=== PATIENT | female | born 1980 | race Two or more races ===

== ENCOUNTER 2020-05-22 15:27 | Outpatient (REF) | payer OTHER, SELFPAY ==
[2020-05-22 16:10] LABS: Hematocrit 35.3 % (37-47); Hemoglobin 12.5 g/dl (12.0-16.0); Imm Gran Abs Auto 0.02 X10*3/uL (0.00-0.03); Imm Gran Pct Auto 0.4 % (0.0-0.4); Lymphocytes Absolute Auto 0.2 X10*3/uL (1.2-4.9); Lymphocytes Percent Auto 5.3 % (20-40); MANUAL DIFF FLAG SCAN; Mean Corpuscular HGB Conc 35.4 g/dl (31.0-35.0); Mean Corpuscular Hemoglobin 32.2 pg (27.0-33.0); Mean Platelet Volume 10.5 fL (9.4-12.3); Monocytes Absolute Auto 0.2 X10*3/uL (0.1-1.2); Monocytes Percent Auto 3.3 % (2-11); Neutrophils Absolute Auto 4.1 X10*3/uL (2.0-8.3); Platelet Count 182 X10*3/uL (160-400); Red Blood Count 3.88 X10*6/uL (4.20-5.50); Red Cell Distribution Width 12.6 % (11.0-16.0); SCAN SMEAR FLAG 1; White Blood Count 4.5 X10*3/uL (4.8-10.8)
[2020-05-22 16:15] LABS: Glucose Urine UA NEG (NEG); Leukocyte Esterase Urine NEG (NEG); Nitrite Urine NEG (NEG); Specific Gravity - Urine >= 1.030 (1.005-1.025); Urine Blood 1+ (NEG); Urine Ketones 5 MG/DL (NEG); Urine Protein 3+ MG/DL (NEG-TRACE)
[2020-05-22 16:17] LABS: Appearance Urine CLEAR; Color Urine YELLOW
[2020-05-22 16:32] LABS: Alanine Aminotransferase 28 U/L (0-31); Albumin Level 3.9 g/dL (3.5-5.0); Anion Gap 12 (12-20); Aspartate Amino Transferase 29 U/L (5-31); Blood Urea Nitrogen 15 mg/dL (9-16); Calcium 8.7 mg/dL (8.4-10.2); Carbon Dioxide 25 mmol/L (22-29); Chloride 107 mmol/L (96-108); Estimated Glomerular Filt Rate 54; Potassium 3.5 mmol/l (3.3-5.1); Sodium 140 mmol/L (135-145)
[2020-05-22 16:43] LABS: SLIDE REVIEW VERIFIED
[2020-05-22 16:51] LABS: Squamous Epithelial Cell Urine TRACE /LPF
[2020-05-22 17:18] LABS: Protein/Creatinine Ratio, Ur 1.15 (<0.2); Total Protein Urine Random 338 mg/dL (<12)
[2020-05-23 11:11] LABS: Complement C3 74 mg/dL (83-193)
== END 2020-05-22 15:28 | disposition home or self-care (01) ==
LOC: HO.LAB 15:27
PROVIDERS: PCP Internal Medicine; Visit Provider Internal Medicine Hypertension Specialist
DX: M32.10 Systemic lupus erythematosus, organ or system involvement unspecified (principal); N03.2 Chronic nephritic syndrome with diffuse membranous glomerulonephritis
CPT/HCPCS: 36415; 80051; 81001; 82040; 82310; 82565; 84156; 84450; 84460; 84520; 85025; 86160

== ENCOUNTER 2020-11-21 14:28 | Emergency (ER) | payer OTHER, SELFPAY ==
--- NOTE | ~2020-11-21 | XR_ITS ---
EXAMINATION: XR CHEST CLINICAL INFORMATION: Chest pain COMPARISON: Previous chest x-ray most recent July 2019 TECHNIQUE: Frontal view of the chest was obtained. FINDINGS: No significant abnormality is noted involving the heart, lungs, mediastinum, bony thorax or soft tissues. XR/XR chest 1V IMPRESSION: Unremarkable examination.
--- NOTE | ~2020-11-21 | CT_ITS ---
EXAMINATION: CT ANGIOGRAM OF THE CHEST WITH AND WITHOUT CONTRAST (CT PULMONARY ANGIOGRAM FOR PE) CLINICAL INFORMATION: Reason for Exam Chest pain/elevated D-dimer COMPARISON: Chest radiograph from earlier in the same day TECHNIQUE: Prior to contrast administration, noncontrast localization images were obtained. Subsequently, multidetector volumetric imaging was performed from the thoracic inlet to below the diaphragms following the administration of 69 mL Omnipaque 350 intravenous contrast. No contrast reaction reported Sagittal, coronal, and MIP oblique sagittal reformatted images were obtained on the CT workstation, uploaded to PACS, and reviewed. This CT examination was performed using dose optimization techniques as appropriate, variously including the following: *Automated exposure control *Adjustment of mA and/or kV according to patient size (this includes techniques or standardized protocols for targeted exams where dose is matched to indication/reason for exam; i.e. extremities or head) *Use of iterative reconstruction technique Total exam dose-length product 334 mGy-cm FINDINGS: QUALITY OF STUDY/CONTRAST BOLUS: Satisfactory. PULMONARY ARTERIES: No central or segmental pulmonary emboli. THORACIC AORTA: No aneurysm or dissection. LUNG: Motion artifact degrades image quality. No consolidation or suspicious pulmonary nodules visualized within the limitations of the exam. PLEURA: No pleural effusion or pneumothorax. MEDIASTINUM: Heart size is upper limits of normal. No pericardial effusion. No hilar or mediastinal lymphadenopathy. No evidence of septal bowing or right heart strain. CHEST WALL/AXILLA: No axillary or internal mammary lymphadenopathy. OSSEOUS STRUCTURES: No acute or suspicious osseous abnormality. UPPER ABDOMEN: Unremarkable. No reflux of contrast into the hepatic veins to suggest elevated right heart pressures. CT/CT angio chest PE protocol IMPRESSION: No central or segmental pulmonary emboli. No acute abnormality in the chest. VTE: negative
[2020-11-21 14:48] VITALS: BP 154/116; PULSE 112; RESP 22; TEMP 37.6; O2SAT 100; BMI 27.8
--- NOTE | 2020-11-21 15:43 | ECG_ITS ---
Test Reason : CHEST PAIN Blood Pressure : / mmHG Vent. Rate : 101 BPM Atrial Rate : 101 BPM P-R Int : 142 ms QRS Dur : 070 ms QT Int : 346 ms P-R-T Axes : 028 -17 019 degrees QTc Int : 448 ms Sinus tachycardia Septal infarct , age undetermined Abnormal ECG When compared with ECG of 05-NOV-2006 15:00, Vent. rate has increased BY 43 BPM Septal infarct is now Present T wave amplitude has decreased in Lateral leads Referred By: Rodrigue Rodríguez Electronically Signed By:Paulo Howell
[2020-11-21] MEDS: 0.9 % Sodium Chloride 500 ML IV (16:21)
[2020-11-21 16:31] LABS: Basophils Percent Auto 0.3 % (0-2); Eosinophils Percent Auto 0.3 % (0-4); Hematocrit 31.7 % (37-47); Imm Gran Abs Auto 0.02 X10*3/uL (0.00-0.03); Imm Gran Pct Auto 0.5 % (0.0-0.4); Lymphocytes Absolute Auto 0.6 X10*3/uL (1.2-4.9); Lymphocytes Percent Auto 15.2 % (20-40); MANUAL DIFF FLAG SCAN; Mean Corpuscular HGB Conc 34.7 g/dl (31.0-35.0); Mean Corpuscular Volume 89.3 fL (80-98); Mean Platelet Volume 9.6 fL (9.4-12.3); Monocytes Absolute Auto 0.2 X10*3/uL (0.1-1.2); Monocytes Percent Auto 5.9 % (2-11); Neutrophils Percent Auto 77.8 % (45-73); Platelet Count 186 X10*3/uL (160-400); Red Blood Count 3.55 X10*6/uL (4.20-5.50); Red Cell Distribution Width 12.4 % (11.0-16.0); SCAN SMEAR FLAG 1; White Blood Count 3.9 X10*3/uL (4.8-10.8)
[2020-11-21 16:42] LABS: Prothrombin Time 11.6 SEC (10.8-13.0)
[2020-11-21 16:44] LABS: Glucose Urine UA NEG (NEG); Leukocyte Esterase Urine NEG (NEG); Nitrite Urine NEG (NEG); PH 7.5 (5.0-8.0); Partial Thromboplastin Time 29.2 SEC (24.1-38.0); Urine Blood 3+ (NEG); Urine Ketones NEG (NEG); Urine Protein 2+ MG/DL (NEG-TRACE)
[2020-11-21 16:45] LABS: D Dimer 420 NG/ML
[2020-11-21 16:46] VITALS: BP 135/87; PULSE 99; RESP 17; TEMP 37.7; O2SAT 100
[2020-11-21 16:46] LABS: UPreg QC Valid YES; Urine Pregnancy NEGATIVE (NEGATIVE)
[2020-11-21 16:47] LABS: Appearance Urine HAZY; Color Urine YELLOW
[2020-11-21 16:50] LABS: SLIDE REVIEW VERIFIED
[2020-11-21 17:02] LABS: Alanine Aminotransferase 17 U/L (0-31); Albumin Level 3.5 g/dL (3.5-5.0); Alkaline Phosphatase 79 U/L (39-117); Anion Gap 9 (12-20); Aspartate Amino Transferase 24 U/L (5-31); Bilirubin Total 0.7 mg/dL (0.0-1.0); Blood Urea Nitrogen 10 mg/dL (9-16); C Reactive Protein 0.79 mg/dL (< or = 0.50); Calcium 8.1 mg/dL (8.4-10.2); Carbon Dioxide 28 mmol/L (22-29); Chloride 96 mmol/L (96-108); Creatinine Clr Calc Pharmacy 71.5; Estimated Glomerular Filt Rate > 60; Glucose Random 86 mg/dL (60-115); Lactate Dehydrogenase 267 U/L (122-220); Potassium 3.2 mmol/L (3.3-5.1); Sodium 130 mmol/L (135-145); Total Protein 6.7 g/dL (6.5-8.0)
[2020-11-21 17:05] LABS: Troponin-I High Sensitivity 9.4 ng/L (<3.5-17.0)
[2020-11-21 17:20] LABS: Ferritin 319 ng/mL (10-122)
[2020-11-21 17:24] LABS: Renal Epithelial Cells Urine 1+ /LPF; Squamous Epithelial Cell Urine 2+ /LPF
[2020-11-21 17:58] VITALS: BP 145/98; PULSE 100; RESP 11; TEMP 37.4; O2SAT 99
[2020-11-21 19:14] LABS: Influenza A PCR NEGATIVE (Negative); Influenza B PCR NEGATIVE (Negative); Resp Syncy Virus RNA Qual PCR NEGATIVE (Negative); SARS COV2 PCR INHOUSE NEGATIVE (Negative)
[2020-11-21] MEDS: Potassium Chloride ER 20 MEQ TAB.ER.PRT 40 MEQ PO (19:26)
[2020-11-21] MEDS: Acetaminophen 325 MG TABLET 650 MG PO (19:26)
--- NOTE | 2020-11-21 20:35 | ED_ITS ---
HPI - General Adult General Chief complaint: Nausea/Vomiting/Diarrhea Stated complaint: fever Time Seen by Provider: 11/21/20 15:43 Source: patient Mode of arrival: ambulatory Limitations: no limitations History of Present Illness HPI narrative: * 32-year-old female who reports history of hypertension, lupus, carpal tunnel who presents with constellation of symptoms couple days he has had body aches, chills, myalgia, congestion, right ear pain as well as headache and feeling like she is not drinking enough and also her blood pressure has been running high. Positive recent travel she did come back from [place] 2 weeks ago after spending a week there. Onset (ago): day(s) Location: head, face and chest Severity: moderate Quality: aching Pain Consistency: constant Associated symptoms: chest pain (Intermittent ache like), fever/chills (Subjective) and headaches (Gradual over the last couple days) Treatments prior to arrival: none Related Data Allergies Allergy/AdvReac Type Severity Reaction Status Date / Time hydrocodone Allergy Unknown UNKNOWN Unverified 05/08/20 15:33 oxycodone [OXYCODONE] Allergy Unknown TONGUE Unverified 05/08/20 15:33 SWELLING Review of Systems Review of Systems: Constitutional: No Weight loss, No Night Sweats, No Fatigue, No Malaise ENT/Mouth: No Hearing loss, No Ear Pain, + Nasal Congestion, No Sinus Pain, No Hoarseness, No sore throat, No Rhinorrhea, No Swallowing Difficulty Eyes: No Eye Pain, No Swelling, No Redness, No Foreign Body, No Discharge, No Vision Changes Cardiovascular: No SOB, No Dyspnea on Exertion, No Orthopnea, No Edema, No Pa lpitations Respiratory: + Cough, No Sputum, No Wheezing, No Smoke Exposure, No Dyspnea Gastrointestinal: No Nausea, No Vomiting, No Diarrhea, No Constipation, No abdominal Pain, No Hematochezia, No Melena Genitourinary: no irregular bleeding, No Dysuria, No Urinary Frequency, No Hematuria, No Urinary Incontinence, No Urgency, No Flank Pain, No Urinary Flow Changes, No Hesitancy Musculoskeletal: No joint pain, + Myalgias, No Joint Swelling Skin: No Skin Lesions, No rash Neuro: No Weakness, No Numbness, No Paresthesias, No Loss of Consciousness, No Dizziness, No Headache Psych: Positive anxiety ?I feel anxious and some of this can be me working myself up? No Social Issues Heme/Lymph: No Bruising, No Bleeding,No Lymphadenopathy Endocrine: No Polyuria, No Polydipsia, No Temperature Intolerance Yes all other systems are reviewed and are negative [facility] Past Medical History Medical History HTN (hypertension) Lupus Social History Social History Advance Directives: No Advance Directives Information Provided: Yes Physical Exam Vital Signs: Vital Signs: Last Vital Signs Temp 98.4 F 11/21/20 21:03 Pulse 94 11/21/20 21:03 Resp 12 11/21/20 21:03 BP 143/100 H 11/21/20 21:03 Pulse Ox 100 11/21/20 21:03 Body Mass Index 27.8 reviewed Const: General: cooperative; No acute distress or intoxicated appearing Nutritional Appearance: average body habitus Orientation/consciousness: patient oriented x3 HENMT: Head: Yes normal to inspection Ears: hearing grossly normal bilaterally Face and sinus: Yes sinuses nontender (Frontal) Eyes: General: appearance normal, both eyes and all related structures Visual [place]: normal visual [place] by confrontation Neck: Neck: Yes normal visual inspection, No positive Brudzinski's sign, No positive Kernig's sign and No tender Thyroid: Thyroid normal Chest: Chest palpation & inspection: normal inspection of the chest Resp: Effort & Inspection: normal respiratory effort Auscultation: clear to auscultation bilaterally Cardio: Jugular venous distension: no JVD Rhythm: regular rhythm Heart sounds: S1 normal heart sound present and S2 normal heart sound present GI: Inspection: Yes normal to inspection Palpation (GI): Soft to palpation Percussion: Yes normal to percussion Auscultation: normal bowel sounds : General: Yes no CVA tenderness Back/Spine/Pelvis: Back: no CVA tenderness Skin: General skin exam: no rashes or lesions noted Neuro: General: patient oriented x3 Extrem: General: Yes normal to inspection Course Reevaluation(s) Reevaluation #1: Labs with slight hypokalemia repleted, given IV fluids otherwise labs at baseline, COVID negative. Chest x-ray unremarkable. D-dimer marginal at 420 the CTA chest PE rule out done and this was negative. Symptoms more consistent with viral syndrome. Medical Decision Making Lab Data Result diagrams: 11/21/20 16:18 04/02/21 16:18 Labs: Lab Results 11/21/20 11/21/20 11/21/20 Range/Units 16:18 16:18 16:18 WBC 3.9 L (4.8-10.8) X10*3/uL RBC 3.55 L (4.20-5.50) X10*6/uL Hgb 11.0 L (12.0-16.0) g/dl Hct 31.7 L (37-47) % MCV 89.3 (80-98) fL MCH 31.0 (27.0-33.0) pg MCHC 34.7 (31.0-35.0) g/dl RDW 12.4 (11.0-16.0) % Plt Count 186 (160-400) X10*3/uL MPV 9.6 (9.4-12.3) fL Immature Gran % (Auto) 0.5 H (0.0-0.4) % Neut % (Auto) 77.8 H (45-73) % Lymph % (Auto) 15.2 L (20-40) % [place] % (Auto) 5.9 (2-11) % Eos % (Auto) 0.3 (0-4) % Baso % (Auto) 0.3 (0-2) % Lymph # (Auto) 0.6 L (1.2-4.9) X10*3/uL [place] # (Auto) 0.2 (0.1-1.2) X10*3/uL Eos # (Auto) 0.0 (0.0-0.4) X10*3/uL Baso # (Auto) 0.0 (0.0-0.2) X10*3/uL Abs Immat Gran (auto) 0.02 (0.00-0.03) X10*3/uL Absolute Neuts (auto) 3.0 (2.0-8.3) X10*3/uL Absolute Nucleated RBC 0.000 (0.0-0.012) X10*3/uL Nucleated RBC % (auto) 0.0 (0.0-0.2) /100WBC Smear Tech's Comments VERIFIED PT 11.6 (10.8-13.0) SEC INR 1.0 (0.9-1.1) APTT 29.2 (24.1-38.0) SEC D-Dimer 420 NG/ML Sodium 130 L (135-145) mmol/L Potassium 3.2 L (3.3-5.1) mmol/L Chloride 96 (96-108) mmol/L Carbon Dioxide 28 (22-29) mmol/L Anion Gap 9 L (12-20) BUN 10 (9-16) mg/dL Creatinine 0.97 (0.5-1.4) mg/dL Estim Creat Clear Calc 71.5 Estimated GFR > 60 Random Glucose 86 (60-115) mg/dL Lactic Acid (0.5-2.0) mmol/L Calcium 8.1 L D (8.4-10.2) mg/dL Ferritin (10-122) ng/mL Total Bilirubin 0.7 (0.0-1.0) mg/dL AST 24 (5-31) U/L ALT 17 (0-31) U/L Alkaline Phosphatase 79 (39-117) U/L Lactate Dehydrogenase 267 H (122-220) U/L Troponin I High Sens (<3.5-17.0) ng/L C-Reactive Protein 0.79 H (< or = 0.50) mg/dL Total Protein 6.7 (6.5-8.0) g/dL Albumin 3.5 (3.5-5.0) g/dL Procalcitonin ng/mL Urine Color Urine Appearance Urine pH (5.0-8.0) Ur Specific [place] (1.005-1.025) Urine Protein (NEG-TRACE) MG/DL Urine Glucose (UA) (NEG) MG/DL Urine Ketones (NEG) MG/DL Urine Blood (NEG) Urine Nitrite (NEG) Ur Leukocyte Esterase (NEG) Urine RBC (0) /HPF Urine WBC (0-4) /HPF Ur Squamous Epith Cells /LPF Ur Renal Epithelial Cell /LPF Urine Bacteria /LPF Urine Test (NEGATIVE) Coronavirus (PCR) (Negative) Influenza Type A (PCR) (Negative) Influenza Type B (PCR) (Negative) RSV RNA Qual (PCR) (Negative) 11/21/20 11/21/20 11/21/20 Range/Units 16:18 16:18 16:18 WBC (4.8-10.8) X10*3/uL RBC (4.20-5.50) X10*6/uL Hgb (12.0-16.0) g/dl Hct (37-47) % MCV (80-98) fL MCH (27.0-33.0) pg MCHC (31.0-35.0) g/dl RDW (11.0-16.0) % Plt Count (160-400) X10*3/uL MPV (9.4-12.3) fL Immature Gran % (Auto) (0.0-0.4) % Neut % (Auto) (45-73) % Lymph % (Auto) (20-40) % [place] % (Auto) (2-11) % Eos % (Auto) (0-4) % Baso % (Auto) (0-2) % Lymph # (Auto) (1.2-4.9) X10*3/uL [place] # (Auto) (0.1-1.2) X10*3/uL Eos # (Auto) (0.0-0.4) X10*3/uL Baso # (Auto) (0.0-0.2) X10*3/uL Abs Immat Gran (auto) (0.00-0.03) X10*3/uL Absolute Neuts (auto) (2.0-8.3) X10*3/uL Absolute Nucleated RBC (0.0-0.012) X10*3/uL Nucleated RBC % (auto) (0.0-0.2) /100WBC Smear Tech's Comments PT (10.8-13.0) SEC INR (0.9-1.1) APTT (24.1-38.0) SEC D-Dimer NG/ML Sodium (135-145) mmol/L Potassium (3.3-5.1) mmol/L Chloride (96-108) mmol/L Carbon Dioxide (22-29) mmol/L Anion Gap (12-20) BUN (9-16) mg/dL Creatinine (0.5-1.4) mg/dL Estim Creat Clear Calc Estimated GFR Random Glucose (60-115) mg/dL Lactic Acid 1.0 (0.5-2.0) mmol/L Calcium (8.4-10.2) mg/dL Ferritin (10-122) ng/mL Total Bilirubin (0.0-1.0) mg/dL AST (5-31) U/L ALT (0-31) U/L Alkaline Phosphatase (39-117) U/L Lactate Dehydrogenase (122-220) U/L Troponin I High Sens 9.4 (<3.5-17.0) ng/L C-Reactive Protein (< or = 0.50) mg/dL Total Protein (6.5-8.0) g/dL Albumin (3.5-5.0) g/dL Procalcitonin ng/mL Urine Color Urine Appearance Urine pH (5.0-8.0) Ur Specific [place] (1.005-1.025) Urine Protein (NEG-TRACE) MG/DL Urine Glucose (UA) (NEG) MG/DL Urine Ketones (NEG) MG/DL Urine Blood (NEG) Urine Nitrite (NEG) Ur Leukocyte Esterase (NEG) Urine RBC (0) /HPF Urine WBC (0-4) /HPF Ur Squamous Epith Cells /LPF Ur Renal Epithelial Cell /LPF Urine Bacteria /LPF Urine Test (NEGATIVE) Coronavirus (PCR) NEGATIVE (Negative) Influenza Type A (PCR) NEGATIVE (Negative) Influenza Type B (PCR) NEGATIVE (Negative) RSV RNA Qual (PCR) NEGATIVE (Negative) 11/21/20 11/21/20 11/21/20 Range/Units 16:18 16:18 16:18 WBC (4.8-10.8) X10*3/uL RBC (4.20-5.50) X10*6/uL Hgb (12.0-16.0) g/dl Hct (37-47) % MCV (80-98) fL MCH (27.0-33.0) pg MCHC (31.0-35.0) g/dl RDW (11.0-16.0) % Plt Count (160-400) X10*3/uL MPV (9.4-12.3) fL Immature Gran % (Auto) (0.0-0.4) % Neut % (Auto) (45-73) % Lymph % (Auto) (20-40) % [place] % (Auto) (2-11) % Eos % (Auto) (0-4) % Baso % (Auto) (0-2) % Lymph # (Auto) (1.2-4.9) X10*3/uL [place] # (Auto) (0.1-1.2) X10*3/uL Eos # (Auto) (0.0-0.4) X10*3/uL Baso # (Auto) (0.0-0.2) X10*3/uL Abs Immat Gran (auto) (0.00-0.03) X10*3/uL Absolute Neuts (auto) (2.0-8.3) X10*3/uL Absolute Nucleated RBC (0.0-0.012) X10*3/uL Nucleated RBC % (auto) (0.0-0.2) /100WBC Smear Tech's Comments PT (10.8-13.0) SEC INR (0.9-1.1) APTT (24.1-38.0) SEC D-Dimer NG/ML Sodium (135-145) mmol/L Potassium (3.3-5.1) mmol/L Chloride (96-108) mmol/L Carbon Dioxide (22-29) mmol/L Anion Gap (12-20) BUN (9-16) mg/dL Creatinine (0.5-1.4) mg/dL Estim Creat Clear Calc Estimated GFR Random Glucose (60-115) mg/dL Lactic Acid (0.5-2.0) mmol/L Calcium (8.4-10.2) mg/dL Ferritin 319 H (10-122) ng/mL Total Bilirubin (0.0-1.0) mg/dL AST (5-31) U/L ALT (0-31) U/L Alkaline Phosphatase (39-117) U/L Lactate Dehydrogenase (122-220) U/L Troponin I High Sens (<3.5-17.0) ng/L C-Reactive Protein (< or = 0.50) mg/dL Total Protein (6.5-8.0) g/dL Albumin (3.5-5.0) g/dL Procalcitonin 0.10 ng/mL Urine Color YELLOW Urine Appearance HAZY Urine pH 7.5 (5.0-8.0) Ur Specific [place] 1.020 (1.005-1.025) Urine Protein 2+ H (NEG-TRACE) MG/DL Urine Glucose (UA) NEG (NEG) MG/DL Urine Ketones NEG (NEG) MG/DL Urine Blood 3+ H (NEG) Urine Nitrite NEG (NEG) Ur Leukocyte Esterase NEG (NEG) Urine RBC 10-14 H (0) /HPF Urine WBC 1-4 (0-4) /HPF Ur Squamous Epith Cells 2+ /LPF Ur Renal Epithelial Cell 1+ /LPF Urine Bacteria NONE /LPF Urine Test (NEGATIVE) Coronavirus (PCR) (Negative) Influenza Type A (PCR) (Negative) Influenza Type B (PCR) (Negative) RSV RNA Qual (PCR) (Negative) 11/21/20 Range/Units 16:18 WBC (4.8-10.8) X10*3/uL RBC (4.20-5.50) X10*6/uL Hgb (12.0-16.0) g/dl Hct (37-47) % MCV (80-98) fL MCH (27.0-33.0) pg MCHC (31.0-35.0) g/dl RDW (11.0-16.0) % Plt Count (160-400) X10*3/uL MPV (9.4-12.3) fL Immature Gran % (Auto) (0.0-0.4) % Neut % (Auto) (45-73) % Lymph % (Auto) (20-40) % [place] % (Auto) (2-11) % Eos % (Auto) (0-4) % Baso % (Auto) (0-2) % Lymph # (Auto) (1.2-4.9) X10*3/uL [place] # (Auto) (0.1-1.2) X10*3/uL Eos # (Auto) (0.0-0.4) X10*3/uL Baso # (Auto) (0.0-0.2) X10*3/uL Abs Immat Gran (auto) (0.00-0.03) X10*3/uL Absolute Neuts (auto) (2.0-8.3) X10*3/uL Absolute Nucleated RBC (0.0-0.012) X10*3/uL Nucleated RBC % (auto) (0.0-0.2) /100WBC Smear Tech's Comments PT (10.8-13.0) SEC INR (0.9-1.1) APTT (24.1-38.0) SEC D-Dimer NG/ML Sodium (135-145) mmol/L Potassium (3.3-5.1) mmol/L Chloride (96-108) mmol/L Carbon Dioxide (22-29) mmol/L Anion Gap (12-20) BUN (9-16) mg/dL Creatinine (0.5-1.4) mg/dL Estim Creat Clear Calc Estimated GFR Random Glucose (60-115) mg/dL Lactic Acid (0.5-2.0) mmol/L Calcium (8.4-10.2) mg/dL Ferritin (10-122) ng/mL Total Bilirubin (0.0-1.0) mg/dL AST (5-31) U/L ALT (0-31) U/L Alkaline Phosphatase (39-117) U/L Lactate Dehydrogenase (122-220) U/L Troponin I High Sens (<3.5-17.0) ng/L C-Reactive Protein (< or = 0.50) mg/dL Total Protein (6.5-8.0) g/dL Albumin (3.5-5.0) g/dL Procalcitonin ng/mL Urine Color Urine Appearance Urine pH (5.0-8.0) Ur Specific [place] (1.005-1.025) Urine Protein (NEG-TRACE) MG/DL Urine Glucose (UA) (NEG) MG/DL Urine Ketones (NEG) MG/DL Urine Blood (NEG) Urine Nitrite (NEG) Ur Leukocyte Esterase (NEG) Urine RBC (0) /HPF Urine WBC (0-4) /HPF Ur Squamous Epith Cells /LPF Ur Renal Epithelial Cell /LPF Urine Bacteria /LPF Urine Test NEGATIVE (NEGATIVE) Coronavirus (PCR) (Negative) Influenza Type A (PCR) (Negative) Influenza Type B (PCR) (Negative) RSV RNA Qual (PCR) (Negative) Imaging Data chest CTA: Radiologist's impression: [address] [id number] Scan ReportSigned Patient: Felipa NicholsonMR#: [id number]: 1980Acct:[id number]/Sex: 40 / FADM Date: 11/21/20Loc: HO.EDAttending Dr: Ordering Physician: Rodrigue Rodríguez NP Date of Service: 11/21/20 Procedure(s): CT angio chest PE protocol Accession Number(s): [id number] cc: Rodrigue Rodríguez SENIOR ASIC ENGINEER~ EXAMINATION: CT ANGIOGRAM OF THE CHEST WITH AND WITHOUT CONTRAST (CT PULMONARY ANGIOGRAM FOR PE) CLINICAL INFORMATION: Reason for Exam Chest pain/elevated D-dimer COMPARISON: Chest radiograph from earlier in the same day TECHNIQUE: Prior to contrast administration, noncontrast localization images were obtained. Subsequently, multidetector volumetric imaging was performed from the thoracic inlet to below the diaphragms following the administration of 69 mL Omnipaque 350 intravenous contrast. No contrast reaction reported Sagittal, coronal, and MIP oblique sagittal reformatted images were obtained on the CT workstation, uploaded to PACS, and reviewed. This CT examination was performed using dose optimization techniques as appropriate, variously including the following: *Automated exposure control *Adjustment of mA and/or kV according to patient size (this includes techniques or standardized protocols for targeted exams where dose is matched to indication/reason for exam; i.e. extremities or head) *Use of iterative reconstruction technique Total exam dose-length product 334 mGy-cm FINDINGS: QUALITY OF STUDY/CONTRAST BOLUS: Satisfactory. PULMONARY ARTERIES: No central or segmental pulmonary emboli. THORACIC AORTA: No aneurysm or dissection. LUNG: Motion artifact degrades image quality. No consolidation or suspicious pulmonary nodules visualized within the limitations of the exam. PLEURA: No pleural effusion or pneumothorax. MEDIASTINUM: Heart size is upper limits of normal. No pericardial effusion. No hilar or mediastinal lymphadenopathy. No evidence of septal bowing or right heart strain. CHEST WALL/AXILLA: No axillary or internal mammary lymphadenopathy. OSSEOUS STRUCTURES: No acute or suspicious osseous abnormality. UPPER ABDOMEN: Unremarkable. No reflux of contrast into the hepatic veins to suggest elevated right heart pressures. CT/CT angio chest PE protocol IMPRESSION: No central or segmental pulmonary emboli. No acute abnormality in the chest. VTE: negative Dictated By:MOIZ LOYD MDSigned By:<Electronically signed by MOIZ LOYD MD in OV>11/21/202012 DD/ 1909TD/TT: Bid Manager: KIMMY Chest x-ray: Radiologist's impression: [place] [address] [facility], [place] [address]JCag ReportSigned Patient: Felipa NicholsonMR#: [id number]: 1980Acct:[id number]/Sex: 40 / FADM Date: 11/21/20Loc: PAYAL.EDAttending Dr: Ordering Physician: Rodrigue Rodríguez NP Date of Service: 11/21/20 Procedure(s): XR chest 1V Accession Number(s): [id number] cc: Rodrigue Rodríguez SENIOR ASIC ENGINEER~ EXAMINATION: XR CHEST CLINICAL INFORMATION: Chest pain COMPARISON: Previous chest x-ray most recent July 2019 TECHNIQUE: Frontal view of the chest was obtained. FINDINGS: No significant abnormality is noted involving the heart, lungs, mediastinum, bony thorax or soft tissues. XR/XR chest 1V IMPRESSION: Unremarkable examination. Dictated By:JACQUE DISLA MDSigned By:<Electronically signed by JACQUE DISLA MD in OV>11/21/20 1650 DD/ 1543TD/TT: Bid Manager: MARISEL ECG Data Interpretation: Sinus tachycardia Rate 101 Septal infarct , age undetermined When compared with ECG of 05-NOV-2006 15:00, Vent. rate has increased BY 43 BPM Septal infarct is now Present T wave amplitude has decreased in Lateral leads Discharge Plan Discharge Clinical Impression: Acute viral syndrome Patient Disposition: Home, Self-Care Instructions: Earache (ED), Viral Syndrome (ED) Additional Instructions: Your COVID test negative CT scan of the chest did not show any evidence of blood clot Your symptoms are more consistent with viral type infection though your COVID test was negative I would recommend you quarantine yourself and supportive care as discussed Return if any concerns or worsening symptoms otherwise follow-up with her primary care doctor via phone visit in the next 5-7 days Thank you Referrals: Maria T Ac MD [Primary Care Provider] - 1 week (Phone visit)
[2020-11-21 21:03] VITALS: BP 143/100; PULSE 94; RESP 12; TEMP 36.9; O2SAT 100
[2020-11-21 21:21] LABS: Troponin-I High Sensitivity 10.5 ng/L (<3.5-17.0)
== END 2020-11-21 21:45 | disposition home or self-care (01) ==
PROVIDERS: Nurse Practitioner Primary Care; Emergency Provider Emergency Medicine; PCP Internal Medicine
DX: B34.9 Viral infection, unspecified (principal); Z20.822 Contact with and (suspected) exposure to COVID-19; R07.9 Chest pain, unspecified; H92.01 Otalgia, right ear; R51.9 Headache, unspecified; R50.9 Fever, unspecified; I10 Essential (primary) hypertension; M32.9 Systemic lupus erythematosus, unspecified
CPT/HCPCS: 0241U; 36415; 71045; 71275; 80053; 81001; 81025; 82728; 83605; 83615; 84145; 84484; 85025; 85379; 85610; 85730; 86140; 87040; 93005; 96360; 99284; Q9967

== ENCOUNTER 2020-11-26 08:18 | Outpatient (REF) | payer OTHER, SELFPAY ==
[2020-11-26 10:03] LABS: Alanine Aminotransferase 45 U/L (0-31); Albumin Level 3.4 g/dL (3.5-5.0); Alkaline Phosphatase 80 U/L (39-117); Anion Gap 10 (12-20); Aspartate Amino Transferase 38 U/L (5-31); Bilirubin Total 0.3 mg/dL (0.0-1.0); Blood Urea Nitrogen 19 mg/dL (9-16); Calcium 8.7 mg/dL (8.4-10.2); Carbon Dioxide 27 mmol/L (22-29); Chloride 106 mmol/L (96-108); Estimated Glomerular Filt Rate 50; Glucose Random 76 mg/dL (60-115); Potassium 4.3 mmol/L (3.3-5.1); Sodium 139 mmol/L (135-145); Total Protein 6.5 g/dL (6.5-8.0)
== END 2020-11-26 08:19 | disposition home or self-care (01) ==
LOC: HO.LAB 08:18
PROVIDERS: PCP Internal Medicine; Visit Provider Internal Medicine
DX: E87.6 Hypokalemia (principal); H81.12 Benign paroxysmal vertigo, left ear; I10 Essential (primary) hypertension; R00.0 Tachycardia, unspecified; R11.10 Vomiting, unspecified
CPT/HCPCS: 36415; 80053

== ENCOUNTER 2021-01-30 15:34 | Outpatient (REF) | payer OTHER, SELFPAY ==
[2021-01-30 17:09] LABS: Anion Gap 11 (12-20); Blood Urea Nitrogen 23 mg/dL (9-16); Calcium 8.4 mg/dL (8.4-10.2); Carbon Dioxide 26 mmol/L (22-29); Chloride 106 mmol/L (96-108); Estimated Glomerular Filt Rate 60; Potassium 4.1 mmol/L (3.3-5.1); Sodium 139 mmol/L (135-145)
[2021-01-30 17:11] LABS: Creatinine Urine 127.35 mg/dL; Protein/Creatinine Ratio, Ur 0.43 (<0.2); Total Protein Urine Random 55 mg/dL (<12)
== END 2021-01-30 15:35 | disposition home or self-care (01) ==
LOC: HO.LAB 15:34
PROVIDERS: PCP Internal Medicine; Visit Provider Internal Medicine Hypertension Specialist
DX: N03.9 Chronic nephritic syndrome with unspecified morphologic changes (principal)
CPT/HCPCS: 36415; 80051; 82310; 82565; 84156; 84520

== ENCOUNTER 2021-05-14 07:42 | Outpatient (REF) | payer OTHER, SELFPAY ==
[2021-05-14 08:40] LABS: Anion Gap 11 (12-20); Blood Urea Nitrogen 19 mg/dL (9-16); Calcium 8.6 mg/dL (8.4-10.2); Carbon Dioxide 24 mmol/L (22-29); Chloride 110 mmol/L (96-108); Estimated Glomerular Filt Rate 51; Potassium 4.1 mmol/L (3.3-5.1); Sodium 141 mmol/L (135-145)
[2021-05-14 10:51] LABS: Creatinine Urine 144.08 mg/dL; Protein/Creatinine Ratio, Ur 0.57 (<0.2); Total Protein Urine Random 82 mg/dL (<12)
== END 2021-05-14 07:43 | disposition home or self-care (01) ==
LOC: HO.LAB 07:42
PROVIDERS: PCP Internal Medicine; Visit Provider Internal Medicine Hypertension Specialist
DX: N03.9 Chronic nephritic syndrome with unspecified morphologic changes (principal)
CPT/HCPCS: 36415; 80051; 82310; 82565; 84156; 84520

== ENCOUNTER 2021-06-24 10:11 | Outpatient (REF) | payer OTHER, SELFPAY ==
[2021-06-24 10:29] LABS: MANUAL DIFF FLAG NO
[2021-06-24 10:49] LABS: Eosinophils Percent Auto 0.2 % (0-4); Hematocrit 31.6 % (37.0-47.0); Hemoglobin 10.7 g/dl (12.0-16.0); Imm Gran Abs Auto 0.04 X10*3/uL (0.00-0.03); Imm Gran Pct Auto 0.7 % (0.0-0.4); Lymphocytes Absolute Auto 0.9 X10*3/uL (1.2-4.9); Lymphocytes Percent Auto 16.6 % (20-40); Mean Corpuscular HGB Conc 33.9 g/dl (31.0-35.0); Mean Corpuscular Hemoglobin 30.7 pg (27.0-33.0); Mean Corpuscular Volume 90.5 fL (80.0-98.0); Mean Platelet Volume 9.5 fL (9.4-12.3); Monocytes Absolute Auto 0.4 X10*3/uL (0.1-1.2); Neutrophils Absolute Auto 3.99 x10*3/uL (2.0-8.3); Neutrophils Percent Auto 74.5 % (45-73); Platelet Count 244 X10*3/uL (160-400); Red Blood Count 3.49 X10*6/uL (4.20-5.50); White Blood Count 5.4 X10*3/uL (4.8-10.8)
[2021-06-24 11:18] LABS: Alanine Aminotransferase 23 U/L (0-31); Albumin Level 3.4 g/dL (3.5-5.0); Alkaline Phosphatase 66 U/L (39-117); Anion Gap 11 (12-20); Aspartate Amino Transferase 22 U/L (5-31); Bilirubin Total 0.2 mg/dL (0.0-1.0); Blood Urea Nitrogen 18 mg/dL (9-16); Calcium 8.6 mg/dL (8.4-10.2); Carbon Dioxide 24 mmol/L (22-29); Chloride 110 mmol/L (96-108); Cholesterol 164 mg/dL; Estimated Glomerular Filt Rate 57; Glucose Random 85 mg/dL (60-115); HDL Cholesterol 44 mg/dL; LDL Cholesterol Calculated 93 mg/dl; Potassium 3.6 mmol/L (3.3-5.1); Sodium 141 mmol/L (135-145); Total Protein 6.3 g/dL (6.5-8.0); Triglycerides 139 mg/dL
[2021-06-24 12:27] LABS: Creatinine Urine 104.02 mg/dL; Protein/Creatinine Ratio, Ur 1.01 (<0.2); Total Protein Urine Random 105 mg/dL (<12)
== END 2021-06-24 10:12 | disposition home or self-care (01) ==
LOC: HO.LAB 10:11
PROVIDERS: PCP Internal Medicine; Visit Provider Internal Medicine
DX: Z00.00 Encounter for general adult medical examination without abnormal findings (principal); F90.9 Attention-deficit hyperactivity disorder, unspecified type; I12.0 Hypertensive chronic kidney disease with stage 5 chronic kidney disease or end stage renal disease; M32.9 Systemic lupus erythematosus, unspecified
CPT/HCPCS: 36415; 80053; 80061; 84156; 85025

== ENCOUNTER 2021-08-24 14:17 | Outpatient (REF) | payer OTHER, SELFPAY ==
[2021-08-24 14:45] LABS: Hematocrit 36.1 % (37.0-47.0); Mean Corpuscular HGB Conc 33.2 g/dl (31.0-35.0); Mean Corpuscular Hemoglobin 30.4 pg (27.0-33.0); Mean Corpuscular Volume 91.4 fL (80.0-98.0); Platelet Count 279 X10*3/uL (160-400); Red Blood Count 3.95 X10*6/uL (4.20-5.50); Red Cell Distribution Width 12.1 % (11.0-16.0); White Blood Count 7.7 X10*3/uL (4.8-10.8)
[2021-08-24 15:09] LABS: Alanine Aminotransferase 22 U/L (0-31); Albumin Level 3.5 g/dL (3.5-5.0); Alkaline Phosphatase 67 U/L (39-117); Anion Gap 10 (12-20); Aspartate Amino Transferase 20 U/L (5-31); Bilirubin Total < 0.2 mg/dL (0.0-1.0); Blood Urea Nitrogen 17 mg/dL (9-16); Calcium 8.7 mg/dL (8.4-10.2); Carbon Dioxide 27 mmol/L (22-29); Chloride 110 mmol/L (96-108); Estimated Glomerular Filt Rate 47; Glucose Random 97 mg/dL (60-115); Potassium 3.9 mmol/L (3.3-5.1); Sodium 143 mmol/L (135-145); Total Protein 6.7 g/dL (6.5-8.0)
== END 2021-08-24 14:18 | disposition home or self-care (01) ==
LOC: HO.LAB 14:17
PROVIDERS: PCP Internal Medicine; Visit Provider Internal Medicine Hypertension Specialist
DX: M32.14 Glomerular disease in systemic lupus erythematosus (principal)
CPT/HCPCS: 36415; 80053; 85027

== ENCOUNTER 2021-11-26 11:10 | Outpatient (REF) | payer OTHER, SELFPAY ==
[2021-11-26 11:50] LABS: MANUAL DIFF FLAG NO
[2021-11-26 12:05] LABS: Basophils Percent Auto 0.2 % (0-2); Eosinophils Percent Auto 0.2 % (0-4); Hematocrit 31.1 % (37.0-47.0); Hemoglobin 10.4 g/dl (12.0-16.0); Imm Gran Abs Auto 0.03 X10*3/uL (0.00-0.03); Imm Gran Pct Auto 0.5 % (0.0-0.4); Lymphocytes Absolute Auto 1.1 X10*3/uL (1.2-4.9); Lymphocytes Percent Auto 16.5 % (20-40); Mean Corpuscular HGB Conc 33.4 g/dl (31.0-35.0); Mean Corpuscular Hemoglobin 30.4 pg (27.0-33.0); Mean Corpuscular Volume 90.9 fL (80.0-98.0); Mean Platelet Volume 9.4 fL (9.4-12.3); Monocytes Absolute Auto 0.4 X10*3/uL (0.1-1.2); Monocytes Percent Auto 6.6 % (2-11); Platelet Count 253 X10*3/uL (160-400); Red Blood Count 3.42 X10*6/uL (4.20-5.50); Red Cell Distribution Width 13.4 % (11.0-16.0); White Blood Count 6.6 X10*3/uL (4.8-10.8)
[2021-11-26 12:33] LABS: Alanine Aminotransferase 14 U/L (0-31); Albumin Level 3.3 g/dL (3.5-5.0); Alkaline Phosphatase 51 U/L (39-117); Anion Gap 12 (12-20); Aspartate Amino Transferase 21 U/L (5-31); Bilirubin Total 0.5 mg/dL (0.0-1.0); Blood Urea Nitrogen 14 mg/dL (9-16); Calcium 8.7 mg/dL (8.4-10.2); Carbon Dioxide 24 mmol/L (22-29); Chloride 107 mmol/L (96-108); Estimated Glomerular Filt Rate 41; Glucose Random 107 mg/dL (60-115); Potassium 3.7 mmol/L (3.3-5.1); Sodium 139 mmol/L (135-145); Total Protein 6.3 g/dL (6.5-8.0)
[2021-11-26 12:53] LABS: Ferritin 102 ng/mL (10-122)
[2021-11-26 13:03] LABS: Vitamin B12 187 pg/mL (200-900)
== END 2021-11-26 11:11 | disposition home or self-care (01) ==
LOC: HO.LAB 11:10
PROVIDERS: Absent Provider Internal Medicine; PCP Internal Medicine; Visit Provider Internal Medicine Hypertension Specialist
DX: N39.0 Urinary tract infection, site not specified (principal); D63.8 Anemia in other chronic diseases classified elsewhere; F90.9 Attention-deficit hyperactivity disorder, unspecified type; I10 Essential (primary) hypertension; R05.3 Chronic cough; M32.14 Glomerular disease in systemic lupus erythematosus
CPT/HCPCS: 36415; 80053; 82607; 82728; 85025; 87086

== ENCOUNTER 2021-11-27 06:50 | Emergency (ER) | payer OTHER, SELFPAY ==
--- NOTE | ~2021-11-27 | XR_ITS ---
EXAMINATION: XR CHEST CLINICAL INFORMATION: Cough, URI. COMPARISON: 11/21/2020 chest radiograph. TECHNIQUE: Frontal view of the chest was obtained. FINDINGS: No significant abnormality is noted involving the heart, lungs, mediastinum, bony thorax or soft tissues. XR/XR chest 1V IMPRESSION: No acute cardiopulmonary process.
[2021-11-27 07:30] VITALS: BP 172/98; PULSE 120; RESP 16; TEMP 36.7; O2SAT 100; BMI 31.1
[2021-11-27 08:00] VITALS: PULSE 120
--- NOTE | 2021-11-27 08:35 | ECG_ITS ---
Test Reason : tachyacrdia Blood Pressure : / mmHG Vent. Rate : 106 BPM Atrial Rate : 106 BPM P-R Int : 134 ms QRS Dur : 074 ms QT Int : 340 ms P-R-T Axes : 012 -09 005 degrees QTc Int : 451 ms Sinus tachycardia Otherwise normal ECG When compared with ECG of 21-NOV-2020 16:01, No significant change was found Referred By: Myrna Thibodeaux Electronically Signed By:ESPERANZA DIAL MD
[2021-11-27] MEDS: Metoclopramide HCl 10 MG/2 ML VIAL IVPUSH (08:54)
[2021-11-27] MEDS: diphenhydrAMINE HCL 50 MG/ML VIAL 12.5 MG IVPUSH (08:54)
[2021-11-27] MEDS: Ketorolac Tromethamine 15 MG/ML VIAL IVPUSH (08:54)
[2021-11-27] MEDS: 0.9 % Sodium Chloride 1,000 ML 999 ML IV ×2 (08:55→09:39)
[2021-11-27 09:33] LABS: COVID-19 Test Negative (Negative); IDNOW Serial# 55D5AD1C
[2021-11-27 09:34] LABS: Influenza A Negative (Negative); Influenza B2 Negative (Negative)
[2021-11-27] MEDS: Cyclobenzaprine HCl 10 MG TABLET PO (09:38)
[2021-11-27 09:47] VITALS: BP 146/93; PULSE 103; TEMP 36.8; O2SAT 97
--- NOTE | 2021-11-27 10:14 | PC.NURSE ---
PT AMBULATED TO BATHROOM 30 FT AND BACK TO ROOM WITHOUT ANY DIFFICULTY.
--- NOTE | 2021-11-27 10:38 | ED_ITS ---
HPI - General Adult General Chief complaint: General Medical Stated complaint: back pain Time Seen by Provider: 11/27/21 08:04 Source: patient Mode of arrival: ambulatory History of Present Illness HPI narrative: 41-year-old female with a past medical history of hypertension, lupus presenting to the ED complaining of bilateral low back pain radiating down bilateral LE x3 days. Denies known injury/trauma or fall. Reports saw PCP yesterday had outpatient labs due to URI symptoms and dysuria, currently on Azithromycin. Reports nonproductive cough and headache Denies CP, SOB, fever, chills, urinary incontinence/retention, numbness, tingling, weakness, vision change/loss Onset (ago): day(s) Related Data Previous Rx's Medication Instructions Recorded acetaminophen 500 mg tablet 500 mg PO Q6H PRN #20 tab 11/27/21 (Tylenol Extra Strength) cyclobenzaprine 5 mg tablet 5 mg PO Q8H PRN 5 Days #14 tab 11/27/21 lidocaine 5 % topical patch 1 patch TOPICAL DAILY PRN #30 ea 11/27/21 (Lidoderm) MDD remove after 12 hours naproxen 500 mg tablet 500 mg PO BID PRN 10 Days #20 tab 11/27/21 Allergies Allergy/AdvReac Type Severity Reaction Status Date / Time hydrocodone Allergy Unknown UNKNOWN Unverified 05/08/20 15:33 oxycodone [OXYCODONE] Allergy Unknown TONGUE Unverified 05/08/20 15:33 SWELLING Review of Systems Review of Systems: Constitutional: No Fever, No Chills ENT/Mouth: No Ear Pain, No Nasal Congestion, No Sinus Pain, No Hoarseness, No sore throat, + Rhinorrhea, No Swallowing Difficulty Cardiovascular: No Chest Pain, No SOB Respiratory: + Cough, No Sputum, No Wheezing Gastrointestinal: No Nausea, No Vomiting, No Diarrhea, No Constipation, No Abdominal pain Genitourinary: + Dysuria, No Urinary Frequency, No Hematuria, No Urinary Incontinence/retention, No Urgency, No Flank Pain Musculoskeletal: + joint pain, No Myalgias, No Joint Swelling Skin: No Skin Lesions, No rash Neuro: No Weakness, No Numbness, No Paresthesias, +headache Yes all other systems are reviewed and are negative Neurologic: Denies Sensory deficit (Neuro) [facility] Past Medical History Attestation statement: The following information was validated with the patient. Medical History HTN (hypertension) Lupus Social History Social History Advance Directives: No Advance Directives Information Provided: Yes Physical Exam ED Vital Signs: Vital Signs - 24 hr 11/27/21 07:30 11/27/21 08:00 11/27/21 09:47 Temperature 98.0 F 98.3 F Pulse Rate 120 H 120 H 103 H Respiratory Rate 16 Blood Pressure 172/98 H 146/93 H Pulse Oximetry 100 97 BMI result Body Mass Index 31.1 Const Other: Anxious, appears in pain General: cooperative, healthy appearing and no acute distress Orientation/consciousness: patient oriented x3 Limitations: no limitations HENMT Head: Yes normal to inspection and Yes atraumatic Ears: hearing grossly normal bilaterally General nose exam: Normal external nose present Face and sinus: Yes normal facial exam Eyes General: appearance normal, both eyes and all related structures Pupils: Equal, round and reactive pupils present EOM: EOMs intact bilaterally Neck Neck: Yes normal visual inspection, Yes no meningeal signs and Yes supple Resp Effort & Inspection: normal respiratory effort and no respiratory distress Auscultation: clear to auscultation bilaterally, no rales, no rhonchi and no wheezes Cardio Rate: regular rate Heart sounds: S1 normal heart sound present and S2 normal heart sound present GI Inspection: Yes normal to inspection Palpation (GI): Soft to palpation, nontender, no guarding and not rigid General: Yes no CVA tenderness Back/Spine/Pelvis Other: No midline thoracic/lumbar spinous tenderness/step-off or deformity. Bilateral lumbar paraspinal/MSK tenderness to palpation reproducing subjective complaints Back: no CVA tenderness Skin Rashes: no rashes Wounds: no wounds Neuro Other: Ambulating with steady gait. No saddle anesthesia. No focal neuro deficits. General: patient oriented x3, gait normal, tone normal, moves all extremities, no meningeal signs, no focal motor deficits and CN's II-XI intact bilaterally Cranial nerves: Yes Equal, round and reactive pupils present Gait exam (Neuro): Normal gait present Motor exam (neuro): 5/5 motor strength present throughout and Normal motor muscle tone present throughout Sensory Exam: No Sensory deficit (Neuro) Extrem General: Yes normal to inspection Course Course Course Narrative: -labs reviewed from yesterday and only notable for creatinine 1.42, otherwise unremarkable -patient negative for COVID-19 and influenza. CXR unremarkable >1040--on re-evaluation patient reports symptomatic improvement, discussed worrisome signs and symptoms and strict return precautions and needed close follow-up with PCP Medical Decision Making MDM Narrative Medical decision making narrative: 41-year-old female with a past medical history of hypertension, lupus presenting to the ED complaining of bilateral low back pain radiating down bilateral LE x3 days. On exam tachycardic, anxious, tearful, appears in pain, no midline spinous tenderness throughout, no red flag symptoms, no focal neuro deficits, no saddle anesthesia. Concern for viral syndrome/COVID-19/influenza. Rule out pneumonia. Concern for MSK back pain/strain for sciatica. Unlikely cauda equina/cord compression or fracture. Low concern for epidural abscess, no CVA tenderness, low concern for pyelo Plan: EKG, review labs from yesterday, CXR, COVID-19/influenza testing, IVF, symptomatic treatment, re-evaluate Medical Records Medical records reviewed: Yes I reviewed the patient's medical records. Lab Data Lab results reviewed: Yes I reviewed the patient's lab results. Labs: Lab Results 11/27/21 11/27/21 Range/Units 09:14 09:14 COVID-19 (KAVYA) Negative (Negative) COVID-19 Clin Com See Note Influenza Type A (JESSICA) Negative (Negative) Influenza Type B (JESSICA) Negative (Negative) Influenza A & B Note See Note ECG Data Attestation: I personally reviewed and interpreted this ECG as follows: Interpretation: EKG sinus tachycardia rate of 106, NM interval 134, QRS 74. No STEMI/nonischemic Discharge Plan Discharge Clinical Impression: Low back pain, Headache Patient Disposition: Home, Self-Care Instructions: Acute Headache (DC), Acute Low Back Pain (ED) Additional Instructions: Chest x-ray was unremarkable. you tested negative for COVID-19 and the flu Your pain is likely musculoskeletal Flexeril is a muscle relaxer, take at night as it makes you drowsy, do not drive, drink alcohol, or operate machinery while taking it Naproxen as an anti-inflammatory / pain medication, take with food Lidoderm patches are numbing patches, apply to painful area In addition take Tylenol at home If symptoms persist or worsen, pain becomes unbearable, you developed urinary retention or incontinence, or weakness return to the ED Prescriptions: New acetaminophen [Tylenol Extra Strength] 500 mg tablet 500 mg PO Q6H PRN (Reason: pain or fever) Qty: 20 0RF lidocaine [Lidoderm] 5 % adhesive patch,medicated 1 patch topical DAILY MDD remove after 12 hours PRN (Reason: pain) Qty: 30 0RF Rx Instructions: leave on most painful area for up to 12 hrs naproxen 500 mg tablet 500 mg PO BID PRN (Reason: pain) 10 Days Qty: 20 0RF cyclobenzaprine 5 mg tablet 5 mg PO Q8H PRN (Reason: pain (scale score 7-10)) 5 Days Qty: 14 0RF Referrals: Physician,Unknown J [Primary Care Provider] -
[2021-11-27 10:55] VITALS: RESP 18
== END 2021-11-27 10:56 | disposition home or self-care (01) ==
PROVIDERS: Physician Assistant; Emergency Provider Emergency Medicine
DX: M54.50 Low back pain, unspecified (principal); I10 Essential (primary) hypertension; M32.9 Systemic lupus erythematosus, unspecified; R51.9 Headache, unspecified; Z20.822 Contact with and (suspected) exposure to COVID-19; Z79.899 Other long term (current) drug therapy
CPT/HCPCS: 71045; 87502; 87635; 93005; 96361; 96374; 96375; 99284; J1200; J1885; J2765

== ENCOUNTER 2022-01-29 17:06 | Outpatient (REF) | payer OTHER, SELFPAY ==
[2022-02-03 06:02] LABS: Complement C3 36 mg/dL (83-193)
[2022-02-03 14:22] LABS: Anti Nuclear Antibody Screen NEGATIVE (NEGATIVE)
[2022-02-05 06:52] LABS: Anti Glomerular Basement Memb <1.0 AI
[2022-02-09 12:01] LABS: Neutrophil Cyto Ab Screen C-ANCA POS (NEGATIVE)
== END 2022-01-29 17:07 | disposition home or self-care (01) ==
LOC: HO.LAB 17:06
PROVIDERS: PCP Internal Medicine; Visit Provider Internal Medicine Hypertension Specialist
DX: M32.14 Glomerular disease in systemic lupus erythematosus (principal)
CPT/HCPCS: 36415; 83520; 86036; 86037; 86038; 86039; 86160

== ENCOUNTER 2022-03-11 07:50 | Outpatient (REF) | payer OTHER, SELFPAY ==
[2022-03-11 08:08] LABS: MANUAL DIFF FLAG NO
[2022-03-11 08:52] LABS: Basophils Percent Auto 0.2 % (0-2); Eosinophils Percent Auto 0.5 % (0-4); Hematocrit 32.2 % (37.0-47.0); Hemoglobin 10.8 g/dl (12.0-16.0); Imm Gran Abs Auto 0.01 X10*3/uL (0.00-0.03); Imm Gran Pct Auto 0.2 % (0.0-0.4); Lymphocytes Absolute Auto 1.3 X10*3/uL (1.2-4.9); Mean Corpuscular HGB Conc 33.5 g/dl (31.0-35.0); Mean Corpuscular Hemoglobin 30.3 pg (27.0-33.0); Mean Corpuscular Volume 90.2 fL (80.0-98.0); Mean Platelet Volume 9.9 fL (9.4-12.3); Monocytes Absolute Auto 0.3 X10*3/uL (0.1-1.2); Neutrophils Absolute Auto 2.6 x10*3/uL (2.0-8.3); Neutrophils Percent Auto 61.1 % (45-73); Platelet Count 258 X10*3/uL (160-400); Red Blood Count 3.57 X10*6/uL (4.20-5.50); Red Cell Distribution Width 12.9 % (11.0-16.0); White Blood Count 4.2 X10*3/uL (4.8-10.8)
[2022-03-11 09:27] LABS: Anion Gap 10 (12-20); Blood Urea Nitrogen 15 mg/dL (9-16); Carbon Dioxide 26 mmol/L (22-29); Chloride 109 mmol/L (96-108); Estimated Glomerular Filt Rate 39; Glucose Random 76 mg/dL (60-115); Potassium 3.6 mmol/L (3.3-5.1); Sodium 141 mmol/L (135-145)
[2022-03-11 10:54] LABS: Appearance Urine HAZY; Color Urine YELLOW; Glucose Urine UA NEG (NEG); Leukocyte Esterase Urine NEG (NEG); Nitrite Urine NEG (NEG); Urine Blood 3+ (NEG); Urine Ketones NEG (NEG); Urine Protein 2+ MG/DL (NEG-TRACE)
[2022-03-11 11:27] LABS: Bacteria Urine TRACE /LPF; Squamous Epithelial Cell Urine 4+ /LPF
[2022-03-11 11:58] LABS: Creatinine Urine 126.39 mg/dL; Protein/Creatinine Ratio, Ur 1.22 (<0.2); Total Protein Urine Random 154 mg/dL (<12)
== END 2022-03-11 07:51 | disposition home or self-care (01) ==
LOC: HO.LAB 07:50
PROVIDERS: PCP Internal Medicine; Visit Provider Internal Medicine Hypertension Specialist
DX: M32.14 Glomerular disease in systemic lupus erythematosus (principal)
CPT/HCPCS: 36415; 80048; 81001; 84156; 85025

== ENCOUNTER 2022-03-19 08:49 | Emergency (ER) | payer OTHER, SELFPAY ==
[2022-03-19 08:58] VITALS: BP 143/90; PULSE 111; RESP 20; TEMP 36.8; O2SAT 98; BMI 29.2
[2022-03-19] MEDS: Famotidine/PF 20 MG/2 ML VIAL IVPUSH (09:50)
[2022-03-19] MEDS: diphenhydrAMINE HCL 50 MG/ML VIAL IVPUSH (09:50)
[2022-03-19] MEDS: 0.9 % Sodium Chloride 1,000 ML 999 ML IV (09:51)
[2022-03-19] MEDS: methylPREDNISolone Sod Succ 125 MG/2 ML VIAL IVPUSH (09:51)
--- NOTE | 2022-03-19 09:53 | ED_ITS ---
HPI - General Adult General Chief complaint: Allergic Reaction Stated complaint: allergic reactoion Time Seen by Provider: 03/19/22 09:38 Source: patient Mode of arrival: ambulatory Limitations: no limitations History of Present Illness HPI narrative: 41-year-old female presents to the ED for allergic reaction. Patient states she took an old amoxicillin last night and woke up this morning with hives all over her body and felt like her face was swollen. Patient denies any lip swelling, shortness of breath, or sensation of throat closing. Patient states only known allergy is Vicodin and she did not take Vicodin. Patient denies any new food, soap, detergent, or cosmetics. Related Data Previous Rx's Medication Instructions Recorded acetaminophen 500 mg tablet 500 mg PO Q6H PRN pain or fever 11/27/21 (Tylenol Extra Strength) #20 tabs cyclobenzaprine 5 mg tablet 5 mg PO Q8H PRN pain (scale score 11/27/21 7-10) 5 days #14 tabs lidocaine 5 % topical patch 1 patch topical DAILY PRN pain #30 11/27/21 (Lidoderm) ea naproxen 500 mg tablet 500 mg PO BID PRN pain 10 days #20 11/27/21 tabs diphenhydramine HCl 25 mg capsule 25 mg PO TID PRN allergic reaction 03/19/22 (Benadryl) 10 days #30 caps famotidine 20 mg tablet (Pepcid) 20 mg PO BID 10 days #20 tabs 03/19/22 prednisone 20 mg tablet 60 mg PO DAILY 5 days #15 tabs 03/19/22 Allergies Allergy/AdvReac Type Severity Reaction Status Date / Time hydrocodone Allergy Unknown UNKNOWN Unverified 05/08/20 15:33 oxycodone [OXYCODONE] Allergy Unknown TONGUE Unverified 05/08/20 15:33 SWELLING Review of Systems Review of Systems: Generalized hives. Sensation of facial swelling Yes all other systems are reviewed and are negative PMFSH Past Medical History Medical History HTN (hypertension) Lupus Social History Social History Advance Directives: No Advance Directives Information Provided: Yes Physical Exam ED Vital Signs: Vital Signs - 24 hr 03/19/22 08:58 Temperature 98.3 F Pulse Rate 111 H Respiratory Rate 20 Blood Pressure 143/90 H Pulse Oximetry 98 Oxygen Delivery Method Room Air BMI result Body Mass Index 29.2 Const General: cooperative, healthy appearing, comfortable, no acute distress, well developed, alert and awake Orientation/consciousness: patient oriented x3 HENMT Other: hives on face. negative for lip swelling, tongue swelling, uvula swelling. Head: Yes normal to inspection, Yes No palpable skull fracture present, Yes normocephalic, Yes atraumatic and No abrasion Eyes General: appearance normal, both eyes and all related structures Neck Neck: Yes normal visual inspection, Yes full ROM, Yes no lymphadenopathy, Yes no meningeal signs, Yes trachea midline, Yes supple, No anterior neck swelling and No tender Chest Chest palpation & inspection: normal inspection of the chest and normal palpation of entire chest wall Resp Effort & Inspection: normal respiratory effort and able to speak in complete sentences Auscultation: clear to auscultation bilaterally Cardio Jugular venous distension: no JVD Heart sounds: S1 normal heart sound present and S2 normal heart sound present GI Inspection: Yes normal to inspection and No abdominal wall ecchymosis Palpation (GI): Soft to palpation, not firm, nontender and not rigid General: No CVA tenderness and Yes no CVA tenderness Back/Spine/Pelvis Back: no CVA tenderness, No CVA tenderness and No back tenderness Skin Other: Positive for generalized hives. General skin exam: no rashes or lesions noted and elasticity normal Neuro General: patient oriented x3, gait normal, no meningeal signs and CN's II-XI intact bilaterally Cranial nerves: Yes CN's II-XII intact bilaterally Extrem General: Yes normal to inspection and Yes full ROM Psych Appearance: grossly normal, well kempt and not disheveled Course Course Course Narrative: Allergic reaction. Benadryl, Pepcid, and Solu-Medrol ordered. No signs of respiratory distress Reevaluation(s) Reevaluation #1: Patient feels better. Patient observed in the ED for 4 hours. Patient will be sent with prescriptions allergic reaction. Patient informed no longer take penicillins. Patient improved. Patient 02 saturation on room air 98% on discharge. Time: 12:26 Medical Decision Making MDM Narrative Medical decision making narrative: allergic reactions Discharge Plan Discharge Clinical Impression: Allergic reaction Patient Disposition: Home, Self-Care Instructions: General Allergic Reaction (ED) Additional Instructions: return to the ED immediately for sensation of throat closing, swelling of lips, swelling of tongue, shortness of breath, worsening rash, fever, chills, or any other concerning symptoms. Prescriptions: New famotidine [Pepcid] 20 mg tablet 20 mg PO BID 10 Days Qty: 20 0RF prednisone 20 mg tablet 60 mg PO DAILY 5 Days Qty: 15 0RF diphenhydramine HCl [Benadryl] 25 mg capsule 25 mg PO TID PRN (Reason: allergic reaction) 10 Days Qty: 30 0RF No Action acetaminophen [Tylenol Extra Strength] 500 mg tablet 500 mg PO Q6H PRN (Reason: pain or fever) Qty: 20 0RF lidocaine [Lidoderm] 5 % adhesive patch,medicated 1 patch topical DAILY MDD remove after 12 hours PRN (Reason: pain) Qty: 30 0RF Rx Instructions: leave on most painful area for up to 12 hrs naproxen 500 mg tablet 500 mg PO BID PRN (Reason: pain) 10 Days Qty: 20 0RF cyclobenzaprine 5 mg tablet 5 mg PO Q8H PRN (Reason: pain (scale score 7-10)) 5 Days Qty: 14 0RF Stand Alone Forms: Work/School Release Interventions: ED Discharge Assessment Last Done: 03/19/22 12:49 Discharge Date/Time: 03/19/22 12:50 Print Language: Kinyarwanda
--- NOTE | 2022-03-19 11:29 | PC.NURSE ---
feels much better, still has some hives/pink skin but less intense,no sob, airway unaffectedd
== END 2022-03-19 12:50 | disposition home or self-care (01) ==
PROVIDERS: Emergency Provider Student in an Organized Health Care Education/Training Program; PCP Internal Medicine
DX: L50.9 Urticaria, unspecified (principal); T36.0X5A Adverse effect of penicillins, initial encounter; Y92.013 Bedroom of single-family (private) house as the place of occurrence of the external cause
CPT/HCPCS: 96361; 96374; 96375; 99283; 99284; J1200; J2930

== ENCOUNTER 2022-08-05 08:45 | Outpatient (REF) | payer OTHER, SELFPAY ==
[2022-08-05 09:01] LABS: MANUAL DIFF FLAG NO
[2022-08-05 09:15] LABS: Basophils Percent Auto 0.2 % (0-2); Eosinophils Absolute Auto 0.1 X10*3/uL (0.0-0.4); Eosinophils Percent Auto 0.8 % (0-4); Hematocrit 35.7 % (37.0-47.0); Hemoglobin 11.8 g/dl (12.0-16.0); Imm Gran Abs Auto 0.11 X10*3/uL (0.00-0.03); Imm Gran Pct Auto 0.6 % (0.0-0.4); Lymphocytes Percent Auto 5.7 % (20-40); Mean Corpuscular HGB Conc 33.1 g/dl (31.0-35.0); Mean Corpuscular Hemoglobin 29.6 pg (27.0-33.0); Mean Corpuscular Volume 89.5 fL (80.0-98.0); Mean Platelet Volume 9.2 fL (9.4-12.3); Monocytes Absolute Auto 0.7 X10*3/uL (0.1-1.2); Monocytes Percent Auto 4.1 % (2-11); Neutrophils Absolute Auto 15.8 x10*3/uL (2.0-8.3); Neutrophils Percent Auto 88.6 % (45-73); Platelet Count 265 X10*3/uL (160-400); Red Blood Count 3.99 X10*6/uL (4.20-5.50); Red Cell Distribution Width 12.6 % (11.0-16.0); White Blood Count 17.9 X10*3/uL (4.8-10.8)
[2022-08-05 10:11] LABS: Alanine Aminotransferase 19 U/L (0-31); Alkaline Phosphatase 69 U/L (39-117); Anion Gap 12 (12-20); Aspartate Amino Transferase 23 U/L (5-31); Bilirubin Total 0.5 mg/dL (0.0-1.0); Blood Urea Nitrogen 13 mg/dL (9-16); Calcium 8.3 mg/dL (8.4-10.2); Carbon Dioxide 24 mmol/L (22-29); Chloride 105 mmol/L (96-108); Cholesterol 163 mg/dL; Estimated Glomerular Filt Rate 48; Glucose Random 121 mg/dL (60-115); HDL Cholesterol 67 mg/dL; LDL Cholesterol Calculated 79 mg/dl; Potassium 3.2 mmol/L (3.3-5.1); Sodium 138 mmol/L (135-145); Thyroid Stimulating Hormone 1.02 uIU/mL (0.32-4.0); Total Protein 5.6 g/dL (6.5-8.0); Triglycerides 87 mg/dL
[2022-08-05 11:07] LABS: Creatinine Urine 192.91 mg/dL
[2022-08-05 11:34] LABS: Microalbum/Creatinine Ratio Ur 1036.7 ug/mg cr; Microalbumin Urine > 2000.0 mg/L
== END 2022-08-05 08:46 | disposition home or self-care (01) ==
LOC: HO.LAB 08:45
PROVIDERS: PCP Internal Medicine; Visit Provider Internal Medicine
DX: Z00.01 Encounter for general adult medical examination with abnormal findings (principal); F90.9 Attention-deficit hyperactivity disorder, unspecified type; I10 Essential (primary) hypertension; N03.2 Chronic nephritic syndrome with diffuse membranous glomerulonephritis
CPT/HCPCS: 36415; 80053; 80061; 82043; 84443; 85025

== ENCOUNTER 2022-12-06 08:35 | Outpatient (REF) | payer OTHER, SELFPAY ==
[2022-12-06 09:24] LABS: Hematocrit 35.6 % (37.0-47.0); Hemoglobin 11.8 g/dl (12.0-16.0); Mean Corpuscular HGB Conc 33.1 g/dl (31.0-35.0); Mean Corpuscular Volume 87.5 fL (80.0-98.0); Mean Platelet Volume 9.3 fL (9.4-12.3); Platelet Count 343 X10*3/uL (160-400); Red Blood Count 4.07 X10*6/uL (4.20-5.50); Red Cell Distribution Width 12.3 % (11.0-16.0)
[2022-12-06 09:44] LABS: Anion Gap 12 (12-20); Blood Urea Nitrogen 17 mg/dL (9-16); Carbon Dioxide 25 mmol/L (22-29); Chloride 108 mmol/L (96-108); Estimated Glomerular Filt Rate 48; Glucose Random 86 mg/dL (60-115); Potassium 4.1 mmol/L (3.3-5.1); Sodium 141 mmol/L (135-145)
== END 2022-12-06 08:36 | disposition home or self-care (01) ==
LOC: HO.LAB 08:35
PROVIDERS: PCP Internal Medicine; Visit Provider Internal Medicine Hypertension Specialist
DX: N18.31 Chronic kidney disease, stage 3a (principal)
CPT/HCPCS: 36415; 80048; 85027

== ENCOUNTER 2023-06-19 09:48 | Emergency (ER) | payer OTHER, MEDICAID, SELFPAY ==
[2023-06-19 09:53] VITALS: BP 165/105; PULSE 92; RESP 15; TEMP 36.6; O2SAT 98; BMI 30.5
[2023-06-19] MEDS: Fluorescein Sodium STRIP 1 STRIP EYE-RIGHT (10:25)
[2023-06-19] MEDS: Fluorescein Sodium STRIP 1 STRIP EYE-LEFT (10:25)
[2023-06-19] MEDS: Tetracaine HCl/PF 0.5% Oph Sol 4 ML DROPS 3 DROP EYE-BOTH (10:25)
--- NOTE | 2023-06-19 10:53 | ED_ITS ---
HPI - General Adult General Chief complaint: Eye Problems Stated complaint: both eye issues had contacts in yesterday Time Seen by Provider: 06/19/23 10:05 Source: patient Mode of arrival: ambulatory Limitations: no limitations History of Present Illness HPI narrative: 43-year-ol female with pmh of lupus presents to the ED for bilateral eye redness, burning, photophobia since wearing eye contacts for costumes republican yesterday. patient states since she removed eye republican contacts she felt eye irritation, scratchiness of the eyes, irratation, and sensation of sand in both eyes. patient states she woke up with light sensitivity this morning. patient denies any headache, neck stiffness, fever, or chills. Patient denies any trauma. Patient states having symptoms since wearing republican eye contacts for Halloween costumes. Patient usually does not wear eye contacts. Related Data Previous Rx's Medication Instructions Recorded acetaminophen 500 mg tablet 500 mg PO Q6H PRN pain or fever 11/27/21 (Tylenol Extra Strength) #20 tabs cyclobenzaprine 5 mg tablet 5 mg PO Q8H PRN pain (scale score 11/27/21 7-10) 5 days #14 tabs lidocaine 5 % topical patch 1 patch topical DAILY PRN pain #30 11/27/21 (Lidoderm) ea naproxen 500 mg tablet 500 mg PO BID PRN pain 10 days #20 11/27/21 tabs diphenhydramine HCl 25 mg capsule 25 mg PO TID PRN allergic reaction 03/19/22 (Benadryl) 10 days #30 caps famotidine 20 mg tablet (Pepcid) 20 mg PO BID 10 days #20 tabs 03/19/22 prednisone 20 mg tablet 60 mg (3 x 20 mg) PO DAILY 5 days 03/19/22 #15 tabs naproxen 500 mg tablet 500 mg PO BID PRN pain 7 days #14 06/19/23 tabs ofloxacin 0.3 % eye drops (Ocuflox) 2 drp ophthalmic (eye) QID 5 days 06/19/23 #10 mL Allergies Allergy/AdvReac Type Severity Reaction Status Date / Time hydrocodone Allergy Unknown UNKNOWN Verified 06/19/23 09:51 oxycodone [OXYCODONE] Allergy Unknown TONGUE Verified 06/19/23 09:51 SWELLING Review of Systems Review of Systems: Bilateral eye irritation, redness, photosensitivity, after wearing contacts Yes all other systems are reviewed and are negative [facility] Past Medical History Medical History HTN (hypertension) Lupus Social History Social History Smoked in Last 30 Days: No Use of substances other than those prescribed or required for medical reasons: No Advance Directives: No Advance Directives Information Provided: Yes Patient : No Physical Exam ED Vital Signs: Vital Signs - 24 hr 06/19/23 09:53 06/19/23 11:39 Temperature 98 F 98.7 F Pulse Rate 92 91 Respiratory Rate 15 16 Blood Pressure 165/105 H 157/93 H Pulse Oximetry 98 100 Oxygen Delivery Method Room Air Room Air BMI result Body Mass Index 30.5 Const General: cooperative, healthy appearing, comfortable, no acute distress, well developed, alert, awake and Physically active Orientation/consciousness: oriented to person, oriented to place, oriented to time and patient oriented x3 HENMT Head: Yes normal to inspection, Yes No palpable skull fracture present, Yes normocephalic, Yes atraumatic and No abrasion Ears: hearing grossly normal bilaterally, external ears normal, TM's normal bilaterally, TM normal on the right, TM normal on the left, EAC's normal, mastoids normal and no periauricular adenopathy Face and sinus: Yes normal facial exam, Yes sinuses nontender and Yes face symmetric Mouth: Normal oral and palatal mucosa present, lip normal and tongue normal Throat: Yes posterior oropharynx normal, Yes tonsils normal and Yes uvula mi dline Eyes Other: Bilateral eye redness. negative for obvious foriegn body in cornea or eyelis. negative for hyphema. BIlateral both eyes negative for corneal abrasions, or ulcers under flourscein dye under gutierrez lamps. tecraine was used. Negative for foreign body in eyeids. eye muscles intact. negative for signs of eye muscle entrapment. Neck Neck: Yes normal visual inspection, Yes full ROM, Yes no lymphadenopathy, Yes no meningeal signs, Yes trachea midline, Yes supple, No anterior neck swelling and No tender Chest Chest palpation & inspection: normal inspection of the chest and normal palpation of entire chest wall Resp Effort & Inspection: normal respiratory effort and able to speak in complete sentences Auscultation: clear to auscultation bilaterally Cardio Jugular venous distension: no JVD Heart sounds: S1 normal heart sound present and S2 normal heart sound present GI Inspection: Yes normal to inspection and No abdominal wall ecchymosis Palpation (GI): Soft to palpation, not firm, nontender, no guarding and not rigid General: No CVA tenderness and Yes no CVA tenderness Back/Spine/Pelvis Back: no CVA tenderness, No CVA tenderness and No back tenderness Skin General skin exam: no rashes or lesions noted, elasticity normal and turgor normal Neuro General: oriented to person, oriented to place, oriented to time, patient oriented x3, gait normal, tone normal, moves all extremities, Normal light touch and pain sensation, no meningeal signs, no focal motor deficits, CN's II-XI intact bilaterally and normal sensation to monofilament Extrem General: Yes normal to inspection, Yes full ROM and Yes capillary refill normal Psych Appearance: grossly normal, well kempt and not disheveled Medications Administered Discontinued Medications Generic Name Dose Route Start Last Admin Trade Name Noemi PRN Reason Stop Dose Admin Fluorescein Sodium 1 strip 06/19/23 10:14 06/19/23 10:25 Fluorescein Sodium Strip EYE-LEFT 06/19/23 10:15 1 strip ONCE ONE Administration Fluorescein Sodium 1 strip 06/19/23 10:14 06/19/23 10:25 Fluorescein Sodium Strip EYE-RIGHT 06/19/23 10:15 1 strip ONCE ONE Administration Ketorolac Tromethamine 30 mg 06/19/23 11:07 06/19/23 11:27 Ketorolac Tromethamine 30 Mg/Ml Vial IM 06/19/23 11:08 Not Given ONCE ONE Tetracaine HCl 3 drop 06/19/23 10:14 06/19/23 10:25 Tetracaine Hcl/Pf 0.5% Oph Sarina 4 Ml Drops EYE-BOTH 06/19/23 10:15 3 drop ONCE ONE Administration Medical Decision Making Medical Decision Making MDM Narrative: 43 year old female presents to ED for bilateral eye redness, irritation, and photophobia since wearing fake republican eye contacts for [employer] costume. Patient denies any loss of vision or any recent trauma to the eyes. Patient states no headache or neck stiffness. Used tetracaine and fluorescein dye negative for signs of corneal abrasion, corneal ulcer, globe rupture, or herpes in the eye. Negative for signs of foreign body. There is no tonemeter in the ED to check for glaucoma. very unlikely patient has glaucoma. Patient feels better after tetracaine no longer has photophobia. Patient has no longer has pain. Both eyes visual acuity test 20/20. Patient will be discharged with antibiotics for bacterial conjunctivitis caused by contact. Unlikely patient having uveitis due to history but patient was informed due to his past medical history of lupus she should follow up with our eye doctor tomorrow for further evaluation to make sure there is no lupus uveitis. Differential Diagnosis Differential Diagnoses: The differential diagnosis associated with the presentation includes ( Corneal abrasion, corneal ulcer, bacterial conjunctivitis caused by contacts, globe rupture,) Admission/Observation Consideration of admission/observation: Escalation of care including admission/observation considered Independent Historian Clinical information obtained from an independent historian. History obtained from or confirmed by: Other ( Daughter) External Record Review External record reviewed: Other ( prior ED visit) Prescription Management I considered prescription management with: Antibiotic Discharge Plan Discharge Clinical Impression: Bacterial conjunctivitis Patient Disposition: Home, Self-Care Instructions: Conjunctivitis (ED) Additional Instructions: you will be discharged with antibiotic eyedrops for conjunctivitis caused by contacts. Please our eye physician tomorrow for follow-up. Return to the ED immediately for worsening eye redness, eye pain, headache, neck stiffness, worsening photophobia, loss of vision, fever, chills, change in vision, or any other concerning symptoms. Prescriptions: New ofloxacin [Ocuflox] 0.3 % drops 2 drp ophthalmic (eye) QID 5 Days Qty: 10 0RF naproxen 500 mg tablet 500 mg PO BID PRN (Reason: pain) 7 Days Qty: 14 0RF No Action acetaminophen [Tylenol Extra Strength] 500 mg tablet 500 mg PO Q6H PRN (Reason: pain or fever) Qty: 20 0RF lidocaine [Lidoderm] 5 % adhesive patch,medicated 1 patch topical DAILY MDD remove after 12 hours PRN (Reason: pain) Qty: 30 0RF Rx Instructions: leave on most painful area for up to 12 hrs naproxen 500 mg tablet 500 mg PO BID PRN (Reason: pain) 10 Days Qty: 20 0RF cyclobenzaprine 5 mg tablet 5 mg PO Q8H PRN (Reason: pain (scale score 7-10)) 5 Days Qty: 14 0RF famotidine [Pepcid] 20 mg tablet 20 mg PO BID 10 Days Qty: 20 0RF prednisone 20 mg tablet 60 mg PO DAILY 5 Days Qty: 15 0RF diphenhydramine HCl [Benadryl] 25 mg capsule 25 mg PO TID PRN (Reason: allergic reaction) 10 Days Qty: 30 0RF Referrals: Wiley Camara [Physician] - ( Bilateral eye pain redness photophobia after contact use. History of lupus. will need follow-up and re-evaluation) Stand Alone Forms: Work/School Release Interventions: ED Discharge Assessment Last Done: 06/19/23 12:19 Discharge Date/Time: 06/19/23 12:19 Print Language: Mongolian
[2023-06-19 11:39] VITALS: BP 157/93; PULSE 91; RESP 16; TEMP 37.1; O2SAT 100
== END 2023-06-19 12:19 | disposition home or self-care (01) ==
PROVIDERS: Emergency Provider Student in an Organized Health Care Education/Training Program; PCP Internal Medicine
DX: H10.33 Unspecified acute conjunctivitis, bilateral (principal); Z79.899 Other long term (current) drug therapy
CPT/HCPCS: 96372; 99284

== ENCOUNTER 2023-07-08 17:04 | Outpatient (REF) | payer OTHER, SELFPAY ==
[2023-07-08 20:33] LABS: Anion Gap 12 (12-20); Blood Urea Nitrogen 15 mg/dL (9-16); Calcium 8.5 mg/dL (8.4-10.2); Carbon Dioxide 24 mmol/L (22-29); Chloride 109 mmol/L (96-108); Estimated Glomerular Filt Rate 39; Glucose Random 102 mg/dL (60-115); Potassium 3.5 mmol/L (3.3-5.1); Sodium 141 mmol/L (135-145)
== END 2023-07-08 17:05 | disposition home or self-care (01) ==
LOC: HO.LAB 17:04
PROVIDERS: PCP Internal Medicine; Visit Provider Internal Medicine Hypertension Specialist
DX: M32.9 Systemic lupus erythematosus, unspecified (principal)
CPT/HCPCS: 36415; 80048

== ENCOUNTER 2023-07-12 08:09 | Outpatient (REF) | payer OTHER, MEDICAID, SELFPAY ==
[2023-07-12 09:12] LABS: Alanine Aminotransferase 42 U/L (0-31); Albumin Level 3.3 g/dL (3.5-5.0); Alkaline Phosphatase 61 U/L (39-117); Anion Gap 9 (12-20); Aspartate Amino Transferase 38 U/L (5-31); Bilirubin Total 0.3 mg/dL (0.0-1.0); Blood Urea Nitrogen 10 mg/dL (9-16); Calcium 8.7 mg/dL (8.4-10.2); Carbon Dioxide 26 mmol/L (22-29); Chloride 111 mmol/L (96-108); Cholesterol 165 mg/dL (<200); Estimated Glomerular Filt Rate 46; Glucose Random 82 mg/dL (60-115); HDL Cholesterol 40 mg/dL (>40); LDL Cholesterol Calculated 99 mg/dL (<100); Potassium 3.5 mmol/L (3.3-5.1); Sodium 142 mmol/L (135-145); Total Protein 6.5 g/dL (6.5-8.0); Triglycerides 130 mg/dL (<150)
[2023-07-12 10:26] LABS: Creatinine Urine 285.57 mg/dL
[2023-07-12 10:40] LABS: Protein/Creatinine Ratio, Ur 0.72 (<0.2); Total Protein Urine Random 207 mg/dL (<12)
== END 2023-07-12 08:10 | disposition home or self-care (01) ==
LOC: HO.LAB 08:09
PROVIDERS: PCP Internal Medicine; Visit Provider Internal Medicine
DX: F90.9 Attention-deficit hyperactivity disorder, unspecified type (principal); N03.2 Chronic nephritic syndrome with diffuse membranous glomerulonephritis; I10 Essential (primary) hypertension
CPT/HCPCS: 36415; 80053; 80061; 82570; 84156

== ENCOUNTER 2023-08-10 07:35 | Outpatient (REF) | payer OTHER, SELFPAY ==
--- NOTE | ~2023-08-10 | MM_ITS ---
EXAMINATION: MM SCREENING DIGITAL BREAST TOMOSYNTHESIS, BILATERAL CLINICAL INFORMATION: Screening. Asymptomatic. COMPARISON: Mammography: There are no prior mammograms for comparison. This baseline study. TECHNIQUE: Digital breast tomosynthesis is performed in both the craniocaudal and mediolateral oblique views along with computer-aided detection (CAD). Synthesized 2D images are generated from the tomosynthesis. FINDINGS: There are scattered areas of fibroglandular density (ACR BI-RADS breast composition Category b). There are no significant masses, abnormal calcifications, or other abnormalities. The patient has bilateral nipple rings. MM/MM tomosynthesis screening BI IMPRESSION: No mammographic evidence of malignancy. ASSESSMENT: BI-RADS BI-RADS 1 - Negative RECOMMENDATION: Routine annual mammography screening. 1 year F/U This examination should not preclude the clinical evaluation of a suspicious palpable abnormality. This patient's information was entered into a reminder system with a target due date for their next mammogram.
== END 2023-08-10 07:36 | disposition home or self-care (01) ==
LOC: HO.MAMMO 07:35
PROVIDERS: PCP Internal Medicine; Visit Provider Internal Medicine
DX: Z12.31 Encounter for screening mammogram for malignant neoplasm of breast (principal)
CPT/HCPCS: 77063; 77067

== ENCOUNTER → 2023-08-10 07:45 | Outpatient (BNV) | payer OTHER, SELFPAY | PROVIDERS: PCP Internal Medicine; Visit Provider Radiology Diagnostic Radiology | DX: Z12.31 Encounter for screening mammogram for malignant neoplasm of breast (principal) | CPT/HCPCS: 77063; 77067 ==

== ENCOUNTER 2023-08-12 11:28 | Outpatient (REF) | payer OTHER, SELFPAY ==
[2023-08-12 12:35] LABS: Alanine Aminotransferase 22 U/L (0-31); Albumin Level 3.4 g/dL (3.5-5.0); Alkaline Phosphatase 69 U/L (39-117); Aspartate Amino Transferase 33 U/L (5-31); Bilirubin Direct 0.1 mg/dL (0.0-0.5); Bilirubin Total 0.3 mg/dL (0.0-1.0); Total Protein 6.7 g/dL (6.5-8.0)
== END 2023-08-12 11:29 | disposition home or self-care (01) ==
LOC: HO.LAB 11:28
PROVIDERS: PCP Internal Medicine; Visit Provider Podiatrist Foot Surgery
DX: B35.1 Tinea unguium (principal)
CPT/HCPCS: 36415; 80076

== ENCOUNTER 2023-10-25 16:38 | Outpatient (AMB) | payer OTHER, SELFPAY ==
--- NOTE | 2023-10-25 16:39 | HO.NEPHOV ---
HPI HPI Comments History of Present Illness Details Young woman with a history of SLE and hypertension. Currently she is being managed by commercial maintenance technician. She is on Saphleno Currently blood pressure is well controlled after addition of amlodipine Renal function has been stable. She has no new complaints. [facility] Medical History HTN (hypertension) Lupus Family History (Updated 10/25/23 @ 16:43 by Catina Celis) Mother Hypertension Social History (Updated 10/25/23 @ 16:42 by Catina Celis) Patient Tobacco Use Status: Never used Tobacco Vital Signs 10/25/23 16:40 Height 5 ft 2 in Weight 164 lb BMI 30.0 BP 120/72 Blood Pressure Location Lt brachial Position Sitting Pulse 82 Pulse Source Pulse Oximeter Pulse Oximetry (%) 97 Oxygen Delivery Method Room Air Physical Exam Vital Signs: Last Vital Signs Pulse 82 10/25/23 16:40 BP 120/72 10/25/23 16:40 Pulse Ox 97 10/25/23 16:40 Oxygen Delivery Method Room Air 10/25/23 16:40 BMI result Body Mass Index 30.0 Const General: comfortable Nutritional Appearance: well nourished Orientation/consciousness: patient oriented x3 HEENT Head: No normal to inspection Mouth: moist mucous membranes Neck Neck: Yes supple and Yes no JVD Resp Auscultation: clear to auscultation bilaterally, no rales and rub present Cardio Jugular venous distension: no JVD Palpation: no palpable S3 and no palpable S4 Heart sounds: no rubs GI Palpation (GI): Soft to palpation and nontender Percussion: No Fluid wave present General: Yes no CVA tenderness Back/Spine/Pelvis Back: no CVA tenderness Skin General skin exam: no rashes or lesions noted Neuro General: patient oriented x3 Extrem General: Yes no pedal edema and No clubbing Assessment & Plan Assessment & Plan (1) CKD (chronic kidney disease) stage 3, GFR 30-59 ml/min: Code(s): N18.30 - Chronic kidney disease, stage 3 unspecified Plan 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 She has about 700 mg of proteinuria. At present blood pressure well controlled. Continue HUGO inhibition for renal protection. We will defer management of lupus to her commercial maintenance technician. Encouraged her to stay on low-sodium diet Continue overt nephrotoxic agents Continue to monitor renal function closely. No changes were made today. Medications: New amlodipine 10 mg PO DAILY 90 tabs 3RF Coding Level of Care Code Est Pt Level 4 (06050) Diagnoses CKD (chronic kidney disease) stage 3, GFR 30-59 ml/min N18.30 Results Reviewed Nephrology Results: Hgb 11.8 g/dl (12.0-16.0) L 12/06/22 WBC 5.0 X10*3/uL (4.8-10.8) 12/06/22 Plt Count 343 X10*3/uL (160-400) 12/06/22 Sodium 142 mmol/L (135-145) 07/12/23 Potassium 3.5 mmol/L (3.3-5.1) 07/12/23 Chloride 111 mmol/L (96-108) H 07/12/23 Carbon Dioxide 26 mmol/L (22-29) 07/12/23 BUN 10 mg/dL (9-16) 07/12/23 Creatinine 1.29 mg/dL (0.5-1.4) 07/12/23 Calcium 8.7 mg/dL (8.4-10.2) 07/12/23 Urine Protein 2+ MG/DL (NEG-TRACE) H 03/11/22 Urine Creatinine 285.57 mg/dL 07/12/23 Protein/Creatinin Ratio 0.72 (<0.2) H 07/12/23
[2023-10-25 16:40] VITALS: BP 120/72; PULSE 82; O2SAT 97
== END 2023-10-25 16:58 | disposition home or self-care (01) ==
PROVIDERS: PCP Internal Medicine; Visit Provider Internal Medicine Hypertension Specialist
DX: N18.30 Chronic kidney disease, stage 3 unspecified (principal)
CPT/HCPCS: 99214

== ENCOUNTER → 2023-10-25 16:38 | Outpatient (BNVA) | payer OTHER, SELFPAY | PROVIDERS: PCP Internal Medicine; Visit Provider Internal Medicine Hypertension Specialist ==

== ENCOUNTER 2023-12-30 14:37 | Emergency (ER) | payer OTHER, SELFPAY ==
--- NOTE | ~2023-12-30 | CT_ITS ---
EXAMINATION: CT HEAD WITHOUT CONTRAST CT CERVICAL SPINE WITHOUT CONTRAST CLINICAL INFORMATION: Head injury, vomiting, pain, vision change and ataxia. COMPARISON: MR cervical spine 06/14/2006. TECHNIQUE: Contiguous axial imaging was performed from the skull base to vertex without intravenous administration of contrast. Contiguous axial imaging was performed from the upper chest through the skull base without intravenous administration of contrast. Coronal and sagittal reformats were obtained at the acquisition workstation. This CT examination was performed using dose optimization techniques as appropriate, variously including the following: *Automated exposure control *Adjustment of mA and/or kV according to patient size (this includes techniques or standardized protocols for targeted exams where dose is matched to indication/reason for exam; i.e. extremities or head) *Use of iterative reconstruction technique DLP: 550 and 367 mGy-cm FINDINGS: Head: There is no evidence of acute intracranial hemorrhage or edematous territorial infarction. There is no abnormal attenuation within the brain parenchyma. Menjivar-white matter differentiation is preserved. The ventricles are normal in size and configuration. No evidence for obstructive hydrocephalus. No abnormal mass effect or midline shift. No extra-axial fluid collections. No acute soft tissue or osseous abnormalities. The mastoid air cells and paranasal sinuses are clear. Cervical Spine: The atlantooccipital and atlantoaxial articulations remain well aligned. Mild reversal of the cervical lordosis with apex at C5-C6. Otherwise, there is anatomic alignment of the vertebral bodies and posterior elements. No evidence of acute fracture or subluxation. Mild to moderate intervertebral disc height loss at C6-C7 and C7-T1. Small anterior marginal osteophytes. Mild multilevel facet and/or uncovertebral hypertrophy. There is no prevertebral soft tissue swelling. Subcentimeter thyroid nodules, for which no imaging follow-up is recommended. The remaining cervical soft tissues are normal in appearance. The lung apices demonstrate no abnormalities. CT/CT cervical spine wo IV con IMPRESSION: 1. No acute intracranial pathology. 2. Mild reversal of the cervical lordosis which is nonspecific and could be related with patient's positioning or muscular spasm. 3. No evidence of acute compression deformity or traumatic subluxation in the cervical spine.
[2023-12-30 14:44] VITALS: BP 147/99; PULSE 87; RESP 18; TEMP 36.2; O2SAT 100; BMI 29.3
--- NOTE | 2023-12-30 14:44 | ED.GENADULT ---
HPI - General Adult General Chief complaint: Head Injury Stated complaint: concussion, vomiting, pcp sent her Time Seen by Provider: 12/30/23 16:22 Source: patient, RN notes reviewed and old records reviewed Mode of arrival: ambulatory Limitations: no limitations History of Present Illness HPI narrative: 43-year-old female with past medical history significant for lupus presents for evaluation of ?dizziness and nausea. ? Patient reports that she accidentally hit her head 1 week ago today This was late at night when she was trying to go to the bathroom, she hit her head on the door frame She reports having a laceration above her right eye which she treated herself at home She reports other than minor pain in the area of the exact injury she had no headaches, dizziness nausea vomiting until 3 days after the injury Since then she has had intermittent dizziness, nausea with vomiting She reports some difficulty focusing on her computer at work There has been no further trauma She is not anticoagulated Related Data Home Medications ?Medication ?Instructions ?Recorded ?Confirmed hydroxychloroquine 200 mg tablet 200 mg PO BID 10/25/23 metoprolol succinate 50 mg 50 mg PO DAILY 10/25/23 tablet,extended release 24 hr mycophenolate mofetil 500 mg 1,000 mg PO BID 10/25/23 tablet (CellCept) prednisone 5 mg tablet 10 mg PO DAILY PRN 10/25/23 telmisartan 80 1 tab PO DAILY 10/25/23 mg-hydrochlorothiazide 25 mg tablet terbinafine HCl 250 mg tablet 250 mg PO DAILY 10/25/23 Previous Rx's ?Medication ?Instructions ?Recorded amlodipine 10 mg tablet 10 mg PO DAILY #90 tabs 10/25/23 meclizine 25 mg tablet 25 mg PO TID PRN dizziness #20 tabs 12/30/23 Allergies Allergy/AdvReac Type Severity Reaction Status Date / Time hydrocodone Allergy Unknown UNKNOWN Verified 12/30/23 14:48 oxycodone [OXYCODONE] Allergy Unknown TONGUE Verified 12/30/23 14:48 SWELLING Review of Systems Constitutional: Constitutional: Denies body ache(s), Denies chills, Denies fever(s) and Reports headache(s) Eyes: Eyes: Reports blurry vision ENT: Reports vertigo, Reports dizziness and Reports headache(s) Cardiovascular: Cardiovascular: Denies chest pain and Denies dyspnea Respiratory: Respiratory: Denies cough and Denies dyspnea Gastrointestinal: Gastrointestinal: Denies abdominal pain, Denies nausea and Denies vomiting Musculoskeletal: Musculoskeletal: Denies back pain Integumentary/Breasts: Skin/Breast: Denies rash Neurologic: Reports vertigo, Reports dizziness and Reports headache(s) [facility] Past Medical History Medical History HTN (hypertension) Lupus Family History Family History (Updated 10/25/23 @ 16:43 by Catina Celis) Mother Hypertension Social History Social History (Updated 10/25/23 @ 16:42 by Catina Celis) Alcohol intake: current Alcohol intake frequency: a few times a month Patient Tobacco Use Status: Never used Tobacco Smoked in Last 30 Days: No Use of substances other than those prescribed or required for medical reasons: No Advance Directives: No Advance Directives Information Provided: No Physical Exam ED Vital Signs: Vital Signs - 24 hr 12/30/23 14:44 12/30/23 16:26 12/30/23 16:49 Temperature 97.1 F 98.1 F Pulse Rate 87 82 88 Respiratory Rate 18 16 16 Blood Pressure 147/99 H 172/114 H 154/112 H Pulse Oximetry 100 100 100 Oxygen Delivery Method Room Air Room Air Room Air BMI result Body Mass Index 29.3 Const General: healthy appearing, comfortable, no acute distress, alert and awake Nutritional Appearance: well nourished Orientation/consciousness: patient oriented x3 HENMT Head: Yes normocephalic and Yes atraumatic Eyes Periorbital: periorbital findings normal Eyelids: Yes eyelids normal Conjunctivae: conjunctivae normal Sclerae: sclerae normal Corneas: corneas normal Pupils: Equal, round and reactive pupils present EOM: EOMs intact bilaterally (With mild nystagmus) Direct Ophthalmoscopy: no papilledema Neck Neck: Yes full ROM Resp Effort & Inspection: normal respiratory effort, able to speak in complete sentences and not labored Skin General skin exam: elasticity normal Neuro Other: [place]-Hallpike maneuver positive for rotational nystagmus General: patient oriented x3 Cranial nerves: Yes CN's II-XII intact bilaterally, Yes Equal, round and reactive pupils present and Yes Bilaterally intact EOM present Cognition (Neuro): normal cognition Extrem Other: Moving all extremities well without any obvious deformities Course Course Course Narrative: This is a rapid medical exam performed by Vanessa Jean NP: Additional HPI, ROS, PE not included below will be deferred to primary provider. Patient is a 43-year-old female with history of CKD stage 3 presenting to the emergency department with complaint of worsening nausea, vomiting, blurred vision, ataxia since accidentally running into the bathroom door last week. Saw PCP yesterday who ordered an outpatient CT scan but appt is several days away. Reports difficulty reading at work yesterday. Today vomited x 8, PCP referred here. Plan: CT head and neck, labs Medical Decision Making Medical Decision Making [facility] Narrative: 43-year-old female presents for evaluation of intermittent dizziness, nausea vomiting and headaches. She had a minor head trauma 1 week ago after walking into a door. Her CT scan does not show any evidence of traumatic injury. The patient's physical exam is positive for [place]-Hallpike maneuver. The patient does report a remote history of vertigo and I feel like this is most likely diagnosis. She is currently asymptomatic, I offered to attempt to give her meclizine in the ER but she declined and would rather take prescription home. Her labs without significant abnormality. She has no abdominal pain or tenderness to suggest GI cause of her vomiting dizziness. No chest pain shortness of breath or palpitations to suggest cardiogenic cause. Differential Diagnosis Differential Diagnoses: The differential diagnosis associated with the presentation includes Vertigo Postconcussive syndrome Concussion syndrome Intracranial hemorrhage Lab Data [facility] Lab Attestation statement: I reviewed the patient's lab results. No leukocytosis the patient does have a mild normocytic anemia. This is consistent or slightly improved compared to her baseline. Normal platelet count. Patient's electrolytes are reassuring. Her chloride is just above normal at 109. The patient does have chronic kidney disease and her BUN and creatinine are slightly elevated to her baseline. Random glucose is 120 but no evidence of DKA the patient is not diabetic. This is likely reflected to recent food consumption 12/30/23 14:53 12/30/23 14:53 Labs: Lab Results 12/30/23 Range/Units 14:53 WBC 6.1 (4.8-10.8) X10*3/uL RBC 4.11 L (4.20-5.50) X10*6/uL Hgb 12.8 (12.0-16.0) g/dl Hct 36.4 L (37.0-47.0) % MCV 88.6 (80.0-98.0) fL MCH 31.1 (27.0-33.0) pg MCHC 35.2 H (31.0-35.0) g/dl RDW 12.3 (11.0-16.0) % Plt Count 248 D (160-400) X10*3/uL MPV 9.5 (9.4-12.3) fL Immature Gran % (Auto) 0.5 H (0.0-0.4) % Neut % (Auto) 83.3 H (45-73) % Lymph % (Auto) 10.9 L (20-40) % [place] % (Auto) 5.1 (2-11) % Eos % (Auto) 0.0 (0-4) % Baso % (Auto) 0.2 (0-2) % Lymph # (Auto) 0.7 L (1.2-4.9) X10*3/uL [place] # (Auto) 0.3 (0.1-1.2) X10*3/uL Eos # (Auto) 0.0 (0.0-0.4) X10*3/uL Baso # (Auto) 0.0 (0.0-0.2) X10*3/uL Abs Immat Gran (auto) 0.03 (0.00-0.03) X10*3/uL Absolute Neuts (auto) 5.1 (2.0-8.3) x10*3/uL Absolute Nucleated RBC 0.000 (0.0-0.012) X10*3/uL Nucleated RBC % (auto) 0.0 (0.0-0.2) /100WBC PT 10.7 L (11.1-13.3) SEC INR 0.9 (0.9-1.1) Sodium 143 (135-145) mmol/L Potassium 3.9 (3.3-5.1) mmol/L Chloride 109 H (96-108) mmol/L Carbon Dioxide 22 (22-29) mmol/L Anion Gap 16 (12-20) BUN 17 H (9-16) mg/dL Creatinine 1.47 H (0.5-1.4) mg/dL Estim Creat Clear Calc 47.0 Estimated GFR 39 Random Glucose 120 H (60-115) mg/dL Calcium 9.0 (8.4-10.2) mg/dL Magnesium 1.8 (1.6-2.6) mg/dL Total Bilirubin 0.5 (0.0-1.0) mg/dL AST 23 (5-31) U/L ALT 16 (0-31) U/L Alkaline Phosphatase 77 (39-117) U/L Total Protein 7.3 (6.5-8.0) g/dL Albumin 3.6 (3.5-5.0) g/dL Independent Interpretation I performed an independent interpretation of an: CT Scan (No acute intracranial hemorrhage) Radiology Impression Discussion of test interpretation with radiology: I have reviewed the radiologist's reading. Radiologist Impression: IMPRESSION: 1. No acute intracranial pathology. 2. Mild reversal of the cervical lordosis which is nonspecific and could be related with patient's positioning or muscular spasm. 3. No evidence of acute compression deformity or traumatic subluxation in the cervical spine. Discharge Plan Discharge Clinical Impression: Vertigo Patient Disposition: Home, Self-Care Instructions: Vertigo (ED) Additional Instructions: Your workup in the ER today was reassuring. Your physical exam showed signs consistent with peripheral vertigo Take meclizine up to 3 times daily as needed for dizziness This medication may also be used to help with nausea You may use ibuprofen/Tylenol for pain/headaches Follow-up your primary doctor Stay well hydrated Return for new or worsening symptoms Prescriptions: New meclizine 25 mg tablet 25 mg PO TID PRN (Reason: dizziness) Qty: 20 0RF No Action prednisone 5 mg tablet 10 mg PO DAILY PRN Rx Instructions: Every other day terbinafine HCl 250 mg tablet 250 mg PO DAILY metoprolol succinate 50 mg tablet extended release 24 hr 50 mg PO DAILY mycophenolate mofetil [CellCept] 500 mg tablet 1,000 mg PO BID hydroxychloroquine 200 mg tablet 200 mg PO BID telmisartan-hydrochlorothiazid 80-25 mg tablet 1 tab PO DAILY amlodipine 10 mg tablet 10 mg PO DAILY Qty: 90 3RF Interventions: ED Discharge Assessment Last Done: 12/30/23 16:49 Discharge Date/Time: 12/30/23 17:00 Print Language: Wolof
[2023-12-30 14:57] LABS: MANUAL DIFF FLAG NO
[2023-12-30 14:59] LABS: Basophils Percent Auto 0.2 % (0-2); Hematocrit 36.4 % (37.0-47.0); Hemoglobin 12.8 g/dl (12.0-16.0); Imm Gran Abs Auto 0.03 X10*3/uL (0.00-0.03); Imm Gran Pct Auto 0.5 % (0.0-0.4); Lymphocytes Absolute Auto 0.7 X10*3/uL (1.2-4.9); Lymphocytes Percent Auto 10.9 % (20-40); Mean Corpuscular HGB Conc 35.2 g/dl (31.0-35.0); Mean Corpuscular Hemoglobin 31.1 pg (27.0-33.0); Mean Corpuscular Volume 88.6 fL (80.0-98.0); Mean Platelet Volume 9.5 fL (9.4-12.3); Monocytes Absolute Auto 0.3 X10*3/uL (0.1-1.2); Monocytes Percent Auto 5.1 % (2-11); Neutrophils Absolute Auto 5.1 x10*3/uL (2.0-8.3); Neutrophils Percent Auto 83.3 % (45-73); Platelet Count 248 X10*3/uL (160-400); Red Blood Count 4.11 X10*6/uL (4.20-5.50); Red Cell Distribution Width 12.3 % (11.0-16.0); White Blood Count 6.1 X10*3/uL (4.8-10.8)
[2023-12-30 15:05] LABS: INTERNATIONAL NORM RATIO 0.9 (0.9-1.1); Prothrombin Time 10.7 SEC (11.1-13.3)
[2023-12-30 15:17] LABS: Alanine Aminotransferase 16 U/L (0-31); Albumin Level 3.6 g/dL (3.5-5.0); Alkaline Phosphatase 77 U/L (39-117); Anion Gap 16 (12-20); Aspartate Amino Transferase 23 U/L (5-31); Bilirubin Total 0.5 mg/dL (0.0-1.0); Blood Urea Nitrogen 17 mg/dL (9-16); Carbon Dioxide 22 mmol/L (22-29); Chloride 109 mmol/L (96-108); Estimated Glomerular Filt Rate 39; Glucose Random 120 mg/dL (60-115); Magnesium 1.8 mg/dL (1.6-2.6); Potassium 3.9 mmol/L (3.3-5.1); Sodium 143 mmol/L (135-145); Total Protein 7.3 g/dL (6.5-8.0)
[2023-12-30 16:26] VITALS: BP 172/114; PULSE 82; RESP 16; O2SAT 100
[2023-12-30 16:49] VITALS: BP 154/112; PULSE 88; RESP 16; TEMP 36.7; O2SAT 100
== END 2023-12-30 17:00 | disposition home or self-care (01) ==
PROVIDERS: Registered Nurse Emergency; Emergency Provider Emergency Medicine; PCP Internal Medicine
DX: S06.0X0A Concussion without loss of consciousness, initial encounter (principal); R11.2 Nausea with vomiting, unspecified; R42 Dizziness and giddiness; R51.9 Headache, unspecified; M54.2 Cervicalgia; R06.02 Shortness of breath; W01.10XA Fall on same level from slipping, tripping and stumbling with subsequent striking against unspecified object, initial encounter; Y93.9 Activity, unspecified; Y92.002 Bathroom of unspecified non-institutional (private) residence as the place of occurrence of the external cause; Y99.8 Other external cause status
CPT/HCPCS: 36415; 70450; 72125; 80053; 83735; 85025; 85610; 99284

== ENCOUNTER 2024-02-27 08:09 | Outpatient (REF) | payer OTHER, SELFPAY ==
[2024-02-27 08:18] LABS: MANUAL DIFF FLAG NO
[2024-02-27 08:32] LABS: Basophils Percent Auto 0.5 % (0-2); Eosinophils Percent Auto 0.7 % (0-4); Hematocrit 32.8 % (37.0-47.0); Hemoglobin 11.2 g/dl (12.0-16.0); Imm Gran Abs Auto 0.02 X10*3/uL (0.00-0.03); Imm Gran Pct Auto 0.5 % (0.0-0.4); Lymphocytes Absolute Auto 1.2 X10*3/uL (1.2-4.9); Lymphocytes Percent Auto 28.6 % (20-40); Mean Corpuscular HGB Conc 34.1 g/dl (31.0-35.0); Mean Corpuscular Hemoglobin 30.2 pg (27.0-33.0); Mean Corpuscular Volume 88.4 fL (80.0-98.0); Mean Platelet Volume 9.1 fL (9.4-12.3); Monocytes Absolute Auto 0.2 X10*3/uL (0.1-1.2); Monocytes Percent Auto 4.8 % (2-11); Neutrophils Absolute Auto 2.7 x10*3/uL (2.0-8.3); Neutrophils Percent Auto 64.9 % (45-73); Platelet Count 247 X10*3/uL (160-400); Red Blood Count 3.71 X10*6/uL (4.20-5.50); Red Cell Distribution Width 12.4 % (11.0-16.0); White Blood Count 4.1 X10*3/uL (4.8-10.8)
[2024-02-27 09:15] LABS: Anion Gap 13 (12-20); Blood Urea Nitrogen 24 mg/dL (9-16); Calcium 8.6 mg/dL (8.4-10.2); Carbon Dioxide 23 mmol/L (22-29); Chloride 109 mmol/L (96-108); Estimated Glomerular Filt Rate 35; Glucose Random 99 mg/dL (60-115); Potassium 3.9 mmol/L (3.3-5.1); Sodium 141 mmol/L (135-145)
[2024-02-27 09:16] LABS: Appearance Urine Cloudy; Color Urine Yellow; Glucose Urine UA Negative (Negative); Leukocyte Esterase Urine Negative (Negative); Nitrite Urine Negative (Negative); PH 5.5 (5.0-9.0); UMIC TRIGGER UA YES; Urine Blood Moderate (2+) (Negative); Urine Ketones Negative (Negative); Urine Protein 30 (1+) mg/dL (Neg-Trace)
[2024-02-27 09:32] LABS: Bacteria Urine 1+ (None Seen); RBC Urine 0-2 /HPF (0-2); WBC Urine 0-5 /HPF (0-5)
[2024-02-27 09:36] LABS: Creatinine Urine 102.01 mg/dL; Total Protein Urine Random 41 mg/dL (<12)
[2024-03-02 16:53] LABS: Vitamin D 25-OH, D2 <4 ng/mL; Vitamin D 25-OH, D3 31 ng/mL; Vitamin D 25-OH, Total 31 ng/mL (30-100)
== END 2024-02-27 08:10 | disposition home or self-care (01) ==
LOC: HO.LAB 08:09
PROVIDERS: PCP Internal Medicine; Visit Provider Internal Medicine Hypertension Specialist
DX: N18.30 Chronic kidney disease, stage 3 unspecified (principal)
CPT/HCPCS: 36415; 80048; 81001; 81003; 82306; 82570; 83970; 84156; 85025

== ENCOUNTER 2024-02-27 15:07 | Outpatient (AMB) | payer OTHER, SELFPAY ==
[2024-02-27 15:11] VITALS: BP 102/70; PULSE 91; O2SAT 99; BMI 31.3
--- NOTE | 2024-02-27 15:11 | HO.NEPHOV_ITS ---
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 Required: No Accompanied by: Self / Same As Patient Allergies hydrocodone Allergy (Unknown, Verified 02/27/24 15:12) UNKNOWN oxycodone [OXYCODONE] Allergy (Unknown, Verified 02/27/24 15:12) TONGUE SWELLING Medication List - Last Reconciled 02/27/24 by Trevon Caal MD amlodipine 10 mg PO DAILY azathioprine 50 mg PO DAILY hydroxychloroquine 200 mg PO BID meclizine 25 mg PO TID PRN metoprolol succinate ER 50 mg PO DAILY mycophenolate mofetil (CellCept) 1,000 mg PO BID prednisone 5 mg PO DAILY prednisone 5 mg PO Q OTHER DAY telmisartan-hydrochlorothiazid 80-25 mg 1 tab PO DAILY terbinafine HCl 250 mg PO DAILY HPI Comments Details: Young woman with a history of SLE and hypertension. 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 She is on Saphleno Currently blood pressure is well controlled after addition of amlodipine Renal function has been stable. She has no new complaints. 02/29/24 She stopped taking Telmisartan HCT 2 months ago- ? why Home BP has been well controlled She is back on Azathioprine [facility] Medical History HTN (hypertension) Lupus Family History Mother Hypertension Social History Alcohol intake: current Alcohol intake frequency: a few times a month Patient Tobacco Use Status: Never used Tobacco Physical Exam Vital Signs: Last Vital Signs Pulse 91 02/27/24 15:11 BP 102/70 02/27/24 15:11 Pulse Ox 99 02/27/24 15:11 Oxygen Delivery Method Room Air 02/27/24 15:11 BMI result Body Mass Index 31.3 Const General: comfortable; No acute distress Orientation/consciousness: patient oriented x3 Eyes General: appearance normal, both eyes and all related structures Visual [place]: normal visual [place] by confrontation Neck Neck: Yes supple and Yes no JVD Resp Effort & Inspection: normal respiratory effort and respiratory effort not decreased Auscultation: rhonchi Cardio Palpation: no palpable S3 and no palpable S4 Heart sounds: no rubs GI Inspection: Yes normal to inspection Palpation (GI): Soft to palpation Percussion: Yes normal to percussion Auscultation: normal bowel sounds General: Yes no CVA tenderness Back/Spine/Pelvis Back: no CVA tenderness Skin General skin exam: no petechiae and no purpura Neuro General: patient oriented x3 and no focal motor deficits Extrem General: No clubbing and No edema Results Reviewed Nephrology Results: Hgb 11.2 g/dl (12.0-16.0) L 02/27/24 WBC 4.1 X10*3/uL (4.8-10.8) L 02/27/24 Plt Count 247 X10*3/uL (160-400) 02/27/24 Sodium 141 mmol/L (135-145) 02/27/24 Potassium 3.9 mmol/L (3.3-5.1) 02/27/24 Chloride 109 mmol/L (96-108) H 02/27/24 Carbon Dioxide 23 mmol/L (22-29) 02/27/24 BUN 24 mg/dL (9-16) H 02/27/24 Creatinine 1.62 mg/dL (0.5-1.4) H 02/27/24 Calcium 8.6 mg/dL (8.4-10.2) 02/27/24 PTH Intact 163.0 pg/mL (8.7-77.1) H 02/27/24 Urine Protein 30 (1+) mg/dL (Neg-Trace) H 02/27/24 Urine Creatinine 102.01 mg/dL 02/27/24 Protein/Creatinin Ratio 0.72 (<0.2) H 07/12/23 Assessment & Plan Assessment & Plan (1) CKD (chronic kidney disease) stage 3, GFR 30-59 ml/min: Code(s): N18.30 - Chronic kidney disease, stage 3 unspecified Category: Medical Plan 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 She has about 700 mg of proteinuria. Would benefit from HUGO inhibition for renal protection. Watch BP for now and add need to add Telmisartan based on BP and taper Amlodipine based on BP Since BP is low, I will decrease AMLODIPINE to 5 mg QD Encouraged her to stay on low-sodium diet Continue overt nephrotoxic agents Continue to monitor renal function closely. SLE: will defer management of lupus to her insulation sprayer. Orders: Orders Basic Metabolic Panel 4 Weeks N18.30 - Chronic kidney disease, stage 3 unspecified Medications: Changed From amlodipine 10 mg PO DAILY 90 tabs 3RF To amlodipine 5 mg PO DAILY 30 tabs 3RF Coding Level of Care Code Est Pt Level 4 (04520) Diagnoses CKD (chronic kidney disease) stage 3, GFR 30-59 ml/min N18.30
== END 2024-02-27 15:27 | disposition home or self-care (01) ==
PROVIDERS: PCP Internal Medicine; Visit Provider Internal Medicine Hypertension Specialist
DX: N18.30 Chronic kidney disease, stage 3 unspecified (principal)
CPT/HCPCS: 99214

== ENCOUNTER 2024-04-10 13:19 | Outpatient (AMB) | payer OTHER, SELFPAY ==
--- NOTE | 2024-04-10 13:28 | MHC.OFFWIV ---
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 Patient Tobacco Use Status: Never used Tobacco Allergies hydrocodone Allergy (Unknown, Verified 04/10/24 13:38) UNKNOWN oxycodone [OXYCODONE] Allergy (Unknown, Verified 04/10/24 13:38) TONGUE SWELLING Do you need a note to return to daycare/school/sports/work: Yes HPI HPI Comments History of Present Illness Details 43 y/o female patient who presents to the walk in clinic with c/o Severe headaches associated with light and sound sensitivity since Tuesday. Reports neck stiffness. Her BP today is elevated during the visit. [facility] Medical History HTN (hypertension) Lupus Family History Mother Hypertension Social History Alcohol intake: current Alcohol intake frequency: a few times a month Patient Tobacco Use Status: Never used Tobacco Review of Systems Const All systems reviewed & are unremarkable except as noted in HPI and below Physical Exam Vital Signs: Last Vital Signs Pulse 117 H 04/10/24 13:37 BP 180/100 H 04/10/24 13:37 Pulse Ox 96 04/10/24 13:37 Oxygen Delivery Method Room Air 04/10/24 13:37 Const Other: Pt very uncomfortable, lying on exam table in the Dark room. Pt morning in pain head covered with blanket. General: cooperative and acute distress moderate; No comfortable Orientation/consciousness: patient oriented x3 Resp Effort & Inspection: normal respiratory effort Cardio Heart sounds: S1 normal heart sound present and S2 normal heart sound present Neuro General: patient oriented x3 and moves all extremities Psych Speech and movement: Normal speech and movement present Assessment & Plan Assessment & Plan (1) Elevated blood pressure reading in office with diagnosis of hypertension: Code(s): I10 - Essential (primary) hypertension Plan: Pt has severe pain and BP extremely elevated today. Advised Pt to go to ED for further evaluation and treatment. DDx's: ?Stroke due to High BP levels. Coding Level of Care Code Est Pt Level 3 (41870) Diagnoses Elevated blood pressure reading in office with diagnosis of hypertension I10 Time Spent (min) 15
[2024-04-10 13:37] VITALS: BP 180/100; PULSE 117; O2SAT 96
== END 2024-04-10 14:15 | disposition home or self-care (01) ==
PROVIDERS: PCP Internal Medicine; Visit Provider Nurse Practitioner Family
DX: I10 Essential (primary) hypertension (principal)
CPT/HCPCS: 99213

== ENCOUNTER 2024-04-16 13:10 | Outpatient (AMB) | payer OTHER, SELFPAY ==
[2024-04-16 13:12] VITALS: BP 128/92; PULSE 88; O2SAT 99; BMI 32.0
--- NOTE | 2024-04-16 13:12 | HO.NEPHOV ---
Vital Signs 04/16/24 13:12 Height 5 ft 2 in Weight 175 lb BMI 32.0 BP 128/92 H Blood Pressure Location Lt brachial Position Sitting Pulse 88 Pulse Source Pulse Oximeter Pulse Oximetry (%) 99 Oxygen Delivery Method Room Air Intake Visit Reasons: 6 wks follow up/ Not feeling well Human Resources Executive Assistant Required: No Accompanied by: Self / Same As Patient Allergies hydrocodone Allergy (Unknown, Verified 04/16/24 13:14) UNKNOWN oxycodone [OXYCODONE] Allergy (Unknown, Verified 04/16/24 13:14) TONGUE SWELLING Medication List - Last Reconciled 04/16/24 by Trevon Caal MD amlodipine 5 mg PO DAILY azathioprine 50 mg PO DAILY dextroamphetamine-amphetamine 15 mg ER 30 mg PO QAM hydroxychloroquine 200 mg PO BID meclizine 25 mg PO TID PRN metoprolol succinate ER 50 mg PO DAILY mycophenolate mofetil (CellCept) 1,000 mg PO BID prednisone 5 mg PO Q OTHER DAY terbinafine HCl 250 mg PO DAILY HPI Comments Details: Young woman with a history of SLE and hypertension. 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 She is on Saphleno Currently blood pressure is well controlled after addition of amlodipine Renal function has been stable. She has no new complaints. 02/29/24 She stopped taking Telmisartan HCT 2 months ago- ? why Home BP has been well controlled She is back on Azathioprine 04/16/2024 She was recently hospitalized at [facility]. She had severe headache and underwent a spinal tap. Findings were suggestive of aseptic meningitis. Currently she is on doxycycline. She feels better but still has some tiredness. No headache. No nausea vomiting. No visual symptoms. [facility] Medical History HTN (hypertension) Lupus Family History Mother Hypertension Social History Alcohol intake: current Alcohol intake frequency: a few times a month Patient Tobacco Use Status: Never used Tobacco Physical Exam Vital Signs: Last Vital Signs Pulse 88 04/16/24 13:12 BP 128/92 H 04/16/24 13:12 Pulse Ox 99 04/16/24 13:12 Oxygen Delivery Method Room Air 04/16/24 13:12 BMI result Body Mass Index 32.0 Const General: comfortable; No acute distress Orientation/consciousness: patient oriented x3 Eyes General: appearance normal, both eyes and all related structures Visual [place]: normal visual [place] by confrontation Neck Neck: Yes supple and Yes no JVD Resp Effort & Inspection: normal respiratory effort and respiratory effort not decreased Auscultation: rhonchi Cardio Palpation: no palpable S3 and no palpable S4 Heart sounds: no rubs GI Inspection: Yes normal to inspection Palpation (GI): Soft to palpation Percussion: Yes normal to percussion Auscultation: normal bowel sounds General: Yes no CVA tenderness Back/Spine/Pelvis Back: no CVA tenderness Skin General skin exam: no petechiae and no purpura Neuro General: patient oriented x3 and no focal motor deficits Extrem General: No clubbing and No edema Results Reviewed Nephrology Results: Hgb 11.2 g/dl (12.0-16.0) L 02/27/24 WBC 4.1 X10*3/uL (4.8-10.8) L 02/27/24 Plt Count 247 X10*3/uL (160-400) 02/27/24 Sodium 141 mmol/L (135-145) 02/27/24 Potassium 3.9 mmol/L (3.3-5.1) 02/27/24 Chloride 109 mmol/L (96-108) H 02/27/24 Carbon Dioxide 23 mmol/L (22-29) 02/27/24 BUN 24 mg/dL (9-16) H 02/27/24 Creatinine 1.62 mg/dL (0.5-1.4) H 02/27/24 Calcium 8.6 mg/dL (8.4-10.2) 02/27/24 PTH Intact 163.0 pg/mL (8.7-77.1) H 02/27/24 Urine Protein 30 (1+) mg/dL (Neg-Trace) H 02/27/24 Urine Creatinine 102.01 mg/dL 02/27/24 Protein/Creatinin Ratio 0.72 (<0.2) H 07/12/23 Assessment & Plan Assessment & Plan (1) CKD (chronic kidney disease) stage 3, GFR 30-59 ml/min: Code(s): N18.30 - Chronic kidney disease, stage 3 unspecified Category: Medical Plan 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 She has about 700 mg of proteinuria. Would benefit from HUGO inhibition for renal protection. Keep AMLODIPINE 5 mg QD Encouraged her to stay on low-sodium diet Continue overt nephrotoxic agents Continue to monitor renal function closely. SLE: will defer management of lupus to her whipped topping supervisor. Aseptic meningitis On Doxy Keep prednisone Needs rest x 1 week Orders: Orders Basic Metabolic Panel 6 Weeks N18.30 - Chronic kidney disease, stage 3 unspecified Medications: New prednisone 2 tabs a day for a week and then 1 a day 10 mg (2 x 5 mg) PO DAILY 30 tabs 0RF nystatin 5 ml swish and swallow , 5 times a day 100,000 units PO DAILY 60 mL 0RF Coding Level of Care Code Est Pt Level 4 (24712) Diagnoses CKD (chronic kidney disease) stage 3, GFR 30-59 ml/min N18.30
== END 2024-04-16 13:44 | disposition home or self-care (01) ==
LOC: HO.HKA 13:10
PROVIDERS: PCP Internal Medicine; Visit Provider Internal Medicine Hypertension Specialist
DX: N18.30 Chronic kidney disease, stage 3 unspecified (principal)
CPT/HCPCS: 99214

== ENCOUNTER → 2024-04-16 13:10 | Outpatient (BNVA) | payer OTHER, SELFPAY | PROVIDERS: PCP Internal Medicine; Visit Provider Internal Medicine Hypertension Specialist ==

== ENCOUNTER 2024-05-30 08:43 | Outpatient (REF) | payer OTHER, SELFPAY ==
[2024-05-30 09:17] LABS: Appearance Urine Cloudy; Color Urine Yellow; Glucose Urine UA Negative (Negative); Leukocyte Esterase Urine Small (1+) (Negative); Nitrite Urine Negative (Negative); PH 5.5 (5.0-9.0); Specific Gravity - Urine 1.015 (1.005-1.025); UMIC TRIGGER UA YES; Urine Blood Moderate (2+) (Negative); Urine Ketones Negative (Negative); Urine Protein 100 (2+) mg/dL (Neg-Trace)
[2024-05-30 09:30] LABS: Bacteria Urine 1+ (None Seen)
[2024-05-30 09:37] LABS: Anion Gap 9 (12-20); Blood Urea Nitrogen 18 mg/dL (9-16); Calcium 8.3 mg/dL (8.4-10.2); Carbon Dioxide 22 mmol/L (22-29); Chloride 113 mmol/L (96-108); Estimated Glomerular Filt Rate 37; Glucose Random 84 mg/dL (60-115); Potassium 4.2 mmol/L (3.3-5.1); Sodium 140 mmol/L (135-145)
== END 2024-05-30 08:44 | disposition home or self-care (01) ==
LOC: HO.LAB 08:43
PROVIDERS: PCP Internal Medicine; Visit Provider Internal Medicine Hypertension Specialist
DX: N18.30 Chronic kidney disease, stage 3 unspecified (principal)
CPT/HCPCS: 36415; 80048; 81001

== ENCOUNTER 2024-06-12 16:07 | Outpatient (AMB) | payer OTHER, SELFPAY ==
[2024-06-12 16:08] VITALS: BP 142/90; PULSE 96; O2SAT 98; BMI 31.1
--- NOTE | 2024-06-12 16:08 | HO.NEPHOV ---
Vital Signs 06/12/24 16:08 Height 5 ft 2 in Weight 170 lb BMI 31.1 BP 142/90 H Blood Pressure Location Lt brachial Position Sitting Pulse 96 Pulse Source Pulse Oximeter Pulse Oximetry (%) 98 Oxygen Delivery Method Room Air Intake Visit Reasons: CKD/ Pt missed 05/31/24 appointment Senior Test Analyst Required: No Accompanied by: Self / Same As Patient Allergies hydrocodone Allergy (Unknown, Verified 06/12/24 16:09) UNKNOWN oxycodone [OXYCODONE] Allergy (Unknown, Verified 06/12/24 16:09) TONGUE SWELLING Medication List - Last Reconciled 06/12/24 by Trevon Caal MD amlodipine 5 mg PO DAILY azathioprine 50 mg PO DAILY dextroamphetamine-amphetamine 15 mg ER 30 mg PO QAM hydroxychloroquine 200 mg PO BID meclizine 25 mg PO TID PRN metoprolol succinate ER 50 mg PO DAILY mycophenolate mofetil (CellCept) 1,000 mg PO BID nystatin 100,000 units PO DAILY prednisone 10 mg (2 x 5 mg) PO DAILY prednisone 5 mg PO Q OTHER DAY terbinafine HCl 250 mg PO DAILY HPI Comments Details: Young woman with a history of SLE and hypertension. 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 She is on Saphleno Currently blood pressure is well controlled after addition of amlodipine Renal function has been stable. She has no new complaints. 02/29/24 She stopped taking Telmisartan HCT 2 months ago- ? why Home BP has been well controlled She is back on Azathioprine 04/16/2024 She was recently hospitalized at [facility]. She had severe headache and underwent a spinal tap. Findings were suggestive of aseptic meningitis. Currently she is on doxycycline. She feels better but still has some tiredness. No headache. No nausea vomiting. No visual symptoms. 06/12/24 Forgot to take meds this morning [facility] Medical History (Updated 06/12/24 @ 16:16 by Trevon Caal MD) HTN (hypertension) Lupus Family History Mother Hypertension Social History Alcohol intake: current Alcohol intake frequency: a few times a month Patient Tobacco Use Status: Never used Tobacco Physical Exam Vital Signs: Last Vital Signs Pulse 96 06/12/24 16:08 BP 142/90 H 06/12/24 16:08 Pulse Ox 98 06/12/24 16:08 Oxygen Delivery Method Room Air 06/12/24 16:08 BMI result Body Mass Index 31.1 Results Reviewed Nephrology Results: Hgb 11.2 g/dl (12.0-16.0) L 02/27/24 WBC 4.1 X10*3/uL (4.8-10.8) L 02/27/24 Plt Count 247 X10*3/uL (160-400) 02/27/24 Sodium 140 mmol/L (135-145) 05/30/24 Potassium 4.2 mmol/L (3.3-5.1) 05/30/24 Chloride 113 mmol/L (96-108) H 05/30/24 Carbon Dioxide 22 mmol/L (22-29) 05/30/24 BUN 18 mg/dL (9-16) H 05/30/24 Creatinine 1.54 mg/dL (0.5-1.4) H 05/30/24 Calcium 8.3 mg/dL (8.4-10.2) L 05/30/24 PTH Intact 163.0 pg/mL (8.7-77.1) H 02/27/24 Urine Protein 100 (2+) mg/dL (Neg-Trace) H 05/30/24 Urine Creatinine 102.01 mg/dL 02/27/24 Assessment & Plan Assessment & Plan (1) CKD (chronic kidney disease) stage 3, GFR 30-59 ml/min: Code(s): N18.30 - Chronic kidney disease, stage 3 unspecified Category: Medical Plan 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 She has about 700 mg of proteinuria. Would benefit from HUGO inhibition for renal protection. Keep AMLODIPINE 5 mg QD Encouraged her to stay on low-sodium diet Continue overt nephrotoxic agents Continue to monitor renal function closely. SLE: will defer management of lupus to her x ray developing machine operator. Aseptic meningitis - Resolved. Orders: Orders Basic Metabolic Panel 3 Months N18.30 - Chronic kidney disease, stage 3 unspecified Medications: Discontinued prednisone 2 tabs a day for a week and then 1 a day Discontinued Reason: Duplicate 10 mg (2 x 5 mg) PO DAILY 30 tabs 0RF nystatin 5 ml swish and swallow , 5 times a day Discontinued Reason: Patient no longer taking 100,000 units PO DAILY 60 mL 0RF Coding Level of Care Code Est Pt Level 4 (99972) Diagnoses CKD (chronic kidney disease) stage 3, GFR 30-59 ml/min N18.30
== END 2024-06-12 16:20 | disposition home or self-care (01) ==
PROVIDERS: PCP Internal Medicine; Visit Provider Internal Medicine Hypertension Specialist
DX: I12.9 Hypertensive chronic kidney disease with stage 1 through stage 4 chronic kidney disease, or unspecified chronic kidney disease (principal); N18.30 Chronic kidney disease, stage 3 unspecified
CPT/HCPCS: 99214

== ENCOUNTER → 2024-06-12 16:07 | Outpatient (BNVA) | payer OTHER, SELFPAY | PROVIDERS: PCP Internal Medicine; Visit Provider Internal Medicine Hypertension Specialist ==

== ENCOUNTER 2024-07-10 16:55 | Outpatient (REF) | payer OTHER, SELFPAY ==
[2024-07-10 17:05] LABS: MANUAL DIFF FLAG NO
[2024-07-10 17:16] LABS: Basophils Percent Auto 0.2 % (0-2); Eosinophils Percent Auto 0.2 % (0-4); Hematocrit 32.6 % (37.0-47.0); Hemoglobin 11.2 g/dl (12.0-16.0); Imm Gran Abs Auto 0.02 X10*3/uL (0.00-0.03); Imm Gran Pct Auto 0.4 % (0.0-0.4); Lymphocytes Absolute Auto 0.5 X10*3/uL (1.2-4.9); Lymphocytes Percent Auto 10.1 % (20-40); Mean Corpuscular HGB Conc 34.4 g/dl (31.0-35.0); Mean Corpuscular Volume 87.4 fL (80.0-98.0); Mean Platelet Volume 9.3 fL (9.4-12.3); Monocytes Absolute Auto 0.2 X10*3/uL (0.1-1.2); Monocytes Percent Auto 4.9 % (2-11); Neutrophils Absolute Auto 4.1 x10*3/uL (2.0-8.3); Neutrophils Percent Auto 84.2 % (45-73); Platelet Count 217 X10*3/uL (160-400); Red Blood Count 3.73 X10*6/uL (4.20-5.50); Red Cell Distribution Width 12.8 % (11.0-16.0); White Blood Count 4.9 X10*3/uL (4.8-10.8)
[2024-07-10 17:52] LABS: Creatinine Urine 101.96 mg/dL; Protein/Creatinine Ratio, Ur 1.73 (<0.2); Total Protein Urine Random 176 mg/dL (<12)
[2024-07-10 18:03] LABS: Alanine Aminotransferase 55 U/L (0-31); Albumin Level 3.3 g/dL (3.5-5.0); Alkaline Phosphatase 94 U/L (39-117); Anion Gap 9 (12-20); Aspartate Amino Transferase 99 U/L (5-31); Bilirubin Total 0.3 mg/dL (0.0-1.0); Blood Urea Nitrogen 18 mg/dL (9-16); Calcium 8.7 mg/dL (8.4-10.2); Carbon Dioxide 26 mmol/L (22-29); Chloride 109 mmol/L (96-108); Cholesterol 149 mg/dL (<200); Estimated Glomerular Filt Rate 49; Glucose Random 108 mg/dL (60-115); HDL Cholesterol 51 mg/dL (>40); LDL Cholesterol Calculated 61 mg/dL (<100); Potassium 3.5 mmol/L (3.3-5.1); Sodium 140 mmol/L (135-145); Total Protein 6.6 g/dL (6.5-8.0); Triglycerides 186 mg/dL (<150)
== END 2024-07-10 16:56 | disposition home or self-care (01) ==
LOC: HO.LAB 16:55
PROVIDERS: PCP Internal Medicine; Visit Provider Internal Medicine
DX: F90.0 Attention-deficit hyperactivity disorder, predominantly inattentive type (principal); G03.0 Nonpyogenic meningitis; I10 Essential (primary) hypertension; N03.2 Chronic nephritic syndrome with diffuse membranous glomerulonephritis
CPT/HCPCS: 36415; 80053; 80061; 82570; 84156; 85025

== ENCOUNTER 2024-10-15 08:02 | Outpatient (REF) | payer OTHER, SELFPAY ==
--- OUTSIDE RECORDS SUMMARY | 2024-10-15 08:08 | XMS_ITS | Data Portability ---
Author Organization [place] - [facility] , [facility] Address [address] [place] [address] Assessment Encounter Date Assessment Date Assessment LastModified by Organization Details LastModified Time 10/09/2024 10/09/2024 A: paronychia P: start epsom salt soaks three times daily followed by application of mupirocin ointment if no improvement in 2-3 days start oral antibiotics antibiotic prescribed: Bactrim, mupirocin Counseled on the importance of follow up if symptoms not improving with recommended treatment plan. Patient to be seen for repeat evaluation if symptoms worsen, counseled on red flag symptoms to indicate need for emergent follow up. Patient expressed understanding and agreement with treatment plan as outlined. [email or web address] Not available 10/09/2024 16:05:03 Plan of Treatment Reminders Order Date Submit Date Provider Last Modified By Organization Details Last Modified Time Details Appointments None recorded. Lab None recorded. Referral None recorded. Procedures None recorded. Surgeries None recorded. Imaging None recorded. Medication Orders mupirocin 2 % topical ointment 2024 025 [facility]/Pharmacy #[id number], [address] [place], [address], 5 15:34:43 sulfamethox azole 800 mg-trimetho prim 160 mg tablet 2024 025 [facility]/Pharmacy #[id number], [address] [place], [address], 5 15:34:43 Patient TargetsNo targets recorded. Patient Instructions Encounter Date Encounter Id Patient Instructions Last Modified By Organization Details Last Modified Time 09/14/2024 [id number] dizziness: care instructions [email or web address] Not available 09/14/2024 23:52:21 Reason for Referral None Reported. 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 Medical Equipment None Reported. Allergies Allergen ID Allergen Name Allergen Category Reaction Reaction Severity Criticality Documentation Date Start Date Code Code System Note Provider Name and Address Organization Details Recorded Time 781098 acetamino phen / hydrocodo ne medicatio n Not available Not available Not available 10/09/2024 81484 2 RxNorm Not Available Included [facility] 15:26:11 Medications Name Sig Start Date Stop Date Status Note LastModified by Organization Details LastModified Time amlodipine 5 mg tablet Take 1 tablet every day by oral route. active Not Available Not Available No t Available sulfamethox azole 800 mg-trimetho prim 160 mg tablet Take 1 tablet every 12 hours by oral route for 7 days. 2024 active Not Available Not Available Not Avai lable Keflex 500 mg tablet Take 1 capsule twice a day by oral route. active Not Available Not Available No t Available CellCept 500 mg tablet Take 2 tablets twice a day by oral route. active never takes evening dose Not Available Not Available Not Available mupirocin 2 % topical ointment APPLY A SMALL AMOUNT TO THE AFFECTED AREA BY TOPICAL ROUTE 3 TIMES PER DAY 2024 active Not Available Not Available Not Avai lable hydroxychlo roquine 200 mg tablet Take 1 tablet twice a day by oral route. active Not Available Not Available No t Available metoprolol succinate ER 50 mg capsule sprinkle, ext. release 24 hr Take 1 capsule every day by oral route. active Not Available Not Available No t Available amphetamine ER 15 mg tablet, immediate and extended release 24 hour Take 1 tablet every day by oral route. active Not Available Not Available No t Available Vitals None Recorded Social History None recorded. Functional Status None recorded. Mental Status None recorded. Family History Nothing Reported. Medical History No medical history recorded. Gynecological HistoryNo gynecological history recorded. Obstetrics History GPAL:G 0 P 0 0 0 0 Past Encounters Encounter ID Performer Location Encounter Start Date Encounter Closed Date Diagnosis/Indication Diagnosis SNOMED-CT Code Diagnosis ICD10 Code Diagnosis Note [id number] Aimee Dennis [address] [address] 09/14/2024 23:17:32 09/15/2024 05:49:24 Skin sensation disturbance 79639875 R20.9 Discussed I cannot rule out more serious things like TIA, stroke etc without imaging and vital signs. Encouraged to be seen in person, ED, for further evaluation . Discussed I cannot tell her it is safe to wait until morning due to not knowing what is going on, verbalized understand ing Dizziness 343307103 R42 Recommende d to go to the ED for further evaluation , like CT scan of head, verbalized understand ing [id number] Dutch Deras [address] [address] 10/09/2024 15:28:21 10/09/2024 21:34:55 Cellulitis of finger of left hand [id number] 7332169 L03.012 Health Concerns Section Related Observation LastModified by Organization Detai ls LastModified Time None Recorded Concern Status LastModified by Organization Details LastModified Time None Recorded Advance Directives Directive None Recorded Payers Encounter Date Sequence Insurance Name Policy Number Policy Dimas Covered Member ID Dimas Member ID Guarantor Name 09/14/2024 1 [facility] [id number] Solemar Lyn [id number] Solemar Lyn 09/14/2024 3 *SELF PAY* Solemar Lyn [id number] Solemar Lyn 10/09/2024 1 [facility] [id number] Solemar Lyn [id number] Solemar Lyn 10/09/2024 3 *SELF PAY* Solemar Lyn [id number] Solemar Lyn Notes Date Note Type Note Provider Name and Address Organization Details Recorded Time 09/14/2024 text/html Call connected, patient greeted. Patient name , location, and phone number confirmed. Verbal consent obtained to treat this patient via the telemedicine/video platform. Patient understands that there are limitations to my evaluation. Clinician attests they are physically located in [place] at the time of visit. Patient during today's visit is physically located in [place] CC:? ? ?other injuryAge: 44? ? ?Gender: female HPI: Right now it has gone away but I have been getting it. I have gotten it two times already. I feel this intense burning, on my left eye and only the left side of my lip. It is less intense on the rest of the left face. Both times it happened I had been laying down. Today I had it happen when I was downstairs. I tried to go up the stairs, I tripped on two of them. When I got to the top of the stairs I was going sideways and felt dizzy. For the minute before it passed I was holding on to the table. I called my mom and told her to stay. on the phone with me. I did not go to the hospital because I did not want to be put in the corner and not taken seriously.Onset and duration of symptoms: started 3 weeks ago, happening intermittently, lasts 1-2 minutesSymptoms:BP: I do not check at home, last time I was at the doctors it was highVertigo: yes, during most recent episode (had two previous to today)Lightheadedness : yes, during all three episodesNausea: deniesVomiting: deniesHearing Loss: deniesEar pain: deniesURI symptoms: deniesTinnitus: yes, only on the right side during the episodes or immediately afterVisual disturbances: not that I have noticed, maybe a little bitSpeech disturbances: deniesFalls: deniesFainting: deniesNearly fainting: deniesChest discomfort: deniesPalpitations: I kind of felt like my heart was beating fast but never checkedSweating: deniesWeakness: deniesNumbness: yes, left side of faceDifficulty walking: yes, walking sideways todayHeadache: maybe a little pressure or somethingFever (Tmax): deniesHydration: I have not been drinking muchRecent migraine: deniesRecent head trauma: deniesAdditional symptoms: I am on the Keflex due to infection on the bottom of my foot. I was told it looked like cellulitis. I started on the antibiotic on . I had the cut about 5 days prior to seeing my pcp. Had blood work done one month ago, I was doing well so I was taken off prednisone after 14 years. Jul 27 was my last appointment with rheumatology. Twice it was at night and once was during the day when laying down watching TV. OTC medications recently started: taking collagen from [employer] like 2.5 weeks agoRecent ear infection: deniesRecent antibiotic use: yes, currently on KeflexRecent new prescription medications: KeflexPast history of anxiety / depression: deniesRecreational drug use: deniesPast head trauma: deniesPast history of defibrillation / implanted defibrillator / pacemaker: denies : deniesBreastfeeding: IRINEO Mckeon 1 [facility] [address], [address], [place] [facility] 09/14/2024 23:52:46 10/09/2024 text/html Call connected, patient greeted with my name and title as Nurse Practitioner. I attest I am currently physically located in the [facility]. Patient name, , telephone number and location verified verbally with the patient. Telemedicine limitations reviewed, answered all questions the patient had about the telehealth interaction, and verbal consent obtained to treat. The patient consents to the use of [employer] scribe technology. Pt had a piece of skin next to fingernail that she pulled on the left middle fingerIs red, swollen, painful, draining pus that is yellow; fist sign of infection was 09/27/24Den feverCurren treatments: self-draining, warm soaks with apple cider vinegar IRINEO Mackey [address] [facility] [address], [place], [address], [place] [facility] 10/09/2024 16:05:07 OBGyn Episode No OBEpisode recorded.
--- OUTSIDE RECORDS SUMMARY | 2024-10-15 08:08 | XMS_ITS | Encounter Summary ---
Author Organization [facility] Address [address] [place] [address] Phone Care Team Providers Care Screen Operator Name Role Phone Maria T Ac MD Primary Care Provider [phone] Encounter Details Date Type Department Care Team (Late st Contact Info) Description 07/29/2022 Telephone [facility] [address] [place] [address] Trevon Caal MD Social History Tobacco Use Types Packs/Day Years Used Date Smoking Tobacco: Never Smokeless Tobacco: Never Alcohol Use Standard Drinks/Week Comments Yes 0 (1 standard drink = 0.6 oz pure alcohol) Alcoholic Drinks/day: Occasional social drink Comments Unknown Sex and Gender Information Value Date Recorded Sex Assigned at Not on file Legal Sex Female 4:48 PM EST Gender Identity Not on file Sexual Orientation Not on file documented as of this encounter Miscellaneous Notes * Telephone Encounter - [place] - 07/29/2022 10:53 AM EST Pt called her bp today is running high at 153/109 and 153/111. She would like to speak with you about adjusting her meds again. Please call her back at [phone] Thank you documented in this encounter Plan of Treatment Not on file documented as of this encounter Visit Diagnoses Not on filedocumented in this encounter Care Teams Screen Operator Relationship Specialty Start Date End Date Maria T Ac MD [address] [place] [address] PCP - General 09/01/20 documented as of this encounter
--- OUTSIDE RECORDS SUMMARY | 2024-10-15 08:08 | XMS_ITS | Continuity of Care Document ---
Author Organization [place] - [facility] , [facility] Address [address] [place] [address] Assessment Encounter Date Assessment Date Assessment LastModified [...] and agreement with treatment plan as outlined. [email or web address] Not available 10/09/2024 16:05:03 Plan of Treatment Reminders Order Date Submit Date Provider Last Modified By Organization Details Last Modified Time Details Appointments None recorded. Lab None recorded. Referral None recorded. Procedures None recorded. Surgeries None recorded. Imaging None recorded. Medication Orders mupirocin 2 % topical ointment 2024 025 [facility]/Pharmacy #[id number], [address] [place], [address], 5 15:34:43 sulfamethox azole 800 mg-trimetho prim 160 mg tablet 2024 025 [facility]/Pharmacy #[id number], [address] [place], [address], 5 15:34:43 Patient TargetsNo targets recorded. Patient InstructionsNo instructions recorded. Reason for Referral None Reported. Problems Name Problem SNOMED Code Status Onset Date Resolution Date Notes Provider Name and Address Organization Details Recorded Time Lupus erythematosu s 349236693 Active 2024 IRINEO Tucker 1 [facility] [address], [place], [address], [place] [facility] 5 23:24:49 Essential hypertension 81187186 Active 2024 IRINEO Tucker 1 [facility] [address], [place], [address], [place] [facility] 5 23:24:56 Problem Notes None recorded. Medical Equipment None Reported. Allergies Allergen ID Allergen Name Allergen Category Reaction Reaction Severity Criticality Documentation Date Start Date Code Code System Note Provider Name and Address Organization Details Recorded Time 458685 acetamino phen / hydrocodo ne medicatio n Not available Not available Not available 10/09/2024 32217 2 RxNorm Not Available Included [facility] 15:26:11 Medications Name Sig Start Date Stop [...] SNOMED-CT Code Diagnosis ICD10 Code Diagnosis Note [id number] IRINEO Tucker [address] [address] 09/14/2024 23:17:32 09/15/2024 05:49:24 Skin sensation disturbance 55347500 R20.9 Discussed I cannot rule out more serious things like TIA, stroke etc without imaging and vital signs. Encouraged to be seen in person, ED, for further evaluation . Discussed I cannot tell her it is safe to wait until morning due to not knowing what is going on, verbalized understand ing Dizziness [id number] R42 Recommende d to go to the ED for further evaluation , like CT scan of head, verbalized understand ing [id number] IRINEO Mackey [address] [address] 10/09/2024 15:28:21 10/09/2024 21:34:55 Cellulitis of finger of left hand [id number] 0424827 L03.012 Health Concerns Section Related Observation LastModified by Organization Detai ls LastModified Time None Recorded Concern Status LastModified by Organization Details LastModified Time None Recorded Payers Encounter Date Sequence Insurance Name Policy Number Policy Dimas Covered Member ID Dimas Member ID Guarantor Name 10/09/2024 1 [facility] [id number] Solemar Lyn [id number] Solemar Lyn 10/09/2024 3 *SELF PAY* Solemar Lyn [id number] Solemar Lyn Notes Date Note Type Note Provider Name and Address Organization Details Recorded Time 10/09/2024 text/html Call connected, patient greeted with my name and title as Nurse Practitioner. I attest I am currently physically located in the [facility]. Patient name, , telephone number and location verified verbally with the patient. Telemedicine limitations reviewed, answered all questions the patient had about the telehealth interaction, and verbal consent obtained to treat. The patient consents to the use of AI scribe technology. Pt had a piece of skin next to fingernail that she pulled on the left middle fingerIs red, swollen, painful, draining pus that is yellow; fist sign of infection was 09/27/24Denies feverCurren treatments: self-draining, warm soaks with apple cider vinegar Dutch Deras, [employer] 1 [facility] [address], [place], [address], [facility] 10/09/2024 16:05:07 OBGyn Episode No OBEpisode recorded.
--- OUTSIDE RECORDS SUMMARY | 2024-10-15 08:08 | XMS_ITS | Clinical Summary ---
Author Organization [facility] Address [address] [place] [address] Phone Care Team Providers Care Steel Fabricator Name Role Phone Maria T Ac MD Primary Care Provider Allergies Active Allergy Reactions Criticality Noted Date Comments Oxycodone 12/06/2022 Oxycodone-Acetaminophen Other (see comments) Sulfa Antibiotics Other (see comments) 11/22/19 Hydrocodone-Acetaminophen Other (see comments) 11/21/2020 Medications Clobetasol Propionate 0.05 % shampoo USE DIRECTED 11/27/2020 Active Adderall XR 15 MG 24 hr capsule 07/29/2021 Active ketoconazole (NIZORAL) 2 % shampoo 08/02/2021 Active telmisartan (MICARDIS) 80 MG tablet Take 80 mg by mouth 1 (one) time each day 10/16/2021 Active hydroxychloroqu ine (PLAQUENIL) 200 MG tablet Take 200 mg by mouth in the morning and 200 mg in the evening. Active Cyanocobalamin (B-12) 1000 MCG tablet controlled-rele ase Take 1 tablet by mouth 1 (one) time each day 01/14/2022 Active levonorgestrel- ethinyl estradiol (SEASONALE) 0.15-0.03 MG per tablet Take 1 tablet by mouth 1 (one) time each day 02/21/2022 Active Anifrolumab-fni a (SAPHNELO IV) Infuse into a venous catheter Active metoprolol succinate XL (Toprol XL) 50 MG 24 hr tablet Take 1 tablet (50 mg total) by mouth 1 (one) time each day Do not crush or chew. 30 tablet 11 07/29/2022 Active predniSONE 5 MG tablet Take 1 tablet (5 mg total) by mouth every other day 12/06/2022 Active amLODIPine (NORVASC) 5 MG tablet TAKE 1 TABLET BY MOUTH EVERY DAY AT NIGHT 90 tablet 1 02/07/2023 Active amLODIPine (NORVASC) 10 MG tablet TAKE 1 TABLET BY MOUTH 1 TIME EACH DAY. 90 tablet 1 02/07/2023 Active Active Problems Problem Noted Date Diagnosed Date Stage 3 chronic kidney disease 07/12/2023 Chronic glomerulonephritis 11/21/2020 Chronic kidney disease stage 1 11/21/2020 Systemic lupus erythematosus 11/21/2020 Family History Medical History Relation Comments Dementia Mother grandmother Diabetes Mother grandmother Hypertension Mother Kidney disease Mother grandmother Stroke Mother granmother Diabetes Sibling sister Relation Status Comments Father Alive Mother Alive Sibling Social History Tobacco Use Types Packs/Day Years Used Date Smoking Tobacco: Never Smokeless Tobacco: Never Tobacco Cessation:Counseling Given: Not Answered Alcohol Use Standard Drinks/Week Comments Yes 0 (1 standard drink = 0.6 oz pure alcohol) Alcoholic Drinks/day: Occasional social drink Comments Unknown Sex and Gender Information Value Date Recorded Sex Assigned at Not on file Legal Sex Female 4:48 PM EST Gender Identity Not on file Sexual Orientation Not on file Last Filed Vital Signs Vital Sign Reading Time Taken Comments Blood Pressure 140/90 07/12/2023 4:00 PM EST Pulse 67 07/12/2023 4:00 PM EST Temperature - - Respiratory Rate - - Oxygen Saturation 98% 07/12/2023 4:00 PM EST Inhaled Oxygen Concentration - - Weight 77.6 kg (171 lb) 07/12/2023 4:00 PM EST Height 157.5 cm (5' 2 ) 12/06/2022 3:37 PM EDT Body Mass Index 31.28 12/06/2022 3:37 PM EDT Plan of Treatment Health Maintenance Due Date Last Done Comments Pneumococcal Vaccine: Pediat rics (0 to 5 Years) and At-Risk Patients (6 to 64 Years) (1 of 2 - PCV) 1988 Hepatitis B Vaccine (1 of 3 - 19+ 3-dose series) 04/13 Influenza Vaccine (#1) 2024 Insurance [facility] [place]ICAID [place] [facility] [place] Care Teams Steel Fabricator Relationship Specialty Start Date End Date Maria T Ac MD [address] [place] [address] PCP - General 09/01/20
--- OUTSIDE RECORDS SUMMARY | 2024-10-15 08:08 | XMS_ITS | Encounter Summary ---
Author Organization [facility] Address [address] [place] [address] Phone Care Team Providers Care Time Study Technician Name Role Phone Maria T Ac MD Primary Care Provider Reason for Visit * Reason Comments Med Refill Encounter Details Date Type Department Care Team (Late st Contact Info) Description 11/15/2021 Refill [facility] [address] [place] [address] Trevon Caal MD Social History [...] on file documented as of this encounter Plan of Treatment Not on file documented as of this encounter Visit Diagnoses Not on filedocumented in this encounter Care Teams Time Study Technician Relationship Specialty Start Date End Date Maria T Ac MD [address] [place] [address] PCP - General 09/01/20 documented as of this encounter
--- OUTSIDE RECORDS SUMMARY | 2024-10-15 08:08 | XMS_ITS | Encounter Summary ---
Author Organization [facility] Address [address] [facility] [address] [place] [address] Phone Care Team Providers Care Supervisor Mold Yard Name Role Phone Maria T Ac MD Primary Care Provider Reason for Visit * Reason Comments Med Refill Encounter Details Date Type Department Care Team (Late st Contact Info) Description 12/18/2022 Refill [facility] [address] [facility] [address] [place] [address] Prem Reyes MD [address] [facility] [address] [place] [address] Social History Tobacco Use Types Packs/Day Years [...] on filedocumented in this encounter Care Teams Supervisor Mold Yard Relationship Specialty Start Date End Date Maria T Ac MD [address] PCP - General 09/01/20 documented as of this encounter
--- OUTSIDE RECORDS SUMMARY | 2024-10-15 08:08 | XMS_ITS | Clinical Summary ---
Author Organization [employer] Address [address] [place] [address] 7[address] [place] [address] Care Team Providers Care Disability Aide Name Role Phone Unavailable Primary Care Provider Unavailabl e Social History Tobacco Use Types Packs/Day Years Used Date Smoking Tobacco: Never Assessed Comments Unknown Sex and Gender Information Value Date Recorded Sex Assigned at Female 06/21/2022 10:34 AM EDT Legal Sex Female 10:34 AM EDT Gender Identity Female 06/21/2022 10:34 AM EDT Sexual Orientation Choose not to disclose 2021 10:34 AM EDT Plan of Treatment Health Maintenance Due Date Last Done Comments Depression Screening 1982 Alcohol/Substance Use Screening 1994 Tobacco Screening 1994 Family Planning (PISQ) 1997 DTaP/Tdap/Td Vaccines (1 - Tdap) 2001 Hepatitis B Vaccines (1 of 3 - 19+ 3-dose series) 2001 Pap Smear 2003 Cervical Cancer Screening 2012 HPV/Cotest 2012 Mammogram 2022 COVID-19 Vaccine ( - 2023-2 5 season) 2024 Influenza Vaccine (#1) 2024 Zoster Vaccines (1 of 2) 2032 RSV Patients and Pa tients Aged 60 years or older (1 - 1-dose 75+ series) 2057 HIB Vaccines Aged Out No longer eligi ble based on patient's age to complete this topic HPV Vaccines Aged Out No longer eligi ble based on patient's age to complete this topic Hepatitis A Vaccines Aged Out No long er eligible based on patient's age to complete this topic IPV Vaccines Aged Out No longer eligi ble based on patient's age to complete this topic Meningococcal Vaccine Aged Out No karri pradip eligible based on patient's age to complete this topic Pneumococcal Vaccine: Pediat rics (0 to 5 Years) and At-Risk Patients (6 to 49) Years) Aged Out No longer eligible b ased on patient's age to complete this topic RSV under 20 months Aged Out No longe r eligible based on patient's age to complete this topic Rotavirus Vaccines Aged Out No longer eligible based on patient's age to complete this topic
--- OUTSIDE RECORDS SUMMARY | 2024-10-15 08:08 | XMS_ITS | Encounter Summary ---
Author Organization [facility] [employer] Address [address] [place] [address] 7 [place] [address] Care Team Providers Care Senior Commissions Analyst Name Role Phone Unavailable Primary Care Provider Unavailabl e Encounter Details Date Type Department Care Team (Latest Contact Info) Description 05/18/2019 Abstract C CONVERSIONS Dental, Provider, DDS Social History Tobacco Use Types Packs/Day Years Used Date Smoking Tobacco: Never Assessed Comments Unknown Sex and Gender Information Value Date Recorded Sex Assigned at Female 06/21/2022 10:34 AM EDT Legal Sex Female 10:34 AM EDT Gender Identity Female 06/21/2022 10:34 AM EDT Sexual Orientation Choose not to disclose 2021 10:34 AM EDT documented as of this encounter Plan of Treatment Not on file documented as of this encounter Visit Diagnoses Not on filedocumented in this encounter
[2024-10-15 09:05] LABS: Color Urine Yellow; Glucose Urine UA Negative (Negative); Leukocyte Esterase Urine Trace (Negative); Nitrite Urine Negative (Negative); PH 5.5 (5.0-9.0); Specific Gravity - Urine 1.015 (1.005-1.025); UMIC TRIGGER UA YES; Urine Blood Large (3+) (Negative); Urine Ketones Negative (Negative); Urine Protein 100 (2+) mg/dL (Neg-Trace)
[2024-10-15 09:06] LABS: Appearance Urine Hazy
[2024-10-15 09:17] LABS: Bacteria Urine Trace (None Seen); Hyaline Casts Urine 0-2 /LPF (0-2)
[2024-10-15 09:42] LABS: Anion Gap 10 (12-20); Blood Urea Nitrogen 21 mg/dL (9-16); Calcium 8.3 mg/dL (8.4-10.2); Carbon Dioxide 22 mmol/L (22-29); Chloride 116 mmol/L (96-108); Estimated Glomerular Filt Rate 42; Glucose Random 90 mg/dL (60-115); Potassium 4.2 mmol/L (3.3-5.1); Sodium 144 mmol/L (135-145)
== END 2024-10-15 08:03 | disposition home or self-care (01) ==
LOC: HO.LAB 08:02
PROVIDERS: PCP Internal Medicine; Visit Provider Internal Medicine Hypertension Specialist
DX: N18.30 Chronic kidney disease, stage 3 unspecified (principal); M32.9 Systemic lupus erythematosus, unspecified; I10 Essential (primary) hypertension
CPT/HCPCS: 36415; 80048; 81001; 81003

== ENCOUNTER 2024-10-15 15:42 | Outpatient (AMB) | payer OTHER, SELFPAY ==
--- NOTE | 2024-10-15 15:43 | HO.NEPHOV ---
Vital Signs 10/15/24 15:44 Height 5 ft 2 in Weight 160 lb BMI 29.3 BP 138/92 H Blood Pressure Location Rt brachial Position Sitting Intake Visit Reasons: CKD Beta Tester Required: No Accompanied by: Self / Same As Patient Allergies hydrocodone Allergy (Unknown, Verified 10/15/24 15:46) UNKNOWN oxycodone [OXYCODONE] Allergy (Unknown, Verified 10/15/24 15:46) TONGUE SWELLING Medication List - Last Reconciled 10/15/24 by Trevon Caal MD amlodipine 5 mg PO DAILY azathioprine 50 mg PO DAILY dextroamphetamine-amphetamine 15 mg ER 30 mg PO QAM hydroxychloroquine 200 mg PO BID meclizine 25 mg PO TID PRN metoprolol succinate ER 50 mg PO DAILY mupirocin 2% 1 appl topical DAILY PRN mycophenolate mofetil (CellCept) 1,000 mg PO BID prednisone 5 mg PO Q OTHER DAY terbinafine HCl 250 mg PO DAILY HPI Comments Details: Young woman with a history of SLE and hypertension. Currently she is being managed by database admin. She is on Saphleno Currently blood pressure is well controlled after addition of amlodipine Renal function has been stable. She has no new complaints. 02/29/24 She stopped taking Telmisartan HCT 2 months ago- ? why Home BP has been well controlled ;She is back on Azathioprine 04/16/2024 She was recently hospitalized at [facility]. She had severe headache and underwent a spinal tap. Findings were suggestive of aseptic meningitis. Currently she is on doxycycline. She feels better but still has some tiredness. No headache. No nausea vomiting. No visual symptoms. 06/12/24 ;Forgot to take meds this morning 10/15/24 Again she did not take med hers today Just took it now ( 3:30PM) c/o Numbness of left side of face/lips x 4-5 weeks No weakness or numbnes sin extremities [facility] Medical History (Updated 06/12/24 @ 16:16 by Trevon Caal MD) HTN (hypertension) Lupus Family History Mother Hypertension Social History Alcohol intake: current Alcohol intake frequency: a few times a month Patient Tobacco Use Status: Never used Tobacco Physical Exam Vital Signs: Last Vital Signs BP 138/92 H 10/15/24 15:44 BMI result Body Mass Index 29.3 Const General: comfortable; No acute distress Orientation/consciousness: patient oriented x3 Eyes General: appearance normal, both eyes and all related structures Visual [place]: normal visual [place] ri[place] by confrontation Neck Neck: Yes supple and Yes no JVD Resp Effort & Inspection: normal respiratory effort and respiratory effort not decreased Auscultation: rhonchi Cardio Palpation: no palpable S3 and no palpable S4 Heart sounds: no rubs GI Inspection: Yes normal to inspection Palpation (GI): Soft to palpation Percussion: Yes normal to percussion Auscultation: normal bowel sounds General: Yes no CVA tenderness Back/Spine/Pelvis Back: no CVA tenderness Skin General skin exam: no petechiae and no purpura Neuro General: patient oriented x3 and no focal motor deficits Extrem General: No clubbing and No edema Results Reviewed Nephrology Results: Hgb 11.2 g/dl (12.0-16.0) L 07/10/24 WBC 4.9 X10*3/uL (4.8-10.8) 07/10/24 Plt Count 217 X10*3/uL (160-400) 07/10/24 Sodium 144 mmol/L (135-145) 10/15/24 Potassium 4.2 mmol/L (3.3-5.1) 10/15/24 Chloride 116 mmol/L (96-108) H 10/15/24 Carbon Dioxide 22 mmol/L (22-29) 10/15/24 BUN 21 mg/dL (9-16) H 10/15/24 Creatinine 1.39 mg/dL (0.5-1.4) 10/15/24 Calcium 8.3 mg/dL (8.4-10.2) L 10/15/24 PTH Intact 163.0 pg/mL (8.7-77.1) H 02/27/24 Urine Protein 100 (2+) mg/dL (Neg-Trace) H 10/15/24 Urine Creatinine 101.96 mg/dL 07/10/24 Protein/Creatinin Ratio 1.73 (<0.2) H 07/10/24 Assessment & Plan Assessment & Plan (1) CKD (chronic kidney disease) stage 3, GFR 30-59 ml/min: Code(s): N18.30 - Chronic kidney disease, stage 3 unspecified Category: Medical (2) Lupus: Code(s): M32.9 - Systemic lupus erythematosus, unspecified Category: Medical Plan 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 She has about 700 mg of proteinuria. Would benefit from HUGO inhibition for renal protection. Keep AMLODIPINE 5 mg QD Encouraged her to stay on low-sodium diet Continue to avoid nephrotoxic agents Continue to monitor renal function closely. SLE: will defer management of lupus to her database admin. Aseptic meningitis - Resolved. Refer to Neurology for facial numbness Orders: Orders Basic Metabolic Panel 4 Months M32.9 - Systemic lupus erythematosus, unspecified, N18.30 - Chronic kidney disease, stage 3 unspecified Referrals Neurology Referral M32.9 - Systemic lupus erythematosus, unspecified, N18.30 - Chronic kidney disease, stage 3 unspecified Coding Level of Care Code Est Pt Level 4 (52962) Diagnoses CKD (chronic kidney disease) stage 3, GFR 30-59 ml/min N18.30 Lupus M32.9
[2024-10-15 15:44] VITALS: BP 138/92; BMI 29.3
--- OUTSIDE RECORDS SUMMARY | 2024-10-15 17:58 | XMS_ITS | Encounter Summary ---
Author Organization [facility] [employer] Address [address] [place] [address] 7 [place] [address] Care Team Providers Care Roll Grinder Name Role Phone Unavailable Primary Care Provider [...]
--- OUTSIDE RECORDS SUMMARY | 2024-10-15 17:58 | XMS_ITS | Encounter Summary ---
Author Organization [facility] Address [address] [facility] [address] [place] [address] Phone Care Team Providers Care Supervisor Firearms Name Role Phone Maria T Ac MD Primary Care Provider [phone] Reason for Visit * Reason Comments Med Refill Encounter Details Date Type Department Care Team (Late st Contact Info) Description 12/18/2022 Refill [facility] [address] [facility] [address] [place] [address] Prem Reyes MD [address] [facility] [address] [place] [address] Social History Tobacco Use Types [...] filedocumented in this encounter Care Teams Supervisor Firearms Relationship Specialty Start Date End Date Maria T Ac MD [address] PCP - General 09/01/20 documented as of this encounter
--- OUTSIDE RECORDS SUMMARY | 2024-10-15 17:58 | XMS_ITS | Encounter Summary ---
Author Organization [facility] Address [address] [place] [address] Phone Care Team Providers Care Warehouse Freight Handler Name Role Phone Maria T Ac MD Primary Care Provider Reason for Visit * Reason Comments Med Refill Encounter Details Date Type Department Care Team (Late st Contact Info) Description 11/15/2021 Refill [facility] [address] [place] [address] Trevon Caal MD Social History [...] on filedocumented in this encounter Care Teams Warehouse Freight Handler Relationship Specialty Start Date End Date Maria T Ac MD [address] [place] [address] PCP - General 09/01/20 documented as of this encounter
--- OUTSIDE RECORDS SUMMARY | 2024-10-15 17:58 | XMS_ITS | Clinical Summary ---
Author Organization [facility] Address [address] [place] [address] Phone Care Team Providers Care Sheet Metal Welder Name Role Phone Maria T Ac MD [...] series) 04/13 Influenza Vaccine (#1) 2024 Insurance [facility] [place] [facility] [place] Care Teams Sheet Metal Welder Relationship Specialty Start Date End Date Maria T Ac MD [address] [place] [address] PCP - General 09/01/20
--- OUTSIDE RECORDS SUMMARY | 2024-10-15 17:58 | XMS_ITS | Encounter Summary ---
Author Organization [facility] Address [address] [place] [address] Phone Care Team Providers Care Data Transcriber Name Role Phone Maria T Ac MD Primary Care Provider Encounter Details Date Type Department Care Team (Late st Contact Info) Description 07/29/2022 Telephone [facility] [address] [place] [address] Trevon Caal MD Social History [...] meds again. Please call her back at [phone] Thank you documented in this encounter Plan of Treatment Not on file documented as of this encounter Visit Diagnoses Not on filedocumented in this encounter Care Teams Data Transcriber Relationship Specialty Start Date End Date Maria T Ac MD [address] [place] [address] PCP - General 09/01/20 documented as of this encounter
--- OUTSIDE RECORDS SUMMARY | 2024-10-15 17:58 | XMS_ITS | Clinical Summary ---
Author Organization [employer] Address [address] [place] [address] 7t [place] [address] Care Team Providers Care Crew Scheduler Name Role Phone Unavailable Primary Care Provider [...]
== END 2024-10-15 16:05 | disposition home or self-care (01) ==
PROVIDERS: PCP Internal Medicine; Visit Provider Internal Medicine Hypertension Specialist
DX: N18.30 Chronic kidney disease, stage 3 unspecified (principal); M32.9 Systemic lupus erythematosus, unspecified
CPT/HCPCS: 99214

== ENCOUNTER 2024-11-05 15:29 | Outpatient (AMB) | payer OTHER, SELFPAY ==
--- NOTE | 2024-11-05 15:30 | HO.NEPHOV ---
Vital Signs 11/05/24 15:31 Height 5 ft 2 in Weight 156 lb BMI 28.5 BP 122/70 Blood Pressure Location Lt brachial Position Sitting Pulse 89 Pulse Source Pulse Oximeter Pulse Oximetry (%) 99 Oxygen Delivery Method Room Air Intake Visit Reasons: Sooner appt rise in creat Wood Carving Lathe Operator Required: No Accompanied by: Self / Same As Patient Allergies hydrocodone Allergy (Unknown, Verified 11/05/24 15:32) UNKNOWN oxycodone [OXYCODONE] Allergy (Unknown, Verified 11/05/24 15:32) TONGUE SWELLING Medication List - Last Reconciled 11/05/24 by Trevon Caal MD amlodipine 5 mg PO DAILY azathioprine 50 mg PO DAILY dextroamphetamine-amphetamine 15 mg ER 30 mg PO QAM hydroxychloroquine 200 mg PO BID meclizine 25 mg PO TID PRN metoprolol succinate ER 50 mg PO DAILY mupirocin 2% 1 appl topical DAILY PRN mycophenolate mofetil (CellCept) 1,000 mg PO BID prednisone 5 mg PO Q OTHER DAY terbinafine HCl 250 mg PO DAILY HPI Comments Details: Young woman with a history of SLE and hypertension. Currently she is being managed by seamless hosiery knitter. She is on Saphleno Currently blood pressure is well controlled after addition of amlodipine Renal function has been stable. She has no new complaints. 02/29/24 She stopped taking Telmisartan HCT 2 months ago- ? why Home BP has been well controlled ;She is back on Azathioprine 04/16/2024 She was recently hospitalized at [facility]. She had severe headache and underwent a spinal tap. Findings were suggestive of aseptic meningitis. Currently she is on doxycycline. She feels better but still has some tiredness. No headache. No nausea vomiting. No visual symptoms. 06/12/24 ;Forgot to take meds this morning 10/15/24 Again she did not take med hers today Just took it now ( 3:30PM) c/o Numbness of left side of face/lips x 4-5 weeks No weakness or numbnes sin extremities 11/05/24 Asked to see because of bump in Cr to 3.0 from 1.5 ; She took Bactrim for 5 days. Prescribed by some telemedicine doctor. [facility] Medical History (Updated 06/12/24 @ 16:16 by Trevon Caal MD) HTN (hypertension) Lupus Family History Mother Hypertension Social History Alcohol intake: current Alcohol intake frequency: a few times a month Patient Tobacco Use Status: Never used Tobacco Physical Exam Const General: comfortable; No acute distress Orientation/consciousness: patient oriented x3 Eyes General: appearance normal, both eyes and all related structures Visual [place]: normal visual del rio by confrontation Neck Neck: Yes supple and Yes no JVD Resp Effort & Inspection: normal respiratory effort and respiratory effort not decreased Cardio Palpation: no palpable S3 and no palpable S4 Heart sounds: no rubs GI Inspection: Yes normal to inspection Palpation (GI): Soft to palpation Percussion: Yes normal to percussion Auscultation: normal bowel sounds General: Yes no CVA tenderness Back/Spine/Pelvis Back: no CVA tenderness Skin General skin exam: no petechiae and no purpura Neuro General: patient oriented x3 and no focal motor deficits Extrem General: No clubbing and No edema Results Reviewed Nephrology Results: Hgb 11.2 g/dl (12.0-16.0) L 07/10/24 WBC 4.9 X10*3/uL (4.8-10.8) 07/10/24 Plt Count 217 X10*3/uL (160-400) 07/10/24 Sodium 144 mmol/L (135-145) 10/15/24 Potassium 4.2 mmol/L (3.3-5.1) 10/15/24 Chloride 116 mmol/L (96-108) H 10/15/24 Carbon Dioxide 22 mmol/L (22-29) 10/15/24 BUN 21 mg/dL (9-16) H 10/15/24 Creatinine 1.39 mg/dL (0.5-1.4) 10/15/24 Calcium 8.3 mg/dL (8.4-10.2) L 10/15/24 PTH Intact 163.0 pg/mL (8.7-77.1) H 02/27/24 Urine Protein 100 (2+) mg/dL (Neg-Trace) H 10/15/24 Urine Creatinine 101.96 mg/dL 07/10/24 Protein/Creatinin Ratio 1.73 (<0.2) H 07/10/24 Assessment & Plan Assessment & Plan (1) CKD (chronic kidney disease) stage 3, GFR 30-59 ml/min: Code(s): N18.30 - Chronic kidney disease, stage 3 unspecified Category: Medical (2) Lupus: Code(s): M32.9 - Systemic lupus erythematosus, unspecified Category: Medical Plan 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 She has about 700 mg of proteinuria. Superimposed MARQUES creatinine up from 1.5 to 3.0 mg Most likely - bactrim induced. Off Bactrim since 11/03/24 REcehck labs 11/06/24 - expect recovery; IF not, would need further work up Keep AMLODIPINE 5 mg QD Encouraged her to stay on low-sodium diet Continue to avoid nephrotoxic agents Continue to monitor renal function closely. SLE: will defer management of lupus to her seamless hosiery knitter. Aseptic meningitis - Resolved. Await Neurology evaluation for facial numbness Orders: Orders Basic Metabolic Panel 1 Day N18.30 - Chronic kidney disease, stage 3 unspecified Coding Level of Care Code Est Pt Level 4 (13244) Diagnoses CKD (chronic kidney disease) stage 3, GFR 30-59 ml/min N18.30 Lupus M32.9
[2024-11-05 15:31] VITALS: BP 122/70; PULSE 89; O2SAT 99; BMI 28.5
--- OUTSIDE RECORDS SUMMARY | 2024-11-05 18:00 | XMS_ITS | Encounter Summary ---
Author Organization [facility] [employer] Address [address] [place] [address] 7[address] [place] [address] Care Team Providers Care Wrist Closer Name Role Phone Unavailable Primary Care Provider [...]
--- OUTSIDE RECORDS SUMMARY | 2024-11-05 18:00 | XMS_ITS | Clinical Summary ---
Author Organization [employer] Address [address] [place] [address] 7[address] [place] [address] Care Team Providers Care Chief Order Dispatcher Name Role Phone Unavailable Primary Care Provider [...]
--- OUTSIDE RECORDS SUMMARY | 2024-11-05 18:00 | XMS_ITS | Encounter Summary ---
Author Organization [facility] Address [address] [place] [address] Phone Care Team Providers Care Casework Manager Name Role Phone Maria T Ac MD Primary Care Provider Reason for Visit * Reason Comments Med Refill Encounter Details Date Type Department Care Team (Late st Contact Info) Description 11/15/2021 Refill [facility] [address] [place] [address] Trevon Caal MD Social History [...] on filedocumented in this encounter Care Teams Casework Manager Relationship Specialty Start Date End Date Maria T Ac MD [address] [place] [address] PCP - General 09/01/20 documented as of this encounter
--- OUTSIDE RECORDS SUMMARY | 2024-11-05 18:00 | XMS_ITS | Encounter Summary ---
Author Organization [facility] Address [address] [facility] [address] [place] [address] Phone Care Team Providers Care Instrument Technician Helper Name Role Phone Maria T Ac MD Primary Care Provider Reason for Visit * Reason Comments Med Refill Encounter Details Date Type Department Care Team (Late st Contact Info) Description 12/18/2022 Refill [facility] [address] [facility] [address] [place] [address] Prem Reyes MD [address] [facility] [address] [place] [address] Social History Tobacco Use Types [...] on filedocumented in this encounter Care Teams Instrument Technician Helper Relationship Specialty Start Date End Date Maria T Ac MD [address] PCP - General 09/01/20 documented as of this encounter
--- OUTSIDE RECORDS SUMMARY | 2024-11-05 18:00 | XMS_ITS | Data Portability ---
Author Organization [place] - [facility] Address [address] [place] [address] Assessment Encounter Date Assessment Date Assessment LastModified [...] and agreement with treatment plan as outlined. 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 - Prescribed prednisone for inflammation control - Prescribed triamcinolone cream for itching relief - Suggested taking Benadryl to ease symptoms if it doesn? t cause excessive drowsiness - Advised returning or seeking further help if symptoms worsen [email or web address] Not available 10/18/2024 14:59:10 Plan of Treatment Reminders Order Date Submit Date Provider Last Modified By Organization Details Last Modified Time Details Appointments None recorded. Lab None recorded. Referral None recorded. Procedures None recorded. Surgeries None recorded. Imaging None recorded. Medication Orders prednisone 20 mg tablet 2024 025 [facility]armacy #[id number], [address] [facility], [place], [address], 14:58:19 triamcinolo ne acetonide 0.1 % topical cream 2024 025 [facility]/Pharmacy #[id number], [address] [place], [address], 14:58:19 mupirocin 2 % topical ointment 2024 025 [facility]/Pharmacy #[id number], [address] [place], [address], 14:52:07 sulfamethox azole 800 mg-trimetho prim 160 mg tablet 2024 025 [facility]/Pharmacy #[id number], [address] [place], [address], 14:52:08 Patient TargetsNo targets recorded. Patient Instructions Encounter Date Encounter Id Patient Instructions Last Modified By Organization Details Last Modified Time 09/14/2024 [id number] dizziness: care instructions [email or web address] Not available 09/14/2024 23:52:21 10/18/2024 [id number] Summary of Today 's Visit: During today's consultation, you brought up concerns about a rash, possibly related to lupus, that you have experienced before. The rash is mostly located on your right side and back, and while it feels smooth, it appears splotchy and is itchy. You also mentioned a sensation of your skin hurting as if you had worked out, but you assured no fever or flu-like symptoms were present. Treatment Plan: To help manage the rash and associated symptoms, a prescription for prednisone, a type of steroid, has been sent to your [facility] on [facility]. This medication should help address any inflammatory issues potentially linked to lupus. In addition, triamcinolone cream will be provided to alleviate itching while the oral medication takes effect. Additional Recommendations: You may take Benadryl to help with itching if it doesn't make you too sleepy. Ensure consistency with your current soaps, lotions, and detergents, as any changes could contribute to skin irritation. Follow-Up Actions: - Begin taking prednisone as prescribed to manage the rash's inflammation. - Apply triamcinolone cream to affected areas to reduce itching. - Use Benadryl for additional itch relief if needed and tolerated. - Monitor your symptoms, and if the rash or any other symptoms worsen, seek medical assistance accordingly. - Please reach out if the situation does not improve or if you have any further questions or concerns. [email or web address] Not available 10/18/2024 14:59:12 Reason for Referral None Reported. Problems Name Problem SNOMED Code Status Onset Date Resolution Date Notes Provider Name and Address Organization Details Recorded Time Lupus erythematosu s 478163510 Active 2024 Aimee Dennis [facility] 1 [facility] [address] [place] [address], [address] [place] [address], [place] [facility] 5 23:24:49 Essential hypertension 41306429 Active 2024 Aimee Dennis [facility] 1 [facility] [address], [place], [place], [address] [place] [address], [place] [facility] 23:24:56 Attention deficit hyperactivit y disorder 708989996 Active 2024 Nano Muñoz [address], [place], [address] [place] [address], [place] [facility] 14:53:01 Pruritic rash 16077495 Active 2024 Nano Muñoz [address], [place], [address] [place] [address], [place] [facility] 14:55:31 Problem Notes None recorded. Medical Equipment None Reported. Allergies Allergen ID Allergen Name Allergen Category Reaction Reaction Severity Criticality Documentation Date Start Date Code Code System Note Provider Name and Address Organization Details Recorded Time 786134 acetamino phen / hydrocodo ne medicatio n Not available Not available Not available 10/09/2024 64388 2 RxNorm Not Available [facility] [place] 15:26:11 Medications Name Sig Start Date Stop Date Status Note LastModified by Organization Details LastModified Time prednison e 20 mg tablet Take 2 tablets every day by oral route in the morning for 3 days, for rash. 2024 active Not Available Not Available Not Avai lable amlodipin e 5 mg tablet Take 1 tablet every day by oral route. active Not Available Not Available No t Available sulfameth oxazole 800 mg-trimet hoprim 160 mg tablet Take 1 tablet every 12 hours by oral route for 7 days. 10/18 completed Not Available Not Available Not Available triamcino lone acetonide 0.1 % topical cream APPLY A THIN LAYER TO THE AFFECTED AREA(S) BY TOPICAL ROUTE 2 TIMES PER DAY x 2 weeks 2024 active Not Available Not Available Not Avai lable Keflex 500 mg tablet Take 1 capsule twice a day by oral route. 10/18 completed Not Available Not Available Not Available CellCept 500 mg tablet Take 2 tablets twice a day by oral route. active never takes evening dose Not Available Not Available Not Available mupirocin 2 % topical ointment APPLY A SMALL AMOUNT TO THE AFFECTED AREA BY TOPICAL ROUTE 3 TIMES PER DAY 10/18 completed Not Available Not Available Not Available hydroxych loroquine 200 mg tablet Take 1 tablet twice a day by oral route. active Not Available Not Available No t Available metoprolo l succinate ER 50 mg capsule sprinkle, ext. release 24 hr Take 1 capsule every day by oral route. active Not Available Not Available No t Available amphetami ne ER 15 mg tablet, immediate and extended [...] SNOMED-CT Code Diagnosis ICD10 Code Diagnosis Note [id number] IRINEO Tucker [address] [address] 09/14/2024 23:17:32 09/15/2024 05:49:24 Skin sensation disturbance 94409369 R20.9 Discussed I cannot rule out more serious things like TIA, stroke etc without imaging and vital signs. Encouraged to be seen in person, ED, for further evaluation . Discussed I cannot tell her it is safe to wait until morning due to not knowing what is going on, verbalized understand ing Dizziness 754300743 R42 Recommende d to go to the ED for further evaluation , like CT scan of head, verbalized understand ing [id number] Dutch Braeden, [facility] [address] [address] 10/09/2024 15:28:21 10/09/2024 21:34:55 Cellulitis of finger of left hand 9381643901 9228830 L03.012 [id number] Nano Hinds romeo, [employer] [facility] [address] [address] 10/18/2024 14:51:28 10/18/2024 15:03:51 Pruritic rash 80391964 L28.2 Health Concerns Section Related Observation LastModified by Organization Detai ls LastModified Time None Recorded Concern Status LastModified by Organization Details LastModified Time None Recorded Advance Directives Directive None Recorded Payers Encounter Date Sequence Insurance Name Policy Number Policy Dimas Covered Member ID Dimas Member ID Guarantor Name 09/14/[address] [facility] [id number] Solemar Lyn [id number] Solemar Lyn 09/14/2024 3 *SELF PAY* Solemar Lyn [id number] Solemar Lyn 10/09/[address] [facility] [id number] Solemar Lyn [id number] Solemar Lyn 10/09/2024 3 *SELF PAY* Solemar Lyn [id number] Solemar Lyn 10/18/[address] [facility] [id number] Solemar Lyn [id number] Solemar Lyn 10/18/2024 3 *SELF PAY* Solemar Lyn [id number] Solemar Lyn Notes Date Note Type Note Provider Name and Address Organization Details Recorded Time 09/14/2024 text/html Call connected, patient greeted. Patient name , location, and phone number confirmed. Verbal consent obtained to treat this patient via the telemedicine/video platform. Patient understands that there are limitations to my evaluation. Clinician attests they are physically located in [place] at the time of visit. Patient during today's visit is physically located in [place] CC:? ? ?other injuryAge: 44? ? ?Gender: [...] implanted defibrillator / pacemaker: denies : deniesBreastfeeding: denies Aimee Dennis, [facility] [address], [address], [facility] Included [facility] 09/14/2024 23:52:46 10/09/2024 text/html Call connected, patient greeted with my name and title as Nurse Practitioner. I attest I am currently physically located in the state of [place]. Patient name, , telephone number and location [...] warm soaks with apple cider vinegar Dutch Deras [employer] 1 [facility] [address], [place], [address], [facility] - Included [facility] 10/09/2024 16:05:07 10/18/2024 text/html Call connected, patient greeted. Patient name, , telephone number, and location verified verbally with the patient. Telemedicine limitations reviewed, answered all questions the patient had about the telehealth interaction, and verbal consent obtained to treat. Clinician attests they are physically located in the following state at the time of visit: [place]. Pt verbally agrees to clinician using AI scribe during visit. CC: Itchy rash HPI: The patient presents with an itchy rash primarily located on the right side of the central back. The rash initially feels itchy, but scratching exacerbates the condition, causing a dreadful burning sensation that is almost painful. The rash appears smooth to the touch and does not have a raised texture. It is splotchy in appearance, and upon pressing, the color returns quickly. The patient denies recent exposure to new soaps, lotions, or detergents and confirms no changes in diet or environment that might have triggered the symptoms. 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 The patient denies fever or flu-like symptoms but reports a sensation of overall skin discomfort similar to post-exercise soreness despite not having been physically active. The patient uses familiar skincare products such as CeraVe and recalls using a product prescribed before that contained mixed compounds to alleviate itchiness. There is no history of diabetes, nor has the patient consumed anything that could be linked to the rash. They express concern about the rash due to curiosity from coworkers at their workplace. The patient denies the use of Benadryl, with a note that it might help if it does not induce sleepiness. Nano Muñoz, [employer] 1 [facility] [address], [place], [address], [facility] 10/18/2024 14:59:14 OBGyn Episode No OBEpisode recorded.
--- OUTSIDE RECORDS SUMMARY | 2024-11-05 18:00 | XMS_ITS | Continuity of Care Document ---
Author Organization [place] - [facility] [employer] [facility] Address [address] [place] [phone] Assessment Encounter Date Assessment Date Assessment LastModified by Organization Details LastModified Time 10/18/2024 10/18/2024 Lupus rash - Patient experiences [...] Orders prednisone 20 mg tablet 2024 025 [employer] [facility]/Pharmacy #[id number], [address] [place], [address], 14:58:19 triamcinolo ne acetonide 0.1 % topical cream 2024 025 [employer] [facility]/Pharmacy #[id number], [address] [place], [address], 14:58:19 Patient TargetsNo targets recorded. Patient Instructions Encounter Date Encounter Id Patient Instructions Last Modified By Organization Details Last Modified Time 10/18/2024 [id number] Summary of Today 's Visit: During today's [...] of steroid, has been sent to your [facility] on [facility]. This medication should help address any inflammatory [...] you have any further questions or concerns. [email or web address] Not available 10/18/2024 14:59:12 Reason for Referral None Reported. Problems Name Problem SNOMED Code Status Onset Date Resolution Date Notes Provider Name and Address Organization Details Recorded Time Lupus erythematosu s 613890897 Active 2024 IRINEO Tucker [address], [address], [place] [facility] 5 23:24:49 Essential hypertension 91285033 Active 2024 IRINEO Tucker 1 [facility] [address] [place] [address], [address], [place] [facility] 5 23:24:56 Attention deficit hyperactivit y disorder 479613616 Active 2024 IRINEO Matos [address], [address], [place] [facility] 14:53:01 Pruritic rash 17340289 Active 2024 IRINEO Matos 1 [facility] [address], [place], [address], [place] [facility] 5 14:55:31 Problem Notes None recorded. Medical Equipment None Reported. Allergies Allergen ID Allergen Name Allergen Category Reaction Reaction Severity Criticality Documentation Date Start Date Code Code System Note Provider Name and Address Organization Details Recorded Time 21610923 acetamino phen / hydrocodo ne medicatio n Not available Not available Not available 10/09/202440690 2 RxNorm Not Available [facility] 15:26:11 Medications Name Sig Start Date Stop [...] SNOMED-CT Code Diagnosis ICD10 Code Diagnosis Note [id number] Dutch Deras, [address] [address] 10/09/2024 15:28:21 10/09/2024 21:34:55 Cellulitis of finger of left hand 6400709726 6034966 L03.012 [id number] Nano walters, [address] [address] 10/18/2024 14:51:28 10/18/2024 15:03:51 Pruritic rash 32124213 L28.2 Health Concerns Section Related Observation LastModified by Organization Detai ls LastModified Time None Recorded Concern Status LastModified by Organization Details LastModified Time None Recorded Payers Encounter Date Sequence Insurance Name Policy Number Policy Dimas Covered Member ID Dimas Member ID Guarantor Name 10/18/2024 1 [facility] [id number] Solemar Lyn [id number] Solemar Lyn 10/18/2024 3 *SELF PAY* Solemar Lyn [id number] Solemar Lyn Notes Date Note Type Note Provider Name and Address Organization Details Recorded Time 10/18/2024 text/html Call connected, patient greeted. Patient [...] it does not induce sleepiness. Nano Muñoz, [facility] 1 [facility] [address], [place], [address], [facility] 10/18/2024 14:59:14 OBGyn Episode No OBEpisode recorded.
--- OUTSIDE RECORDS SUMMARY | 2024-11-05 18:00 | XMS_ITS | Encounter Summary ---
Author Organization [facility] Address [address] [place] [address] Phone Care Team Providers Care Professional Application Designer Name Role Phone Maria T Ac MD Primary Care Provider Encounter Details Date Type Department Care Team (Late st Contact Info) Description 07/29/2022 Telephone [facility] [address] [place] [address] Trevon Caal MD Social History [...] meds again. Please call her back at [phone] Thank you documented in this encounter Plan of Treatment Not on file documented as of this encounter Visit Diagnoses Not on filedocumented in this encounter Care Teams Professional Application Designer Relationship Specialty Start Date End Date Maria T Ac MD [address] [place] [address] PCP - General 09/01/20 documented as of this encounter
--- OUTSIDE RECORDS SUMMARY | 2024-11-05 18:00 | XMS_ITS | Clinical Summary ---
Author Organization [facility] Address [address] [place] [address] Phone Care Team Providers Care Research Interviewer Name Role Phone Maria T Ac MD [...] series) 04/13 Influenza Vaccine (#1) 2024 Insurance [facility] [place] [facility] [place] Care Teams Research Interviewer Relationship Specialty Start Date End Date Maria T Ac MD [address] [place] [address] PCP - General 09/01/20
--- OUTSIDE RECORDS SUMMARY | 2024-11-05 18:01 | XMS_ITS | Continuity of Care Document ---
Author Organization [place] - [facility] , [facility] Address [address] [place] [phone] Assessment Encounter Date Assessment Date Assessment LastModified [...] and agreement with treatment plan as outlined. [email or web address] Not available 10/09/2024 16:05:03 Plan of Treatment Reminders Order Date Submit Date Provider Last Modified By Organization Details Last Modified Time Details Appointments None recorded. Lab None recorded. Referral None recorded. Procedures None recorded. Surgeries None recorded. Imaging None recorded. Medication Orders mupirocin 2 % topical ointment 2024 025 [facility]/Pharmacy #[id number], [address] [place], [address], 5 14:52:07 sulfamethox azole 800 mg-trimetho prim 160 mg tablet 2024 025 [facility]/Pharmacy #[id number], [address] [place], [address], 5 14:52:08 Patient TargetsNo targets recorded. Patient InstructionsNo instructions recorded. Reason for Referral None Reported. Problems Name Problem SNOMED Code Status Onset Date Resolution Date Notes Provider Name and Address Organization Details Recorded Time Lupus erythematosu s 252474179 Active 2024 IRINEO Tucker 1 [facility] [address], [place], [address], [place] [facility] 5 23:24:49 Essential hypertension 12319863 Active 2024 IRINEO Tucker 1 [facility] [address], [place], [address], [place] [facility] 5 23:24:56 Attention deficit hyperactivit y disorder 037029134 Active 2024 JEAN-PAUL MatosP 1 [facility] [address], [place], [address], [place] [facility] 5 14:53:01 Pruritic rash 56394220 Active 2024 JEAN-PAUL MatosP 1 [facility] [address], [place], [address], [place] [facility] 14:55:31 Problem Notes None recorded. Medical Equipment None Reported. Allergies Allergen ID Allergen Name Allergen Category Reaction Reaction Severity Criticality Documentation Date Start Date Code Code System Note Provider Name and Address Organization Details Recorded Time 567891 acetamino phen / hydrocodo ne medicatio n Not available Not available Not available 10/09/2024 64433 2 RxNorm Not Available [facility] 15:26:11 Medications Name Sig Start Date Stop [...] SNOMED-CT Code Diagnosis ICD10 Code Diagnosis Note [id number] IRINEO Tucker [address] [address] 09/14/2024 23:17:32 09/15/2024 05:49:24 Skin sensation disturbance 24343987 R20.9 Discussed I cannot rule out more serious things like TIA, stroke etc without imaging and vital signs. Encouraged to be seen in person, ED, for further evaluation . Discussed I cannot tell her it is safe to wait until morning due to not knowing what is going on, verbalized understand ing Dizziness 336744053 R42 Recommende d to go to the ED for further evaluation , like CT scan of head, verbalized understand ing [id number] IRINEO Mackey [address] [address] 10/09/2024 15:28:21 10/09/2024 21:34:55 Cellulitis of finger of left hand [id number] 0432829 L03.012 Health Concerns Section Related Observation LastModified by Organization Detai ls LastModified Time None Recorded Concern Status LastModified by Organization Details LastModified Time None Recorded Payers Encounter Date Sequence Insurance Name Policy Number Policy Dimas Covered Member ID Dimas Member ID Guarantor Name 10/09/2024 1 [facility] [id number] Felipa Nicholson [id number] Felipa Nicholson 10/09/2024 3 *SELF PAY* Felipa Nicholson [id number] Felipa Nicholson Notes Date Note Type Note Provider Name and Address Organization Details Recorded Time 10/09/2024 text/html Call connected, patient greeted with my name and title as Nurse Practitioner. I attest I am currently physically located in the [facility]. Patient name, , telephone number and [...] with apple cider vinegar IRINEO Mackey 1 [facility] [address], [place], [address], [place] [facility] 10/09/2024 16:05:07 OBGyn Episode No OBEpisode recorded.
== END 2024-11-05 15:40 | disposition home or self-care (01) ==
LOC: HO.HKA 15:30
PROVIDERS: PCP Internal Medicine; Visit Provider Internal Medicine Hypertension Specialist
DX: N18.30 Chronic kidney disease, stage 3 unspecified (principal); M32.9 Systemic lupus erythematosus, unspecified
CPT/HCPCS: 99214

== ENCOUNTER 2024-11-06 08:09 | Outpatient (REF) | payer OTHER, SELFPAY ==
[2024-11-06 09:43] LABS: Appearance Urine Clear; Color Urine Yellow; Glucose Urine UA Negative (Negative); Leukocyte Esterase Urine Small (1+) (Negative); Nitrite Urine Negative (Negative); PH 5.5 (5.0-9.0); Specific Gravity - Urine 1.015 (1.005-1.025); UMIC TRIGGER UA YES; Urine Blood Small (1+) (Negative); Urine Ketones Negative (Negative); Urine Protein 30 (1+) mg/dL (Neg-Trace)
[2024-11-06 09:51] LABS: Bacteria Urine Trace (None Seen); RBC Urine 0-2 /HPF (0-2)
[2024-11-06 10:00] LABS: Anion Gap 10 (12-20); Blood Urea Nitrogen 28 mg/dL (9-16); Calcium 8.1 mg/dL (8.4-10.2); Carbon Dioxide 18 mmol/L (22-29); Chloride 117 mmol/L (96-108); Estimated Glomerular Filt Rate 33; Glucose Random 80 mg/dL (60-115); Potassium 5.2 mmol/L (3.3-5.1); Sodium 140 mmol/L (135-145)
== END 2024-11-06 08:10 | disposition home or self-care (01) ==
LOC: HO.LAB 08:09
PROVIDERS: Internal Medicine Hypertension Specialist; PCP Internal Medicine; Visit Provider Surgery
DX: N18.30 Chronic kidney disease, stage 3 unspecified (principal)
CPT/HCPCS: 36415; 80048; 81001

== ENCOUNTER 2024-12-25 21:54 | Inpatient (IN) | payer OTHER, SELFPAY ==
--- NOTE | 2024-12-25 | ECG_ITS ---
Test Reason : DIZZINESS Blood Pressure : */* mmHG Vent. Rate : 96 BPM Atrial Rate : 96 BPM P-R Int : 138 ms QRS Dur : 70 ms QT Int : 352 ms P-R-T Axes : 38 -15 16 degrees QTcB Int : 444 ms Normal sinus rhythm Normal ECG When compared with ECG of 27-Nov-2021 09:02, No significant change was found Referred By: Generic ED Physician Electronically Signed By: JAIDEN GAITAN
--- NOTE | ~2024-12-25 | MR_ITS ---
EXAMINATION: MR BRAIN WITHOUT CONTRAST CLINICAL INFORMATION: Ataxia. COMPARISON: No prior MRI. CT head dated earlier same day. TECHNIQUE: MRI of the brain was obtained using routine sequences without contrast. Examination performed on a 1.5 Isela Siemens high-field unit. FINDINGS: There is no diffusion restriction. There is no intracranial hemorrhage, acute infarction, mass effect, or edema. Ventricles, sulci, and cisterns are normal in size and configuration for patient age. No shift of midline. No abnormal hemosiderin deposition is identified. There are scattered punctate and minimally confluent foci of white matter T2 hyperintensity in the periventricular, subcortical, and hemispheric deep white matter. These foci are nonspecific but statistically most likely relate to small vessel ischemic changes. Morphology is not typical for demyelination. Midline structures appear normally formed. The pituitary gland appears normal. Mild ossification of the anterior falx. Posterior fossa structures appear normal. Cerebellar tonsils are appropriately located. Major flow voids are preserved within the skull base. The globes and orbital contents demonstrate no abnormalities. Paranasal sinuses are clear bilaterally. Nasal septum is midline without spur. The mastoids and tympanic cavities are normally aerated. Extracranial soft tissues demonstrate no abnormalities. No suspicious bone marrow changes are evident. Degenerative changes in the right TM joint. Atlantoaxial joint is normal. MR/MR head/brain wo con IMPRESSION: 1. No evidence of intracranial hemorrhage, acute infarction, mass effect, or edema. 2. Mild changes of small vessel ischemia. Electronically signed by: Tushar Pichardo MD 12/26/2024 12:28 PM EDT
--- NOTE | ~2024-12-25 | CT_ITS ---
CLINICAL HISTORY: ataxia CT head without contrast Comparison: CT/[place] - CT HEAD/BRAIN WO IV CON - 12/30/23 14:53 EDT Findings: No intra-axial mass, midline shift, hydrocephalus, or acute hemorrhage. No significant atrophy-like change or white matter disease. The visualized paranasal sinuses and mastoid air cells are normal. The orbits are within normal limits. There is no acute fracture. IMPRESSION: 1. No acute intracranial findings. This document has been electronically signed by: Reji Kong MD on 12/26/2024 00:55:08
[2024-12-25 22:04] VITALS: BP 98/68; PULSE 96; RESP 16; TEMP 36.6; O2SAT 100; BMI 28.3
--- OUTSIDE RECORDS SUMMARY | 2024-12-25 22:16 | XMS_ITS | Encounter Summary ---
Author Organization [facility] Address [address] [place] [address] Phone Care Team Providers Care Research And Evaluation Analyst Name Role Phone Maria T Ac MD Primary Care Provider Encounter Details Date Type Department Care Team (Late st Contact Info) Description 07/29/2022 Telephone [facility] [address] [place] [address] Trevon Caal MD Social History [...] encounter Miscellaneous Notes * Telephone Encounter - Endi Montana - 07/29/2022 10:53 AM EST Pt called her bp today is running high at 153/109 and 153/111. She would like to speak with you about adjusting her meds again. Please call her back at [phone] Thank you documented in this encounter Plan of Treatment Not on file documented as of this encounter Visit Diagnoses Not on filedocumented in this encounter Care Teams Research And Evaluation Analyst Relationship Specialty Start Date End Date Maria T Ac MD [address] [place] [address] PCP - General 09/01/20 documented as of this encounter
--- OUTSIDE RECORDS SUMMARY | 2024-12-25 22:16 | XMS_ITS | Encounter Summary ---
Author Organization [facility] Address [address] [facility] [address] [place] [address] Phone Care Team Providers Care Desk Pens Assembler Name Role Phone Maria T Ac MD Primary Care Provider Reason for Visit * Reason Comments Med Refill Encounter Details Date Type Department Care Team (Late st Contact Info) Description 12/18/2022 Refill [facility] [address] [facility] [address] [place] [phone] Prem Reyes MD [address] [facility] [address] [place] [address] Social History Tobacco Use Types [...] on filedocumented in this encounter Care Teams Desk Pens Assembler Relationship Specialty Start Date End Date Maria T Ac MD [address] PCP - General 09/01/20 documented as of this encounter
--- OUTSIDE RECORDS SUMMARY | 2024-12-25 22:16 | XMS_ITS | Data Portability ---
Author Organization [place] - [facility] , [facility] Address [address] [place] [address] Assessment Encounter Date Assessment Date Assessment LastModified [...] and agreement with treatment plan as outlined. Not available 10/09/2024 16:05:03 10/18/2024 10/18/2024 Lupus [...] Orders prednisone 20 mg tablet 2024 025 [facility]/Pharmacy #[id number], [address] [facility], [place], [address], 14:58:19 triamcinolo ne acetonide 0.1 % topical cream 2024 025 [facility]/Pharmacy #[id number], [address] [place], [address], 14:58:19 mupirocin 2 % topical ointment 2024 025 [facility]/Pharmacy #[id number], [address] [place], [address], 14:52:07 sulfamethox azole 800 mg-trimetho prim 160 mg tablet 2024 025 [facility]/Pharmacy #[id number], [address] [place], [address], 14:52:08 Patient TargetsNo targets recorded. Patient Instructions Encounter Date Encounter Id Patient Instructions Last Modified By Organization Details Last Modified Time 09/14/2024 [id number] dizziness: care instructions [email or web address] Not available 09/14/2024 23:52:21 10/18/2024 [id number] Summary of Today 's Visit: During today's [...] of steroid, has been sent to your [facility] on [facility]. This medication should help address any [...] Organization Details Recorded Time Lupus erythematosu s 991753973 Active 2024 Aimee Dennis [facility] 1 [facility] [address] [place] [address], [address] [place] [address], [place] [facility] 5 23:24:49 Essential hypertension 24339077 Active 2024 Aimee Dennis [facility] 1 [facility] [address], [place], [place], [address] [place] [address], [place] [facility] 23:24:56 Attention deficit hyperactivit y disorder 600447261 Active 2024 Nano Muñoz [address], [place], [place], [address] [place] [address], [place] [facility] 14:53:01 Pruritic rash 01573466 Active 2024 Nano Muñoz [address], [place], [place], [address] [place] [address], [place] [facility] 14:55:31 Problem Notes None recorded. Medical Equipment None Reported. Allergies Allergen ID Allergen Name Allergen Category Reaction Reaction Severity Criticality Documentation Date Start Date Code Code System Note Provider Name and Address Organization Details Recorded Time 779627 acetamino phen / hydrocodo ne medicatio n Not available Not available Not available 10/09/2024 14980 2 RxNorm Not Available [facility] - [...] SNOMED-CT Code Diagnosis ICD10 Code Diagnosis Note [id number] IRINEO Tucker [address] [address] 09/14/2024 23:17:32 09/15/2024 05:49:24 Skin sensation disturbance 97713087 R20.9 Discussed I cannot rule out more serious things like TIA, stroke etc without imaging and vital signs. Encouraged to be seen in person, ED, for further evaluation . Discussed I cannot tell her it is safe to wait until morning due to not knowing what is going on, verbalized understand ing Dizziness 179332895 R42 Recommende d to go to the ED for further evaluation , like CT scan of head, verbalized understand ing [id number] Dutch Braeden, [facility] Virtual Care [address] [address] 10/09/2024 15:28:21 10/09/2024 21:34:55 Cellulitis of finger of left hand 7117258111 6369110 L03.012 [id number] Nano Hinds romeo, [employer] ENGINE[employer] [facility] [address] [address] 10/18/2024 14:51:28 10/18/2024 15:03:51 Pruritic rash 33969437 L28.2 Health Concerns Section Related Observation LastModified by Organization Detai ls LastModified Time None Recorded Concern Status LastModified by Organization Details LastModified Time None Recorded Advance Directives Directive None Recorded Payers Encounter Date Sequence Insurance Name Policy Number Policy Dimas Covered Member ID Dimas Member ID Guarantor Name 09/14/2024 1 [facility] [id number] Solemar Lyn [id number] Solemar Lyn 09/14/2024 3 *SELF PAY* Solemar Lyn [id number] Solemar Lyn 10/09/2024 1 [facility] [id number] Solemar Lyn [id number] Solemar Lyn 10/09/2024 3 *SELF PAY* Solemar Lyn [id number] Solemar Lyn 10/18/2024 1 [facility] [id number] Solemar Lyn [id number] Solemar Lyn 10/18/2024 3 *SELF PAY* Solemar Lyn [id number] Solemar Lyn Notes Date Note Type Note Provider Name and Address Organization Details Recorded Time 09/14/2024 text/html Call connected, patient greeted. Patient name , location, and phone number confirmed. Verbal consent obtained to treat this patient via the telemedicine/video platform. Patient understands that there are limitations to my evaluation. Clinician attests they are physically located in [place] at the time of visit. Patient during today's visit is physically located in [place] CC:? ? ?other injuryAge: 44? ? ?Gender: [...] pacemaker: denies : deniesBreastfeeding: denies Aimee Dennis, [facility] [address], [address], [facility] Included [facility] 09/14/2024 23:52:46 10/09/2024 text/html Call connected, patient greeted with my name and title as Nurse Practitioner. I attest I am currently physically located in the state of [place]. Patient name, , telephone number and location [...] soaks with apple cider vinegar Dutch Deras PROJ ENGINEER 1 [facility] [address], [place], [address], [facility] - Included [facility] 10/09/2024 16:05:07 10/18/2024 text/html Call connected, patient [...] it does not induce sleepiness. Nano Muñoz, PROJ ENGINEER 1 [facility] [address], [place], [address], [facility] 10/18/2024 14:59:14 OBGyn Episode No OBEpisode recorded.
--- OUTSIDE RECORDS SUMMARY | 2024-12-25 22:16 | XMS_ITS | Encounter Summary ---
Author Organization [facility] Address [address] [place] [address] Phone Care Team Providers Care Contracts Law Professor Name Role Phone Maria T Ac MD Primary Care Provider Reason for Visit * Reason Comments Med Refill Encounter Details Date Type Department Care Team (Late st Contact Info) Description 11/15/2021 Refill [facility] [address] [place] [address] Trevon Caal MD Social History [...] on filedocumented in this encounter Care Teams Contracts Law Professor Relationship Specialty Start Date End Date Maria T Ac MD [address] [place] [address] PCP - General 09/01/20 documented as of this encounter
[2024-12-25 22:17] LABS: MANUAL DIFF FLAG NO
[2024-12-25 22:18] LABS: Basophils Percent Auto 0.2 % (0-2); Eosinophils Percent Auto 0.5 % (0-4); Hematocrit 27.6 % (37.0-47.0); Hemoglobin 9.7 g/dl (12.0-16.0); Imm Gran Abs Auto 0.02 X10*3/uL (0.00-0.03); Imm Gran Pct Auto 0.4 % (0.0-0.4); Lymphocytes Absolute Auto 0.8 X10*3/uL (1.2-4.9); Lymphocytes Percent Auto 14.9 % (20-40); Mean Corpuscular HGB Conc 35.1 g/dl (31.0-35.0); Mean Corpuscular Hemoglobin 30.1 pg (27.0-33.0); Mean Corpuscular Volume 85.7 fL (80.0-98.0); Mean Platelet Volume 9.6 fL (9.4-12.3); Monocytes Absolute Auto 0.2 X10*3/uL (0.1-1.2); Monocytes Percent Auto 3.7 % (2-11); Neutrophils Absolute Auto 4.5 x10*3/uL (2.0-8.3); Neutrophils Percent Auto 80.3 % (45-73); Platelet Count 212 X10*3/uL (160-400); Red Blood Count 3.22 X10*6/uL (4.20-5.50); Red Cell Distribution Width 13.1 % (11.0-16.0); White Blood Count 5.6 X10*3/uL (4.8-10.8)
[2024-12-25 22:36] LABS: Alanine Aminotransferase 26 U/L (0-31); Albumin Level 3.2 g/dL (3.5-5.0); Alkaline Phosphatase 78 U/L (39-117); Anion Gap 14 (12-20); Aspartate Amino Transferase 42 U/L (5-31); Bilirubin Total 0.2 mg/dL (0.0-1.0); Blood Urea Nitrogen 28 mg/dL (9-16); Calcium 7.9 mg/dL (8.4-10.2); Carbon Dioxide 18 mmol/L (22-29); Chloride 111 mmol/L (96-108); Creatinine Clr Calc Pharmacy 30.9; Estimated Glomerular Filt Rate 25; Glucose Random 111 mg/dL (60-115); Lipase 47 U/L (8-78); Potassium 4.6 mmol/L (3.3-5.1); Sodium 138 mmol/L (135-145); Total Protein 6.5 g/dL (6.5-8.0)
[2024-12-25 22:40] VITALS: BP 113/72; PULSE 92
[2024-12-25 22:42] VITALS: BP 105/65; PULSE 95
[2024-12-25 22:43] VITALS: BP 116/86; PULSE 104
[2024-12-25 22:54] LABS: Influenza A PCR NEGATIVE (Negative); Influenza B PCR NEGATIVE (Negative); Resp Syncy Virus RNA Qual PCR NEGATIVE (Negative); SARS COV2 PCR INHOUSE NEGATIVE (Negative)
--- NOTE | 2024-12-25 22:59 | PC.NURSE ---
PT comes from triage with reports of n/v/d since tuesday. PT also reports that she has been dealing with near syncopal episodes, earring ringing/whooshing, unilateral facial dropping/numbness and extremities tingling for several of weeks. PT discussed complaints with her neurologists and they made a referral for neurology however the appointment isn't until several of months from now. PT has a history of lupus and HTN Neuros intact, vss, 20g IV placed in RAC. Brother and sister in law at bedside, safety precautions in place, call rosa within reach. Plan of care ongoing
--- NOTE | 2024-12-25 23:10 | PC.NURSE ---
PT comes from triage with reports of n/v/d since tuesday. PT also reports that she has been dealing with dizziness and near syncopal episodes, earring ringing/whooshing, unilateral facial dropping/numbness and extremities tingling for several of weeks. PT discussed complaints with her mammal control agent and they made a referral for neurology however the appointment isn't until several of months from now. PT has a history of lupus and HTN Neuros intact, vss, 20g IV placed in RAC. Brother and sister in law at bedside, safety precautions in place, call rosa within reach. Plan of care ongoing
[2024-12-25] MEDS: ondansetron HCL 4 MG/2 ML VIAL IVPUSH (23:25)
[2024-12-25] MEDS: 0.9 % Sodium Chloride 1,000 ML 999 ML IV (23:25)
[2024-12-26] VITALS (7 sets, daily range): BP systolic 102–135; BP diastolic 64–85; PULSE 83–98; RESP 16–18; TEMP 36.5–37.2; O2SAT 94–100
--- NOTE | 2024-12-26 00:02 | ED_ITS ---
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 and hypertension comes here for not feeling good for last 4 days with nausea vomiting had diarrhea 2 days ago which has a improved feel off balance since afternoon today especially when she ambulate falls on the left side does have tinnitus in the left ear for last few days no other weakness noticed no abdominal pain Related Data Home Medications ?Medication ?Instructions ?Recorded ?Confirmed hydroxychloroquine 200 mg tablet 200 mg PO BID 10/25/23 11/05/24 metoprolol succinate 50 mg 50 mg PO DAILY 10/25/23 11/05/24 tablet,extended release 24 hr mycophenolate mofetil 500 mg 1,000 mg PO BID 10/25/23 11/05/24 tablet (CellCept) terbinafine HCl 250 mg tablet 250 mg PO DAILY 10/25/23 11/05/24 azathioprine 50 mg tablet 50 mg PO DAILY 02/27/24 11/05/24 prednisone 10 mg tablet 5 mg PO Q OTHER DAY 02/27/24 11/05/24 dextroamphetamine-amphetamine ER 30 mg PO QAM 04/16/24 11/05/24 15 mg 24hr capsule,extend release mupirocin 2 % topical ointment 1 appl topical DAILY PRN 10/15/24 11/05/24 Previous Rx's ?Medication ?Instructions ?Recorded meclizine 25 mg tablet 25 mg PO TID PRN dizziness #20 tabs 12/30/23 amlodipine 5 mg tablet 5 mg PO DAILY #90 tabs 11/19/24 Allergies Allergy/AdvReac Type Severity Reaction Status Date / Time hydrocodone Allergy Unknown UNKNOWN Verified 12/25/24 22:07 oxycodone [OXYCODONE] Allergy Unknown TONGUE Verified 12/25/24 22:07 SWELLING Review of Systems 2 Review of Systems: Yes all other systems are reviewed and are negative [facility]LY [facility], [facility] Past Medical History Medical History HTN (hypertension) Lupus Family History Family History Mother Hypertension Social History Social History Alcohol intake: current Alcohol intake frequency: a few times a month Patient Tobacco Use Status: Never used Tobacco Advance Directives: No Advance Directives Information Provided: No Do you have a plan to hurt others: No Plan Physical Exam ED Vital Signs: Vital Signs - 24 hr 12/25/24 22:04 12/25/24 22:40 12/25/24 22:42 Temperature 97.8 F Pulse Rate 96 92 95 Respiratory Rate 16 Blood Pressure 98/68 113/72 105/65 Pulse Oximetry 100 Oxygen Delivery Method Room Air 12/25/24 22:43 Temperature Pulse Rate 104 H Respiratory Rate Blood Pressure 116/86 Pulse Oximetry Oxygen Delivery Method BMI result Body Mass Index 28.3 Appearance: Alert. Oriented X3. No acute distress. Eyes: PERRLA, + Nystagmus to the left ENT: Pharynx normal. Oral Mucosa moist Neck: Normal inspection. Neck supple. No bruit CVS: Normal heart rate and rhythm. Pulses normal. Respiratory: No respiratory distress. Equal air entry bilateral, no wheezing/rales/rhonchi Abdomen: Soft and nontender. Bowel sounds are present, no mass palpable, no CVA tenderness Skin: Skin warm and dry. Normal skin color. Normal skin turgor. Extremities: No lower extremity edema. No calf tenderness Neuro: Oriented X 3. No motor deficit. No sensory deficit.No tremors, cranial nerves II-XII intact significant truncal ataxia with falling to the left specially Medications Administered Discontinued Medications Generic Name Dose Route Start Last Admin Trade Name Freq PRN Reason Stop Dose Admin Sodium Chloride 1,000 mls @ 999 mls/hr 12/25/24 23:07 12/25/24 23:25 Ns IV 12/26/24 00:07 999 mls/hr .Q1H1M ONE Administration Ondansetron HCl 4 mg 12/25/24 23:07 12/25/24 23:25 Ondansetron Hcl 4 Mg/2 Ml Vial IVPUSH 12/25/24 23:08 4 mg ONCE ONE Administration Medical Decision Making Medical Decision Making MDM Narrative: Patient with lupus and hypertension with CKD comes here with ataxia and vertiginous feeling falling to the left side unable to ambulate this head is negative no tremor noticed no other signs of central nervous system involvement noticed patient unable to ambulate at this time will give meclizine and lorazepam patient does have MARQUES case discussed with hospitalist will admit the patient for further evaluation including possible MRI of brain to rule out posterior circulation CVA Differential Diagnosis Differential Diagnoses: The differential diagnosis associated with the presentation includes Admission/Observation Consideration of admission/observation: Escalation of care including admission/observation considered Consult Healthcare Provider Management of the patient was discussed with: Hospitalist Lab Data MDM Lab Attestation statement: I reviewed the patient's lab results. 12/25/24 22:13 12/25/24 22:13 Labs: Lab Results 12/25/24 Range/Units 22:13 WBC 5.6 (4.8-10.8) X10*3/uL RBC 3.22 L (4.20-5.50) X10*6/uL Hgb 9.7 L (12.0-16.0) g/dl Hct 27.6 L (37.0-47.0) % MCV 85.7 (80.0-98.0) fL MCH 30.1 (27.0-33.0) pg MCHC 35.1 H (31.0-35.0) g/dl RDW 13.1 (11.0-16.0) % Plt Count 212 (160-400) X10*3/uL MPV 9.6 (9.4-12.3) fL Immature Gran % (Auto) 0.4 (0.0-0.4) % Neut % (Auto) 80.3 H (45-73) % Lymph % (Auto) 14.9 L (20-40) % [place] % (Auto) 3.7 (2-11) % Eos % (Auto) 0.5 (0-4) % Baso % (Auto) 0.2 (0-2) % Lymph # (Auto) 0.8 L (1.2-4.9) X10*3/uL [place] # (Auto) 0.2 (0.1-1.2) X10*3/uL Eos # (Auto) 0.0 (0.0-0.4) X10*3/uL Baso # (Auto) 0.0 (0.0-0.2) X10*3/uL Abs Immat Gran (auto) 0.02 (0.00-0.03) X10*3/uL Absolute Neuts (auto) 4.5 (2.0-8.3) x10*3/uL Absolute Nucleated RBC 0.000 (0.0-0.012) X10*3/uL Nucleated RBC % (auto) 0.0 (0.0-0.2) /100WBC Sodium 138 (135-145) mmol/L Potassium 4.6 (3.3-5.1) mmol/L Chloride 111 H (96-108) mmol/L Carbon Dioxide 18 L (22-29) mmol/L Anion Gap 14 (12-20) BUN 28 H (9-16) mg/dL Creatinine 2.17 H (0.5-1.4) mg/dL Estim Creat Clear Calc 30.9 Estimated GFR 25 Random Glucose 111 (60-115) mg/dL Calcium 7.9 L (8.4-10.2) mg/dL Total Bilirubin 0.2 (0.0-1.0) mg/dL AST 42 H (5-31) U/L ALT 26 (0-31) U/L Alkaline Phosphatase 78 (39-117) U/L Total Protein 6.5 (6.5-8.0) g/dL Albumin 3.2 L (3.5-5.0) g/dL Lipase 47 (8-78) U/L Influenza Type A (PCR) NEGATIVE (Negative) Influenza Type B (PCR) NEGATIVE (Negative) RSV RNA Qual (PCR) NEGATIVE (Negative) SARS-CoV-2 RNA (RT-PCR) NEGATIVE (Negative) Independent Interpretation I performed an independent interpretation of an: EKG and CT Scan Interpretation: Normal sinus rhythm heart rate 96 beats per minute normal interval normal axis no acute STT wave changes no acute ischemia Radiology Impression Discussion of test interpretation with radiology: I have reviewed the radiologist's reading. Critical Care Time Critical Care Time Critical Care Time: Yes Total Critical Care Time: 55 Attestation: The patient was critically ill with a high probability of imminent or life threatening deterioration. I spent greater than 60???minutes of discontinuous time evaluating the patient,delivering critical care at the bedside, discussing and evaluating pertinent data with consultants. Critical care time does not include time spent performing separately billable procedures or teaching. Total time spent performing critical care was 55???minutes. Discharge Plan Discharge Clinical Impression: Acute renal failure superimposed on chronic kidney disease, Acute onset of severe vertigo Patient Disposition: Admitted As Inpatient Print Language: [place]
[2024-12-26] MEDS: Meclizine HCl 25 MG TABLET PO (02:25)
--- NOTE | 2024-12-26 02:25 | PC.NURSE ---
pt assisted to bathroom, gait unsteady requiring 1 person assist.
--- NOTE | 2024-12-26 03:40 | PM.IMHP ---
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 Patient states she has been feeling unwell for the last 3-4 days. Patient has been having nausea, vomiting and diarrhea. Patient states her symptoms have resolved but on the day of presentation she was feeling unsteady on her feet. Patient thinks she leans towards the left side while walking. This has never happened before. No speech changes, vision changes. No sensation of room spinning. Did not pass out. Denies fever, chills, chest pain, palpitations, shortness of breath, abdominal pain, changes in urinary or bowel habits. In the emergency department, creatinine found to be 2.17. Review of Systems Constitutional: Constitutional: Reports fatigue, Reports malaise and Reports weakness ENT: Reports disequilibrium Cardiovascular: Cardiovascular: Reports no additional cardiovascular complaints Respiratory: Respiratory: Reports no additional respiratory complaints Gastrointestinal: Gastrointestinal: Reports no additional gastrointestinal complaints Genitourinary: Genitourinary: Reports no additional female genitourinary complaints Musculoskeletal: Musculoskeletal: Reports abnormal gait Neurologic: Reports abnormal gait, Reports disequilibrium and Reports weakness Endocrine: Endocrine: Reports fatigue [facility] Medical History HTN (hypertension) Lupus Family History Mother Hypertension Social History Alcohol intake: current Alcohol intake frequency: a few times a month Patient Tobacco Use Status: Never used Tobacco Advance Directives: No Advance Directives Information Provided: No Do you have a plan to hurt others: No Plan Meds Allergies Allergy/AdvReac Type Severity Reaction Status Date / Time hydrocodone Allergy Unknown UNKNOWN Verified 12/25/24 22:07 oxycodone [OXYCODONE] Allergy Unknown TONGUE Verified 12/25/24 22:07 SWELLING Home Medications ?Medication ?Instructions ?Recorded ?Confirmed ?Last Taken ?Type hydroxychloroquine 200 mg tablet 200 mg PO BID 10/25/23 11/05/24 Unknown History metoprolol succinate 50 mg 50 mg PO DAILY 10/25/23 11/05/24 Unknown History tablet,extended release 24 hr mycophenolate mofetil 500 mg 1,000 mg PO BID 10/25/23 11/05/24 Unknown History tablet (CellCept) terbinafine HCl 250 mg tablet 250 mg PO DAILY 10/25/23 11/05/24 Unknown History azathioprine 50 mg tablet 50 mg PO DAILY 02/27/24 11/05/24 Unknown History prednisone 10 mg tablet 5 mg PO Q OTHER DAY 02/27/24 11/05/24 Unknown History dextroamphetamine-amphetamine ER 30 mg PO QAM 04/16/24 11/05/24 Unknown History 15 mg 24hr capsule,extend release mupirocin 2 % topical ointment 1 appl topical DAILY PRN 10/15/24 11/05/24 Unknown History Physical Exam Vital Signs and Narrative: Vital Signs: Last Vital Signs Temp 98.9 F 12/26/24 01:25 Pulse 95 12/26/24 01:25 Resp 17 12/26/24 01:25 BP 111/70 12/26/24 01:25 Pulse Ox 98 12/26/24 01:25 O2 Del Method Room Air 12/26/24 01:25 BMI result Body Mass Index 28.3 Middle-aged female lying in bed in no distress Neck supple, no JVD Regular rate and rhythm, S1-S2 heard Regular breath sounds bilaterally, no wheezing or crackles appreciated Abdomen soft nontender, no guarding, no rigidity Patient is awake, alert and oriented to self, place, time and person ; unsteady gait and leaning towards the left, no pronator drift, no facial droop Psych: Normal mood No pedal edema Results Labs 12/25/24 22:13 12/25/24 22:13 Labs: Laboratory Results - last 24 hr 12/25/24 22:13 MCV 85.7 MCH 30.1 MCHC 35.1 H RDW 13.1 Plt Count 212 MPV 9.6 Immature Gran % (Auto) 0.4 Neut % (Auto) 80.3 H Lymph % (Auto) 14.9 L [place] % (Auto) 3.7 Eos % (Auto) 0.5 Baso % (Auto) 0.2 Lymph # (Auto) 0.8 L [place] # (Auto) 0.2 Eos # (Auto) 0.0 Baso # (Auto) 0.0 Abs Immat Gran (auto) 0.02 Absolute Neuts (auto) 4.5 Absolute Nucleated RBC 0.000 Nucleated RBC % (auto) 0.0 Anion Gap 14 Estim Creat Clear Calc 30.9 Estimated GFR 25 Random Glucose 111 Calcium 7.9 L Total Bilirubin 0.2 AST 42 H ALT 26 Alkaline Phosphatase 78 Total Protein 6.5 Albumin 3.2 L Lipase 47 Influenza Type A (PCR) NEGATIVE Influenza Type B (PCR) NEGATIVE RSV RNA Qual (PCR) NEGATIVE SARS-CoV-2 RNA (RT-PCR) NEGATIVE Assessment and Plan (1) Acute renal failure superimposed on chronic kidney disease: Status: Acute (2) Ataxia: Status: Acute Plan This is a 44-year-old female with pertinent history of SLE, hypertension, 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 #. MARQUES on CKD: Likely prerenal in the setting of recent nausea/vomiting/diarrhea. Resuscitated with IV crystalloids. Monitor creatinine urine output. Avoid nephrotoxins #. Ataxia: Obtaining MRI to rule out acute CVA. Also obtaining B12 and folate #. Hypertension: Blood pressure soft on admission. Hold and resume as appropriate #. Anemia of chronic kidney disease: Hemoglobin above transfusion threshold Med rec pending DVT prophylaxis: Lovenox Full code Admit as inpatient and will require two night minimum hospital stay for monitoring of kidney function, evaluation of ataxia (as above), which is not possible in a lesser acute setting. Quality Stroke Does the patient have a stroke diagnosis?: No VTE Prior VTE?: No VTE Risk Level:: Medical - moderate - high VTE Device Contraindication: Treatment Not Indicated VTE Drug Contraindication: N/A - Med Ordered
[2024-12-26] MEDS: Lactated Ringers 1,000 ML 100 ML IVCONT (04:27)
[2024-12-26] MEDS: Aspirin 325 MG TABLET PO (04:27)
[2024-12-26 06:10] LABS: MANUAL DIFF FLAG NO
[2024-12-26 06:15] LABS: Basophils Percent Auto 0.2 % (0-2); Eosinophils Percent Auto 0.2 % (0-4); Hematocrit 28.5 % (37.0-47.0); Hemoglobin 9.7 g/dl (12.0-16.0); Imm Gran Abs Auto 0.01 X10*3/uL (0.00-0.03); Imm Gran Pct Auto 0.2 % (0.0-0.4); Lymphocytes Absolute Auto 0.9 X10*3/uL (1.2-4.9); Lymphocytes Percent Auto 20.8 % (20-40); Mean Corpuscular Hemoglobin 29.8 pg (27.0-33.0); Mean Corpuscular Volume 87.7 fL (80.0-98.0); Monocytes Absolute Auto 0.2 X10*3/uL (0.1-1.2); Monocytes Percent Auto 4.2 % (2-11); Neutrophils Absolute Auto 3.3 x10*3/uL (2.0-8.3); Neutrophils Percent Auto 74.4 % (45-73); Platelet Count 207 X10*3/uL (160-400); Red Blood Count 3.25 X10*6/uL (4.20-5.50); White Blood Count 4.5 X10*3/uL (4.8-10.8)
[2024-12-26 06:40] LABS: Alanine Aminotransferase 23 U/L (0-31); Alkaline Phosphatase 77 U/L (39-117); Anion Gap 10 (12-20); Aspartate Amino Transferase 42 U/L (5-31); Bilirubin Total 0.2 mg/dL (0.0-1.0); Blood Urea Nitrogen 23 mg/dL (9-16); Calcium 7.9 mg/dL (8.4-10.2); Carbon Dioxide 18 mmol/L (22-29); Chloride 111 mmol/L (96-108); Creatinine Clr Calc Pharmacy 38.2; Estimated Glomerular Filt Rate 32; Glucose Random 87 mg/dL (60-115); Potassium 4.4 mmol/L (3.3-5.1); Sodium 135 mmol/L (135-145); Total Protein 6.2 g/dL (6.5-8.0)
--- NOTE | 2024-12-26 06:46 | PC.NURSE ---
Admission report to copy and paste: 44F a/ox4, Full code, presented to ED n/v/d since tuesday. PT also reports that she has been dealing with dizziness and near syncopal episodes, earring ringing/whooshing, unilateral facial dropping/numbness and extremities tingling for several of weeks. PT has a history of lupus,?chronic kidney disease due to lupus, and HTN. Neuros intact, vss, 20g IV placed in RAC. LR running at 100ml/hr, PT unsteady on her feet- experiencing?ataxia- plan for MRI to rule out CVA. Cardiac diet? Being admitted for MARQUES (creatinine?2.17, repeat 1.76)
[2024-12-26 07:02] LABS: Folate 10.5 ng/mL (> or = 4.0); Vitamin B12 259 pg/mL (200-900)
--- NOTE | 2024-12-26 07:57 | PC.NURSE ---
MRI screening form completed/faxed
[2024-12-26] MEDS: Enoxaparin Sodium 40 MG/0.4 ML SYRINGE SUBCUT (08:13)
--- NOTE | 2024-12-26 09:25 | MHC.CM.PN ---
CM met with Patient at bedside, in the ED. Patient lives alone in a house and reports being functionally independent. Home/self care is Patient's goal and CM has initiated and will follow for dc planning. PCP is Dr. Maria T Ac and Daughter will transport to home at time of dc.
--- NOTE | 2024-12-26 11:52 | PHA.MEDREC ---
Pharmacy Consult ? Medication Reconciliation Pharmacy has completed the medication reconciliation. Spoke with patient and bedside to confirm medications, pt kne most name of the medications but was a poor historian regarding doses and frequency. Daughter sent a list of medications from a [facility] admission from March 2024. Utilized this list, and claims to confirm medication doses and frequencies.
[2024-12-26] MEDS: Calcium Carbonate 750 MG TAB.CHEW PO (12:50)
--- NOTE | 2024-12-26 14:52 | PM.EVENT ---
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 MARQUES on CKD. Creatinine trending down Likely prerenal in the setting of recent nausea/vomiting/diarrhea. Resuscitated with IV crystalloids. Monitor creatinine urine output. Avoid nephrotoxins Ataxia MRI negative for acute infarction, mass effect or edema AlsoB12 and folate normal PT consult Hypertension Continue amlodipine, metoprolol Normocytic Anemia of chronic kidney disease Hemoglobin above transfusion threshold History of lupus nephritis Continue Plaquenil DVT prophylaxis: Lovenox Full code Time Spent With Patient Time: Total time managing care of this patient today ____ minutes.
[2024-12-26] MEDS: Acetaminophen 325 MG TABLET 650 MG PO (16:43)
[2024-12-26] MEDS: 0.9 % Sodium Chloride Flush 3 ML SYRINGE IVFLUSH (20:20)
[2024-12-27] MEDS: ondansetron HCL 4 MG/2 ML VIAL IVPUSH (01:40)
[2024-12-27 03:06] VITALS: BP 116/61; PULSE 87; RESP 16; TEMP 37.3; O2SAT 100
[2024-12-27 07:20] VITALS: BP 116/61; PULSE 87; O2SAT 100
[2024-12-27 07:41] VITALS: BP 133/97; PULSE 92; RESP 16; TEMP 36.8; O2SAT 98
[2024-12-27] MEDS: Acetaminophen 325 MG TABLET 650 MG PO (08:22)
[2024-12-27 08:52] LABS: Anion Gap 11 (12-20); Blood Urea Nitrogen 16 mg/dL (9-16); Calcium 7.8 mg/dL (8.4-10.2); Carbon Dioxide 21 mmol/L (22-29); Chloride 108 mmol/L (96-108); Creatinine Clr Calc Pharmacy 42.3; Estimated Glomerular Filt Rate 36; Glucose Random 85 mg/dL (60-115); Potassium 4.7 mmol/L (3.3-5.1); Sodium 135 mmol/L (135-145)
--- NOTE | 2024-12-27 09:15 | P.CNNE_ITS ---
History of Present Illness Data of Consult Service Date: 12/27/24 Primary Care Provider: Maria T Ac MD [facility] Reason for consult: Unsteadiness 44 years old woman with underlying diagnosis of lupus and chronic renal disease treated with hydroxychloroquine and mycophenolate, according to her stable, started having nausea and vomiting few days ago. At 1 point she developed head pressure ringing in her ears unsteadiness and weakness and came to hospital. Because of unsteadiness, an MRI of brain was done and this consultation was requested. She said that she did not have headaches and this head pressure was new. This morning she was feeling better. Review of Systems 2 Review of Systems: Recent nausea vomiting and head pressure PMFSH Past Medical History Medical History HTN (hypertension) Lupus Family History Family History Mother Hypertension Social History Social History Household Members: None Housing: House Do you presently have visiting nurse or other home services: No Alcohol intake: current Alcohol intake frequency: does not drink Patient Tobacco Use Status: Never used Tobacco service: No Meds Allergies Allergy/AdvReac Type Severity Reaction Status Date / Time hydrocodone Allergy Unknown UNKNOWN Verified 12/25/24 22:07 oxycodone [OXYCODONE] Allergy Unknown TONGUE Verified 12/25/24 22:07 SWELLING Active Medications: Current Medications Acetaminophen (Acetaminophen 325 Mg Tablet) 650 mg PO Q6H PRN PRN Reason: Pain, Mild 1-3,fever,headache Last Admin: 12/27/24 08:22 Dose: 650 mg Amlodipine Besylate (Amlodipine Besylate 5 Mg Tablet) 5 mg PO DAILY RONNA; Protocol Amphetamine/Dextroamphetamine (Dextroamphetamine/Amphetamine Xr 5 Mg Cap.Er.24h) 15 mg PO DAILY RONNA Calcium Carbonate (Calcium Carbonate 750 Mg Tab.Chew) 750 mg PO Q4H PRN PRN Reason: Heartburn Last Admin: 12/26/24 12:50 Dose: 750 mg Enoxaparin Sodium (Enoxaparin Sodium 40 Mg/0.4 Ml Syringe) 40 mg SUBCUT Q24H RONNA Last Admin: 12/26/24 08:13 Dose: 40 mg Hydroxychloroquine Sulfate (Hydroxychloroquine Sulfate 200 Mg Tablet) 200 mg PO DAILY [facility] Magnesium Hydroxide (Milk Of Magnesia 30 Ml Oral.Susp) 30 ml PO DAILY PRN PRN Reason: Constipation Melatonin (Melatonin 3 Mg Tablet) 6 mg PO BEDTIME PRN PRN Reason: Insomnia Metoprolol Succinate (Metoprolol Succinate Er 50 Mg Tab.Er.24h) 50 mg PO DAILY [facility]; Protocol Mycophenolate Mofetil (Mycophenolate Mofetil 250 Mg Capsule) 1,000 mg PO BID [facility] Last Admin: 12/26/24 20:22 Dose: Not Given Ondansetron HCl (Ondansetron Hcl 4 Mg/2 Ml Vial) 4 mg IVPUSH Q8H PRN PRN Reason: Nausea and Vomiting Last Admin: 12/27/24 01:40 Dose: 4 mg Sodium Chloride (0.9 % Sodium Chloride Flush 3 Ml Syringe) 3 ml IVFLUSH QSHIFT [facility] Last Admin: 12/26/24 20:20 Dose: 3 ml Home Medications ?Medication ?Instructions ?Recorded ?Confirmed ?Last Taken ?Type hydroxychloroquine 200 mg tablet 200 mg PO DAILY 10/25/23 12/26/24 12/25/24 History metoprolol succinate 50 mg 50 mg PO DAILY 10/25/23 12/26/24 12/25/24 History tablet,extended release 24 hr mycophenolate mofetil 500 mg 1,000 mg PO BID 10/25/23 12/26/24 12/25/24 History tablet (CellCept) dextroamphetamine-amphetamine ER 15 mg PO DAILY 04/16/24 12/26/24 12/25/24 History 15 mg 24hr capsule,extend release L norgest/E estradiol-E estrad 1 tab PO DAILY 12/26/24 12/26/24 12/25/24 History 0.15 mg-30 mcg (84)/10 mcg(7) tabs,3mos (Simpes[place]) acetaminophen 325 mg tablet 650 mg PO Q4H PRN Pain 12/26/24 12/26/24 Unknown History (Tylenol) ascorbic acid 30 mg-collagen, 1 tab PO DAILY 12/26/24 12/26/24 Unknown History hydrolyzed 833.3 mg tablet (Collagen Skin Renewal) magnesium 200 mg tablet 200 mg PO DAILY restless leg 12/26/24 12/26/24 Unknown History Physical Exam 2 Vital Signs: Vital Signs: Last Vital Signs Temp 98.3 F 12/27/24 07:41 Pulse 92 12/27/24 07:41 Resp 16 12/27/24 07:41 BP 133/97 H 12/27/24 07:41 Pulse Ox 98 12/27/24 07:41 O2 Del Method Room Air 12/27/24 07:41 BMI result Body Mass Index 28.3 Neuro: Other: She is alert and awake with normal spontaneity of speech fluency comprehension and affect. Face is symmetrical. Visual french are full. [id number] testing is normal. [id number] testing is normal. Deep tendon reflexes are 1+ with flexor plantars. She is able to get up and walk on her own but was somewhat unsteady. Speech was normal. There was no nystagmus. Results Labs 12/26/24 05:35 12/27/24 07:56 Labs: BMP 12/27/24 07:56 Sodium 135 Potassium 4.7 Chloride 108 Carbon Dioxide 21 L BUN 16 Creatinine 1.59 H Calcium 7.8 L MRI of brain revealed mild chronic microvascular ischemic changes but no acute lesion. Assessment and Plan (1) Ataxia: Status: Acute 44 years old woman with multifactorial unsteadiness of gait and weakness. To start with, she is taking multiple medications. She probably had a viral or bacterial infection recently resulting in multitude of symptoms including head pressure and ringing in ears suggestive of vestibular neuritis. In addition, she was dehydrated when she came, anemic, with low blood pressure. There was no indication of any acute neurological syndrome though her MRI of brain revealed mild chronic microvascular ischemic changes not atypical for a patient with lupus. Mainstay of management is hydration, treatment of infection, treatment of anemia, and reassurance and education. I would also add B complex vitamin especially thiamine folate because of her high metabolic needs especially due to the medicines she was taking. Procedures Date of Service Date of Service: 12/27/24
[2024-12-27] MEDS: 0.9 % Sodium Chloride Flush 3 ML SYRINGE IVFLUSH (11:47)
--- NOTE | 2024-12-27 11:59 | PC.NURSE ---
Pt didn't want to take her AM meds until after breakfast. Told this RN she takes them at home at around 11. Went back around that time to give her meds and she said she already took her own. Her daughter is at bedside and brought them from home for her. Educated pt on why we can't allow this. Provider Caroline notified. Instructed pt to have daughter take any remaining medications home.
--- NOTE | 2024-12-27 14:57 | PM.DS ---
DS: Providers Provider Date of Service: 12/27/24 Date of admission: 12/26/24 01:45 Date of discharge: 12/27/24 Primary care physician: Maria T Ac MD Consults: 12/26/24 16:48 Consult to Neurology Routine Consulting Provider: [facility] Reason for consultation: ataxia, normal MRI Attending physician on discharge: Wang Layton Discharging clinician: Caroline Mena DS: Diagnosis Discharge Diagnosis (1) Ataxia: Status: Acute DS: Summary Hospital Course Hospital Course: From H&P on the day of admission This is a 44-year-old female with pertinent history of SLE, hypertension, 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 Patient states she has been feeling unwell for the last 3-4 days. Patient has been having nausea, vomiting and diarrhea. Patient states her symptoms have resolved but on the day of presentation she was feeling unsteady on her feet. Patient thinks she leans towards the left side while walking. This has never happened before. No speech changes, vision changes. No sensation of room spinning. Did not pass out. Denies fever, chills, chest pain, palpitations, shortness of breath, abdominal pain, changes in urinary or bowel habits. In the emergency department, creatinine found to be 2.17. MARQUES on CKD3 Creatinine trending down Likely prerenal in the setting of recent nausea/vomiting/diarrhea. Improved with IVF. Ataxia MRI negative for acute infarction, mass effect or edema. B12 and folate normal. seen by neurology who thought symptoms may be related to vestibular neuritis. Also recommended B complex vitamins including thiamine and folic acid. She was seen by Physical therapy and Occupational therapy who recommended acute rehab. However this afternoon patient reports she is feeling much better is requesting to be discharged home. She demonstrated ability to ambulate without assistance and be discharged home, can pursue outpatient physical therapy for vestibular therapy if symptoms persist. Recommend outpatient follow-up with PCP. No changes made to baseline medications Normocytic Anemia of chronic kidney disease Hemoglobin above transfusion threshold Time Attestation Discharge Coordination Time (in mins): 35 Quality: Safe Use of Opioids Does Pt have an Active Cancer Diagnosis on the Problem List?: No Quality: Stroke Does the patient have a stroke diagnosis?: No Physical Exam Vital Signs: Vital Signs: Last Vital Signs Temp 98.3 F 12/27/24 07:41 Pulse 92 12/27/24 07:41 Resp 16 12/27/24 07:41 BP 133/97 H 12/27/24 07:41 Pulse Ox 98 12/27/24 07:41 O2 Del Method Room Air 12/27/24 07:41 BMI result Body Mass Index 28.3 Const: General: cooperative, comfortable, no acute distress, alert and awake Nutritional Appearance: average body habitus Orientation/consciousness: patient oriented x3 Resp: Effort & Inspection: normal respiratory effort, able to speak in complete sentences, no respiratory distress and no use of accessory muscles Auscultation: clear to auscultation bilaterally Cardio: Rate: regular rate GI: Palpation (GI): Soft to palpation Neuro: Other: grossly nonfocal General: patient oriented x3, moves all extremities and CN's II-XI intact bilaterally DS: Data Data Completed and Pending Labs on day of discharge: Laboratory Results - last 24 hr 12/27/24 07:56 Sodium 135 Potassium 4.7 Chloride 108 Carbon Dioxide 21 L Anion Gap 11 L BUN 16 Creatinine 1.59 H Estim Creat Clear Calc 42.3 Estimated GFR 36 Random Glucose 85 Calcium 7.8 L Discharge Plan Discharge Anticipated Discharge Date/Time: 12/27/24 15:04 Patient Disposition: Home, Self-Care Discharge Diagnosis: ataxia/dizziness Referrals: Maria T Ac MD [Primary Care Provider] - 1 Week Discharge Medications: New folic acid 1 mg tablet 1 mg PO DAILY Qty: 90 0RF thiamine HCl (vitamin B1) 100 mg tablet 100 mg PO DAILY Qty: 90 0RF meclizine 12.5 mg tablet 12.5 mg PO BID PRN (Reason: dizziness) Qty: 10 0RF Continued amlodipine 5 mg tablet 5 mg PO DAILY Qty: 90 3RF acetaminophen [Tylenol] 325 mg Tablet 650 mg PO Q4H PRN (Reason: Pain) magnesium 200 mg Tablet 200 mg PO DAILY Collagen Skin Renewal 30-833.3 mg Tablet 1 tab PO DAILY L norgest/e.estradiol-e.estrad [Simpesse] 0.15 mg-30 mcg (84)/10 mcg (7) tablets,dose pack,3 month 1 tab PO DAILY metoprolol succinate 50 mg tablet extended release 24 hr 50 mg PO DAILY mycophenolate mofetil [CellCept] 500 mg tablet 1,000 mg PO BID hydroxychloroquine 200 mg tablet 200 mg PO DAILY dextroamphetamine-amphetamine 15 mg capsule,extended release 24hr 15 mg PO DAILY Discharge Orders: Discharge Order (Routine); Ordered 12/27/24 Ordered By: Caroline Mena Activity on Discharge: As tolerated Stand Alone Forms: Patient Portal Discharge page, Work/School Release Print Language: Divehi Care Plan Goals: see below Health Concerns: ataxia, probably due to vestibular neuritis. stroke ruled out Plan of Treatment: thiamine and folic acid replacement as recommended out placement physical therapy for vestibular therapy if symptoms continue as needed meclizine Assessment: see discharge summary
[2024-12-27] MEDS: Meclizine HCl 25 MG TABLET PO (14:59)
[2024-12-27 15:12] VITALS: BP 119/75; PULSE 84; RESP 16; TEMP 36.6; O2SAT 100
--- NOTE | 2024-12-27 15:15 | MHC.CM.PN ---
Addendum entered by Shahrzad Heredia 12/27/24 16:09: PT WILL DC HOME TODAY WITH NO SERVICES VIA FAMILY TRANSPORT Original Note: PT STATES SHE FEELS SHE IS DOING BETTER AND WILL NOT NEED REHAB SHE IS AWARE [facility] IS FOLLOWING AND WILL DECIDE AT DC IF SHE FEELS SHE NEEDS IT
== END 2024-12-27 17:26 | disposition home or self-care (01) | DRG 149 ==
LOC: HO.ED 12-26 01:45 → HO.EDOVER 12-26 01:52 → HO.S3 12-26 10:21
PROVIDERS: Admitting Provider Student in an Organized Health Care Education/Training Program; Emergency Provider Internal Medicine; PCP Internal Medicine; Visit Provider Physician Assistant Medical
DX: H81.20 Vestibular neuronitis, unspecified ear (principal); N17.9 Acute kidney failure, unspecified; M32.14 Glomerular disease in systemic lupus erythematosus; I12.9 Hypertensive chronic kidney disease with stage 1 through stage 4 chronic kidney disease, or unspecified chronic kidney disease; E86.0 Dehydration; N18.9 Chronic kidney disease, unspecified; D63.1 Anemia in chronic kidney disease; Z20.822 Contact with and (suspected) exposure to COVID-19; Z79.899 Other long term (current) drug therapy
CPT/HCPCS: 0241U; 36415; 70450; 70551; 80048; 80053; 82607; 82746; 83690; 85025; 93005; 97163; 97167; 99285; J1650; J2405; J7120

== ENCOUNTER → 2024-12-25 22:03 | Outpatient (BNV) | payer OTHER, SELFPAY | PROVIDERS: Admitting Provider Student in an Organized Health Care Education/Training Program; Emergency Provider Internal Medicine; PCP Internal Medicine; Visit Provider Internal Medicine | DX: R42 Dizziness and giddiness (principal) | CPT/HCPCS: 93010 ==

== ENCOUNTER → 2024-12-26 00:21 | Outpatient (BNV) | payer OTHER, SELFPAY | PROVIDERS: Emergency Provider Internal Medicine; PCP Internal Medicine; Visit Provider Radiology Diagnostic Radiology | DX: R27.0 Ataxia, unspecified (principal) | CPT/HCPCS: 70450; 70551 ==

== ENCOUNTER → 2024-12-26 01:45 | Outpatient (BNV) | payer OTHER, SELFPAY | PROVIDERS: Admitting Provider Student in an Organized Health Care Education/Training Program; Emergency Provider Internal Medicine; PCP Internal Medicine; Visit Provider Student in an Organized Health Care Education/Training Program | DX: N17.9 Acute kidney failure, unspecified (principal); N18.9 Chronic kidney disease, unspecified; R27.0 Ataxia, unspecified | CPT/HCPCS: 99223; 99239; 99499 ==

== ENCOUNTER → 2024-12-26 01:45 | Outpatient (BNV) | payer OTHER, SELFPAY | PROVIDERS: Admitting Provider Student in an Organized Health Care Education/Training Program; Emergency Provider Internal Medicine; PCP Internal Medicine; Visit Provider Psychiatry & Neurology Neurology | DX: R27.0 Ataxia, unspecified (principal) | CPT/HCPCS: 99222 ==

== ENCOUNTER 2025-01-31 07:55 | Outpatient (REF) | payer OTHER, SELFPAY ==
[2025-01-31 08:57] LABS: Anion Gap 12 (12-20); Blood Urea Nitrogen 28 mg/dL (9-16); Calcium 8.2 mg/dL (8.4-10.2); Carbon Dioxide 18 mmol/L (22-29); Chloride 114 mmol/L (96-108); Estimated Glomerular Filt Rate 27; Glucose Random 101 mg/dL (60-115); Potassium 4.9 mmol/L (3.3-5.1); Sodium 139 mmol/L (135-145)
== END 2025-01-31 07:56 | disposition home or self-care (01) ==
LOC: HO.LAB 07:55
PROVIDERS: PCP Internal Medicine; Visit Provider Internal Medicine Hypertension Specialist
DX: M32.9 Systemic lupus erythematosus, unspecified (principal); N18.30 Chronic kidney disease, stage 3 unspecified
CPT/HCPCS: 36415; 80048

== ENCOUNTER 2025-01-31 14:59 | Outpatient (AMB) | payer OTHER, SELFPAY ==
[2025-01-31 15:05] VITALS: BP 110/78; PULSE 94; O2SAT 99; BMI 28.7
--- NOTE | 2025-01-31 15:05 | HO.NEPHOV_ITS ---
Vital Signs 01/31/25 15:05 Height 5 ft 2 in Weight 157 lb BMI 28.7 BP 110/78 Blood Pressure Location Lt brachial Position Sitting Pulse 94 Pulse Source Pulse Oximeter Pulse Oximetry (%) 99 Oxygen Delivery Method Room Air Intake Visit Reasons: CKD/Conf Electric Well Logging Operator Required: No Accompanied by: Self / Same As Patient Allergies hydrocodone Allergy (Unknown, Verified 01/31/25 15:06) UNKNOWN oxycodone [OXYCODONE] Allergy (Unknown, Verified 01/31/25 15:06) TONGUE SWELLING Medication List - Last Reconciled 01/31/25 by Trevon Caal MD acetaminophen (Tylenol) 650 mg PO Q4H PRN amlodipine 5 mg PO DAILY ascorbic acid-collagen 30-833.3 mg (Collagen Skin Renewal) 1 tab PO DAILY dextroamphetamine-amphetamine 15 mg ER 15 mg PO DAILY folic acid 1 mg PO DAILY hydroxychloroquine 200 mg PO DAILY L norgest/e.estradiol-e.estrad 0.15 mg-30 mcg (84)/10 mcg (7) (Simpesse) 1 tab PO DAILY magnesium 200 mg PO DAILY meclizine 12.5 mg PO DAILY PRN metoprolol succinate ER 50 mg PO DAILY mycophenolate mofetil (CellCept) 1,000 mg PO BID thiamine HCl (vitamin B1) 100 mg PO DAILY HPI Comments Details: Young woman with a history of SLE and hypertension. Currently she is being managed by slitter processed film. She is on Saphleno Currently blood pressure is well controlled after addition of amlodipine Renal function has been stable. She has no new complaints. 02/29/24 She stopped taking Telmisartan HCT 2 months ago- ? why Home BP has been well controlled ;She is back on Azathioprine 04/16/2024 She was recently hospitalized at [facility]. She had severe headache and underwent a spinal tap. Findings were suggestive of aseptic meningitis. Currently she is on doxycycline. She feels better but still has some tiredness. No headache. No nausea vomiting. No visual symptoms. 06/12/24 ;Forgot to take meds this morning 10/15/24 Again she did not take med hers today Just took it now ( 3:30PM) c/o Numbness of left side of face/lips x 4-5 weeks No weakness or numbnes sin extremities 11/05/24 Asked to see because of bump in Cr to 3.0 from 1.5 ; She took Bactrim for 5 days. Prescribed by some telemedicine doctor. 01/31/25 Here for follow-up. No new issues. After discontinuing Bactrim serum creatinine returned to baseline 1.5. However the recent creatinine was again elevated 2.0 2. She has had no diarrhea. No nausea or vomiting. Oral p.o. intake has been inadequate. No hematuria no edema no new rash. [facility] Medical History HTN (hypertension) Lupus Family History Mother Hypertension Social History Household Members: None Housing: House Do you presently have visiting nurse or other home services: No Alcohol intake: current Alcohol intake frequency: does not drink Patient Tobacco Use Status: Never used Tobacco service: No Physical Exam Vital Signs: Last Vital Signs Pulse 94 01/31/25 15:05 BP 110/78 01/31/25 15:05 Pulse Ox 99 01/31/25 15:05 Oxygen Delivery Method Room Air 01/31/25 15:05 BMI result Body Mass Index 28.7 Results Reviewed Nephrology Results: Hgb 9.7 g/dl (12.0-16.0) L 12/26/24 WBC 4.5 X10*3/uL (4.8-10.8) L 12/26/24 Plt Count 207 X10*3/uL (160-400) 12/26/24 Sodium 139 mmol/L (135-145) 01/31/25 Potassium 4.9 mmol/L (3.3-5.1) 01/31/25 Chloride 114 mmol/L (96-108) H 01/31/25 Carbon Dioxide 18 mmol/L (22-29) L 01/31/25 BUN 28 mg/dL (9-16) H 01/31/25 Creatinine 2.02 mg/dL (0.5-1.4) H 01/31/25 Calcium 8.2 mg/dL (8.4-10.2) L 01/31/25 Urine Protein 30 (1+) mg/dL (Neg-Trace) H 11/06/24 Urine Creatinine 101.96 mg/dL 07/10/24 Protein/Creatinin Ratio 1.73 (<0.2) H 07/10/24 Assessment & Plan Assessment & Plan (1) CKD (chronic kidney disease) stage 3, GFR 30-59 ml/min: Code(s): N18.30 - Chronic kidney disease, stage 3 unspecified Category: Medical (2) Lupus: Code(s): M32.9 - Systemic lupus erythematosus, unspecified Category: Medical Plan 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 She has about 700 mg of proteinuria. Superimposed MARQUES creatinine up from 1.5 to 3.0 mg Most likely - bactrim induced. Creatinine improved after discontinuing Bactrim. She has had another episode of MARQUES with the creatinine bumping up to 2.02 from 1.5. This could be due to hypoperfusion. Encouraged to increase p.o. fluid intake recheck labs in the next few weeks. If no improvement in creatinine she would require further workup. Underlying lupus nephritis could be a contributing factor for worsening renal function. Further clinical course we will determine this Keep AMLODIPINE 5 mg QD Encouraged her to stay on low-sodium diet Continue to avoid nephrotoxic agents Continue to monitor renal function closely. SLE: will defer management of lupus to her slitter processed film. Aseptic meningitis - Resolved. Neurology evaluation for facial numbness Orders: Orders Total Protein Urine Random 3 Weeks Trevon Caal MD N18.30 - Chronic kidney disease, stage 3 unspecified Basic Metabolic Panel 3 Weeks Trevon Caal MD N18.30 - Chronic kidney disease, stage 3 unspecified Sodium Urine Random 3 Weeks Trevon Caal MD N18.30 - Chronic kidney disease, stage 3 unspecified UA and rflx microscopic 3 Weeks Trevon Caal MD N18.30 - Chronic kidney disease, stage 3 unspecified Creatinine Urine 3 Weeks Trevon Caal MD N18.30 - Chronic kidney disease, stage 3 unspecified Medications: Changed From meclizine 12.5 mg PO BID PRN 10 tabs 0RF dizziness To meclizine 12.5 mg PO DAILY PRN RENNY Mello Coding Level of Care Code Est Pt Level 4 (21107) Diagnoses CKD (chronic kidney disease) stage 3, GFR 30-59 ml/min N18.30 Lupus M32.9
--- OUTSIDE RECORDS SUMMARY | 2025-01-31 17:39 | XMS_ITS | Clinical Summary ---
Author Organization [employer] Address [address] [place] [address] Care Team Providers Care Creative Services Intern Name Role Phone Unavailable Primary Care Provider [...] Date Last Done Comments Depression Screening 1982 Disability Screening 1982 Alcohol/Substance Use Screening 1994 Tobacco Screening 1994 Family Planning (PISQ) 1997 DTaP/Tdap/Td Vaccines (1 - Tdap) 2001 Hepatitis B Vaccines (1 of 3 - 19+ 3-dose series) 2001 Pap Smear 2003 Cervical Cancer Screening 2012 HPV/Cotest 2012 Mammogram 2022 COVID-19 Vaccine ( - 2023-2 5 season) 2024 Influenza Vaccine (Season Ended) 2025 Zoster Vaccines (1 of 2) 2032 RSV [...] patient's age to complete this topic Meningococcal B Vaccine Aged Out No l onger eligible based on patient's age to complete [...]
== END 2025-01-31 15:23 | disposition home or self-care (01) ==
LOC: HO.HKA 15:00
PROVIDERS: PCP Internal Medicine; Visit Provider Internal Medicine Hypertension Specialist
DX: N18.30 Chronic kidney disease, stage 3 unspecified (principal); M32.9 Systemic lupus erythematosus, unspecified
CPT/HCPCS: 99214

== ENCOUNTER 2025-02-12 10:54 | Outpatient (AMB) | payer OTHER, SELFPAY ==
--- NOTE | 2025-02-12 11:01 | HO.NEPHOV ---
Vital Signs 02/12/25 11:02 Height 5 ft 2 in Weight 158 lb BMI 28.9 BP 142/90 H Blood Pressure Location Rt brachial Position Sitting Pulse 107 H Pulse Source Pulse Oximeter Pulse Oximetry (%) 98 Oxygen Delivery Method Room Air Intake Visit Reasons: Urinary concerns Parks And Recreation Worker Required: No Accompanied by: Self / Same As Patient Allergies hydrocodone Allergy (Unknown, Verified 02/12/25 11:05) UNKNOWN oxycodone (OXYCODONE) Allergy (Unknown, Verified 02/12/25 11:05) TONGUE SWELLING Medication List - Last Reconciled 02/12/25 by Trevon Caal MD acetaminophen (Tylenol) 650 mg PO Q4H PRN amlodipine 5 mg PO DAILY ascorbic acid-collagen 30-833.3 mg (Collagen Skin Renewal) 1 tab PO DAILY dextroamphetamine-amphetamine 15 mg ER 15 mg PO DAILY folic acid 1 mg PO DAILY hydroxychloroquine 200 mg PO DAILY L norgest/e.estradiol-e.estrad 0.15 mg-30 mcg (84)/10 mcg (7) (Simpesse) 1 tab PO DAILY magnesium 200 mg PO DAILY meclizine 12.5 mg PO DAILY PRN metoprolol succinate ER 50 mg PO DAILY mycophenolate mofetil (CellCept) 1,000 mg PO BID thiamine HCl (vitamin B1) 100 mg PO DAILY HPI Comments Details: Young woman with a history of SLE and hypertension. Currently she is being managed by biblical studies professor. She is on Saphleno Currently blood pressure is well controlled after addition of amlodipine Renal function has been stable. She has no new complaints. 02/29/24 She stopped taking Telmisartan HCT 2 months ago- ? why Home BP has been well controlled ;She is back on Azathioprine 04/16/2024 She was recently hospitalized at [facility]. She had severe headache and underwent a spinal tap. Findings were suggestive of aseptic meningitis. Currently she is on doxycycline. She feels better but still has some tiredness. No headache. No nausea vomiting. No visual symptoms. 06/12/24 ;Forgot to take meds this morning 10/15/24 Again she did not take med hers today Just took it now ( 3:30PM) c/o Numbness of left side of face/lips x 4-5 weeks No weakness or numbnes sin extremities 11/05/24 Asked to see because of bump in Cr to 3.0 from 1.5 ; She took Bactrim for 5 days. Prescribed by some telemedicine doctor. 01/31/25 Here for follow-up. No new issues. After discontinuing Bactrim serum creatinine returned to baseline 1.5. However the recent creatinine was again elevated 2.0 2. She has had no diarrhea. No nausea or vomiting. Oral p.o. intake has been inadequate. No hematuria no edema no new rash. 02/12/25 44-year-old female with SLE presenting with new rash, leg swelling, and frequent urination. The rash began approximately a week ago, initially presenting as a mild irritation but worsening significantly over time. The patient has not contacted her biblical studies professor regarding this issue. The left leg swelling has persisted for about a week, initially starting with a rash and progressing to significant swelling. The patient reports a sensation similar to a zina horse and has been stretching the leg to alleviate discomfort. The patient experienced frequent urination, waking up approximately 17 times during the night to urinate, but reports no burning or discomfort currently. She took an lrhb-jmg-sozfcyi medication, ?Azo, given by her mother, which alleviated the discomfort. The patient has a history of systemic lupus erythematosus and is currently on medications - mycophenolate, and hydroxychloroquine. She reports a persistent headache for three days, unrelieved by sjlr-eqi-sbkaivi analgesics. [facility] Medical History HTN (hypertension) Lupus Family History Mother Hypertension Social History Household Members: None Housing: House Do you presently have visiting nurse or other home services: No Alcohol intake: current Alcohol intake frequency: does not drink Patient Tobacco Use Status: Never used Tobacco service: No Physical Exam Vital Signs: Last Vital Signs Pulse 107 H 02/12/25 11:02 BP 142/90 H 02/12/25 11:02 Pulse Ox 98 02/12/25 11:02 Oxygen Delivery Method Room Air 02/12/25 11:02 BMI result Body Mass Index 28.9 Comfortable Generalized rash in upper body Neck supple no JVD. Lungs entry equal no rales. Heart S1-S2 heard no gallop or rub. Abdomen soft nontender. Neuro alert awake oriented. No asterixis. Extremities trace leg edema. Results Reviewed Nephrology Results: Hgb, (12.0-16.0) 9.7 g/dl L 12/26/24 WBC, (4.8-10.8) 4.5 X10*3/uL L 12/26/24 Plt Count, (160-400) 207 X10*3/uL 12/26/24 Sodium, (135-145) 139 mmol/L 01/31/25 Potassium, (3.3-5.1) 4.9 mmol/L 01/31/25 Chloride, (96-108) 114 mmol/L H 01/31/25 Carbon Dioxide, (22-29) 18 mmol/L L 01/31/25 BUN, (9-16) 28 mg/dL H 01/31/25 Creatinine, (0.5-1.4) 2.02 mg/dL H 01/31/25 Calcium, (8.4-10.2) 8.2 mg/dL L 01/31/25 Urine Protein, (Neg-Trace) 30 (1+) mg/dL H 11/06/24 Assessment & Plan Assessment & Plan (1) CKD (chronic kidney disease) stage 3, GFR 30-59 ml/min: Code(s): N18.30 - Chronic kidney disease, stage 3 unspecified Category: Medical (2) Lupus: Code(s): M32.9 - Systemic lupus erythematosus, unspecified Category: Medical Plan 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 She has about 700 mg of proteinuria. Superimposed MARQUES creatinine up from 1.5 to 3.0 mg Most likely - bactrim induced. Creatinine improved after discontinuing Bactrim. She has had another episode of MARQUES with the creatinine bumping up to 2.02 from 1.5. This could be due to hypoperfusion. Encouraged to increase p.o. fluid intake recheck labs in the next few weeks. If no improvement in creatinine she would require further workup. Underlying lupus nephritis could be a contributing factor for worsening renal function. Further clinical course we will determine this Keep AMLODIPINE 5 mg QD Encouraged her to stay on low-sodium diet Continue to avoid nephrotoxic agents Continue to monitor renal function closely. SLE: will defer management of lupus to her biblical studies professor. Aseptic meningitis - Resolved. Neurology evaluation for facial numbness 02/12/25 The plan includes ordering a urine studies to check for proteinuria and possible infection, given the patient's history of systemic lupus erythematosus and recent symptoms of frequent urination. An ultrasound of the leg will be conducted to rule out deep vein thrombosis, considering the unilateral swelling and the patient's lupus diagnosis. The patient will be started on prednisone 40 mg to address the rash and headache, with a follow-up scheduled for next week to assess response and adjust the dosage accordingly. Encouraged to follow up with Sld Educational Aide Orders: Orders Creatinine Urine Today N18.30 - Chronic kidney disease, stage 3 unspecified Total Protein Urine Random Today N18.30 - Chronic kidney disease, stage 3 unspecified UA and rflx microscopic Today N18.30 - Chronic kidney disease, stage 3 unspecified US venous duplex LE LT Today M32.9 - Systemic lupus erythematosus, unspecified Basic Metabolic Panel Today N18.30 - Chronic kidney disease, stage 3 unspecified Urine Culture Today N18.30 - Chronic kidney disease, stage 3 unspecified Medications: New prednisone 40 mg (2 x 20 mg) PO DAILY 30 tabs 1RF Coding Level of Care Code Est Pt Level 4 (50175) Diagnoses CKD (chronic kidney disease) stage 3, GFR 30-59 ml/min N18.30 Lupus M32.9
[2025-02-12 11:02] VITALS: BP 142/90; PULSE 107; O2SAT 98; BMI 28.9
--- OUTSIDE RECORDS SUMMARY | 2025-02-12 12:24 | XMS_ITS | Clinical Summary ---
Author Organization [employer] Address [address] [place] [address] Care Team Providers Care Professional Benefits Sales Consultant Name Role Phone Unavailable Primary Care Provider [...] Years) and At-Risk Patients (6 to 49) Years Aged Out No longer eligible b ased on patient's age to complete this topic RSV under 20 months Aged Out No longe r eligible based on patient's age to complete this topic Rotavirus Vaccines Aged Out No longer eligible based on patient's age to complete this topic
== END 2025-02-12 11:27 | disposition home or self-care (01) ==
LOC: HO.HKA 10:54
PROVIDERS: PCP Internal Medicine; Visit Provider Internal Medicine Hypertension Specialist
DX: N18.30 Chronic kidney disease, stage 3 unspecified (principal); M32.9 Systemic lupus erythematosus, unspecified
CPT/HCPCS: 99214

== ENCOUNTER 2025-02-12 11:31 | Outpatient (REF) | payer OTHER, SELFPAY ==
[2025-02-12 13:24] LABS: Anion Gap 13 (12-20); Blood Urea Nitrogen 21 mg/dL (9-16); Calcium 8.1 mg/dL (8.4-10.2); Carbon Dioxide 20 mmol/L (22-29); Chloride 104 mmol/L (96-108); Estimated Glomerular Filt Rate 32; Glucose Random 130 mg/dL (60-115); Potassium 4.5 mmol/L (3.3-5.1); Sodium 132 mmol/L (135-145)
[2025-02-12 13:25] LABS: Appearance Urine Clear; Color Urine Yellow; Glucose Urine UA Negative (Negative); Leukocyte Esterase Urine Trace (Negative); Nitrite Urine Negative (Negative); PH 5.5 (5.0-9.0); UMIC TRIGGER UA YES; Urine Blood Moderate (2+) (Negative); Urine Ketones Negative (Negative); Urine Protein 300 (3+) mg/dL (Neg-Trace)
[2025-02-12 13:35] LABS: Bacteria Urine Trace (None Seen); Hyaline Casts Urine 0-2 /LPF (0-2); RBC Urine 0-2 /HPF (0-2); WBC Urine 0-5 /HPF (0-5)
[2025-02-12 14:13] LABS: Creatinine Urine 91.99 mg/dL; Total Protein Urine Random 163 mg/dL (<12)
== END 2025-02-12 11:32 | disposition home or self-care (01) ==
LOC: HO.10HDL 11:31
PROVIDERS: Visit Provider Internal Medicine Hypertension Specialist
DX: N18.30 Chronic kidney disease, stage 3 unspecified (principal)
CPT/HCPCS: 36415; 80048; 81001; 82570; 84156; 87086

== ENCOUNTER 2025-02-13 15:42 | Outpatient (REF) | payer OTHER, SELFPAY ==
--- NOTE | ~2025-02-13 | US_ITS ---
EXAMINATION: US TRIPLEX LOWER EXTREMITY, LEFT CLINICAL INFORMATION: Left leg swelling, lupus COMPARISON: None available. TECHNIQUE: Color-flow triplex imaging with spectral analysis and compression Doppler were performed on the left lower extremity. FINDINGS: Respiratory variation, normal compression and augmented flow are noted throughout the left lower extremity. The visualized common femoral vein, superficial femoral vein, profunda femoral vein, popliteal vein and midcalf peroneal and posterior tibial venous segments show no evidence of deep venous thrombosis. There is no Nelson's cyst. US/US venous duplex LE LT IMPRESSION: No evidence of deep venous thrombosis involving the left lower extremity. Electronically signed by: Durga Diamond MD 02/13/2025 04:25 PM EDT
--- OUTSIDE RECORDS SUMMARY | 2025-02-13 18:27 | XMS_ITS | Clinical Summary ---
Author Organization [employer] Address [address] [place] [address] Care Team Providers Care Mechanical Detailer Name Role Phone Unavailable Primary Care Provider [...]
== END 2025-02-13 15:43 | disposition home or self-care (01) ==
LOC: HO.US 15:42
PROVIDERS: PCP Internal Medicine; Visit Provider Internal Medicine Hypertension Specialist
DX: M32.9 Systemic lupus erythematosus, unspecified (principal); R60.0 Localized edema
CPT/HCPCS: 93971

== ENCOUNTER → 2025-02-13 15:44 | Outpatient (BNV) | payer OTHER, SELFPAY | PROVIDERS: PCP Internal Medicine; Visit Provider Radiology Diagnostic Radiology | DX: R22.42 Localized swelling, mass and lump, left lower limb (principal) | CPT/HCPCS: 93971 ==

== ENCOUNTER 2025-02-19 13:20 | Outpatient (AMB) | payer OTHER, SELFPAY ==
[2025-02-19 13:23] VITALS: BP 136/82; PULSE 106; O2SAT 99; BMI 29.3
--- NOTE | 2025-02-19 13:23 | HO.NEPHOV_ITS ---
Vital Signs 02/19/25 13:23 Height 5 ft 2 in Weight 160 lb BMI 29.3 BP 136/82 Blood Pressure Location Rt brachial Position Sitting Pulse 106 H Pulse Source Pulse Oximeter Pulse Oximetry (%) 99 Oxygen Delivery Method Room Air Intake Visit Reasons: 1 week fu/ Conf Tie Maker Required: No Accompanied by: Self / Same As Patient Allergies hydrocodone Allergy (Unknown, Verified 02/19/25 13:25) UNKNOWN oxycodone (OXYCODONE) Allergy (Unknown, Verified 02/19/25 13:25) TONGUE SWELLING Medication List - Last Reconciled 02/19/25 by Trevon Caal MD acetaminophen (Tylenol) 650 mg PO Q4H PRN amlodipine 5 mg PO DAILY ascorbic acid-collagen 30-833.3 mg (Collagen Skin Renewal) 1 tab PO DAILY dextroamphetamine-amphetamine 15 mg ER 15 mg PO DAILY folic acid 1 mg PO DAILY hydroxychloroquine 200 mg PO DAILY L norgest/e.estradiol-e.estrad 0.15 mg-30 mcg (84)/10 mcg (7) (Simpesse) 1 tab PO DAILY magnesium 200 mg PO DAILY meclizine 12.5 mg PO DAILY PRN metoprolol succinate ER 50 mg PO DAILY mycophenolate mofetil (CellCept) 1,000 mg PO BID prednisone 40 mg (2 x 20 mg) PO DAILY thiamine HCl (vitamin B1) 100 mg PO DAILY HPI Comments Details: Young woman with a history of SLE and hypertension. Currently she is being managed by contract analyst. She is on Saphleno Currently blood pressure is well controlled after addition of amlodipine Renal function has been stable. She has no new complaints. 02/29/24 She stopped taking Telmisartan HCT 2 months ago- ? why Home BP has been well controlled ;She is back on Azathioprine 04/16/2024 She was recently hospitalized at [facility]. She had severe headache and underwent a spinal tap. Findings were suggestive of aseptic meningitis. Currently she is on doxycycline. She feels better but still has some tiredness. No headache. No nausea vomiting. No visual symptoms. 06/12/24 ;Forgot to take meds this morning 10/15/24 Again she did not take med hers today Just took it now ( 3:30PM) c/o Numbness of left side of face/lips x 4-5 weeks No weakness or numbnes sin extremities 11/05/24 Asked to see because of bump in Cr to 3.0 from 1.5 ; She took Bactrim for 5 days. Prescribed by some telemedicine doctor. 01/31/25 Here for follow-up. No new issues. After discontinuing Bactrim serum creatinine returned to baseline 1.5. However the recent creatinine was again elevated 2.0 2. She has had no diarrhea. No nausea or vomiting. Oral p.o. intake has been inadequate. No hematuria no edema no new rash. 02/12/25 44-year-old female with SLE presenting with new rash, leg swelling, and frequent urination. The rash began approximately a week ago, initially presenting as a mild irritation but worsening significantly over time. The patient has not contacted her contract analyst regarding this issue. The left leg swelling has persisted for about a week, initially starting with a rash and progressing to significant swelling. The patient reports a sensation similar to a zina horse and has been stretching the leg to alleviate discomfort. The patient experienced frequent urination, waking up approximately 17 times during the night to urinate, but reports no burning or discomfort currently. She took an vual-yfi-drwlulc medication, ?Azo, given by her mother, which alleviated the discomfort. The patient has a history of systemic lupus erythematosus and is currently on medications - mycophenolate, and hydroxychloroquine. She reports a persistent headache for three days, unrelieved by saev-qvd-tblrgcw analgesics. 02/19/25 Feels better Rash improved Still has joint pains [facility] Medical History HTN (hypertension) Lupus Family History Mother Hypertension Social History Household Members: None Housing: House Do you presently have visiting nurse or other home services: No Alcohol intake: current Alcohol intake frequency: does not drink Patient Tobacco Use Status: Never used Tobacco service: No Physical Exam Vital Signs: Last Vital Signs Pulse 106 H 02/19/25 13:23 BP 136/82 02/19/25 13:23 Pulse Ox 99 02/19/25 13:23 Oxygen Delivery Method Room Air 02/19/25 13:23 BMI result Body Mass Index 29.3 Comfortable Generalized rash in upper body - improving Neck supple no JVD. Lungs entry equal no rales. Heart S1-S2 heard no gallop or rub. Abdomen soft nontender. Neuro alert awake oriented. No asterixis. Extremities trace leg edema. Results Reviewed Nephrology Results: Hgb, (12.0-16.0) 9.7 g/dl L 12/26/24 WBC, (4.8-10.8) 4.5 X10*3/uL L 12/26/24 Plt Count, (160-400) 207 X10*3/uL 12/26/24 Sodium, (135-145) 132 mmol/L L 02/12/25 Potassium, (3.3-5.1) 4.5 mmol/L 02/12/25 Chloride, (96-108) 104 mmol/L 02/12/25 Carbon Dioxide, (22-29) 20 mmol/L L 02/12/25 BUN, (9-16) 21 mg/dL H 02/12/25 Creatinine, (0.5-1.4) 1.74 mg/dL H 02/12/25 Calcium, (8.4-10.2) 8.1 mg/dL L 02/12/25 Urine Protein, (Neg-Trace) 300 (3+) mg/dL H 02/12/25 Urine Creatinine 91.99 mg/dL 25 Assessment & Plan Assessment & Plan (1) CKD (chronic kidney disease) stage 3, GFR 30-59 ml/min: Code(s): N18.30 - Chronic kidney disease, stage 3 unspecified Category: Medical (2) Lupus: Code(s): M32.9 - Systemic lupus erythematosus, unspecified Category: Medical Plan 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 She has about 700 mg of proteinuria. Superimposed MARQUES creatinine up from 1.5 to 3.0 mg Most likely - bactrim induced. Creatinine improved after discontinuing Bactrim. She has had another episode of MARQUES with the creatinine bumping up to 2.02 from 1.5. This could be due to hypoperfusion. Encouraged to increase p.o. fluid intake recheck labs in the next few weeks. If no improvement in creatinine she would require further workup. Underlying lupus nephritis could be a contributing factor for worsening renal function. Further clinical course we will determine this Keep AMLODIPINE 5 mg QD Encouraged her to stay on low-sodium diet Continue to avoid nephrotoxic agents Continue to monitor renal function closely. SLE: will defer management of lupus to her contract analyst. Aseptic meningitis - Resolved. Neurology evaluation for facial numbness 02/12/25 The plan includes ordering a urine studies to check for proteinuria and possible infection, given the patient's history of systemic lupus erythematosus and recent symptoms of frequent urination. An ultrasound of the leg will be conducted to rule out deep vein thrombosis, considering the unilateral swelling and the patient's lupus diagnosis. The patient will be started on prednisone 40 mg to address the rash and headache, with a follow-up scheduled for next week to assess response and adjust the dosage accordingly. Encouraged to follow up with Retail Reset Merchandiser 02/19/25 Taper Prednisone to 20 mg QD x 1 week and stay on 10 mg QD until she sees Rheumatology on Orders: Orders Basic Metabolic Panel Today N18.30 - Chronic kidney disease, stage 3 unspecified Coding Level of Care Code Est Pt Level 4 (65689) Diagnoses CKD (chronic kidney disease) stage 3, GFR 30-59 ml/min N18.30 Lupus M32.9
--- OUTSIDE RECORDS SUMMARY | 2025-02-19 14:30 | XMS_ITS | Data Portability ---
Author Organization [place] - [facility] , [facility] Address [address] [place] [address] Assessment Encounter Date Assessment Date Assessment LastModified [...] and agreement with treatment plan as outlined. 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 - Prescribed prednisone for inflammation control - Prescribed triamcinolone cream for itching relief - Suggested taking Benadryl to ease symptoms if it doesn t cause excessive drowsiness - Advised returning or seeking further help if symptoms worsen [email or web address] Not available 10/18/2024 14:59:10 Plan of Treatment Reminders Order Date Submit Date Provider Last Modified By Organization Details Last Modified Time Details Appointments None recorded. Lab None recorded. Referral None recorded. Procedures None recorded. Surgeries None recorded. Imaging None recorded. Medication Orders prednisone 20 mg tablet 2024 025 [facility]/Pharmacy #[id number], [address], [place], [address], 14:58:19 triamcinolo ne acetonide 0.1 % topical cream 2024 025 [facility]/Pharmacy #[id number], [address] [place], [address], 14:58:19 mupirocin 2 % topical ointment 2024 025 [facility]/Pharmacy #[id number], [address] [place], [address], 14:52:07 sulfamethox azole 800 mg-trimetho prim 160 mg tablet 2024 025 [facility]/Pharmacy #[id number], [address] [place], [address], 14:52:08 Patient TargetsNo targets recorded. Patient Instructions Encounter Date Encounter Id Patient Instructions Last Modified By Organization Details Last Modified Time 09/14/2024 [id number] dizziness: care instructions [email or web address] Not available 09/14/2024 23:52:21 10/18/2024 [id number] Summary of Today 's Visit: During today's [...] of steroid, has been sent to your [facility]. This medication should help address any inflammatory [...] you have any further questions or concerns. [email or web address] Not available 10/18/2024 14:59:12 Reason for Referral None Reported. Problems Name Problem SNOMED Code Status Onset Date Resolution Date Notes Provider Name and Address Organization Details Recorded Time Lupus erythematosu s 193075328 Active 2024 Aimee Dennis [facility] [address] [facility] [address], [place], [place], [address] [place] [address], [place] [facility] 5 23:24:49 Essential hypertension 02731718 Active 2024 Aimeechelsie Dennis [facility] [address] [facility] [address], [place], [place], [address] [place] [address], [place] [facility] 23:24:56 Attention deficit hyperactivit y disorder 605762093 Active 2024 Nano Muñoz [facility] [address] [facility] [address], [place], [address] [place] [address], [place] [facility] 14:53:01 Pruritic rash 54858711 Active 2024 Nano Muñoz [address], [place], [place], [address] [place] [address], [place] [facility] 14:55:31 Problem Notes None recorded. Medical Equipment None Reported. Allergies Allergen ID Allergen Name Allergen Category Reaction Reaction Severity Criticality Documentation Date Start Date Code Code System Note Provider Name and Address Organization Details Recorded Time 033579 acetamino phen / hydrocodo ne medicatio n Not available Not available Not available 10/09/2024 96325 2 RxNorm Not Available [facility] 15:26:11 Medications Name Sig Start Date Stop [...] SNOMED-CT Code Diagnosis ICD10 Code Diagnosis Note [id number] IRINEO Tucker [address] [address] 09/14/2024 23:17:32 09/15/2024 05:49:24 Skin sensation disturbance 92288442 R20.9 Discussed I cannot rule out more serious things like TIA, stroke etc without imaging and vital signs. Encouraged to be seen in person, ED, for further evaluation . Discussed I cannot tell her it is safe to wait until morning due to not knowing what is going on, verbalized understand ing Dizziness 213204412 R42 Recommende d to go to the ED for further evaluation , like CT scan of head, verbalized understand ing [id number] Dutch Braeden, [address] [address] 10/09/2024 15:28:21 10/09/2024 21:34:55 Cellulitis of finger of left hand 3022601225 [id number] L03.012 [id number] Nano Hinds romeo, BLOOD DONOR RECRUITER [address] [address] 10/18/2024 14:51:28 10/18/2024 15:03:51 Pruritic rash 22486823 L28.2 Health Concerns Section Related Observation LastModified by Organization Detai ls LastModified Time None Recorded Concern Status LastModified by Organization Details LastModified Time None Recorded Advance Directives Directive None Recorded Payers Insurance Date Sequence Insurance Name Policy Number Policy Dimas Covered Member ID Dimas Member ID Guarantor Name 09/14/2024 3 *SELF PAY* Solemar Lyn [id number] Solemar Lyn 10/18/2024 [employer] [id number] Solemar Lyn [id number] Solemar Lyn 10/21/2024 1 [facility] [place] [id number] Solemar Lyn [id number] Solemar Lyn 10/18/2024 2 [facility] [id number] Solemar Lyn [id number] Solemar Lyn 09/14/2024 1 *SELF PAY* So alec Gordilloedes Notes Date Note Type Note Provider Name and Address Organization Details Recorded Time 09/14/2024 text/html Call connected, patient greeted. Patient name , location, and phone number confirmed. Verbal consent obtained to treat this patient via the telemedicine/video platform. Patient understands that there are limitations to my evaluation. Clinician attests they are physically located in [place] at the time of visit. Patient during today's visit is physically located in [place] CC: other injuryAge: 44Gender: female HPI: Right now it has gone [...] implanted defibrillator / pacemaker: denies : deniesBreastfeeding: denjanny Dennis, BLOOD DONOR RECRUITER [address] [facility] [address] [place] [address], [address], [place] [facility] 09/14/2024 23:52:46 10/09/2024 text/html Call connected, patient greeted with my name and title as Nurse Practitioner. I attest I am currently physically located in the state [facility]. Patient name, , telephone number and [...] soaks with apple cider vinegar Dutch Deras, BLOOD DONOR RECRUITER [address] [facility] [address], [place], [address], [place] [facility] 10/09/2024 16:05:07 10/18/2024 text/html Call connected, patient [...] it does not induce sleepiness. Nano Muñoz, BLOOD DONOR RECRUITER [address] [facility] [address], [place], [address], [facility] 10/18/2024 14:59:14 OBGyn Episode No OBEpisode recorded.
--- OUTSIDE RECORDS SUMMARY | 2025-02-19 14:30 | XMS_ITS | Clinical Summary ---
Author Organization [facility] Address [address] [place] [address] Phone Care Team Providers Care Nut Feeder Name Role Phone Maria T Ac MD [...] Health Maintenance Due Date Last Done Comments Hepatitis B Vaccine (1 of 3 - 19+ 3-dose series) 04/13 Pneumococcal Vaccine: Peds ( 0 to 5 Years) and At-Risk Patients (6 to 49 Years) (1 of 2 - PCV) 2001 Influenza Vaccine (Season Ended) 2025 Insurance [facility] Medicaid [place] [facility] Medicaid [place] Care Teams Nut Feeder Relationship Specialty Start Date End Date Maria T Ac MD [facility] PCP - General 09/01/20
== END 2025-02-19 13:37 | disposition home or self-care (01) ==
LOC: HO.HKA 13:20
PROVIDERS: PCP Internal Medicine; Visit Provider Internal Medicine Hypertension Specialist
DX: N18.30 Chronic kidney disease, stage 3 unspecified (principal); M32.9 Systemic lupus erythematosus, unspecified
CPT/HCPCS: 99214

== ENCOUNTER 2025-03-30 10:40 | Outpatient (REF) | payer OTHER, SELFPAY ==
--- OUTSIDE RECORDS SUMMARY | 2025-03-30 10:42 | XMS_ITS | Clinical Summary ---
Author Organization [facility] Address [address] [place] [address] Phone Care Team Providers Care Journalism Intern Name Role Phone Maria T Ac MD [...] of 2 - PCV) 2001 Influenza Vaccine (#1) [address] [facility] Medicaid [place] [facility] Member Subscriber Plan / Payer (Ef fective 2021-) Name:Felipa Nicholson Relation to Subscriber:Self Name:Felipa Nicholson Payer ID:[id number] ([facility]) Type:Not on file Address: [facility] [id number] [place] [address] Medicaid [place] Care Teams Journalism Intern Relationship Specialty Start Date End Date Maria T Ac MD [facility] [address] PCP - General 09/01/20
--- OUTSIDE RECORDS SUMMARY | 2025-03-30 10:42 | XMS_ITS | Clinical Summary ---
Author Organization [employer] Address [address] [place] [address] Care Team Providers Care Investor Relations Analyst Name Role Phone Unavailable Primary Care [...] Tobacco Screening 1994 Family Planning (PISQ) 1997 HPV Vaccines (1 - 3-dose series) 1997 DTaP/Tdap/Td Vaccines (1 - Tdap) 2001 Hepatitis B Vaccines (1 of 3 - 19+ 3-dose series) 2001 Pap Smear 2003 Cervical Cancer Screening 2012 HPV/Cotest 2012 Mammogram 2022 COVID-19 Vaccine ( - 2023-2 5 season) 2024 Influenza Vaccine (#1) 2025 Zoster Vaccines (1 of 2) 2032 [...]
[2025-03-30 11:19] LABS: Appearance Urine Clear; Glucose Urine UA Negative (Negative); PH 5.5 (5.0-9.0); Specific Gravity - Urine 1.015 (1.005-1.025); UMIC TRIGGER UA YES
[2025-03-30 11:40] LABS: Total Protein Urine Random 67 mg/dL (<12)
[2025-03-30 11:53] LABS: Anion Gap 10 (12-20); Blood Urea Nitrogen 29 mg/dL (9-16); Calcium 8.1 mg/dL (8.4-10.2); Carbon Dioxide 20 mmol/L (22-29); Chloride 113 mmol/L (96-108); Estimated Glomerular Filt Rate 26; Potassium 4.3 mmol/L (3.3-5.1); Sodium 139 mmol/L (135-145)
== END 2025-03-30 10:41 | disposition home or self-care (01) ==
LOC: HO.LAB 10:40
PROVIDERS: PCP Internal Medicine; Visit Provider Internal Medicine Hypertension Specialist
DX: N18.30 Chronic kidney disease, stage 3 unspecified (principal)
CPT/HCPCS: 36415; 80048; 81001; 82570; 84156; 84300

== ENCOUNTER 2025-04-09 15:11 | Outpatient (AMB) | payer OTHER, SELFPAY ==
[2025-04-09 15:16] VITALS: BP 140/80; PULSE 75; BMI 28.7
--- NOTE | 2025-04-09 15:16 | HO.NEPHOV_ITS ---
Vital Signs 04/09/25 15:16 Height 5 ft 2 in Weight 157 lb BMI 28.7 BP 140/80 H Blood Pressure Location Rt brachial Position Sitting Pulse 75 Pulse Source Pulse Oximeter Intake Visit Reasons: FU/ LVM Senior Sql Server Developer Required: No Accompanied by: Self / Same As Patient Allergies hydrocodone Allergy (Unknown, Verified 04/09/25 15:17) UNKNOWN oxycodone (OXYCODONE) Allergy (Unknown, Verified 04/09/25 15:17) TONGUE SWELLING Medication List - Last Reconciled 04/09/25 by Trevon Caal MD acetaminophen (Tylenol) 650 mg PO Q4H PRN ascorbic acid-collagen 30-833.3 mg (Collagen Skin Renewal) 1 tab PO DAILY dextroamphetamine-amphetamine 15 mg ER 15 mg PO DAILY folic acid 1 mg PO DAILY hydroxychloroquine 200 mg PO DAILY L norgest/e.estradiol-e.estrad 0.15 mg-30 mcg (84)/10 mcg (7) (Simpesse) 1 tab PO DAILY losartan 100 mg PO DAILY magnesium 200 mg PO DAILY meclizine 12.5 mg PO DAILY PRN metoprolol succinate ER 50 mg PO DAILY mycophenolate mofetil (CellCept) 1,000 mg PO BID prednisone 40 mg (2 x 20 mg) PO DAILY thiamine HCl (vitamin B1) 100 mg PO DAILY HPI Comments Details: Young woman with a history of SLE and hypertension. Currently she is being managed by form designer. She is on Saphleno Currently blood pressure is well controlled after addition of amlodipine Renal function has been stable. She has no new complaints. 02/29/24 She stopped taking Telmisartan HCT 2 months ago- ? why Home BP has been well controlled ;She is back on Azathioprine 04/16/2024 She was recently hospitalized at [facility]. She had severe headache and underwent a spinal tap. Findings were suggestive of aseptic meningitis. Currently she is on doxycycline. She feels better but still has some tiredness. No headache. No nausea vomiting. No visual symptoms. 06/12/24 ;Forgot to take meds this morning 10/15/24 Again she did not take med hers today Just took it now ( 3:30PM) c/o Numbness of left side of face/lips x 4-5 weeks No weakness or numbnes sin extremities 11/05/24 Asked to see because of bump in Cr to 3.0 from 1.5 ; She took Bactrim for 5 days. Prescribed by some telemedicine doctor. 01/31/25 Here for follow-up. No new issues. After discontinuing Bactrim serum creatinine returned to baseline 1.5. However the recent creatinine was again elevated 2.0 2. She has had no diarrhea. No nausea or vomiting. Oral p.o. intake has been inadequate. No hematuria no edema no new rash. 02/12/25 44-year-old female with SLE presenting with new rash, leg swelling, and frequent urination. The rash began approximately a week ago, initially presenting as a mild irritation but worsening significantly over time. The patient has not contacted her form designer regarding this issue. The left leg swelling has persisted for about a week, initially starting with a rash and progressing to significant swelling. The patient reports a sensation similar to a zina horse and has been stretching the leg to alleviate discomfort. The patient experienced frequent urination, waking up approximately 17 times during the night to urinate, but reports no burning or discomfort currently. She took an lqqp-zun-eibixdv medication, ?Azo, given by her mother, which alleviated the discomfort. The patient has a history of systemic lupus erythematosus and is currently on medications - mycophenolate, and hydroxychloroquine. She reports a persistent headache for three days, unrelieved by geum-com-vdpgdxn analgesics. 02/19/25 Feels better ; Rash improved ;Still has joint pains 04/09/25 Still with rash but improved Ran out of PRednisone Left olecranon bursitis Has had cough for a month. No sputum On Losartan for about a month [facility] Medical History HTN (hypertension) Lupus Family History Mother Hypertension Social History Household Members: None Housing: House Do you presently have visiting nurse or other home services: No Alcohol intake: current Alcohol intake frequency: does not drink Patient Tobacco Use Status: Never used Tobacco service: No Physical Exam Vital Signs: Last Vital Signs Pulse 75 04/09/25 15:16 BP 140/80 H 04/09/25 15:16 BMI result Body Mass Index 28.7 Comfortable Generalized rash in upper body - improving Neck supple no JVD. Lungs entry equal no rales. Heart S1-S2 heard no gallop or rub. Abdomen soft nontender. Neuro alert awake oriented. No asterixis. Extremities trace leg edema. Results Reviewed Nephrology Results: Hgb, (12.0-16.0) 9.7 g/dl L 12/26/24 WBC, (4.8-10.8) 4.5 X10*3/uL L 12/26/24 Plt Count, (160-400) 207 X10*3/uL 12/26/24 Sodium, (135-145) 139 mmol/L 03/30/25 Potassium, (3.3-5.1) 4.3 mmol/L 03/30/25 Chloride, (96-108) 113 mmol/L H 03/30/25 Carbon Dioxide, (22-29) 20 mmol/L L 03/30/25 BUN, (9-16) 29 mg/dL H 03/30/25 Creatinine, (0.5-1.4) 2.07 mg/dL H 03/30/25 Calcium, (8.4-10.2) 8.1 mg/dL L 03/30/25 Urine Protein, (Neg-Trace) 100 (2+) mg/dL H 03/30/25 Urine Creatinine 138.77 mg/dL 03/30/25 Assessment & Plan Assessment & Plan (1) CKD (chronic kidney disease) stage 3, GFR 30-59 ml/min: Code(s): N18.30 - Chronic kidney disease, stage 3 unspecified Category: Medical (2) Lupus: Code(s): M32.9 - Systemic lupus erythematosus, unspecified Category: Medical Plan 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 She has about 700 mg of proteinuria. Superimposed MARQUES creatinine up from 1.5 to 3.0 mg Most likely - bactrim induced. Creatinine improved after discontinuing Bactrim. She has had another episode of MARQUES with the creatinine bumping up to 2.02 from 1.5. This could be due to hypoperfusion. Encouraged to increase p.o. fluid intake recheck labs in the next few weeks. If no improvement in creatinine she would require further workup. Underlying lupus nephritis could be a contributing factor for worsening renal function. Further clinical course we will determine this Keep AMLODIPINE 5 mg QD Encouraged her to stay on low-sodium diet Continue to avoid nephrotoxic agents Continue to monitor renal function closely. SLE: will defer management of lupus to her form designer. Aseptic meningitis - Resolved. Neurology evaluation for facial numbness 02/12/25 The plan includes ordering a urine studies to check for proteinuria and possible infection, given the patient's history of systemic lupus erythematosus and recent symptoms of frequent urination. An ultrasound of the leg will be conducted to rule out deep vein thrombosis, considering the unilateral swelling and the patient's lupus diagnosis. The patient will be started on prednisone 40 mg to address the rash and headache, with a follow-up scheduled for next week to assess response and adjust the dosage accordingly. Encouraged to follow up with Lockstitch Zipper Setter 02/19/25 Taper Prednisone to 20 mg QD x 1 week and stay on 10 mg QD until she sees Rheumatology on 04/09/25 CKD in a setting of SLE Creatinine is close to baseline. Keep on Prednisone 5 mg QD for now and reassess CXR today If normal, would DC Losartan and see if cough resolves Orders: Orders XR chest 2V Today M32.9 - Systemic lupus erythematosus, unspecified, R05.9 - Cough, unspecified Basic Metabolic Panel 3 Months N18.30 - Chronic kidney disease, stage 3 unspecified Medications: Changed From prednisone 40 mg (2 x 20 mg) PO DAILY 30 tabs 1RF To prednisone 5 mg PO DAILY 30 tabs 2RF Coding Level of Care Code Est Pt Level 4 (66671) Diagnoses CKD (chronic kidney disease) stage 3, GFR 30-59 ml/min N18.30 Lupus M32.9
--- OUTSIDE RECORDS SUMMARY | 2025-04-09 16:28 | XMS_ITS | Clinical Summary ---
Author Organization [facility] Address [address] [place] [address] Phone Care Team Providers Care Eeg Technologist Name Role Phone Maria T Ac MD [...] PCV) 2001 Influenza Vaccine (#1) 2025 Insurance [facility] Medicaid [place] [facility] Medicaid [place] Care Teams Eeg Technologist Relationship Specialty Start Date End Date Maria T Ac MD [facility] PCP - General 09/01/20
--- OUTSIDE RECORDS SUMMARY | 2025-04-09 16:28 | XMS_ITS | Clinical Summary ---
Author Organization [employer] Address [address] [place] [address] Care Team Providers Care Nurse Consultant Name Role Phone Unavailable Primary Care [...]
== END 2025-04-09 15:34 | disposition home or self-care (01) ==
LOC: HO.HKA 15:11
PROVIDERS: PCP Internal Medicine; Visit Provider Internal Medicine Hypertension Specialist
DX: N18.30 Chronic kidney disease, stage 3 unspecified (principal); M32.9 Systemic lupus erythematosus, unspecified
CPT/HCPCS: 99214

== ENCOUNTER 2025-04-11 13:32 | Outpatient (REF) | payer OTHER, SELFPAY ==
--- NOTE | ~2025-04-11 | XR_ITS ---
EXAMINATION: XR CHEST CLINICAL INFORMATION: R05.9 - Cough, unspecified COMPARISON: November 27, 2021 TECHNIQUE: 2 views of the chest were obtained. FINDINGS: No significant abnormality is noted involving the heart, lungs, mediastinum, bony thorax or soft tissues. XR/XR chest 2V IMPRESSION: No acute disease Electronically signed by: Durga Diamond MD 04/11/2025 02:10 PM EDT
--- OUTSIDE RECORDS SUMMARY | 2025-04-11 13:43 | XMS_ITS | Clinical Summary ---
Author Organization [employer] Address [address] [facility] [address] [place] [address] Care Team Providers Care Bow Rehairer Name Role Phone Unavailable Primary Care Provider [...]
--- OUTSIDE RECORDS SUMMARY | 2025-04-11 13:44 | XMS_ITS | Clinical Summary ---
Author Organization [facility] Address [address] [place] [address] Phone Care Team Providers Care Entertainment Director Name Role Phone Maria T Ac MD [...] PCV) 2001 Influenza Vaccine (#1) 2025 Insurance [facility] Medicaid [place] [facility] Medicaid [place] Care Teams Entertainment Director Relationship Specialty Start Date End Date Maria T Ac MD [facility] PCP - General 09/01/20
== END 2025-04-11 13:33 | disposition home or self-care (01) ==
LOC: HO.XRAY 13:32
PROVIDERS: PCP Internal Medicine; Visit Provider Internal Medicine Hypertension Specialist
DX: R05.9 Cough, unspecified (principal); M32.9 Systemic lupus erythematosus, unspecified
CPT/HCPCS: 71046

== ENCOUNTER → 2025-04-11 13:36 | Outpatient (BNV) | payer OTHER, SELFPAY | PROVIDERS: PCP Internal Medicine; Visit Provider Radiology Diagnostic Radiology | DX: R05.9 Cough, unspecified (principal) | CPT/HCPCS: 71046 ==

== ENCOUNTER 2025-07-08 11:39 | Outpatient (REF) | payer OTHER, SELFPAY ==
[2025-07-08 12:44] LABS: Anion Gap 12 (12-20); Blood Urea Nitrogen 26 mg/dL (9-16); Calcium 7.9 mg/dL (8.4-10.2); Carbon Dioxide 18 mmol/L (22-29); Chloride 111 mmol/L (96-108); Estimated Glomerular Filt Rate 21; Potassium 4.2 mmol/L (3.3-5.1); Sodium 137 mmol/L (135-145)
== END 2025-07-08 11:40 | disposition home or self-care (01) ==
LOC: HO.LAB 11:39
PROVIDERS: PCP Internal Medicine; Visit Provider Internal Medicine Hypertension Specialist
DX: I12.9 Hypertensive chronic kidney disease with stage 1 through stage 4 chronic kidney disease, or unspecified chronic kidney disease (principal); N18.30 Chronic kidney disease, stage 3 unspecified; M32.9 Systemic lupus erythematosus, unspecified; Z79.899 Other long term (current) drug therapy; R05.9 Cough, unspecified; Z79.624 Long term (current) use of inhibitors of nucleotide synthesis
CPT/HCPCS: 36415; 80048

== ENCOUNTER 2025-07-08 16:01 | Outpatient (AMB) | payer OTHER, SELFPAY ==
[2025-07-08 16:03] VITALS: BP 158/94; PULSE 96; O2SAT 100; BMI 27.8
--- NOTE | 2025-07-08 16:03 | HO.NEPHOV ---
Vital Signs 07/08/25 16:03 Height 5 ft 2 in Weight 152 lb BMI 27.8 BP 158/94 H Blood Pressure Location Rt brachial Position Sitting Pulse 96 Pulse Source Pulse Oximeter Pulse Oximetry (%) 100 Oxygen Delivery Method Room Air Intake Visit Reasons: 3 MO FU School Psychologist Assistant Required: No Accompanied by: Self / Same As Patient Allergies hydrocodone Allergy (Unknown, Verified 07/08/25 16:05) UNKNOWN oxycodone (OXYCODONE) Allergy (Unknown, Verified 07/08/25 16:05) TONGUE SWELLING Medication List - Last Reconciled 07/08/25 by Trevon Caal MD acetaminophen (Tylenol) 650 mg PO Q4H PRN ascorbic acid-collagen 30-833.3 mg (Collagen Skin Renewal) 1 tab PO DAILY dextroamphetamine-amphetamine 15 mg ER 15 mg PO DAILY folic acid 1 mg PO DAILY hydroxychloroquine 200 mg PO DAILY L norgest/e.estradiol-e.estrad 0.15 mg-30 mcg (84)/10 mcg (7) (Simpesse) 1 tab PO DAILY losartan 100 mg PO DAILY magnesium 200 mg PO DAILY meclizine 12.5 mg PO DAILY PRN metoprolol succinate ER 50 mg PO DAILY mycophenolate mofetil (CellCept) 1,000 mg PO BID prednisone 5 mg PO DAILY thiamine HCl (vitamin B1) 100 mg PO DAILY HPI Comments Details: Young woman with a history of SLE and hypertension. Currently she is being managed by nursing program coordinator. She is on Saphleno Currently blood pressure is well controlled after addition of amlodipine Renal function has been stable. She has no new complaints. 02/29/24 She stopped taking Telmisartan HCT 2 months ago- ? why Home BP has been well controlled ;She is back on Azathioprine 04/16/2024 She was recently hospitalized at [facility]. She had severe headache and underwent a spinal tap. Findings were suggestive of aseptic meningitis. Currently she is on doxycycline. She feels better but still has some tiredness. No headache. No nausea vomiting. No visual symptoms. 06/12/24 ;Forgot to take meds this morning 10/15/24 Again she did not take med hers today Just took it now ( 3:30PM) c/o Numbness of left side of face/lips x 4-5 weeks No weakness or numbnes sin extremities 11/05/24 Asked to see because of bump in Cr to 3.0 from 1.5 ; She took Bactrim for 5 days. Prescribed by some telemedicine doctor. 01/31/25 Here for follow-up. No new issues. After discontinuing Bactrim serum creatinine returned to baseline 1.5. However the recent creatinine was again elevated 2.0 2. She has had no diarrhea. No nausea or vomiting. Oral p.o. intake has been inadequate. No hematuria no edema no new rash. 02/12/25 44-year-old female with SLE presenting with new rash, leg swelling, and frequent urination. The rash began approximately a week ago, initially presenting as a mild irritation but worsening significantly over time. The patient has not contacted her nursing program coordinator regarding this issue. The left leg swelling has persisted for about a week, initially starting with a rash and progressing to significant swelling. The patient reports a sensation similar to a zina horse and has been stretching the leg to alleviate discomfort. The patient experienced frequent urination, waking up approximately 17 times during the night to urinate, but reports no burning or discomfort currently. She took an [id number] medication, ?Azo, given by her mother, which alleviated the discomfort. The patient has a history of systemic lupus erythematosus and is currently on medications - mycophenolate, and hydroxychloroquine. She reports a persistent headache for three days, unrelieved by [id number] analgesics. 02/19/25 Feels better ; Rash improved ;Still has joint pains 04/09/25 Still with rash but improved ;Ran out of PRednisone ;Left olecranon bursitis Has had cough for a month. No sputum ; On Losartan for about a month 07/08/25 The patient is a 44-year-old female presenting with systemic lupus erythematosus. Continues to have cough No improvement after stopping Losartan The patient has a history of renal impairment, with levels at 2.42, Gradual decline in eGFR over past 6 months. Hypertension is noted with a blood pressure reading of 156/82 mmHg, [facility] Medical History HTN (hypertension) Lupus Family History Mother Hypertension Social History Household Members: None Housing: House Do you presently have visiting nurse or other home services: No Alcohol intake: current Alcohol intake frequency: does not drink Patient Tobacco Use Status: Never used Tobacco service: No Physical Exam Vital Signs: Last Vital Signs Pulse 96 07/08/25 16:03 BP 158/94 H 07/08/25 16:03 Pulse Ox 100 07/08/25 16:03 Oxygen Delivery Method Room Air 07/08/25 16:03 BMI result Body Mass Index 27.8 Comfortable Generalized rash in upper body - improving Neck supple no JVD. Lungs entry equal no rales. Heart S1-S2 heard no gallop or rub. Abdomen soft nontender. Neuro alert awake oriented. No asterixis. Extremities trace leg edema. Results Reviewed Nephrology Results: Sodium, (135-145) 137 mmol/L Today Potassium, (3.3-5.1) 4.2 mmol/L Today Chloride, (96-108) 111 mmol/L H Today Carbon Dioxide, (22-29) 18 mmol/L L Today BUN, (9-16) 26 mg/dL H Today Creatinine, (0.5-1.4) 2.48 mg/dL H Today Calcium, (8.4-10.2) 7.9 mg/dL L Today Urine Protein, (Neg-Trace) 100 (2+) mg/dL H 03/30/25 Urine Creatinine 138.77 mg/dL 03/30/25 Assessment & Plan Assessment & Plan (1) CKD (chronic kidney disease) stage 3, GFR 30-59 ml/min: Code(s): N18.30 - Chronic kidney disease, stage 3 unspecified Category: Medical (2) Lupus: Code(s): M32.9 - Systemic lupus erythematosus, unspecified Category: Medical Plan 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 She has about 700 mg of proteinuria. Worsening renal function Natural progression from SLE Currently on MMF and Plaquenil SLE: will defer management of lupus to her nursing program coordinator. s/p Aseptic meningitis - Resolved. Neurology evaluation for facial numbness -pending Persistant Cough CXR normal Refer to Pulmonary Orders: Orders Basic Metabolic Panel 6 Weeks M32.9 - Systemic lupus erythematosus, unspecified, N18.30 - Chronic kidney disease, stage 3 unspecified, R05.9 - Cough, unspecified UA and rflx microscopic Today M32.9 - Systemic lupus erythematosus, unspecified, N18.30 - Chronic kidney disease, stage 3 unspecified, R05.9 - Cough, unspecified Creatinine Urine Today M32.9 - Systemic lupus erythematosus, unspecified, N18.30 - Chronic kidney disease, stage 3 unspecified, R05.9 - Cough, unspecified Complete Blood Count no Diff Today M32.9 - Systemic lupus erythematosus, unspecified, N18.30 - Chronic kidney disease, stage 3 unspecified, R05.9 - Cough, unspecified Total Protein Urine Random Today M32.9 - Systemic lupus erythematosus, unspecified, N18.30 - Chronic kidney disease, stage 3 unspecified, R05.9 - Cough, unspecified Referrals Pulmonology Referral M32.9 - Systemic lupus erythematosus, unspecified, N18.30 - Chronic kidney disease, stage 3 unspecified, R05.9 - Cough, unspecified Medications: Changed From metoprolol succinate ER 50 mg PO DAILY To metoprolol succinate ER 100 mg PO DAILY 90 tabs 1RF Discontinued prednisone Discontinued Reason: Patient no longer taking 5 mg PO DAILY 30 tabs 2RF Coding Level of Care Code Est Pt Level 4 (36014) Diagnoses CKD (chronic kidney disease) stage 3, GFR 30-59 ml/min N18.30 Lupus M32.9
== END 2025-07-08 16:21 | disposition home or self-care (01) ==
LOC: HO.HKA 16:02
PROVIDERS: PCP Internal Medicine; Visit Provider Internal Medicine Hypertension Specialist
DX: N18.30 Chronic kidney disease, stage 3 unspecified (principal); M32.9 Systemic lupus erythematosus, unspecified
CPT/HCPCS: 99214

== ENCOUNTER 2025-07-15 14:19 | Outpatient (AMB) | payer OTHER, SELFPAY ==
[2025-07-15 14:26] VITALS: BP 170/102; PULSE 88; O2SAT 100; BMI 27.7
--- NOTE | 2025-07-15 14:26 | MHC.OFFVIS ---
Vital Signs 07/15/25 14:26 Height 5 ft 2 in Weight 151 lb 4 oz BMI 27.7 BP 170/102 H Blood Pressure Location Rt brachial Position Sitting Pulse 88 Pulse Source Pulse Oximeter Pulse Oximetry (%) 100 Oxygen Delivery Method Room Air Intake Visit Reasons: INP-Facial Numbness Intake Note: Facial numbness, lupus - pt with CKD stage 3 [id number] Blister Rust Eradicator Required: No Accompanied by: Self / Same As Patient Allergies hydrocodone Allergy (Unknown, Verified 07/15/25 14:26) UNKNOWN oxycodone (OXYCODONE) Allergy (Unknown, Verified 07/15/25 14:26) TONGUE SWELLING Medication List - Last Reconciled 07/15/25 by Milvia Caal MD acetaminophen (Tylenol) 650 mg PO Q4H PRN dextroamphetamine-amphetamine 15 mg ER 15 mg PO DAILY hydroxychloroquine 200 mg PO DAILY L norgest/e.estradiol-e.estrad 0.15 mg-30 mcg (84)/10 mcg (7) (Simpesse) 1 tab PO DAILY magnesium 200 mg PO DAILY metoprolol succinate ER 100 mg PO DAILY mycophenolate mofetil (CellCept) 1,000 mg PO BID HPI Comments Details: 45Y/O female with Lupus, HTN , CKD comes for evaluation of facial numbness. The numbness is intermittent and started in Aug 2024.it starts with left side of nose discomfort( like water went up her nose), left eye feels hot , tingling in left midface , she also feels her left UE and LE is weak , feels like her leg is heavy -the whole episode lasts 1 minute. People tell her that she has a blank stare. she also feels her speech slows down .The episodes are intermittent - with some weeks without episode and some days multiple episodes. she feels the episodes and less intense. she reports some dizziness. she has h/o aseptic meningitis 2023 and had multiple episodes of vertigo she denies ear pain or hearing loss. No h/o migraines she also reports nocturnal leg cramps she does not sleep well, has multiple arousals , fatigued. [facility] Medical History (Updated 07/15/25 @ 14:56 by Milvia Caal MD) Hypersomnia Insomnia Transient left leg weakness Numbness and tingling of left side of face HTN (hypertension) Lupus Family History Mother Hypertension Social History Household Members: None Housing: House Do you presently have visiting nurse or other home services: No Alcohol intake: current Alcohol intake frequency: does not drink Patient Tobacco Use Status: Never used Tobacco service: No Physical Exam Vital Signs: Last Vital Signs Pulse 88 07/15/25 14:26 BP 170/102 H 07/15/25 14:26 Pulse Ox 100 07/15/25 14:26 Oxygen Delivery Method Room Air 07/15/25 14:26 BMI result Body Mass Index 27.7 Const General: cooperative, healthy appearing, comfortable and no acute distress Nutritional Appearance: average body habitus Orientation/consciousness: patient oriented x3 Eyes Pupils: Equal, round and reactive pupils present Neck Neck: Yes no meningeal signs Neuro General: patient oriented x3, gait normal, tone normal, moves all extremities, no meningeal signs and no focal motor deficits Cranial nerves: Yes Facial sensation intact/muscles of mastication intact, Yes Equal, round and reactive pupils present, Yes Bilaterally intact EOM present, Yes Nystagmus not present, Yes Normal facial strength present, Yes Midline tongue present and Yes Ability to bilaterally elevate shoulders present Cognition (Neuro): normal cognition Gait exam (Neuro): Normal gait present Motor exam (neuro): 5/5 motor strength present throughout and Normal motor muscle tone present throughout Deep tendon reflexes (DTR's): Right triceps reflex intensity grade: 1+, Left triceps reflex intensity grade: 1+, Rt Biceps (C5, C6): 1+, Left biceps reflex intensity grade: 1+, Right brachioradialis reflex intensity grade: 1+, Left brachioradialis reflex intensity grade: 1+, Right patellar reflex intensity grade: 2+ and Left patellar reflex intensity grade: 2+ Assessment & Plan Assessment & Plan (1) Numbness and tingling of left side of face: Comment: ? trigeminal neurlagia Code(s): R20.0 - Anesthesia of skin; R20.2 - Paresthesia of skin Category: Medical (2) Transient left leg weakness: Code(s): R29.898 - Other symptoms and signs involving the musculoskeletal system Category: Medical (3) Insomnia: Code(s): G47.00 - Insomnia, unspecified Category: Medical (4) Hypersomnia: Code(s): G47.10 - Hypersomnia, unspecified Category: Medical Plan viewed MRI brain I will further evaluate with MRA brain to r/o neurovascular compression will consider MRI brain with gia after checking with her engraver apprentice decorative Home sleep test to r/o sleep apnea Orders: Orders MR angio head wo con Today R20.0 - Anesthesia of skin, R20.2 - Paresthesia of skin RT home sleep study Today G47.00 - Insomnia, unspecified, G47.10 - Hypersomnia, unspecified Coding Level of Care Code New Pt Level 4 (99730) Diagnoses Numbness and tingling of left side of face R20.0; R20.2 Transient left leg weakness R29.898 Insomnia G47.00 Hypersomnia G47.10
--- OUTSIDE RECORDS SUMMARY | 2025-07-15 19:14 | XMS_ITS | Encounter Summary ---
Author Organization [employer] Address [address] [facility] [place] [address] Care Team Providers Care Design Analyst Name Role Phone Unavailable Primary Care [...]
--- OUTSIDE RECORDS SUMMARY | 2025-07-15 19:14 | XMS_ITS | Clinical Summary ---
Author Organization [employer] Address [address] [facility] [address] [place] [address] Care Team Providers Care Blind Cleaner Name Role Phone Unavailable Primary Care Provider [...] 2012 HPV/Cotest 2012 Mammogram 2022 COVID-19 Vaccine (1 - 2024-2 6 season) 2025 Influenza Vaccine (#1) 2025 Zoster Vaccines (1 [...]
== END 2025-07-15 15:03 | disposition home or self-care (01) ==
LOC: HO.HSMS 14:20
PROVIDERS: PCP Internal Medicine; Visit Provider Psychiatry & Neurology Neurology
DX: R20.0 Anesthesia of skin (principal); R20.2 Paresthesia of skin; R29.898 Other symptoms and signs involving the musculoskeletal system; G47.00 Insomnia, unspecified; G47.10 Hypersomnia, unspecified
CPT/HCPCS: 99204

== ENCOUNTER 2025-08-06 12:32 | Inpatient (IN) | payer OTHER, SELFPAY ==
[2025-08-06] VITALS (10 sets, daily range): BP systolic 158–190; BP diastolic 94–116; PULSE 87–106; RESP 15–20; TEMP 36.6–36.8; O2SAT 93–100; BMI 26.0
--- NOTE | ~2025-08-06 | US_ITS ---
US RENAL WITH DOPPLER HISTORY: Rapidly worsening renal function. Patient with systemic lupus. Rule out post renal and renal vascular causes. Patient also with uncontrolled hypertension. COMPARISON: None. RENAL MEASUREMENTS: Right: 9.2 x 5.0 x 4.6 cm (Sag x AP x TV); normal sonographic appearance. Left: 9.4 x 5.2 x 4.2 cm (Sag x AP x TV); normal sonographic appearance. No hydronephrosis. Normal cortical echogenicity and thickness. No suspicious masses. Spectral Doppler analysis: Right Kidney: -Peak systolic velocity in the proximal right renal artery = 119 cm/s. Normal waveforms. -Peak systolic velocity in the mid right renal artery = 109 cm/s. Normal waveforms. -Peak systolic velocity in the distal right renal artery = 88 cm/s. Normal waveforms. -Patent right renal vein. -Upper pole interlobar artery resistive index of 0.60. -Midpole interlobar artery resistive index of 0.68. -Lower pole interlobar artery resistive index of 0.69. RAR right = 1.28 Left Kidney: -Peak systolic velocity in the proximal left renal artery = 87 cm/s. Normal waveforms. -Peak systolic velocity in the mid left renal artery = 107 cm/s. Normal waveforms. -Peak systolic velocity in the distal left renal artery = 107 cm/s. Normal waveforms. -Patent left renal vein. -Upper pole interlobar artery resistive index of 0.63. -Mid pole interlobar artery resistive index of 0.60. -lower pole interlobar artery resistive index of 0.64. RAR left = 1.15 Aorta: -Peak systolic velocity = 93 cm/s. US/US renal BI IMPRESSION: 1. No evidence of renal artery stenosis or abnormal waveforms bilaterally on color/spectral Doppler examination (based on peak systolic velocities and resistive indices). 2. Renal parenchyma is normal. Electronically signed by: Tushar Pichardo MD 08/07/2025 10:17 AM [facility]
--- NOTE | ~2025-08-06 | US_ITS ---
US RENAL WITH DOPPLER HISTORY: Rapidly worsening renal function. Patient with systemic lupus. Rule out post renal and renal vascular causes. Patient also with uncontrolled hypertension. COMPARISON: None. RENAL MEASUREMENTS: Right: 9.2 x 5.0 x 4.6 cm (Sag x AP x TV); normal sonographic appearance. Left: 9.4 x 5.2 x 4.2 cm (Sag x AP x TV); normal sonographic appearance. No hydronephrosis. Normal cortical echogenicity and thickness. No suspicious masses. Spectral Doppler analysis: Right Kidney: -Peak systolic velocity in the proximal right renal artery = 119 cm/s. Normal waveforms. -Peak systolic velocity in the mid right renal artery = 109 cm/s. Normal waveforms. -Peak systolic velocity in the distal right renal artery = 88 cm/s. Normal waveforms. -Patent right renal vein. -Upper pole interlobar artery resistive index of 0.60. -Midpole interlobar artery resistive index of 0.68. -Lower pole interlobar artery resistive index of 0.69. RAR right = 1.28 Left Kidney: -Peak systolic velocity in the proximal left renal artery = 87 cm/s. Normal waveforms. -Peak systolic velocity in the mid left renal artery = 107 cm/s. Normal waveforms. -Peak systolic velocity in the distal left renal artery = 107 cm/s. Normal waveforms. -Patent left renal vein. -Upper pole interlobar artery resistive index of 0.63. -Mid pole interlobar artery resistive index of 0.60. -lower pole interlobar artery resistive index of 0.64. RAR left = 1.15 Aorta: -Peak systolic velocity = 93 cm/s. US/US renal doppler IMPRESSION: 1. No evidence of renal artery stenosis or abnormal waveforms bilaterally on color/spectral Doppler examination (based on peak systolic velocities and resistive indices). 2. Renal parenchyma is normal. Electronically signed by: Tushar Pichardo MD 08/07/2025 10:17 AM [facility]
--- NOTE | ~2025-08-06 | CT_ITS ---
PROCEDURE: CT GUIDED BIOPSY, KIDNEY CLINICAL INFORMATION: CKD 3/4. Question lupus nephritis . MARQUES on CKD. Ultrasound kidneys 08/07/2025. COMPARISON: None available. TECHNIQUE: Following explaining CT fluoroscopy guided renal biopsy procedure, benefits and risk, a written consent was obtained. Patient was placed prone on CT fluoroscopy table and preliminary CT imaging was obtained. Due to low lying right kidney lower pole the site was selected. Markers were placed along the right posterior lateral abdomen overlying the lower pole right kidney and repeat imaging was obtained. A marker was selected and marked on the skin. The marked site was cleaned and draped in usual sterile manner. 1% lidocaine was injected at puncture site. Through a small skin incision a 19-gauge needle was advanced from the skin into the posterior cortex lower pole right kidney. Coaxially a 20-gauge biopsy gun was injected and a 4 pass biopsy was performed. Postprocedure a small hematoma was noted. Complete hemostasis achieved at puncture site. This CT examination was performed using dose optimization techniques as appropriate, variously including the following: *Automated exposure control *Adjustment of mA and/or kV according to patient size (this includes techniques or standardized protocols for targeted exams where dose is matched to indication/reason for exam; i.e. extremities or head) *Use of iterative reconstruction technique Conscious sedation was administered during biopsy with the sedation time of 18 minutes. FINDINGS: On preliminary CT imaging both kidneys are unremarkable. Partially visualized liver, spleen, adrenal glands and pancreas appears unremarkable. There is oral contrast seen within the colon likely from GI exam. Approximately 4 pass core biopsy lower pole right kidney was done under CT fluoroscopy. There is a small perirenal hematoma. CT/CT biopsy renal LT IMPRESSION: Successful CT fluoroscopy guided right renal biopsy performed without immediate complications. Electronically signed by: Kevon Canela MD 08/09/2025 11:15 AM [facility] [place]
--- NOTE | ~2025-08-06 | CT_ITS ---
EXAMINATION: CT HEAD WITHOUT IV CONTRAST HISTORY: elevated blood pressure headache. TECHNIQUE: Unenhanced helical CT of the head was performed per standard departmental protocol. Coronal and sagittal reformats of the head were also evaluated. One or more of the following techniques was used for dose reduction: Automated exposure control, adjustment of the mA and/or kV according to patient size, use of iterative reconstruction technique. DLP: 586 mGy-cm COMPARISON: Comparison is made with the prior examination dated 12/26/2024. FINDINGS: BRAIN: There are scattered periventricular and subcortical white matter hypodensities which are nonspecific, but often seen in the setting of small vessel ischemic disease. These are unchanged from the prior study. There is no mass effect or midline shift. The ventricular system is normal in size and configuration. No intra- or extra-axial fluid collections are identified. SINUSES: The visualized paranasal sinuses are clear. The mastoid air cells and middle ear cavities are well pneumatized. ORBITS: The visualized orbits are unremarkable. BONES/SOFT TISSUES: The extracranial soft tissues are unremarkable. The calvarium is intact. No suspicious lytic or sclerotic lesions. CT/CT head/brain wo IV con IMPRESSION: No acute intracranial abnormality. Electronically signed by: Napoleon Rm MD 08/06/2025 03:29 PM [facility] [place]
--- NOTE | 2025-08-06 13:45 | ECG_ITS ---
Test Reason : HB Blood Pressure : */* mmHG Vent. Rate : 98 BPM Atrial Rate : 98 BPM P-R Int : 138 ms QRS Dur : 68 ms QT Int : 342 ms P-R-T Axes : 29 -23 17 degrees QTcB Int : 436 ms Normal sinus rhythm Cannot rule out Anterior infarct , age undetermined Abnormal ECG When compared with ECG of 25-Dec-2024 22:03, No significant change was found Referred By: Darrell Hughes Electronically Signed By: Paulo Howell
--- NOTE | 2025-08-06 13:47 | ED.GENADULT ---
HPI - General Adult General Chief complaint: General Medical Stated complaint: High BP, headache, weakness Time Seen by Provider: 08/06/25 15:22 Source: patient Mode of arrival: ambulatory Limitations: no limitations History of Present Illness ED Provider: Dr. Coley [facility] narrative: This is a 45-year-old female presented hospital today for evaluation of hypertension. The patient stated that she has been having her hypertension medication adjusted. She does have history of lupus as well. It is CKD. Patient is currently on telmisartan 20mg, nifedipine 30mg ER for blood pressure control. Patient is complaining of headaches and weakness. She stated that when she took metoprolol she broke out in hives. She does have pruritic rash currently. Related Data Home Medications ?Medication ?Instructions ?Recorded ?Confirmed hydroxychloroquine 200 mg tablet 400 mg PO DAILY 10/25/23 08/06/25 mycophenolate mofetil 500 mg 1,000 mg PO BID 10/25/23 08/06/25 tablet (CellCept) magnesium 200 mg tablet 200 mg PO DAILY restless leg 12/26/24 08/06/25 L norgest/E estradiol-E estrad 1 tab PO DAILY 08/06/25 08/06/25 0.15 mg-30 mcg (84)/10 mcg(7) tabs,3mos (Simpesse) dextroamphetamine-amphetamine ER 1 cap PO DAILY 08/06/25 08/06/25 20 mg 24hr capsule,extend release prednisone 5 mg tablet 5 mg PO DAILY 08/06/25 08/06/25 Previous Rx's ?Medication ?Instructions ?Recorded nifedipine 30 mg tablet,extended 30 mg PO DAILY #30 tabs 07/24/25 release telmisartan 20 mg tablet 20 mg PO DAILY #90 tabs 08/05/25 Allergies Allergy/AdvReac Type Severity Reaction Status Date / Time hydrocodone Allergy Unknown UNKNOWN Verified 08/06/25 13:46 oxycodone (OXYCODONE) Allergy Unknown TONGUE Verified 08/06/25 13:46 SWELLING Review of Systems Review of Systems: Pertinent review of systems as mentioned in [facility]. All other system otherwise negative. [facility] Past Medical History [facility] Narrative: Medical history as mentioned in [facility] Medical History (Updated 08/07/25 @ 11:04 by Sahil Apple MD) Hypersomnia Insomnia Transient left leg weakness Numbness and tingling of left side of face HTN (hypertension) Lupus Family History Family History Mother Hypertension Social History Social History Household Members: None Housing: House Do you presently have visiting nurse or other home services: No Unable to assess alcohol history related to: Unknown Alcohol intake: unknown Patient Tobacco Use Status: Never used Tobacco Use of substances other than those prescribed or required for medical reasons: No Advance Directives: No Advance Directives Information Provided: Yes service: No Physical Exam ED Exam Exam: General: Pleasant, no distress, interacting appropriately Head: Normacephalic, atraumatic ENT: oral mucosa moist, neck supple, no tracheal deviation Cardiovascular: regular rate, regular rhythm, no murmurs, rubbing, gallops Respiratory: CTAB, no wheeze, rales, rhonchi Gastrointestinal: Soft, non distended, non tender, non guarding Extremities: No limb pain or swelling, no calf tenderness Neurological: Awake and alert, no facial droop noted Skin: Warm and dry, pruritic rash on the posterior back, right upper extremity Psychiatric: Appropriate mood and thoughts Vital Signs: Vital Signs - 24 hr 08/06/25 13:41 08/06/25 14:25 08/06/25 16:00 Temperature 98 F Pulse Rate 104 H 104 H 98 Respiratory Rate 20 16 18 Blood Pressure 190/114 H 170/105 H 179/116 H Pulse Oximetry 100 98 97 Oxygen Delivery Method Room Air Room Air 08/06/25 16:05 08/06/25 18:00 08/06/25 18:16 Temperature Pulse Rate 106 H 90 Respiratory Rate 17 Blood Pressure 179/116 H 166/94 H 166/94 H Pulse Oximetry 93 Oxygen Delivery Method Room Air 08/06/25 18:17 08/06/25 20:37 08/06/25 21:14 Temperature 98.3 F Pulse Rate 90 99 Respiratory Rate 16 Blood Pressure 166/94 H 171/104 H 163/98 H Pulse Oximetry 98 Oxygen Delivery Method Room Air 08/06/25 21:30 Temperature Pulse Rate 87 Respiratory Rate 15 Blood Pressure 158/94 H Pulse Oximetry 98 Oxygen Delivery Method Room Air BMI result Body Mass Index 26.0 Course Course Course Narrative: RME: 44 year female presents to ED for elevated blood pressure for the past 2-3 weeks. Patient is also having headache and tingling for the past couple of weeks. Patient's blood pressure has been over 190s systolic and Beth diastolic in recordings. Patient has primary care as an new medication and blood pressure still elevated. Medications Administered Generic Name Dose Route Start Last Admin Trade Name Freq PRN Reason Stop Dose Admin Betamethasone Dipropion Augmented 1 appl 08/07/25 09:00 08/07/25 10:28 Betamethasone Dip Aug 0.05% Cr 15 Gm Tube TOPICAL 1 appl BID RONNA Administration Protocol Heparin Sodium (Porcine) 5,000 unit 08/07/25 09:00 08/07/25 08:39 Heparin Sodium,Porcine 5,000 Unit/Ml Vial SUBCUT 5,000 unit Q12H RONNA Administration Hydroxychloroquine Sulfate 400 mg 08/07/25 09:00 08/07/25 08:37 Hydroxychloroquine Sulfate 200 Mg Tablet PO 400 mg DAILY RONNA Administration Lactated Ringer's 1,000 mls @ 125 mls/hr 08/07/25 01:15 08/07/25 11:42 Lr IVCONT 125 mls/hr .Q8H RONNA Administration Methylprednisolone Sodium 58 mls @ 66 mls/hr 08/07/25 10:00 08/07/25 10:31 Succinate 500 mg/ Sodium IV 08/10/25 09:59 66 mls/hr Chloride DAILY RONNA Administration Magnesium Oxide 400 mg 08/07/25 09:00 08/07/25 08:37 Magnesium Oxide 400 Mg Tablet PO 400 mg DAILY RONNA Administration Mycophenolate Mofetil 1,000 mg 08/07/25 09:00 08/07/25 11:39 Mycophenolate Mofetil 250 Mg Capsule PO 1,000 mg BID RONNA Administration Nifedipine 60 mg 08/07/25 09:00 08/07/25 08:38 Nifedipine Er 30 Mg Tab.Er.24 PO 60 mg DAILY RONNA Administration Sodium Chloride 3 ml 08/07/25 00:00 08/07/25 08:49 0.9 % Sodium Chloride Flush 3 Ml Syringe IVFLUSH Not Given QSHIFT RONNA Discontinued Medications Generic Name Dose Route Start Last Admin Trade Name Freq PRN Reason Stop Dose Admin Clonidine HCl 0.2 mg 08/06/25 20:20 08/06/25 20:37 Clonidine Hcl 0.2 Mg Tablet PO 08/06/25 20:21 0.2 mg ONCE ONE Administration Protocol Diphenhydramine HCl 25 mg 08/06/25 19:17 08/06/25 19:24 Diphenhydramine Hcl 50 Mg/Ml Vial IVPUSH 08/06/25 19:18 25 mg ONCE ONE Administration Famotidine 20 mg 08/06/25 19:17 08/06/25 19:24 Famotidine/Pf 20 Mg/2 Ml Vial IVPUSH 08/06/25 19:18 20 mg ONCE ONE Administration Hydrochlorothiazide 25 mg 08/06/25 18:01 08/06/25 18:16 Hydrochlorothiazide 25 Mg Tablet PO 08/06/25 18:02 25 mg ONCE ONE Administration Protocol Lactated Ringer's 1,000 mls @ 999 mls/hr 08/06/25 16:30 08/06/25 18:19 Lr IV 08/06/25 17:30 Infused .Q1H1M RONNA Infusion Labetalol HCl 20 mg 08/06/25 15:53 08/06/25 16:05 Labetalol Hcl 100 Mg/20 Ml Vial IVPUSH 08/06/25 15:54 20 mg ONCE ONE Administration Labetalol HCl 20 mg 08/06/25 18:01 08/06/25 18:17 Labetalol Hcl 100 Mg/20 Ml Vial IVPUSH 08/06/25 18:02 20 mg ONCE ONE Administration Methylprednisolone Sodium Succinate 60 mg 08/06/25 20:08 08/06/25 20:24 Methylprednisolone Sod Succ 125 Mg/2 Ml Vial IVPUSH 08/06/25 20:09 60 mg ONCE ONE Administration Sodium Bicarbonate 50 meq 08/06/25 18:57 08/06/25 19:29 Sodium Bicarbonate 8.4% 50 Meq/50 Ml Syringe IVPUSH 08/06/25 18:58 50 meq ONCE ONE Administration Sodium Zirconium Cyclosilicate 10 gm 08/07/25 08:00 08/07/25 08:39 Sodium Zirconium Cyclosilicate 10 Gm Powd.Pack PO 08/07/25 08:01 10 gm ONCE ONE Administration Medical Decision Making Medical Decision Making MDM Narrative: This is a 45-year-old female history of lupus, hypertension presented hospital today for evaluation of uncontrolled hypertension rash and weakness and headache. Patient is currently on mycophenolate and hydroxychloroquine for her lupus. No sign of leukocytosis slight anemia at 9.3. Patient's does have slight elevation of potassium at 5.2. A dose of bicarb will be given for her hyperkalemia. Patient's EKG did not show any signs of EKG changes. He patient's creatinine is elevated at 3.24. This is a elevated compared to prior creatinine level. Viral is 2.48. Patient's creatinine has been climbing since earlier this year. In September it was back in 1.39. I discussed the case with Dr. Mccauley from ICU. He recommends further p.o. medication to see if the blood pressure systolic BP below 180. If the patient's blood pressure is below 180 there was no need for Cardene drip. He recommended clonidine. Did give patient a dose of p.o. clonidine. Blood pressure remains below 180 systolic at this time. We will plan to admit patient to the medicine team for further workup. Patient will need further hypertension management. I am concerned that if the patient's blood pressure remains elevated uncontrolled. With her history of lupus. This may adversely affect her kidney. With the patient rash this may be a lupus flare-up. IV Solu-Medrol will be given to the patient. Differential Diagnosis Differential Diagnoses: The differential diagnosis associated with the presentation includes Acute kidney injury, hypertensive emergency, lupus flare Consult Healthcare Provider Management of the patient was discussed with: Hospitalist and Cryogenic Transport Driver (Dr. Mccauley ICU) Lab Data MDM Lab Attestation statement: I reviewed the patient's lab results. 08/07/25 04:10 08/07/25 04:10 Labs: Lab Results 08/06/25 Range/Units 14:01 WBC 4.9 (4.8-10.8) X10*3/uL RBC 3.14 L (4.20-5.50) X10*6/uL Hgb 9.3 L (12.0-16.0) g/dl Hct 28.1 L (37.0-47.0) % MCV 89.5 (80.0-98.0) fL MCH 29.6 (27.0-33.0) pg MCHC 33.1 (31.0-35.0) g/dl RDW 13.6 (11.0-16.0) % Plt Count 253 (160-400) X10*3/uL MPV 8.9 L (9.4-12.3) fL Immature Gran % (Auto) 0.6 H (0.0-0.4) % Neut % (Auto) 87.3 H (45-73) % Lymph % (Auto) 8.6 L (20-40) % Braxton % (Auto) 3.1 (2-11) % Eos % (Auto) 0.2 (0-4) % Baso % (Auto) 0.2 (0-2) % Lymph # (Auto) 0.4 L (1.2-4.9) X10*3/uL Braxton # (Auto) 0.2 (0.1-1.2) X10*3/uL Eos # (Auto) 0.0 (0.0-0.4) X10*3/uL Baso # (Auto) 0.0 (0.0-0.2) X10*3/uL Abs Immat Gran (auto) 0.03 (0.00-0.03) X10*3/uL Absolute Neuts (auto) 4.2 (2.0-8.3) x10*3/uL Absolute Nucleated RBC 0.000 (0.0-0.012) X10*3/uL Nucleated RBC % (auto) 0.0 (0.0-0.2) /100WBC ESR 63 H (1-20) MM/HR PT 11.2 (11.2-13.5) SEC INR 0.9 (0.9-1.1) APTT 26.7 (26.7-34.1) SEC Sodium 140 (135-145) mmol/L Potassium 5.2 H D (3.3-5.1) mmol/L Chloride 111 H (96-108) mmol/L Carbon Dioxide 19 L (22-29) mmol/L Anion Gap 15 (12-20) BUN 33 H (9-16) mg/dL Creatinine 3.24 H (0.5-1.4) mg/dL Estim Creat Clear Calc 19.7 Estimated GFR 16 Random Glucose 91 (60-115) mg/dL Calcium 8.8 D (8.4-10.2) mg/dL Total Bilirubin 0.3 (0.0-1.0) mg/dL AST 56 H (5-31) U/L ALT 37 H (0-31) U/L Alkaline Phosphatase 194 H (39-117) U/L Troponin I High Sens 7.3 (<3.5-17.0) ng/L C-Reactive Protein 1.71 H (< or = 0.50) mg/dL Total Protein 7.8 (6.5-8.0) g/dL Albumin 3.3 L (3.5-5.0) g/dL Chronic Conditions Patient?s care impacted by: Hypertension Lupus Discharge Plan Discharge Clinical Impression: Lupus, Acute kidney injury HTN (hypertension) Qualifiers: Hypertension type: unspecified Qualified Code(s): I10 - Essential (primary) hypertension Patient Disposition: Admitted As Inpatient
[2025-08-06 14:07] LABS: MANUAL DIFF FLAG NO
[2025-08-06 14:12] LABS: Hematocrit 28.1 % (37.0-47.0); Hemoglobin 9.3 g/dl (12.0-16.0); Imm Gran Abs Auto 0.03 X10*3/uL (0.00-0.03); Imm Gran Pct Auto 0.6 % (0.0-0.4); Lymphocytes Absolute Auto 0.4 X10*3/uL (1.2-4.9); Mean Corpuscular HGB Conc 33.1 g/dl (31.0-35.0); Mean Corpuscular Hemoglobin 29.6 pg (27.0-33.0); Mean Corpuscular Volume 89.5 fL (80.0-98.0); NRBC Abs Auto 0.000 X10*3/uL (0.0-0.012); NRBC Pct Auto 0.0 /100WBC (0.0-0.2); Platelet Count 253 X10*3/uL (160-400); Red Blood Count 3.14 X10*6/uL (4.20-5.50); White Blood Count 4.9 X10*3/uL (4.8-10.8)
[2025-08-06 14:20] LABS: INTERNATIONAL NORM RATIO 0.9 (0.9-1.1); Prothrombin Time 11.2 SEC (11.2-13.5)
[2025-08-06 14:22] LABS: Partial Thromboplastin Time 26.7 SEC (26.7-34.1)
[2025-08-06 14:27] LABS: Alanine Aminotransferase 37 U/L (0-31); Albumin Level 3.3 g/dL (3.5-5.0); Alkaline Phosphatase 194 U/L (39-117); Anion Gap 15 (12-20); Aspartate Amino Transferase 56 U/L (5-31); Blood Urea Nitrogen 33 mg/dL (9-16); Calcium 8.8 mg/dL (8.4-10.2); Carbon Dioxide 19 mmol/L (22-29); Chloride 111 mmol/L (96-108); Creatinine Clr Calc Pharmacy 19.7; Estimated Glomerular Filt Rate 16; Potassium 5.2 mmol/L (3.3-5.1); Sodium 140 mmol/L (135-145); Total Protein 7.8 g/dL (6.5-8.0)
[2025-08-06 14:35] LABS: Troponin-I High Sensitivity 7.3 ng/L (<3.5-17.0)
[2025-08-06] MEDS: Lactated Ringers 1,000 ML 999 ML IV (16:31)
--- OUTSIDE RECORDS SUMMARY | 2025-08-06 18:48 | XMS_ITS | Clinical Summary ---
Author Organization [employer] Address [address] [place] [address] Care Team Providers Care Piercing Artist Name Role Phone Unavailable Primary Care Provider [...]
--- OUTSIDE RECORDS SUMMARY | 2025-08-06 18:48 | XMS_ITS | Encounter Summary ---
Author Organization [employer] Address [address] [place] [address] Care Team Providers Care Coach Cleaner Name Role Phone Unavailable Primary Care [...]
--- NOTE | 2025-08-06 21:57 | PHA.MEDREC ---
Pharmacy Consult ? Medication Reconciliation Pharmacy has completed the medication reconciliation.
--- NOTE | 2025-08-06 22:52 | P.HPHOSP_ITS ---
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 She also reports headaches over the past three days, mainly occipital, which have been partially relieved by Tylenol or Aleve. She denies any acute changes in vision, speech, or coordination. Home blood pressure readings have been elevated, reaching up to 164/120 mmHg. Her metoprolol dose was increased from 50 mg to 100 mg, but subsequently discontinued by her new car get ready mechanic after she developed a pruritic rash > 1 week ago on her legs and back managed with a topical steroid; the rash persists on her back. Telmisartan was started yesterday for ongoing hypertension. About three weeks ago, the patient traveled to [place], where she developed bilateral lower extremity edema and fatigue. The edema improved after a course of prednisone, but persistent fatigue has continued since her return. She contacted her entry level account executive at that time, and the patient believed these symptoms were related to a lupus flare. At the time of evaluation, she denied having a headache. ED course: On arrival, she was hypertensive (BP up to 190/114), tachycardic, and had a pruritic rash on her back and right upper extremity. Labs revealed acute on chronic kidney injury (Cr 3.24, baseline 1.39 in September), hyperkalemia (K 5.2), anemia (Hgb 9.3), and mild transaminitis. She received IV labetalol, hydrochlorothiazide, Clonidine 0.2 mg oral, sodium bicarbonate, HCTZ 25 mg and fluids. EKG was unremarkable. CT head wo contrast negative for acute pathology. Lab results Hgb 9.3 g/dL, Hct 28.1%, creatinine 2.48->3.24 mg/dL, ESR 63 mm/hr, CRP 1.71 mg/dL, and AST 56 U/L, ALT 37 U/L, ALP 194 U/L. CO319 mmol/L, K 5.2 mmol/L, and hypoalbuminemia (3.3 g/dL).? [facility] Medical History (Updated 08/06/25 @ 21:55 by Diya Coley DO) Hypersomnia Insomnia Transient left leg weakness Numbness and tingling of left side of face HTN (hypertension) Lupus Family History Mother Hypertension Social History Household Members: None Housing: House Do you presently have visiting nurse or other home services: No Unable to assess alcohol history related to: Unknown Alcohol intake: unknown Patient Tobacco Use Status: Never used Tobacco Use of substances other than those prescribed or required for medical reasons: No Advance Directives: No Advance Directives Information Provided: Yes service: No Meds Allergies Allergy/AdvReac Type Severity Reaction Status Date / Time hydrocodone Allergy Unknown UNKNOWN Verified 08/06/25 13:46 oxycodone (OXYCODONE) Allergy Unknown TONGUE Verified 08/06/25 13:46 SWELLING Home Medications ?Medication ?Instructions ?Recorded ?Confirmed ?Last Taken ?Type hydroxychloroquine 200 mg tablet 400 mg PO DAILY 10/2408/06/25 12/25/24 History mycophenolate mofetil 500 mg 1,000 mg PO BID 10/25/23 08/06/25 12/25/24 History tablet (CellCept) magnesium 200 mg tablet 200 mg PO DAILY restless leg 12/26/24 08/06/25 Unknown History L norgest/E estradiol-E estrad 1 tab PO DAILY 08/06/25 08/06/25 Unknown History 0.15 mg-30 mcg (84)/10 mcg(7) tabs,3mos (Simpesse) dextroamphetamine-amphetamine ER 1 cap PO DAILY 08/06/25 Unknown History 20 mg 24hr capsule,extend release prednisone 5 mg tablet 5 mg PO DAILY 08/06/2508/06 Unknown History Physical Exam 2 Vital Signs and Narrative: Vital Signs: Last Vital Signs Temp 98.3 F 08/06/25 21:14 Pulse 87 08/06/25 21:30 Resp 15 08/06/25 21:30 BP 158/94 H 08/06/25 21:30 Pulse Ox 98 08/06/25 21:30 O2 Del Method Room Air 08/06/25 21:30 BMI result Body Mass Index 26.0 General: Pleasant, no distress, interacting appropriately Head: Normacephalic, atraumatic ENT: oral mucosa moist, neck supple, no tracheal deviation Cardiovascular: regular rate, regular rhythm, no murmurs, rubbing, gallops Respiratory: CTABL, no wheeze, rales, rhonchi Gastrointestinal: Soft, non distended Extremities: No swelling Neurological: Awake and alert, no facial droop, speech is fluent, decrease sensation in the lower extremities R>L, motor B/L LE 5/5 and b/l UE 4/5 Skin: Diffused rash on the back and upper extremity Results Labs 08/06/25 14:01 08/06/25 23:48 Labs: Laboratory Results - last 24 hr 08/06/25 14:01 MCV 89.5 MCH 29.6 MCHC 33.1 RDW 13.6 Plt Count 253 MPV 8.9 L Immature Gran % (Auto) 0.6 H Neut % (Auto) 87.3 H Lymph % (Auto) 8.6 L Floyd % (Auto) 3.1 Eos % (Auto) 0.2 Baso % (Auto) 0.2 Lymph # (Auto) 0.4 L Floyd # (Auto) 0.2 Eos # (Auto) 0.0 Baso # (Auto) 0.0 Abs Immat Gran (auto) 0.03 Absolute Neuts (auto) 4.2 Absolute Nucleated RBC 0.000 Nucleated RBC % (auto) 0.0 ESR 63 H PT 11.2 INR 0.9 APTT 26.7 Anion Gap 15 Estim Creat Clear Calc 19.7 Estimated GFR 16 Random Glucose 91 Calcium 8.8 D Total Bilirubin 0.3 AST 56 H ALT 37 H Alkaline Phosphatase 194 H Troponin I High Sens 7.3 C-Reactive Protein 1.71 H Total Protein 7.8 Albumin 3.3 L Imaging Radiologist's Impressions: Impressions Head CT 08/06/25 15:05 IMPRESSION: No acute intracranial abnormality. Electronically signed by: Napoleon Rm MD 08/06/2025 03:29 PM EST Assessment and Plan (1) HTN (hypertension): Status: Acute Plan Uncontrolled hypertension Headache Increase nifedipine 30 mg ER to 60 mg ER. Avoid rapid BP lowering. Target 10?20% MAP reduction in the first 24 hours Nicardipine IV is SBP >180 or DBP >120 Tylenol for headache MRI brain without contrast MR venography of the head without contrast (patient is on oral contraceptives) Neurology consultation Acute kidney injury on CKD IIIA secondary to SLE, associated with metabolic acidosis and mild hyperkalemia. Differential diagnosis includes NSAID use, uncontrolled hypertension and SLE progression. IVF Repeat basic metabolic panel and serum pH Consider adding sodium bicarbonate if pH <7.2 Continue close monitoring of renal function Renal duplex ultrasound Stat urinalysis with reflex microscopy and culture Nephrology consultation Paresthesia, differential includes vitamin deficiency and possible medication- induced neuropathy Vitamin B12, folic acid, and methylmalonic acid levels Consider holding hydroxychloroquine Neurology consult Rash: topical corticosteroids and diphenhydramine Medication Holds: telmisartan and oral contraceptives Code status: Full Code VTE: Heparin SQ The patient will be monitored in the hospital for 2 midnights due to persistent hypertension, and MARQUES on CKD. Quality Stroke Does the patient have a stroke diagnosis?: No VTE Prior VTE?: No VTE Risk Level:: Medical - moderate - high VTE Device Contraindication: Treatment Not Indicated VTE Drug Contraindication: N/A - Med Ordered
[2025-08-07] VITALS (9 sets, daily range): BP systolic 142–193; BP diastolic 89–108; PULSE 70–102; RESP 13–18; TEMP 36.7; O2SAT 97–100; BMI 28.8
--- NOTE | 2025-08-07 | EMG_ITS ---
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 She also gets transient numbness and tingling on the face and lips and nose for which she saw Dr. Caal three weeks ago. She denies any weakness. She also reports headaches over the past three days, mainly occipital, which have been partially relieved by Tylenol or Aleve. She denies any acute changes in vision, speech, or coordination. Home blood pressure readings have been elevated, reaching up to 164/120 mmHg. Her metoprolol dose was increased from 50 mg to 100 mg, but subsequently discontinued by her neuropsychology medical consultant after she developed a pruritic rash > 1 week ago on her legs and back managed with a topical steroid; the rash persists on her back. Telmisartan was started yesterday for ongoing hypertension. About three weeks ago, the patient traveled to [place], where she developed bilateral lower extremity edema and fatigue. The edema improved after a course of prednisone, but persistent fatigue has continued since her return. She contacted her teacher of the handicapped at that time, and the patient believed these symptoms were related to a lupus flare. At the time of evaluation, she denied having a headache. CT head negative. MRI a few months ago with minor microvascular changes. Referred by: Consult from ED to Neurologist - Dr. Apple Procedure done: Study was performed in ED - NCS bilateral upper and bilateral lower extremity Bilateral median and ulnar and tibial and peroneal motor studies were performed with F responses and tibial H reflexes. Bilateral median and ulnar mixed sensory studies, radial sensory, superficial peroneal sensory and sural sensory studies were performed. Findings: Many of the motor distal latencies were significantly prolonged while amplitudes were severely diminished. Left median motor conduction velocity was in 20s. Sensory studies were relatively better. F responses were either delayed or absent. H reflexes were okay. Motor unit potential waveform was dispersed for many nerves. Impression: This is an abnormal study revealing nerve conduction study pattern of motor, [id number], neuropathy affecting lower extremities more than upper, with features of demyelination and axonal loss. In right clinical settings, this type of pattern can be seen with an acute primarily demyelinating neuropathy. Clinical correlation is recommended. [facility]
[2025-08-07 00:07] LABS: Anion Gap 14 (12-20); Blood Urea Nitrogen 35 mg/dL (9-16); Calcium 8.0 mg/dL (8.4-10.2); Carbon Dioxide 16 mmol/L (22-29); Chloride 111 mmol/L (96-108); Creatinine Clr Calc Pharmacy 19.8; Estimated Glomerular Filt Rate 16; Potassium 5.2 mmol/L (3.3-5.1); Sodium 136 mmol/L (135-145)
[2025-08-07 00:25] LABS: Appearance Urine Clear; Glucose Urine UA 100 mg/dL (Negative); PH 6.5 (5.0-9.0); Specific Gravity - Urine 1.010 (1.005-1.025); UMIC TRIGGER UACC YES
[2025-08-07] MEDS: Lactated Ringers 1,000 ML 125 ML IVCONT ×3 (03:18→20:40)
[2025-08-07 04:31] LABS: White Blood Count 3.3 X10*3/uL (4.8-10.8)
[2025-08-07 04:32] LABS: Hematocrit 24.2 % (37.0-47.0); Hemoglobin 8.0 g/dl (12.0-16.0); Imm Gran Abs Auto 0.03 X10*3/uL (0.00-0.03); Imm Gran Pct Auto 0.9 % (0.0-0.4); Lymphocytes Absolute Auto 0.2 X10*3/uL (1.2-4.9); MANUAL DIFF FLAG SCAN; Mean Corpuscular HGB Conc 33.1 g/dl (31.0-35.0); Mean Corpuscular Hemoglobin 29.2 pg (27.0-33.0); Mean Corpuscular Volume 88.3 fL (80.0-98.0); NRBC Abs Auto 0.000 X10*3/uL (0.0-0.012); NRBC Pct Auto 0.0 /100WBC (0.0-0.2); Platelet Count 227 X10*3/uL (160-400); Red Blood Count 2.74 X10*6/uL (4.20-5.50); SCAN SMEAR FLAG 1
[2025-08-07 05:25] LABS: Folate 6.4 ng/mL (> or = 4.0); Vitamin B12 236 pg/mL (200-900)
[2025-08-07 05:37] LABS: Alanine Aminotransferase 35 U/L (0-31); Albumin Level 3.0 g/dL (3.5-5.0); Alkaline Phosphatase 169 U/L (39-117); Anion Gap 16 (12-20); Aspartate Amino Transferase 49 U/L (5-31); Blood Urea Nitrogen 37 mg/dL (9-16); Calcium 8.3 mg/dL (8.4-10.2); Carbon Dioxide 16 mmol/L (22-29); Chloride 110 mmol/L (96-108); Creatinine Clr Calc Pharmacy 19.6; Estimated Glomerular Filt Rate 16; Potassium 5.6 mmol/L (3.3-5.1); Sodium 136 mmol/L (135-145); Total Protein 7.1 g/dL (6.5-8.0)
[2025-08-07] MEDS: NIFEdipine ER 30 MG TAB.ER.24 60 MG PO (08:38)
--- NOTE | 2025-08-07 09:44 | P.CNNE_ITS ---
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 She also gets transient numbness and tingling on the face and lips and nose for which she saw Dr. Caal three weeks ago. She denies any weakness. She also reports headaches over the past three days, mainly occipital, which have been partially relieved by Tylenol or Aleve. She denies any acute changes in vision, speech, or coordination. Home blood pressure readings have been elevated, reaching up to 164/120 mmHg. Her metoprolol dose was increased from 50 mg to 100 mg, but subsequently discontinued by her medical esthetician after she developed a pruritic rash > 1 week ago on her legs and back managed with a topical steroid; the rash persists on her back. Telmisartan was started yesterday for ongoing hypertension. About three weeks ago, the patient traveled to [place], where she developed bilateral lower extremity edema and fatigue. The edema improved after a course of prednisone, but persistent fatigue has continued since her return. She contacted her payroll technician at that time, and the patient believed these symptoms were related to a lupus flare. At the time of evaluation, she denied having a headache. CT head negative. MRI a few months ago with minor microvascular changes. [facility] Past Medical History Medical History (Updated 08/07/25 @ 11:04 by Sahil Apple MD) Hypersomnia Insomnia Transient left leg weakness Numbness and tingling of left side of face HTN (hypertension) Lupus Family History Family History Mother Hypertension Social History Social History Household Members: None Housing: House Do you presently have visiting nurse or other home services: No Unable to assess alcohol history related to: Unknown Alcohol intake: unknown Patient Tobacco Use Status: Never used Tobacco Use of substances other than those prescribed or required for medical reasons: No Advance Directives: No Advance Directives Information Provided: Yes service: No Meds Allergies Allergy/AdvReac Type Severity Reaction Status Date / Time hydrocodone Allergy Unknown UNKNOWN Verified 08/06/25 13:46 oxycodone (OXYCODONE) Allergy Unknown TONGUE Verified 08/06/25 13:46 SWELLING Active Medications: Current Medications Acetaminophen (Acetaminophen 325 Mg Tablet) 650 mg PO Q6H PRN PRN Reason: Pain, Mild 1-3,fever,headache Betamethasone Dipropion Augmented (Betamethasone Dip Aug 0.05% Cr 15 Gm Tube) 1 appl TOPICAL BID RONNA; Protocol Calcium Carbonate (Calcium Carbonate 750 Mg Tab.Chew) 750 mg PO Q4H PRN PRN Reason: Heartburn Heparin Sodium (Porcine) (Heparin Sodium,Porcine 5,000 Unit/Ml Vial) 5,000 unit SUBCUT Q12H [facility] Last Admin: 08/07/25 08:39 Dose: 5,000 unit Hydroxychloroquine Sulfate (Hydroxychloroquine Sulfate 200 Mg Tablet) 400 mg PO DAILY [facility] Last Admin: 08/07/25 08:37 Dose: 400 mg Lactated Ringer's (Lr) 1,000 mls @ 125 mls/hr IVCONT .Q8H [facility] Last Admin: 08/07/25 03:18 Dose: 125 mls/hr Methylprednisolone Sodium Succinate 500 mg/ Sodium Chloride 58 mls @ 66 mls/hr IV DAILY [facility] Stop: 08/10/25 09:19 Labetalol HCl (Labetalol Hcl 100 Mg/20 Ml Vial) 10 mg IVPUSH Q6H PRN PRN Reason: SBP >170 Magnesium Oxide (Magnesium Oxide 400 Mg Tablet) 400 mg PO DAILY [facility] Last Admin: 08/07/25 08:37 Dose: 400 mg Melatonin (Melatonin 3 Mg Tablet) 3 mg PO BEDTIME PRN PRN Reason: Insomnia Mycophenolate Mofetil (Mycophenolate Mofetil 250 Mg Capsule) 1,000 mg PO BID [facility] Nifedipine (Nifedipine Er 30 Mg Tab.Er.24) 60 mg PO DAILY [facility] Last Admin: 08/07/25 08:38 Dose: 60 mg Ondansetron HCl (Ondansetron Hcl 4 Mg/2 Ml Vial) 4 mg IVPUSH Q8H PRN PRN Reason: Nausea and Vomiting Sodium Chloride (0.9 % Sodium Chloride Flush 3 Ml Syringe) 3 ml IVFLUSH QSHIFT RONNA Last Admin: 08/07/25 08:49 Dose: Not Given Zinc Acetate/Diphenhydramine (Diphenhydramine Hcl 2 % Cream 28 Gm Tube) 1 appl TOPICAL TID PRN; Protocol PRN Reason: Rash Home Medications ?Medication ?Instructions ?Recorded ?Confirmed ?Last Taken ?Type hydroxychloroquine 200 mg tablet 400 mg PO DAILY 10/2408/06/25 12/25/24 History mycophenolate mofetil 500 mg 1,000 mg PO BID 10/25/23 08/06/25 12/25/24 History tablet (CellCept) magnesium 200 mg tablet 200 mg PO DAILY restless leg 12/26/24 08/06/25 Unknown History L norgest/E estradiol-E estrad 1 tab PO DAILY 08/06/25 08/06/25 Unknown History 0.15 mg-30 mcg (84)/10 mcg(7) tabs,3mos (Simpesse) dextroamphetamine-amphetamine ER 1 cap PO DAILY 08/06/25 Unknown History 20 mg 24hr capsule,extend release prednisone 5 mg tablet 5 mg PO DAILY 08/06/2508/06 Unknown History Physical Exam 2 Vital Signs: Vital Signs: Last Vital Signs Temp 98.0 F 08/07/25 00:15 Pulse 70 08/07/25 08:00 Resp 13 08/07/25 08:00 BP 193/104 H 08/07/25 08:38 Pulse Ox 99 08/07/25 08:00 O2 Del Method Room Air 08/07/25 08:00 BMI result Body Mass Index 26.0 Neuro: Other: She is alert and oriented with normal intellectual functions. Cranial nerves 2- 12 are normal. Muscle tone and strength are normal in all 4 extremities except for mild weakness of finger spread left greater than right and opposition. Reflexes are 2+ throughout including ankle reflexes plantar responses are flexor. Sensory exam is negative. Results Labs 08/07/25 04:10 08/07/25 04:10 Labs: Short CBC 08/06/25 08/07/25 Range/Units 14:01 04:10 WBC 4.9 3.3 L (4.8-10.8) X10*3/uL Hgb 9.3 L 8.0 L (12.0-16.0) g/dl Hct 28.1 L 24.2 L (37.0-47.0) % Plt Count 253 227 (160-400) X10*3/uL BMP 08/06/25 08/06/25 08/07/25 14:01 23:48 04:10 Sodium 140 136 136 Potassium 5.2 H D 5.2 H 5.6 H Chloride 111 H 111 H 110 H Carbon Dioxide 19 L 16 L 16 L BUN 33 H 35 H 37 H Creatinine 3.24 H 3.22 H 3.25 H Calcium 8.8 D 8.0 L D 8.3 L Liver Function 08/06/25 08/07/25 Range/Units 14:01 04:10 Total Bilirubin 0.3 0.2 (0.0-1.0) mg/dL AST 56 H 49 H (5-31) U/L ALT 37 H 35 H (0-31) U/L Alkaline Phosphatase 194 H 169 H (39-117) U/L Albumin 3.3 L 3.0 L (3.5-5.0) g/dL Urine 08/07/25 Range/Units 00:15 Urine Color Yellow Urine Appearance Clear Urine pH 6.5 (5.0-9.0) Ur Specific [place] 1.010 (1.005-1.025) Urine Protein 100 (2+) H (Neg-Trace) mg/dL Urine Glucose (UA) 100 H (Negative) mg/dL Assessment and Plan (1) Paresthesia of both feet: Status: Acute Would recommend a 4 limb nerve conduction study to see if she is developing a neuropathy which would be subacute in nature. Further recommendations to follow Procedures Date of Service Date of Service: 08/07/25
[2025-08-07] MEDS: Betamethasone Dip Aug 0.05% Cr 15 GM TUBE 1 APPL TOPICAL (10:28)
[2025-08-07] MEDS: methylPREDNISolone Sod Succ 500 MG in 0.9 % Sodium Chloride 50 ML 66 MG IV (10:31)
--- NOTE | 2025-08-07 14:07 | MHC.CM.PN ---
PATIENT LIVES ALONE AND IS INDEPENDENT PRIOR TO ARRIVAL. SHE DOES NOT USE DME OR HAVE ANY [facility] SERVICES.SHE IS EMPLOYED AND ABLE TO TRANSPORT SELF WHERE NEEDED. NO HCP ON FILE AND [facility] WILL CONSIDER COMPLETING ONE WHILE HERE. SHE IS HOPING TO DC HOME WITH NO SERVICES AND HAS TRANSPORT HOME.
--- NOTE | 2025-08-07 18:30 | HO.PM.IMPN ---
Subjective Subjective Date of Service: 08/07/25 Interval History: Follow up for pt with peripheral paresthesia, headache, and hypertensive urgency Pt reports she overall feels better with headache resolved Still some numbness and tingling in extremities which started 2 weeks ago Rash on back Less pruritic BP remains elevated Creatinine not improving; nephrology suggested high-dose steroids x3 days to treat for lupus flare Review of Systems Review of Systems: Yes all other systems are reviewed and are negative Physical Exam Exam: Exam: General: AOx3, no acute distress Resp: CTA bilaterally CVS: S1, S2, RRR GI: +BS, NT, no distention Skin: Warm, dry. Rash on back improving, as pictured below Neuro: Cranial nerves II-XII grossly intact bilaterally. Motor grossly intact bilaterally. Visual field full. Extremities: No edema Psych: Appropriate affect Vital Signs: Vital Signs: Last Vital Signs Temp 98.0 F 08/07/25 00:15 Pulse 78 08/07/25 11:56 Resp 14 08/07/25 11:56 BP 157/106 H 08/07/25 11:56 Pulse Ox 99 08/07/25 11:56 O2 Del Method Room Air 08/07/25 11:56 BMI result Body Mass Index 26.0 Objective Data Active Medications Acetaminophen (Acetaminophen 325 Mg Tablet) 650 mg PO Q6H PRN PRN Reason: Pain, Mild 1-3,fever,headache Betamethasone Dipropion Augmented (Betamethasone Dip Aug 0.05% Cr 15 Gm Tube) 1 appl TOPICAL BID RONNA; Protocol Last Admin: 08/07/25 10:28 Dose: 1 appl Documented By: TERESSA Calcium Carbonate (Calcium Carbonate 750 Mg Tab.Chew) 750 mg PO Q4H PRN PRN Reason: Heartburn Heparin Sodium (Porcine) (Heparin Sodium,Porcine 5,000 Unit/Ml Vial) 5,000 unit SUBCUT Q12H RONNA Last Admin: 08/07/25 08:39 Dose: 5,000 unit Documented By: TERESSA Hydroxychloroquine Sulfate (Hydroxychloroquine Sulfate 200 Mg Tablet) 400 mg PO DAILY [facility] Last Admin: 08/07/25 08:37 Dose: 400 mg Documented By: TERESSA Lactated Ringer's (Lr) 1,000 mls @ 125 mls/hr IVCONT .Q8H RONNA Last Admin: 08/07/25 11:42 Dose: 125 mls/hr Documented By: CYN Methylprednisolone Sodium Succinate 500 mg/ Sodium Chloride 58 mls @ 66 mls/hr IV DAILY [facility] Stop: 08/10/25 09:59 Last Infusion: 08/07/25 14:54 Dose: Infused Documented By: CYN Labetalol HCl (Labetalol Hcl 100 Mg/20 Ml Vial) 10 mg IVPUSH Q6H PRN PRN Reason: SBP >170 Magnesium Oxide (Magnesium Oxide 400 Mg Tablet) 400 mg PO DAILY [facility] Last Admin: 08/07/25 08:37 Dose: 400 mg Documented By: TERESSA Melatonin (Melatonin 3 Mg Tablet) 3 mg PO BEDTIME PRN PRN Reason: Insomnia Mycophenolate Mofetil (Mycophenolate Mofetil 250 Mg Capsule) 1,000 mg PO BID [facility] Last Admin: 08/07/25 11:39 Dose: 1,000 mg Documented By: CYN Nifedipine (Nifedipine Er 30 Mg Tab.Er.24) 60 mg PO DAILY [facility] Last Admin: 08/07/25 08:38 Dose: 60 mg Documented By: TERESSA Ondansetron HCl (Ondansetron Hcl 4 Mg/2 Ml Vial) 4 mg IVPUSH Q8H PRN PRN Reason: Nausea and Vomiting Sodium Chloride (0.9 % Sodium Chloride Flush 3 Ml Syringe) 3 ml IVFLUSH QSHIFT [facility] Last Admin: 08/07/25 16:16 Dose: Not Given Documented By: CYN Non-Admin Reason: IV Running Zinc Acetate/Diphenhydramine (Diphenhydramine Hcl 2 % Cream 28 Gm Tube) 1 appl TOPICAL TID PRN; Protocol PRN Reason: Rash Labs 08/07/25 04:10 08/07/25 04:10 Labs: Laboratory Results - last 24 hr 08/06/25 08/06/25 08/07/25 14:01 23:48 00:15 MCV MCH MCHC RDW Plt Count MPV Immature Gran % (Auto) Neut % (Auto) Lymph % (Auto) [place] % (Auto) Eos % (Auto) Baso % (Auto) Lymph # (Auto) [place] # (Auto) Eos # (Auto) Baso # (Auto) Abs Immat Gran (auto) Absolute Neuts (auto) Absolute Nucleated RBC Nucleated RBC % (auto) Smear Tech's Comments ESR 63 H Anion Gap 14 Estim Creat Clear Calc 19.8 Estimated GFR 16 Random Glucose 206 H Calcium 8.0 L D Total Bilirubin AST ALT Alkaline Phosphatase C-Reactive Protein 1.71 H Total Protein Albumin Vitamin B12 Folate Urine Color Yellow Urine Appearance Clear Urine pH 6.5 Ur Specific [place] 1.010 Urine Protein 100 (2+) H Urine Glucose (UA) 100 H Urine Ketones Negative Urine Blood Small (1+) H Urine Nitrite Negative Ur Leukocyte Esterase Negative Urine RBC 3-5 H Urine WBC 0-5 Ur Squamous Epith Cells 0-2 Urine Bacteria None Seen Hyaline Casts 0-2 08/07/25 04:10 MCV 88.3 MCH 29.2 MCHC 33.1 RDW 13.5 Plt Count 227 MPV 9.7 Immature Gran % (Auto) 0.9 H Neut % (Auto) 90.6 H Lymph % (Auto) 7.3 L [place] % (Auto) 1.2 L Eos % (Auto) 0.0 Baso % (Auto) 0.0 Lymph # (Auto) 0.2 L [place] # (Auto) 0.0 L Eos # (Auto) 0.0 Baso # (Auto) 0.0 Abs Immat Gran (auto) 0.03 Absolute Neuts (auto) 3.0 Absolute Nucleated RBC 0.000 Nucleated RBC % (auto) 0.0 Smear Tech's Comments VERIFIED ESR Anion Gap 16 Estim Creat Clear Calc 19.6 Estimated GFR 16 Random Glucose 160 H Calcium 8.3 L Total Bilirubin 0.2 AST 49 H ALT 35 H Alkaline Phosphatase 169 H C-Reactive Protein Total Protein 7.1 Albumin 3.0 L Vitamin B12 236 Folate 6.4 Urine Color Urine Appearance Urine pH Ur Specific [place] Urine Protein Urine Glucose (UA) Urine Ketones Urine Blood Urine Nitrite Ur Leukocyte Esterase Urine RBC Urine WBC Ur Squamous Epith Cells Urine Bacteria Hyaline Casts Assessment and Plan (1) Acute kidney injury: Status: Acute (2) Hypertensive urgency: Status: Acute Plan Hypertensive urgeycy with headache BP as high as 193/104 Possibly in the setting of acute lupus flare Increase nifedipine 30 mg ER to 60 mg ER Labetalol 20mg IV is SBP >180 or DBP >120 Tylenol for headache Will hold on additional MRI brain without contrast MR venography of the head without contrast (patient is on oral contraceptives) Neurology consultation Acute kidney injury on CKD IIIA secondary to SLE, associated with metabolic acidosis and mild hyperkalemia. Differential diagnosis includes NSAID use, uncontrolled hypertension and SLE progression/acute flare IVF Repeat basic metabolic panel and serum pH Consider adding sodium bicarbonate if pH <7.2 Continue close monitoring of renal function Renal duplex ultrasound without evidence of renal artery stenosis or abnormal waveforms; renal parenchyma normal UA negative Nephrology following Will check ANCA, urine creatinine, C3, C4, and double-stranded DNA Question of acute Lupus flare Solu-Medrol 500mg daily 1/3 days per nephrology Paresthesia, differential includes vitamin deficiency and possible medication-induced neuropathy Vitamin B12, folic acid, and methylmalonic acid levels Consider holding hydroxychloroquine Neurology consulted, request 4-limb nerve conduction study Rash on back, improving Topical corticosteroids and diphenhydramine Code status: Full Code VTE: Heparin SQ Pt requires continued hospitalization for treatment of hypertensive urgencies and MARQUES on CKD 3 in the setting of possible acute lupus flare that requires high-dose IV steroids for 3 subsequent days. Quality Stroke Does the patient have a stroke diagnosis?: No VTE Prior VTE?: No VTE Risk Level:: Medical - moderate - high VTE Device Contraindication: Treatment Not Indicated VTE Drug Contraindication: N/A - Med Ordered
--- NOTE | 2025-08-07 19:08 | PC.NURSE ---
Report taken from Renetta RN assumed care of pt at this time. A&Ox3 skin pwd respirations even unlabored. Offers no complaints. BP improved. Ambulatory to bathroom with steady gait. Awaiting bed assignment for admission, aware of plan of care.
--- NOTE | 2025-08-07 19:09 | P.CONNP_ITS ---
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 She also reports headaches over the past three days, mainly occipital, which have been partially relieved by Tylenol or Aleve. She denies any acute changes in vision, speech, or coordination. Her home blood pressure readings have been elevated, reaching up to 164/120 mmHg. Her metoprolol dose was increased from 50 mg to 100 mg, but subsequently discontinued after she developed a pruritic rash > 1 week ago on her legs and back managed with a topical steroid She was started on Telmisartan recently for ongoing hypertension. About three weeks ago, the patient traveled to [place], where she developed bilateral lower extremity edema and fatigue. The edema improved after a course of prednisone, but persistent fatigue has continued since her return. 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 On arrival in the ER , she was hypertensive (BP up to 190/114), tachycardic, and had a pruritic rash on her back and right upper extremity. Labs revealed acute on chronic kidney injury (Cr 3.24, baseline 1.39 in September), hyperkalemia (K 5.2), anemia (Hgb 9.3), and mild transaminitis. She received IV labetalol, hydrochlorothiazide, Clonidine 0.2 mg oral, sodium bicarbonate, HCTZ 25 mg and fluids. EKG was unremarkable. CT head wo contrast negative for acute pathology. Lab results included Hgb 9.3 g/dL, Hct 28.1%, creatinine 2.48->3.24 mg/dL, ESR 63 mm/hr, CRP 1.71 mg/dL, and AST 56 U/L, ALT 37 U/L, ALP 194 U/L. CO319 mmol/L, K 5.2 mmol/L, and hypoalbuminemia (3.3 g/dL).She was admitted for further management. Nephrology has been consulted to assist in her clinical care during her current hospital stay. Review of Systems Review of Systems Yes all other systems are reviewed and are negative [facility] Past Medical History Medical History (Updated 08/07/25 @ 19:17 by Antione Díaz MD) Hypersomnia Insomnia Transient left leg weakness Numbness and tingling of left side of face HTN (hypertension) Lupus Family History Family History Mother Hypertension Social History Social History Household Members: None Housing: House Do you presently have visiting nurse or other home services: No Unable to assess alcohol history related to: Unknown Alcohol intake: unknown Patient Tobacco Use Status: Never used Tobacco Use of substances other than those prescribed or required for medical reasons: No Advance Directives: No Advance Directives Information Provided: Yes service: No Meds Allergies Allergy/AdvReac Type Severity Reaction Status Date / Time hydrocodone Allergy Unknown UNKNOWN Verified 08/06/25 13:46 oxycodone (OXYCODONE) Allergy Unknown TONGUE Verified 08/06/25 13:46 SWELLING Active Medications: Current Medications Acetaminophen (Acetaminophen 325 Mg Tablet) 650 mg PO Q6H PRN PRN Reason: Pain, Mild 1-3,fever,headache Betamethasone Dipropion Augmented (Betamethasone Dip Aug 0.05% Cr 15 Gm Tube) 1 appl TOPICAL BID RONNA; Protocol Last Admin: 08/07/25 10:28 Dose: 1 appl Calcium Carbonate (Calcium Carbonate 750 Mg Tab.Chew) 750 mg PO Q4H PRN PRN Reason: Heartburn Heparin Sodium (Porcine) (Heparin Sodium,Porcine 5,000 Unit/Ml Vial) 5,000 unit SUBCUT Q12H RONNA Last Admin: 08/07/25 08:39 Dose: 5,000 unit Hydroxychloroquine Sulfate (Hydroxychloroquine Sulfate 200 Mg Tablet) 400 mg PO DAILY RONNA Last Admin: 08/07/25 08:37 Dose: 400 mg Lactated Ringer's (Lr) 1,000 mls @ 125 mls/hr IVCONT .Q8H RONNA Last Admin: 08/07/25 11:42 Dose: 125 mls/hr Methylprednisolone Sodium Succinate 500 mg/ Sodium Chloride 58 mls @ 66 mls/hr IV DAILY RONNA Stop: 08/10/25 09:59 Last Infusion: 08/07/25 14:54 Dose: Infused Labetalol HCl (Labetalol Hcl 100 Mg/20 Ml Vial) 10 mg IVPUSH Q6H PRN PRN Reason: SBP >170 Magnesium Oxide (Magnesium Oxide 400 Mg Tablet) 400 mg PO DAILY [facility] Last Admin: 08/07/25 08:37 Dose: 400 mg Melatonin (Melatonin 3 Mg Tablet) 3 mg PO BEDTIME PRN PRN Reason: Insomnia Mycophenolate Mofetil (Mycophenolate Mofetil 250 Mg Capsule) 1,000 mg PO BID [facility] Last Admin: 08/07/25 11:39 Dose: 1,000 mg Nifedipine (Nifedipine Er 30 Mg Tab.Er.24) 60 mg PO DAILY [facility] Last Admin: 08/07/25 08:38 Dose: 60 mg Ondansetron HCl (Ondansetron Hcl 4 Mg/2 Ml Vial) 4 mg IVPUSH Q8H PRN PRN Reason: Nausea and Vomiting Sodium Chloride (0.9 % Sodium Chloride Flush 3 Ml Syringe) 3 ml IVFLUSH QSHIFT [facility] Last Admin: 08/07/25 16:16 Dose: Not Given Zinc Acetate/Diphenhydramine (Diphenhydramine Hcl 2 % Cream 28 Gm Tube) 1 appl TOPICAL TID PRN; Protocol PRN Reason: Rash Home Medications ?Medication ?Instructions ?Recorded ?Confirmed ?Last Taken ?Type hydroxychloroquine 200 mg tablet 400 mg PO DAILY 10/2408/06/25 12/25/24 History mycophenolate mofetil 500 mg 1,000 mg PO BID 10/25/23 08/06/25 12/25/24 History tablet (CellCept) magnesium 200 mg tablet 200 mg PO DAILY restless leg 12/26/24 08/06/25 Unknown History L norgest/E estradiol-E estrad 1 tab PO DAILY 08/06/25 08/06/25 Unknown History 0.15 mg-30 mcg (84)/10 mcg(7) tabs,3mos (Simpesse) dextroamphetamine-amphetamine ER 1 cap PO DAILY 08/06/25 Unknown History 20 mg 24hr capsule,extend release prednisone 5 mg tablet 5 mg PO DAILY 08/06/2508/06 Unknown History Physical Exam Vital Signs: Last Vital Signs Temp 98.0 F 08/07/25 00:15 Pulse 78 08/07/25 11:56 Resp 14 08/07/25 11:56 BP 157/106 H 08/07/25 11:56 Pulse Ox 99 08/07/25 11:56 O2 Del Method Room Air 08/07/25 11:56 BMI result Body Mass Index 26.0 Const General: no acute distress Orientation/consciousness: patient oriented x3 Eyes EOM: EOMs intact bilaterally Neck Neck: Yes supple Resp Auscultation: diminished lung sounds Cardio Rate: regular rate GI Palpation (GI): Soft to palpation Neuro General: patient oriented x3 Extrem General: Yes no pedal edema Results Lab Results 08/07/25 04:10 08/07/25 04:10 Lab results: Chemistry 08/06/25 08/06/25 08/07/25 14:01 23:48 04:10 Sodium 140 136 136 Potassium 5.2 H D 5.2 H 5.6 H Carbon Dioxide 19 L 16 L 16 L BUN 33 H 35 H 37 H Creatinine 3.24 H 3.22 H 3.25 H Calcium 8.8 D 8.0 L D 8.3 L Hematology 08/06/25 08/07/25 14:01 04:10 WBC 4.9 3.3 L Hgb 9.3 L 8.0 L Plt Count 253 227 Urinalysis 08/07/25 00:15 Urine Color Yellow Urine Appearance Clear Urine pH 6.5 Ur Specific [place] 1.010 Urine Protein 100 (2+) H Urine Glucose (UA) 100 H Urine Ketones Negative Urine Blood Small (1+) H Urine Nitrite Negative Ur Leukocyte Esterase Negative Urine RBC 3-5 H Urine WBC 0-5 Ur Squamous Epith Cells 0-2 Hyaline Casts 0-2 Assessment and Plan (1) Acute kidney injury: Status: Acute (2) CKD (chronic kidney disease) stage 3, GFR 30-59 ml/min: Qualifiers: Chronic kidney disease stage 3 subtype: stage 3b (GFR 30-44) Qualified Code(s): N18.32 - Chronic kidney disease, stage 3b Status: Acute (3) HTN (hypertension): Qualifiers: Hypertension type: unspecified Qualified Code(s): I10 - Essential (primary) hypertension Status: Acute (4) Hyperkalemia: Status: Acute (5) Metabolic acidosis: Status: Acute Plan MARQUES on CKD likely due to flare up of lupus nephritis vs progression of renal disease vs hemodynamic MARQUES ( was taking ARB/NSAID's/HCTZ). Urine output good. Methyl prednisone 500 mg once a day IV X 3 days. Needs better BP control. Low K diet and Lokelma 10 Gram daily PRN. Needs to start PO NaHCO3 650 mg bid. Likely need renal biopsy during this admission .ANCA,C3/C4/DsdNA/urine studies ordered. ARB/Diuretics on hold. Neurology F/U. C/W Mycophenolate. Will benefit from Rheum/Heme input. Shall closely F/U Procedures Date of Service Date of Service: 08/07/25
[2025-08-08] VITALS (7 sets, daily range): BP systolic 101–160; BP diastolic 55–100; PULSE 70–109; RESP 16–20; TEMP 36.3–36.9; O2SAT 96–100
[2025-08-08] MEDS: Lactated Ringers 1,000 ML 125 ML IVCONT ×3 (04:36→21:07)
[2025-08-08 07:23] LABS: Hematocrit 25.4 % (37.0-47.0); Hemoglobin 8.1 g/dl (12.0-16.0); Mean Corpuscular HGB Conc 31.9 g/dl (31.0-35.0); Mean Corpuscular Hemoglobin 28.8 pg (27.0-33.0); Mean Corpuscular Volume 90.4 fL (80.0-98.0); NRBC Abs Auto 0.000 X10*3/uL (0.0-0.012); NRBC Pct Auto 0.0 /100WBC (0.0-0.2); Platelet Count 252 X10*3/uL (160-400); Red Blood Count 2.81 X10*6/uL (4.20-5.50); White Blood Count 7.1 X10*3/uL (4.8-10.8)
[2025-08-08 07:24] LABS: Glucose, Whole Blood 128 mg/dL (60-115)
[2025-08-08 07:45] LABS: Anion Gap 14 (12-20); Blood Urea Nitrogen 44 mg/dL (9-16); Calcium 8.4 mg/dL (8.4-10.2); Carbon Dioxide 17 mmol/L (22-29); Chloride 110 mmol/L (96-108); Creatinine Clr Calc Pharmacy 24.7; Estimated Glomerular Filt Rate 19; Potassium 5.2 mmol/L (3.3-5.1); Sodium 136 mmol/L (135-145)
[2025-08-08] MEDS: NIFEdipine ER 30 MG TAB.ER.24 60 MG PO (09:22)
[2025-08-08] MEDS: methylPREDNISolone Sod Succ 500 MG in 0.9 % Sodium Chloride 50 ML 66 MG IV (09:36)
--- NOTE | 2025-08-08 12:38 | P.PNIM_ITS ---
Subjective Subjective Date of Service: 08/08/25 Interval History: Continues to experience numbness and tingling in extremities Pt reports upper extremities feel newly weak this morning; finds it difficult to lift her breakfast tray Potassium slightly high at 5.2; creatinine improving to 2.72 C3 and C4 low Nerve conduction study abnormal showing moderate to severe neuropathy with features of demyelination and axonal loss Review of Systems Review of Systems: Yes all other systems are reviewed and are negative Physical Exam 2 Exam: Exam: General: AOx3, no acute distress Resp: CTA bilaterally CVS: S1, S2, RRR GI: +BS, NT, no distention Skin: Warm, dry. Rash on back similar to yesterday Neuro: Cranial nerves II-XII grossly intact bilaterally. Motor grossly intact bilaterally. Visual field full. Symmetric bilateral 4/5 strength in upper and lower extremities. Symmetric reduced sensation to light touch in upper and lower extremities bilaterally. Extremities: No edema Psych: Appropriate affect Vital Signs: Vital Signs: Last Vital Signs Temp 97.9 F 08/08/25 12:00 Pulse 96 08/08/25 12:00 Resp 18 08/08/25 12:00 BP 160/100 H 08/08/25 12:00 Pulse Ox 99 08/08/25 12:00 O2 Del Method Room Air 08/08/25 12:00 O2 Flow Rate 96 08/08/25 00:00 BMI result Body Mass Index 28.8 Objective Data Active Medications Acetaminophen (Acetaminophen 325 Mg Tablet) 650 mg PO Q6H PRN PRN Reason: Pain, Mild 1-3,fever,headache Betamethasone Dipropion Augmented (Betamethasone Dip Aug 0.05% Cr 15 Gm Tube) 1 appl TOPICAL BID RONNA; Protocol Last Admin: 08/08/25 09:23 Dose: Not Given Documented By: MAYRA Non-Admin Reason: Patient Refused Calcium Carbonate (Calcium Carbonate 750 Mg Tab.Chew) 750 mg PO Q4H PRN PRN Reason: Heartburn Heparin Sodium (Porcine) (Heparin Sodium,Porcine 5,000 Unit/Ml Vial) 5,000 unit SUBCUT Q12H RONNA On Hold: 08/08/25 09:01 Last Admin: 08/08/25 09:37 Dose: Not Given Documented By: MAYRA Non-Admin Reason: Physician Held Med Hydroxychloroquine Sulfate (Hydroxychloroquine Sulfate 200 Mg Tablet) 400 mg PO DAILY [facility] Last Admin: 12/18/25 09:22 Dose: 400 mg Documented By: MAYRA Lactated Ringer's (Lr) 1,000 mls @ 125 mls/hr IVCONT .Q8H [facility] Last Admin: 08/08/25 12:32 Dose: 125 mls/hr Documented By: MAYRA Methylprednisolone Sodium Succinate 500 mg/ Sodium Chloride 58 mls @ 66 mls/hr IV DAILY [facility] Stop: 08/10/25 09:59 Last Infusion: 08/08/25 10:40 Dose: Infused Documented By: MAYRA Labetalol HCl (Labetalol Hcl 100 Mg/20 Ml Vial) 10 mg IVPUSH Q6H PRN PRN Reason: SBP >170 Magnesium Oxide (Magnesium Oxide 400 Mg Tablet) 400 mg PO DAILY [facility] Last Admin: 08/08/25 09:23 Dose: 400 mg Documented By: MAYRA Melatonin (Melatonin 3 Mg Tablet) 3 mg PO BEDTIME PRN PRN Reason: Insomnia Mycophenolate Mofetil (Mycophenolate Mofetil 250 Mg Capsule) 1,000 mg PO BID [facility] Last Admin: 08/08/25 09:22 Dose: 1,000 mg Documented By: MAYRA Nifedipine (Nifedipine Er 30 Mg Tab.Er.24) 60 mg PO DAILY [facility] Last Admin: 08/08/25 09:22 Dose: 60 mg Documented By: MAYRA Ondansetron HCl (Ondansetron Hcl 4 Mg/2 Ml Vial) 4 mg IVPUSH Q8H PRN PRN Reason: Nausea and Vomiting Sodium Bicarbonate (Sodium Bicarbonate 650 Mg Tablet) 650 mg PO BID [facility] Last Admin: 08/08/25 12:32 Dose: 650 mg Documented By: MAYRA Sodium Chloride (0.9 % Sodium Chloride Flush 3 Ml Syringe) 3 ml IVFLUSH QSHIFT [facility] Last Admin: 08/08/25 09:36 Dose: Not Given Documented By: MAYRA Non-Admin Reason: IV Running Sodium Zirconium Cyclosilicate (Sodium Zirconium Cyclosilicate 10 Gm Powd.Pack) 10 gm PO DAILY PRN PRN Reason: Potassium >5.1 Zinc Acetate/Diphenhydramine (Diphenhydramine Hcl 2 % Cream 28 Gm Tube) 1 appl TOPICAL TID PRN; Protocol PRN Reason: Rash Labs 12/18/25 06:47 08/08/25 06:47 Labs: Laboratory Results - last 24 hr 08/07/25 08/08/25 08/08/25 10:15 06:47 07:19 MCV 90.4 MCH 28.8 MCHC 31.9 RDW 13.3 Plt Count 252 MPV 10.1 Absolute Nucleated RBC 0.000 Nucleated RBC % (auto) 0.0 Anion Gap 14 Estim Creat Clear Calc 24.7 Estimated GFR 19 POC Glucose 128 H Random Glucose 137 H Calcium 8.4 Complement C3 63 L Complement C4 6 L Assessment and Plan (1) Acute kidney injury: Status: Acute (2) Hypertensive urgency: Status: Acute Plan A 45-year-old woman with a history of systemic lupus erythematosus on immunosuppressive therapy (mycophenolate, hydroxychloroquine), stage IIIA chronic kidney disease secondary to lupus nephritis, and hypertension who presents with a two- to three-week history of progressive numbness and tingling in her feet and hands, described as a [id number]-[id number] sensation. 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 with peripheral parasthesia, limb weakness Abnormal 4-limb nerve conduction study, moderate to severe, suggestive of acute demyelinating neuropathy Likely triggered by acute lupus flare IVIG x5 days, 1/5 Neurology following Acute Lupus flare Solu-Medrol 500mg daily 2/3 days per nephrology MARQUES on CKD3 in the setting of acute lupus flare Associated with metabolic acidosis and mild hyperkalemia Renal duplex ultrasound without evidence of renal artery stenosis or abnormal waveforms; renal parenchyma normal Will undergo renal biopsy tomorrow am; NPO after midnight UA negative Nephrology following Will check ANCA, urine creatinine, and double-stranded DNA C3, C4 low IVF, follow creatinine Hypertensive urgency with headache BP as high as 193/104 Likely in the setting of acute lupus flare Increase nifedipine 30 mg ER to 60 mg ER Labetalol 20mg IV is SBP >180 or DBP >120 Tylenol for headache Treat SLE flare as above Closely monitor BP Rash on back, improving Topical corticosteroids and diphenhydramine Code status: Full Code VTE: Heparin SQ Pt requires continued hospitalization for treatment of hypertensive urgency and MARQUES on CKD 3 in the setting of possible acute lupus flare that requires high- dose IV steroids for 3 subsequent days. Pt is also experiencing acute Guillain- [place] syndrome that require IVIG infusions x5 days. Quality Stroke Does the patient have a stroke diagnosis?: No VTE Prior VTE?: No VTE Risk Level:: Medical - moderate - high VTE Device Contraindication: Treatment Not Indicated VTE Drug Contraindication: N/A - Med Ordered
--- NOTE | 2025-08-08 12:41 | P.PNNP_ITS ---
Subjective Subjective Date of Service: 08/08/25 Interval history: Events noted. Still has a numbness in her fingers along with weakness. Seen by Neurology and undergoing work Blood pressure is better controlled Physical Exam 2 Vital Signs: Vital Signs: Last Vital Signs Temp 97.9 F 08/08/25 12:00 Pulse 96 08/08/25 12:00 Resp 18 08/08/25 12:00 BP 160/100 H 08/08/25 12:00 Pulse Ox 99 08/08/25 12:00 O2 Del Method Room Air 08/08/25 12:00 O2 Flow Rate 96 08/08/25 00:00 BMI result Body Mass Index 28.8 Const: General: ill appearing Neck: Neck: Yes supple Resp: Auscultation: clear to auscultation bilaterally Cardio: Palpation: no palpable S3 Heart sounds: no rubs GI: Palpation (GI): Soft to palpation Auscultation: normal bowel sounds Neuro: Motor exam (neuro): no asterixis Objective Data Labs 08/08/25 06:47 08/08/25 06:47 Labs: Laboratory Results - last 24 hr 08/07/25 08/08/25 08/08/25 10:15 06:47 07:19 WBC 7.1 RBC 2.81 L Hgb 8.1 L Hct 25.4 L MCV 90.4 MCH 28.8 MCHC 31.9 RDW 13.3 Plt Count 252 MPV 10.1 Absolute Nucleated RBC 0.000 Nucleated RBC % (auto) 0.0 Sodium 136 Potassium 5.2 H Chloride 110 H Carbon Dioxide 17 L Anion Gap 14 BUN 44 H Creatinine 2.72 H Estim Creat Clear Calc 24.7 Estimated GFR 19 POC Glucose 128 H Random Glucose 137 H Calcium 8.4 Complement C3 63 L Complement C4 6 L Procedures Date of Service Date of Service: 08/08/25 Assessment & Plan Assessment and plan (1) HTN (hypertension): Status: Acute (2) CKD (chronic kidney disease) stage 3, GFR 30-59 ml/min: Status: Acute (3) Acute kidney injury: Status: Acute (4) Lupus: Status: Acute Plan 45-year-old man with longstanding SLE with worsening renal function and difficult to control hypertension along with weakness in her extremities. Currently blood pressure is better controlled. The gradual increase serum creatinine most likely due to natural progression of underlying lupus. There could be a component of MARQUES from hypoperfusion. She has had 2 biopsies in the past. Scheduled for another biopsy Recent urine protein creatinine ratio was 0.8 in March of 2025. Repeat urine protein creatinine ratio ordered. Repeat serology is pending. No indication for dialysis yet. Await neurology workup. Time Spent With Patient Time: Total time managing care of this patient today ____ minutes. Progress Note: Quality Stroke Does the patient have a stroke diagnosis?: No
[2025-08-08] MEDS: Immune Globulin 10% Gammagard 10 GM/100 ML VIAL IV (15:20)
[2025-08-08 17:02] LABS: Total Protein Urine Random 46 mg/dL (<12)
[2025-08-08] MEDS: Immune Globulin 10% Gammagard 20 GM/200 ML VIAL IV (18:34)
[2025-08-09] VITALS (11 sets, daily range): BP systolic 145–176; BP diastolic 72–101; PULSE 74–103; RESP 13–20; TEMP 36.6–36.8; O2SAT 96–100
[2025-08-09 07:28] LABS: Hematocrit 24.0 % (37.0-47.0); Hemoglobin 7.8 g/dl (12.0-16.0); Mean Corpuscular HGB Conc 32.5 g/dl (31.0-35.0); Mean Corpuscular Hemoglobin 28.9 pg (27.0-33.0); Mean Corpuscular Volume 88.9 fL (80.0-98.0); NRBC Abs Auto 0.000 X10*3/uL (0.0-0.012); NRBC Pct Auto 0.0 /100WBC (0.0-0.2); Platelet Count 259 X10*3/uL (160-400); Red Blood Count 2.70 X10*6/uL (4.20-5.50); White Blood Count 9.7 X10*3/uL (4.8-10.8)
[2025-08-09 07:55] LABS: Blood Urea Nitrogen 48 mg/dL (9-16); Calcium 8.4 mg/dL (8.4-10.2); Creatinine Clr Calc Pharmacy 25.3; Estimated Glomerular Filt Rate 20
[2025-08-09] MEDS: 0.9 % Sodium Chloride Flush 3 ML SYRINGE IVFLUSH ×3 (07:59→21:18)
[2025-08-09] MEDS: NIFEdipine ER 30 MG TAB.ER.24 60 MG PO (07:59)
[2025-08-09 08:05] LABS: Anion Gap 13 (12-20); Carbon Dioxide 18 mmol/L (22-29); Chloride 108 mmol/L (96-108); Potassium 4.1 mmol/L (3.3-5.1); Sodium 135 mmol/L (135-145)
--- NOTE | 2025-08-09 10:34 | MHC.CM.PN ---
Per ROUNDS, Patient is not yet medically cleared for dc (Biopsy today & being treated for Guillain-[place]).
[2025-08-09] MEDS: methylPREDNISolone Sod Succ 500 MG in 0.9 % Sodium Chloride 50 ML 50 MG IV (10:40)
--- NOTE | 2025-08-09 16:17 | P.PNNP_ITS ---
Subjective Subjective Date of Service: 08/09/25 Interval history: Continues to experience numbness and tingling in extremities;Pt reports upper extremities feel newly weak this morning; finds it difficult to lift her breakfast tray;Potassium slightly high at 5.2; creatinine improving to 2.72;C3 and C4 low;Nerve conduction study abnormal showing moderate to severe neuropathy with features of demyelination and axonal loss. Had renal biopsy today Physical Exam 2 Vital Signs: Vital Signs: Last Vital Signs Temp 98.3 F 08/09/25 15:24 Pulse 100 08/09/25 15:24 Resp 18 08/09/25 15:24 BP 158/72 H 08/09/25 15:24 Pulse Ox 100 08/09/25 15:24 O2 Del Method Room Air 08/09/25 15:24 O2 Flow Rate 2 08/09/25 09:13 BMI result Body Mass Index 28.8 Const: General: no acute distress Orientation/consciousness: patient oriented x3 Eyes: EOM: EOMs intact bilaterally Neck: Neck: Yes supple Resp: Auscultation: diminished lung sounds Cardio: Rate: regular rate GI: Palpation (GI): Soft to palpation Neuro: General: patient oriented x3 Objective Data Labs 08/09/25 06:45 08/09/25 06:45 Labs: Laboratory Results - last 24 hr 08/08/25 08/09/25 16:37 06:45 WBC 9.7 RBC 2.70 L Hgb 7.8 L Hct 24.0 L MCV 88.9 MCH 28.9 MCHC 32.5 RDW 13.5 Plt Count 259 MPV 9.7 Absolute Nucleated RBC 0.000 Nucleated RBC % (auto) 0.0 Sodium 135 Potassium 4.1 D Chloride 108 Carbon Dioxide 18 L Anion Gap 13 BUN 48 H Creatinine 2.65 H Estim Creat Clear Calc 25.3 Estimated GFR 20 Random Glucose 123 H Calcium 8.4 U Random Total Protein 46 H Urine Creatinine 41.37 Procedures Date of Service Date of Service: 08/09/25 Assessment & Plan Assessment and plan (1) HTN (hypertension): Status: Acute (2) CKD (chronic kidney disease) stage 3, GFR 30-59 ml/min: Status: Acute (3) Acute kidney injury: Status: Acute Plan MARQUES on CKD likely due to flare up of lupus nephritis vs progression of renal disease vs hemodynamic MARQUES ( was taking ARB/NSAID's/HCTZ). Urine output good. Methyl prednisone 500 mg once a day IV given for 3 days. Low K diet and Lokelma 10 Gram daily PRN. PO NaHCO3 650 mg bid. S/P renal biopsy today .ANCA( pending),C3/C4( reviewed)/DsdNA/urine studies reviewed. ARB/Diuretics on hold. Neurology F/U. C/W Mycophenolate. PO prednisone 60 mg daily with 10 mg tapering every week and maintain on 40 mg until renal biopsy report is available. Shall closely F/U Progress Note: Quality Stroke Does the patient have a stroke diagnosis?: No
[2025-08-09] MEDS: Immune Globulin 10% Gammagard 10 GM/100 ML VIAL IV (16:40)
--- NOTE | 2025-08-09 19:01 | PC.NURSE ---
Patient off unit in am to biopsy upon return no pain noted small dressing to right lower back CDI. Pressure remains elevated into 170's Eduar LAWSON notified IV labetolol given per order with good effect repeat systolic in 150's. Pt c/o inability to void upon returning from procedure 1130 bladder scan 352. Provider aware. 1225 pt c/o increased lower extremity weakness and shakiness although plantar/dorsi flexion remains strong. Provider on unit to see patient. 1430 pt continue with inability to void more uncomfortable than previous straight cath for 600 pink tinged urine. Provider aware.
[2025-08-09] MEDS: Immune Globulin 10% Gammagard 20 GM/200 ML VIAL IV (19:46)
--- NOTE | 2025-08-09 20:45 | PC.NURSE ---
Addendum entered by Tanika Aranda RN 08/10/25 02:25: Patient c/o abdominal discomfort, denies urge to void. Pt requested to be bladder scanned. Digital Content Coordinator bladder scanned patient for 511ml. Primary RN made aware. Original Note: straight cath 650mL of tea colored urine
--- NOTE | 2025-08-09 22:14 | HO.PM.IMPN ---
Subjective Subjective Date of Service: 08/09/25 Interval History: Underwent renal biopsy earlier today [place] legs were weaker than before Some minor improvement in parasthesia in extremities Has been retaining urine and needed straight cath x1 Review of Systems Review of Systems: Yes all other systems are reviewed and are negative Physical Exam Exam: Exam: General: AOx3, no acute distress Resp: CTA bilaterally CVS: S1, S2, RRR GI: +BS, NT, no distention Skin: Warm, dry. Rash on back much improved over yesterday Neuro: Cranial nerves II-XII grossly intact bilaterally. Motor grossly intact bilaterally. Symmetric bilateral reduced strength in upper and lower extremities. Sensation to light touch symmetric and preserved in upper and lower extremities bilaterally. Extremities: No edema Psych: Appropriate affect Vital Signs: Vital Signs: Last Vital Signs Temp 98.3 F 08/09/25 19:38 Pulse 100 08/09/25 19:38 Resp 17 08/09/25 19:38 BP 157/78 H 08/09/25 19:38 Pulse Ox 99 08/09/25 19:38 O2 Del Method Room Air 08/09/25 19:38 O2 Flow Rate 2 08/09/25 09:13 BMI result Body Mass Index 28.8 Objective Data Active Medications Acetaminophen (Acetaminophen 325 Mg Tablet) 650 mg PO Q6H PRN PRN Reason: Pain, Mild 1-3,fever,headache Acetaminophen (Acetaminophen 325 Mg Tablet) 650 mg PO DAILY@1430 [facility] Stop: 08/12/25 14:31 Last Admin: 08/09/25 15:52 Dose: 650 mg Documented By: TISH Betamethasone Dipropion Augmented (Betamethasone Dip Aug 0.05% Cr 15 Gm Tube) 1 appl TOPICAL BID [facility]; Protocol Last Admin: 08/09/25 22:04 Dose: Not Given Documented By: MARY Non-Admin Reason: Patient Refused Calcium Carbonate (Calcium Carbonate 750 Mg Tab.Chew) 750 mg PO Q4H PRN PRN Reason: Heartburn Diphenhydramine HCl (Diphenhydramine Hcl 50 Mg/Ml Vial) 25 mg IVPUSH DAILY@1430 [facility] Stop: 08/12/25 14:31 Last Admin: 08/09/25 15:57 Dose: 25 mg Documented By: TISH Docusate Sodium (Docusate Sodium 100 Mg Capsule) 100 mg PO BID PRN PRN Reason: Constipation Last Admin: 08/09/25 21:20 Dose: 100 mg Documented By: MARY Heparin Sodium (Porcine) (Heparin Sodium,Porcine 5,000 Unit/Ml Vial) 5,000 unit SUBCUT Q12H [facility] On Hold: 08/08/25 09:01 Last Admin: 08/08/25 09:37 Dose: Not Given Documented By: MAYRA Non-Admin Reason: Physician Held Med Hydroxychloroquine Sulfate (Hydroxychloroquine Sulfate 200 Mg Tablet) 400 mg PO DAILY [facility] Last Admin: 08/09/25 10:40 Dose: 400 mg Documented By: TISH Immune Globulin (Gammagard 10%) 10 gm in 100 mls @ 37.5 mls/hr IV Q24H [facility] Stop: 08/12/25 17:39 Last Infusion: 08/09/25 19:35 Dose: Infused Documented By: MARY Immune Globulin (Gammagard 10%) 20 gm in 200 mls @ 37.5 mls/hr IV Q24H [facility] Stop: 08/12/25 23:19 Last Admin: 08/09/25 19:46 Dose: 37.5 mls/hr Documented By: MARY Methylprednisolone Sodium Succinate 500 mg/ Sodium Chloride 50 mls @ 50 mls/hr IV DAILY [facility] Stop: 08/10/25 09:59 Last Infusion: 08/09/25 11:50 Dose: Infused Documented By: TISH Labetalol HCl (Labetalol Hcl 100 Mg/20 Ml Vial) 10 mg IVPUSH Q6H PRN PRN Reason: SBP >170 Last Admin: 08/09/25 11:45 Dose: 10 mg Documented By: TISH Magnesium Oxide (Magnesium Oxide 400 Mg Tablet) 400 mg PO DAILY [facility] Last Admin: 08/09/25 10:39 Dose: 400 mg Documented By: TISH Melatonin (Melatonin 3 Mg Tablet) 3 mg PO BEDTIME PRN PRN Reason: Insomnia Methylprednisolone Sodium Succinate (Methylprednisolone Sod Succ 40 Mg/Ml Vial) 40 mg IVPUSH DAILY@1430 [facility] Stop: 08/12/25 14:31 Last Admin: 08/09/25 15:54 Dose: 40 mg Documented By: TISH Mycophenolate Mofetil (Mycophenolate Mofetil 250 Mg Capsule) 1,000 mg PO BID [facility] Last Admin: 08/09/25 21:17 Dose: 1,000 mg Documented By: MARY Nifedipine (Nifedipine Er 30 Mg Tab.Er.24) 60 mg PO DAILY [facility] Last Admin: 08/09/25 07:59 Dose: 60 mg Documented By: TISH Ondansetron HCl (Ondansetron Hcl 4 Mg/2 Ml Vial) 4 mg IVPUSH Q8H PRN PRN Reason: Nausea and Vomiting Sodium Bicarbonate (Sodium Bicarbonate 650 Mg Tablet) 650 mg PO BID [facility] Last Admin: 08/09/25 21:17 Dose: 650 mg Documented By: MARY Sodium Chloride (0.9 % Sodium Chloride Flush 3 Ml Syringe) 3 ml IVFLUSH QSHIFT [facility] Last Admin: 08/09/25 21:18 Dose: 3 ml Documented By: MARY Sodium Zirconium Cyclosilicate (Sodium Zirconium Cyclosilicate 10 Gm Powd.Pack) 10 gm PO DAILY PRN PRN Reason: Potassium >5.1 Zinc Acetate/Diphenhydramine (Diphenhydramine Hcl 2 % Cream 28 Gm Tube) 1 appl TOPICAL TID PRN; Protocol PRN Reason: Rash Labs 08/09/25 06:45 08/09/25 06:45 Labs: Laboratory Results - last 24 hr 08/09/25 06:45 MCV 88.9 MCH 28.9 MCHC 32.5 RDW 13.5 Plt Count 259 MPV 9.7 Absolute Nucleated RBC 0.000 Nucleated RBC % (auto) 0.0 Anion Gap 13 Estim Creat Clear Calc 25.3 Estimated GFR 20 Random Glucose 123 H Calcium 8.4 Assessment and Plan (1) Acute kidney injury: Status: Acute (2) Hypertensive urgency: Status: Acute Plan A 45-year-old woman with a history of systemic lupus erythematosus on immunosuppressive therapy (mycophenolate, hydroxychloroquine), 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, limb weakness Abnormal 4-limb nerve conduction study, moderate to severe, suggestive of acute demyelinating neuropathy Likely triggered by acute lupus flare IVIG x5 days, 2/5 Neurology following Acute Lupus flare Solu-Medrol 500mg daily 3/3 days per nephrology MARQUES on CKD3 in the setting of acute lupus flare Associated with metabolic acidosis and mild hyperkalemia Creatinine improving, now 2.65 Renal duplex ultrasound without evidence of renal artery stenosis or abnormal waveforms; renal parenchyma normal Underwent renal biopsy on 08/09 UA negative Nephrology following Will check ANCA, urine creatinine, and double-stranded DNA C3, C4 low Follow creatinine Hypertensive urgency with headache BP as high as 193/104 Likely in the setting of acute lupus flare Nifedipine increased from 30 mg ER to 60 mg ER Labetalol 20mg IV is SBP >180 or DBP >120 Tylenol for headache Treat SLE flare as above Closely monitor BP Rash on back, improving Topical corticosteroids and diphenhydramine Code status: Full Code VTE: Heparin SQ Pt requires continued hospitalization for treatment of hypertensive urgency and MARQUES on CKD 3 in the setting of possible acute lupus flare that requires high-dose IV steroids for 3 subsequent days. Pt is also experiencing acute Guillain-Wedron syndrome that require IVIG infusions x5 days. Quality Stroke Does the patient have a stroke diagnosis?: No VTE Prior VTE?: No VTE Risk Level:: Medical - moderate - high VTE Device Contraindication: Treatment Not Indicated VTE Drug Contraindication: N/A - Med Ordered
[2025-08-10] VITALS (7 sets, daily range): BP systolic 139–168; BP diastolic 59–98; PULSE 90–108; RESP 16–20; TEMP 36.4–37.3; O2SAT 96–100
[2025-08-10 08:21] LABS: Anion Gap 13 (12-20); Blood Urea Nitrogen 52 mg/dL (9-16); Calcium 8.0 mg/dL (8.4-10.2); Carbon Dioxide 19 mmol/L (22-29); Chloride 110 mmol/L (96-108); Creatinine Clr Calc Pharmacy 25.8; Estimated Glomerular Filt Rate 20; Potassium 3.7 mmol/L (3.3-5.1); Sodium 138 mmol/L (135-145)
[2025-08-10 09:18] LABS: Hematocrit 23.8 % (37.0-47.0); Hemoglobin 7.9 g/dl (12.0-16.0); Mean Corpuscular HGB Conc 33.2 g/dl (31.0-35.0); Mean Corpuscular Hemoglobin 29.3 pg (27.0-33.0); Mean Corpuscular Volume 88.1 fL (80.0-98.0); NRBC Abs Auto 0.000 X10*3/uL (0.0-0.012); NRBC Pct Auto 0.0 /100WBC (0.0-0.2); Platelet Count 282 X10*3/uL (160-400); Red Blood Count 2.70 X10*6/uL (4.20-5.50); White Blood Count 10.9 X10*3/uL (4.8-10.8)
[2025-08-10] MEDS: NIFEdipine ER 30 MG TAB.ER.24 60 MG PO (09:35)
[2025-08-10] MEDS: methylPREDNISolone Sod Succ 500 MG in 0.9 % Sodium Chloride 50 ML 50 MG IV (09:36)
[2025-08-10] MEDS: 0.9 % Sodium Chloride Flush 3 ML SYRINGE IVFLUSH ×3 (09:45→20:48)
--- NOTE | 2025-08-10 13:22 | P.PNIM_ITS ---
Subjective Subjective Date of Service: 08/10/25 Interval History: Pt had a ?tough? night [place] crampy, was unable to urinate Parham catheter placed after failing straight cath x2 Some improvement in both strength and paresthesia of extremities Review of Systems Review of Systems: Yes all other systems are reviewed and are negative Physical Exam 2 Exam: Exam: General: AOx3, no acute distress Resp: CTA bilaterally CVS: S1, S2, RRR GI: +BS, NT, no distention Skin: Warm, dry. Rash on back much improved since admission Neuro: Cranial nerves II-XII grossly intact bilaterally. Motor grossly intact bilaterally. Symmetric bilateral reduced strength in upper and lower extremities. Sensation to light touch symmetric and preserved in upper and lower extremities bilaterally. Extremities: No edema Psych: Appropriate affect Vital Signs: Vital Signs: Last Vital Signs Temp 97.7 F 08/10/25 04:01 Pulse 108 H 08/10/25 11:06 Resp 18 08/10/25 11:06 BP 168/70 H 08/10/25 11:06 Pulse Ox 99 08/10/25 11:06 O2 Del Method Room Air 08/10/25 11:06 O2 Flow Rate 2 08/09/25 09:13 BMI result Body Mass Index 28.8 Objective Data Active Medications Acetaminophen (Acetaminophen 325 Mg Tablet) 650 mg PO Q6H PRN PRN Reason: Pain, Mild 1-3,fever,headache Acetaminophen (Acetaminophen 325 Mg Tablet) 650 mg PO DAILY@1430 [facility] Stop: 08/12/25 14:31 Last Admin: 08/09/25 15:52 Dose: 650 mg Documented By: TISH Betamethasone Dipropion Augmented (Betamethasone Dip Aug 0.05% Cr 15 Gm Tube) 1 appl TOPICAL BID [facility]; Protocol Last Admin: 08/10/25 09:36 Dose: Not Given Documented By: MAYRA Non-Admin Reason: Patient Refused Calcium Carbonate (Calcium Carbonate 750 Mg Tab.Chew) 750 mg PO Q4H PRN PRN Reason: Heartburn Diphenhydramine HCl (Diphenhydramine Hcl 50 Mg/Ml Vial) 25 mg IVPUSH DAILY@1430 [facility] Stop: 08/12/25 14:31 Last Admin: 08/09/25 15:57 Dose: 25 mg Documented By: TISH Docusate Sodium (Docusate Sodium 100 Mg Capsule) 100 mg PO BID PRN PRN Reason: Constipation Last Admin: 08/09/25 21:20 Dose: 100 mg Documented By: MARY Heparin Sodium (Porcine) (Heparin Sodium,Porcine 5,000 Unit/Ml Vial) 5,000 unit SUBCUT Q12H [facility] On Hold: 08/08/25 09:01 Last Admin: 08/08/25 09:37 Dose: Not Given Documented By: MAYRA Non-Admin Reason: Physician Held Med Hydroxychloroquine Sulfate (Hydroxychloroquine Sulfate 200 Mg Tablet) 400 mg PO DAILY [facility] Last Admin: 08/10/25 09:35 Dose: 400 mg Documented By: MAYRA Immune Globulin (Gammagard 10%) 10 gm in 100 mls @ 37.5 mls/hr IV Q24H [facility] Stop: 08/12/25 17:39 Last Infusion: 08/09/25 19:35 Dose: Infused Documented By: MARY Immune Globulin (Gammagard 10%) 20 gm in 200 mls @ 37.5 mls/hr IV Q24H [facility] Stop: 08/12/25 23:19 Last Infusion: 08/10/25 02:15 Dose: Infused Documented By: MARY Labetalol HCl (Labetalol Hcl 100 Mg/20 Ml Vial) 10 mg IVPUSH Q6H PRN PRN Reason: SBP >170 Last Admin: 08/09/25 11:45 Dose: 10 mg Documented By: TISH Magnesium Oxide (Magnesium Oxide 400 Mg Tablet) 400 mg PO DAILY [facility] Last Admin: 08/10/25 09:36 Dose: 400 mg Documented By: MAYRA Melatonin (Melatonin 3 Mg Tablet) 3 mg PO BEDTIME PRN PRN Reason: Insomnia Methylprednisolone Sodium Succinate (Methylprednisolone Sod Succ 40 Mg/Ml Vial) 40 mg IVPUSH DAILY@1430 [facility] Stop: 08/12/25 14:31 Last Admin: 08/09/25 15:54 Dose: 40 mg Documented By: TISH Mycophenolate Mofetil (Mycophenolate Mofetil 250 Mg Capsule) 1,000 mg PO BID [facility] Last Admin: 08/10/25 09:33 Dose: 1,000 mg Documented By: MAYRA Nifedipine (Nifedipine Er 30 Mg Tab.Er.24) 60 mg PO DAILY [facility] Last Admin: 08/10/25 09:35 Dose: 60 mg Documented By: MAYRA Ondansetron HCl (Ondansetron Hcl 4 Mg/2 Ml Vial) 4 mg IVPUSH Q8H PRN PRN Reason: Nausea and Vomiting Polyethylene Glycol (Polyethylene Glycol 3350 17 Gm Powd.Pack) 17 gm PO DAILY [facility] Last Admin: 08/10/25 09:36 Dose: 17 gm Documented By: MAYRA Senna/Docusate Sodium (Sennosides/Docusate Sodium Tablet) 2 tab PO DAILY [facility] Last Admin: 08/10/25 09:34 Dose: 2 tab Documented By: MAYRA Sodium Bicarbonate (Sodium Bicarbonate 650 Mg Tablet) 650 mg PO BID [facility] Last Admin: 08/10/25 09:34 Dose: 650 mg Documented By: MAYRA Sodium Chloride (0.9 % Sodium Chloride Flush 3 Ml Syringe) 3 ml IVFLUSH QSHIFT [facility] Last Admin: 08/10/25 09:45 Dose: 3 ml Documented By: MAYRA Sodium Zirconium Cyclosilicate (Sodium Zirconium Cyclosilicate 10 Gm Powd.Pack) 10 gm PO DAILY PRN PRN Reason: Potassium >5.1 Zinc Acetate/Diphenhydramine (Diphenhydramine Hcl 2 % Cream 28 Gm Tube) 1 appl TOPICAL TID PRN; Protocol PRN Reason: Rash Labs 08/10/25 08:31 08/10/25 07:30 Labs: Laboratory Results - last 24 hr 08/10/25 08/10/25 07:30 08:31 MCV 88.1 MCH 29.3 MCHC 33.2 RDW 13.2 Plt Count 282 MPV 9.7 Absolute Nucleated RBC 0.000 Nucleated RBC % (auto) 0.0 Anion Gap 13 Estim Creat Clear Calc 25.8 Estimated GFR 20 Random Glucose 93 Calcium 8.0 L Assessment and Plan (1) Acute kidney injury: Status: Acute (2) Hypertensive urgency: Status: Acute Plan A 45-year-old woman with a history of systemic lupus erythematosus on immunosuppressive therapy (mycophenolate, hydroxychloroquine), 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 Admitted the hospital for MARQUES on CKD in the setting of likely acute Lupus flare Acute Guillain-[place] syndrome Pt with peripheral parasthesia, limb weakness Abnormal 4-limb nerve conduction study, moderate to severe, suggestive of acute demyelinating neuropathy Likely triggered by acute lupus flare IVIG x5 days, 10/24 Neurology following Acute Lupus flare Solu-Medrol 500mg daily x3 days per nephrology, last dose on 08/09 Will start on prednisone 60 mg p.o. daily x7 days with 10 mg tapering every week to maintain 40 mg daily until renal biopsy results available Will need to follow up with Nephrology outpatient MARQUES on CKD3 in the setting of acute lupus flare Associated with metabolic acidosis and mild hyperkalemia Creatinine improving, now 2.65 Renal duplex ultrasound without evidence of renal artery stenosis or abnormal waveforms; renal parenchyma normal Underwent renal biopsy on 08/09 UA negative Nephrology following Will check ANCA, urine creatinine, and double-stranded DNA C3, C4 low Follow creatinine Acute urinary retention Pt unable to urinate despite straight cath x2 Parham placed on night of 08/09 Likely secondary to acute Guillain-Newkirk syndrome Remove Parham an attempt voiding trial once symptoms improve Acute on chronic anemia H&H stable today at 7.9/23.8 Likely secondary to acute lupus flare Continue to monitor CBC Hypertensive urgency with headache BP as high as 193/104 Likely in the setting of acute lupus flare Nifedipine increased from 30 mg ER to 60 mg ER Labetalol 20mg IV is SBP >180 or DBP >120 Tylenol for headache Treat SLE flare as above Closely monitor BP Constipation Pt reports no BM the x4-5 days Lactulose and colace prn Rash on back, improving Topical corticosteroids and diphenhydramine Code status: Full Code VTE: Heparin SQ Pt requires continued hospitalization for treatment of acute Guillain-Newkirk syndrome that requires IVIG infusions x5 days. Pt is currently in day 3/5. Quality Stroke Does the patient have a stroke diagnosis?: No VTE Prior VTE?: No VTE Risk Level:: Medical - moderate - high VTE Device Contraindication: Treatment Not Indicated VTE Drug Contraindication: N/A - Med Ordered
[2025-08-10] MEDS: Immune Globulin 10% Gammagard 10 GM/100 ML VIAL IV (15:28)
[2025-08-10] MEDS: Immune Globulin 10% Gammagard 20 GM/200 ML VIAL IV (18:11)
[2025-08-11] VITALS (7 sets, daily range): BP systolic 135–175; BP diastolic 77–99; PULSE 98–114; RESP 15–20; TEMP 36.6–37.2; O2SAT 96–100
[2025-08-11 07:08] LABS: Hematocrit 22.9 % (37.0-47.0); Hemoglobin 7.6 g/dl (12.0-16.0); Mean Corpuscular HGB Conc 33.2 g/dl (31.0-35.0); Mean Corpuscular Hemoglobin 29.1 pg (27.0-33.0); Mean Corpuscular Volume 87.7 fL (80.0-98.0); NRBC Abs Auto 0.000 X10*3/uL (0.0-0.012); NRBC Pct Auto 0.0 /100WBC (0.0-0.2); Platelet Count 278 X10*3/uL (160-400); Red Blood Count 2.61 X10*6/uL (4.20-5.50); White Blood Count 8.9 X10*3/uL (4.8-10.8)
[2025-08-11 07:29] LABS: Anion Gap 12 (12-20); Blood Urea Nitrogen 64 mg/dL (9-16); Calcium 8.0 mg/dL (8.4-10.2); Carbon Dioxide 20 mmol/L (22-29); Chloride 108 mmol/L (96-108); Creatinine Clr Calc Pharmacy 24.1; Estimated Glomerular Filt Rate 19; Potassium 4.2 mmol/L (3.3-5.1); Sodium 136 mmol/L (135-145)
[2025-08-11] MEDS: 0.9 % Sodium Chloride Flush 3 ML SYRINGE IVFLUSH ×3 (08:21→21:49)
[2025-08-11] MEDS: NIFEdipine ER 30 MG TAB.ER.24 60 MG PO (09:51)
--- NOTE | 2025-08-11 12:15 | HO.PM.IMPN ---
Subjective Subjective Date of Service: 08/11/25 Interval History: Peripheral neuropathy and upper and lower extremity strength continue to improve Par[place] catheter continues to be in place Feels a little jittery, likely from steroids Did have bowel movement last night; no need for enema Some mild back and neck pain, likely from hospital bed Review of Systems Review of Systems: Yes all other systems are reviewed and are negative Physical Exam Exam: Exam: General: AOx3, no acute distress Resp: CTA bilaterally CVS: S1, S2, RRR GI: +BS, NT, no distention Skin: Warm, dry. Rash on back much improved since admission Neuro: Cranial nerves II-XII grossly intact bilaterally. Motor grossly intact bilaterally. Symmetric bilateral reduced strength in upper and lower extremities, though improved from prior. Sensation to light touch symmetric and preserved in upper and lower extremities bilaterally. Slight upper extremity tremors Extremities: No edema Psych: Appropriate affect Vital Signs: Vital Signs: Last Vital Signs Temp 98.4 F 08/11/25 07:37 Pulse 98 08/11/25 09:47 Resp 15 08/11/25 09:47 BP 161/94 H 08/11/25 09:47 Pulse Ox 100 08/11/25 07:37 O2 Del Method Room Air 08/11/25 07:37 O2 Flow Rate 2 08/09/25 09:13 BMI result Body Mass Index 28.8 Objective Data Active Medications Acetaminophen (Acetaminophen 325 Mg Tablet) 650 mg PO Q6H PRN PRN Reason: Pain, Mild 1-3,fever,headache Acetaminophen (Acetaminophen 325 Mg Tablet) 650 mg PO DAILY@1430 [facility] Stop: 08/12/25 14:31 Last Admin: 08/10/25 14:16 Dose: 650 mg Documented By: MAYRA Betamethasone Dipropion Augmented (Betamethasone Dip Aug 0.05% Cr 15 Gm Tube) 1 appl TOPICAL BID [facility]; Protocol Last Admin: 08/11/25 09:47 Dose: Not Given Documented By: JENNIFER Non-Admin Reason: Patient Refused Calcium Carbonate (Calcium Carbonate 750 Mg Tab.Chew) 750 mg PO Q4H PRN PRN Reason: Heartburn Diphenhydramine HCl (Diphenhydramine Hcl 50 Mg/Ml Vial) 25 mg IVPUSH DAILY@1430 [facility] Stop: 08/12/25 14:31 Last Admin: 08/10/25 14:16 Dose: 25 mg Documented By: MAYRA Docusate Sodium (Docusate Sodium 100 Mg Capsule) 100 mg PO BID PRN PRN Reason: Constipation Last Admin: 08/09/25 21:20 Dose: 100 mg Documented By: MARY Heparin Sodium (Porcine) (Heparin Sodium,Porcine 5,000 Unit/Ml Vial) 5,000 unit SUBCUT Q12H [facility] On Hold: 08/08/25 09:01 Last Admin: 08/08/25 09:37 Dose: Not Given Documented By: MAYRA Non-Admin Reason: Physician Held Med Hydroxychloroquine Sulfate (Hydroxychloroquine Sulfate 200 Mg Tablet) 400 mg PO DAILY [facility] Last Admin: 08/11/25 09:53 Dose: 400 mg Documented By: JENNIFER Immune Globulin (Gammagard 10%) 10 gm in 100 mls @ 37.5 mls/hr IV Q24H [facility] Stop: 08/12/25 17:39 Last Infusion: 08/10/25 18:15 Dose: Infused Documented By: MAYRA Immune Globulin (Gammagard 10%) 20 gm in 200 mls @ 37.5 mls/hr IV Q24H [facility] Stop: 08/12/25 23:19 Last Infusion: 08/10/25 23:39 Dose: Infused Documented By: MARY Labetalol HCl (Labetalol Hcl 100 Mg/20 Ml Vial) 10 mg IVPUSH Q6H PRN PRN Reason: SBP >170 Last Admin: 08/11/25 08:20 Dose: 10 mg Documented By: JENNIFER Magnesium Oxide (Magnesium Oxide 400 Mg Tablet) 400 mg PO DAILY [facility] Last Admin: 08/11/25 09:50 Dose: 400 mg Documented By: JENNIFER Melatonin (Melatonin 3 Mg Tablet) 3 mg PO BEDTIME PRN PRN Reason: Insomnia Methylprednisolone Sodium Succinate (Methylprednisolone Sod Succ 40 Mg/Ml Vial) 40 mg IVPUSH DAILY@1430 [facility] Stop: 08/12/25 14:31 Last Admin: 08/10/25 14:16 Dose: 40 mg Documented By: MAYRA Mycophenolate Mofetil (Mycophenolate Mofetil 250 Mg Capsule) 1,000 mg PO BID [facility] Last Admin: 08/11/25 09:48 Dose: 1,000 mg Documented By: JENNIFER Nifedipine (Nifedipine Er 30 Mg Tab.Er.24) 60 mg PO DAILY [facility] Last Admin: 08/11/25 09:51 Dose: 60 mg Documented By: JENNIFER Ondansetron HCl (Ondansetron Hcl 4 Mg/2 Ml Vial) 4 mg IVPUSH Q8H PRN PRN Reason: Nausea and Vomiting Polyethylene Glycol (Polyethylene Glycol 3350 17 Gm Powd.Pack) 17 gm PO DAILY [facility] Last Admin: 08/11/25 10:00 Dose: Not Given Documented By: JENNIFER Non-Admin Reason: Patient Refused Prednisone (Prednisone 20 Mg Tablet) 60 mg PO DAILY [facility] Stop: 08/17/25 13:34 Last Admin: 08/11/25 09:28 Dose: Not Given Documented By: JENNIFER Non-Admin Reason: provider order Senna/Docusate Sodium (Sennosides/Docusate Sodium Tablet) 2 tab PO DAILY [facility] Last Admin: 08/11/25 09:51 Dose: 2 tab Documented By: JENNIFER Sodium Bicarbonate (Sodium Bicarbonate 650 Mg Tablet) 650 mg PO BID [facility] Last Admin: 08/11/25 09:50 Dose: 650 mg Documented By: JENNIFER Sodium Biphosphate/Sodium Phosphate (Sodium Phosphate,[place]-Dibasic 133 Ml Enema) 133 ml MS ONCE PRN PRN Reason: Constipation Sodium Chloride (0.9 % Sodium Chloride Flush 3 Ml Syringe) 3 ml IVFLUSH QSHIFT [facility] Last Admin: 08/11/25 08:21 Dose: 3 ml Documented By: JENNIFER Sodium Zirconium Cyclosilicate (Sodium Zirconium Cyclosilicate 10 Gm Powd.Pack) 10 gm PO DAILY PRN PRN Reason: Potassium >5.1 Zinc Acetate/Diphenhydramine (Diphenhydramine Hcl 2 % Cream 28 Gm Tube) 1 appl TOPICAL TID PRN; Protocol PRN Reason: Rash Labs 08/11/25 06:19 08/11/25 06:19 Labs: Laboratory Results - last 24 hr 08/07/25 08/11/25 04:10 06:19 MCV 87.7 MCH 29.1 MCHC 33.2 RDW 13.0 Plt Count 278 MPV 9.9 Absolute Nucleated RBC 0.000 Nucleated RBC % (auto) 0.0 Anion Gap 12 Estim Creat Clear Calc 24.1 Estimated GFR 19 Random Glucose 155 H Calcium 8.0 L Methylmalonic Acid 448 H Assessment and Plan (1) Acute kidney injury: Status: Acute (2) Hypertensive urgency: Status: Acute Plan A 45-year-old woman with a history of systemic lupus erythematosus on immunosuppressive therapy (mycophenolate, hydroxychloroquine), 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 Admitted the hospital for MARQUES on CKD in the setting of likely acute Lupus flare Acute Guillain-[place] syndrome Pt with peripheral parasthesia, limb weakness Abnormal 4-limb nerve conduction study, moderate to severe, suggestive of acute demyelinating neuropathy Likely triggered by acute lupus flare IVIG x5 days, 4/5 Pre-meds: Solu-Medrol, Benadryl, and Tylenol Neurology following Acute Lupus flare Solu-Medrol 500mg daily x3 days per nephrology, last dose on 08/09 After finishing Solu-Medrol pre-meds, will start on 08/13 on prednisone 60 mg p.o. daily x7 days with 10 mg tapering every week to maintain 40 mg daily until renal biopsy results available Will need to follow up with Nephrology outpatient MARQUES on CKD3 in the setting of acute lupus flare Associated with metabolic acidosis and mild hyperkalemia Creatinine improved but now plateaued at 2.79 Renal duplex ultrasound without evidence of renal artery stenosis or abnormal waveforms; renal parenchyma normal Underwent renal biopsy on 08/09 UA negative Nephrology following Will check ANCA, urine creatinine, and double-stranded DNA C3, C4 low Follow creatinine Acute urinary retention Pt unable to urinate despite straight cath x2 Parham placed on night of 08/09 Likely secondary to acute Guillain-[place] syndrome Remove Parham an attempt voiding trial once symptoms improve Acute on chronic anemia H&H stable today at 7.9/23.8 Likely secondary to acute lupus flare Continue to monitor CBC Hypertensive urgency with headache BP as high as 193/104 Likely in the setting of acute lupus flare Nifedipine increased from 30 mg ER to 60 mg ER Labetalol 20mg IV is SBP >180 or DBP >120 Tylenol for headache Treat SLE flare as above Closely monitor BP Constipation Pt with BM on night of 08/10 Lactulose and colace prn Rash on back, improving Topical corticosteroids and diphenhydramine Code status: Full Code VTE: Heparin SQ Pt requires continued hospitalization for treatment of acute Guillain-[place] syndrome that requires IVIG infusions x5 days. Pt is currently on day 4. Given slow rate of infusion, pt will need continued hospitalization until at least 08/13. Quality Stroke Does the patient have a stroke diagnosis?: No VTE Prior VTE?: No VTE Risk Level:: Medical - moderate - high VTE Device Contraindication: Treatment Not Indicated VTE Drug Contraindication: N/A - Med Ordered
[2025-08-11] MEDS: Immune Globulin 10% Gammagard 10 GM/100 ML VIAL IV (16:25)
[2025-08-11] MEDS: Immune Globulin 10% Gammagard 20 GM/200 ML VIAL IV (18:49)
[2025-08-12 04:19] VITALS: BP 169/97; PULSE 104; RESP 19; TEMP 37.1; O2SAT 100
--- NOTE | 2025-08-12 05:12 | PC.NURSE ---
patient called endorsing sharp pain/pressure over region of bladder. bladder scan for 300mL. catheter aspirated, small dark red clots observed to be gathering in tube and occluding flow of urine. small amount of saline flushed into catheter tube, tube made patent, then clots aspirated out. approx 250 mL aspirated out with several small clots, additional 120 mL emptied from bag and charted in I&O. pt immediately expressed great relief and appreciation. red tinged/turbid urine now observable in tubing, appears dark red in bag. call rosa in reach
[2025-08-12 07:00] VITALS: BP 155/93; PULSE 92; RESP 18; TEMP 37.2; O2SAT 100
[2025-08-12 07:15] LABS: Hematocrit 23.8 % (37.0-47.0); Hemoglobin 7.8 g/dl (12.0-16.0); Mean Corpuscular HGB Conc 32.8 g/dl (31.0-35.0); Mean Corpuscular Hemoglobin 29.3 pg (27.0-33.0); Mean Corpuscular Volume 89.5 fL (80.0-98.0); NRBC Abs Auto 0.000 X10*3/uL (0.0-0.012); NRBC Pct Auto 0.0 /100WBC (0.0-0.2); Platelet Count 243 X10*3/uL (160-400); Red Blood Count 2.66 X10*6/uL (4.20-5.50); White Blood Count 7.6 X10*3/uL (4.8-10.8)
--- NOTE | 2025-08-12 07:23 | P.PNIM_ITS ---
Subjective Subjective Date of Service: 08/12/25 Interval History: Hematuria + as evident in Briggs(apparently had blocked briggs) will receive ivig today op voiding trials Will need to be on prolonged steroid taper Review of Systems Review of Systems: Yes all other systems are reviewed and are negative Physical Exam 2 Exam: Exam: General: AOx3, no acute distress Resp: CTA bilaterally CVS: S1, S2, RRR GI: +BS, NT, no distention Neuro: Cranial nerves II-XII grossly intact bilaterally. Motor grossly intact bilaterally. Visual field full. Symmetric bilateral 4/5 strength in upper and lower extremities. Symmetric reduced sensation to light touch in upper and lower extremities bilaterally. Psych: Appropriate affect Vital Signs: Vital Signs: Last Vital Signs Temp 98.9 F 08/12/25 07:00 Pulse 92 08/12/25 07:00 Resp 18 08/12/25 07:00 BP 155/93 H 08/12/25 07:00 Pulse Ox 100 08/12/25 07:00 O2 Del Method Room Air 08/12/25 07:00 O2 Flow Rate 2 08/09/25 09:13 BMI result Body Mass Index 28.8 Objective Data Active Medications Acetaminophen (Acetaminophen 325 Mg Tablet) 650 mg PO Q6H PRN PRN Reason: Pain, Mild 1-3,fever,headache Last Admin: 08/12/25 04:51 Dose: 650 mg Documented By: ELIZABETH Comments: requests this med Acetaminophen (Acetaminophen 325 Mg Tablet) 650 mg PO DAILY@1430 [facility] Stop: 08/12/25 14:31 Last Admin: 08/11/25 15:01 Dose: 650 mg Documented By: JENNIFER Betamethasone Dipropion Augmented (Betamethasone Dip Aug 0.05% Cr 15 Gm Tube) 1 appl TOPICAL BID [facility]; Protocol Last Admin: 08/11/25 18:50 Dose: Not Given Documented By: JENNIFER Non-Admin Reason: Patient Refused Calcium Carbonate (Calcium Carbonate 750 Mg Tab.Chew) 750 mg PO Q4H PRN PRN Reason: Heartburn Diphenhydramine HCl (Diphenhydramine Hcl 50 Mg/Ml Vial) 25 mg IVPUSH DAILY@1430 [facility] Stop: 08/12/25 14:31 Last Admin: 08/11/25 15:53 Dose: 25 mg Documented By: JENNIFER Docusate Sodium (Docusate Sodium 100 Mg Capsule) 100 mg PO BID PRN PRN Reason: Constipation Last Admin: 08/09/25 21:20 Dose: 100 mg Documented By: MARY Heparin Sodium (Porcine) (Heparin Sodium,Porcine 5,000 Unit/Ml Vial) 5,000 unit SUBCUT Q12H [facility] On Hold: 08/08/25 09:01 Last Admin: 08/08/25 09:37 Dose: Not Given Documented By: MAYRA Non-Admin Reason: Physician Held Med Hydroxychloroquine Sulfate (Hydroxychloroquine Sulfate 200 Mg Tablet) 400 mg PO DAILY [facility] Last Admin: 08/11/25 09:53 Dose: 400 mg Documented By: JENNIFER Immune Globulin (Gammagard 10%) 10 gm in 100 mls @ 37.5 mls/hr IV Q24H [facility] Stop: 08/12/25 17:39 Last Infusion: 08/11/25 18:05 Dose: Infused Documented By: JENNIFER Immune Globulin (Gammagard 10%) 20 gm in 200 mls @ 37.5 mls/hr IV Q24H [facility] Stop: 08/12/25 23:19 Last Infusion: 08/12/25 00:20 Dose: Infused Documented By: ELIZABETH Labetalol HCl (Labetalol Hcl 100 Mg/20 Ml Vial) 10 mg IVPUSH Q6H PRN PRN Reason: SBP >170 Last Admin: 08/11/25 08:20 Dose: 10 mg Documented By: JENNIFER Magnesium Oxide (Magnesium Oxide 400 Mg Tablet) 400 mg PO DAILY [facility] Last Admin: 08/11/25 09:50 Dose: 400 mg Documented By: JENNIFER Melatonin (Melatonin 3 Mg Tablet) 3 mg PO BEDTIME PRN PRN Reason: Insomnia Last Admin: 08/11/25 21:47 Dose: 3 mg Documented By: ELIZABETH Methylprednisolone Sodium Succinate (Methylprednisolone Sod Succ 40 Mg/Ml Vial) 40 mg IVPUSH DAILY@1430 [facility] Stop: 08/12/25 14:31 Last Admin: 08/11/25 15:54 Dose: 40 mg Documented By: JENNIFER Mycophenolate Mofetil (Mycophenolate Mofetil 250 Mg Capsule) 1,000 mg PO BID [facility] Last Admin: 08/11/25 21:47 Dose: 1,000 mg Documented By: ELIZABETH Nifedipine (Nifedipine Er 30 Mg Tab.Er.24) 60 mg PO DAILY [facility] Last Admin: 08/11/25 09:51 Dose: 60 mg Documented By: JENNIFER Ondansetron HCl (Ondansetron Hcl 4 Mg/2 Ml Vial) 4 mg IVPUSH Q8H PRN PRN Reason: Nausea and Vomiting Polyethylene Glycol (Polyethylene Glycol 3350 17 Gm Powd.Pack) 17 gm PO DAILY [facility] Last Admin: 08/11/25 10:00 Dose: Not Given Documented By: JENNIFER Non-Admin Reason: Patient Refused Prednisone (Prednisone 20 Mg Tablet) 60 mg PO DAILY [facility] Stop: 08/20/25 08:59 Senna/Docusate Sodium (Sennosides/Docusate Sodium Tablet) 2 tab PO DAILY [facility] Last Admin: 08/11/25 09:51 Dose: 2 tab Documented By: JENNIFER Sodium Bicarbonate (Sodium Bicarbonate 650 Mg Tablet) 650 mg PO BID [facility] Last Admin: 08/11/25 21:47 Dose: 650 mg Documented By: ELIZABETH Sodium Biphosphate/Sodium Phosphate (Sodium Phosphate,Walker-Dibasic 133 Ml Enema) 133 ml [place] ONCE PRN PRN Reason: Constipation Sodium Chloride (0.9 % Sodium Chloride Flush 3 Ml Syringe) 3 ml IVFLUSH QSHIFT [facility] Last Admin: 08/11/25 21:49 Dose: 3 ml Documented By: ELIZABETH Sodium Zirconium Cyclosilicate (Sodium Zirconium Cyclosilicate 10 Gm Powd.Pack) 10 gm PO DAILY PRN PRN Reason: Potassium >5.1 Zinc Acetate/Diphenhydramine (Diphenhydramine Hcl 2 % Cream 28 Gm Tube) 1 appl TOPICAL TID PRN; Protocol PRN Reason: Rash Labs 08/12/25 06:30 08/12/25 06:30 Labs: Laboratory Results - last 24 hr 08/07/25 08/11/25 08/12/25 04:10 06:19 06:30 MCV 89.5 MCH 29.3 MCHC 32.8 RDW 12.7 Plt Count 243 MPV 9.3 L Absolute Nucleated RBC 0.000 Nucleated RBC % (auto) 0.0 Anion Gap 12 Estim Creat Clear Calc 24.1 Estimated GFR 19 Random Glucose 155 H Calcium 8.0 L Methylmalonic Acid 448 H Assessment and Plan (1) Acute kidney injury: Status: Acute (2) Hypertensive urgency: Status: Acute Plan A 45-year-old woman with a history of systemic lupus erythematosus on immunosuppressive therapy (mycophenolate, hydroxychloroquine), 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 daily x7 days with 10 mg tapering every week to maintain 40 mg daily until renal biopsy results available Will need to follow up with Nephrology outpatient #MARQUES on CKD3 in the setting of acute lupus flare Associated with metabolic acidosis and mild hyperkalemia Creatinine improved but now plateauing Renal duplex ultrasound without evidence of renal artery stenosis or abnormal waveforms; renal parenchyma normal Underwent renal biopsy on 08/09 UA negative Nephrology following Will check ANCA, urine creatinine, and double-stranded DNA C3, C4 low Follow CMP daily #Acute urinary retention Pt unable to urinate despite straight cath x2 Briggs placed on night of 08/09 Likely secondary to acute Guillain-[place] syndrome Continuing to have hemauria and blood clots causing obstructive uropathy and Briggs was exchanged overnight Will likely be DC on Briggs with OP voiding trials #Acute on chronic anemia H&H at her baseline Likely secondary to acute lupus flare Continue to monitor CBC Hypertensive urgency with headache BP as high as 193/104 Likely in the setting of acute lupus flare Nifedipine increased from 30 mg ER to 60 mg ER Labetalol 20mg IV is SBP >180 or DBP >120 Tylenol for headache Treat SLE flare as above Closely monitor BP Hold home ARB/HUGO -ve #Constipation Lactulose and colace prn #Rash on back, improving Topical corticosteroids and diphenhydramine Code status: Full Code VTE: Heparin SQ Disposition: Home , cleared by PT/OT Pt requires continued hospitalization for treatment of acute Guillain-[place] syndrome that requires IVIG infusions x5 days. Pt completed IVIG today. Given slow rate of infusion, pt will need continued hospitalization until at least 08/13. Quality Stroke Does the patient have a stroke diagnosis?: No VTE Prior VTE?: No VTE Risk Level:: Medical - moderate - high VTE Device Contraindication: Treatment Not Indicated VTE Drug Contraindication: N/A - Med Ordered
[2025-08-12 07:26] LABS: Anion Gap 10 (12-20); Blood Urea Nitrogen 65 mg/dL (9-16); Calcium 7.9 mg/dL (8.4-10.2); Carbon Dioxide 22 mmol/L (22-29); Chloride 110 mmol/L (96-108); Creatinine Clr Calc Pharmacy 25.2; Estimated Glomerular Filt Rate 20; Potassium 4.5 mmol/L (3.3-5.1); Sodium 137 mmol/L (135-145)
[2025-08-12] MEDS: NIFEdipine ER 30 MG TAB.ER.24 60 MG PO (07:50)
[2025-08-12] MEDS: 0.9 % Sodium Chloride Flush 3 ML SYRINGE IVFLUSH ×3 (07:51→23:40)
--- NOTE | 2025-08-12 10:37 | MHC.CM.PN ---
Per ROUNDS, Patient is not yet medically cleared for dc (IVIG today).
[2025-08-12 11:15] VITALS: BP 152/81; PULSE 98; RESP 18; TEMP 37.5; O2SAT 100
--- NOTE | 2025-08-12 15:02 | P.PNNP_ITS ---
Subjective Subjective Date of Service: 08/12/25 Interval history: Complains of flank pain and still has some hematuria Physical Exam 2 Vital Signs: Vital Signs: Last Vital Signs Temp 99.5 F 08/12/25 11:15 Pulse 98 08/12/25 11:15 Resp 18 08/12/25 11:15 BP 152/81 H 08/12/25 11:15 Pulse Ox 100 08/12/25 11:15 O2 Del Method Room Air 08/12/25 11:15 O2 Flow Rate 2 08/09/25 09:13 BMI result Body Mass Index 28.8 General: not in any acute distress, ill appearing Nutritional Appearance: well nourished and overweight Eyes: appearance normal, both eyes and all related structures; Alignment and Position: alignment normal and position normal Neck: No lymphadenopathy, no thyromegaly Resp: bilateral air entry equal, no added sounds present Cardio: Regular rate, regular rhythm; Heart sounds: S1 normal heart sound present and S2 normal heart sound present GI: soft, nontender, no guarding, no hepatosplenomegaly : bladder normal to inspection, bladder normal to palpation, no renal angle tenderness Skin: no rashes or lesions noted and elasticity normal Neuro: alert, oriented x 3, moves all extremities Objective Data Labs 08/12/25 06:30 08/12/25 06:30 Labs: Laboratory Results - last 24 hr 08/12/25 06:30 WBC 7.6 RBC 2.66 L Hgb 7.8 L Hct 23.8 L MCV 89.5 MCH 29.3 MCHC 32.8 RDW 12.7 Plt Count 243 MPV 9.3 L Absolute Nucleated RBC 0.000 Nucleated RBC % (auto) 0.0 Sodium 137 Potassium 4.5 Chloride 110 H Carbon Dioxide 22 Anion Gap 10 L BUN 65 H Creatinine 2.66 H Estim Creat Clear Calc 25.2 Estimated GFR 20 Random Glucose 82 Calcium 7.9 L Procedures Date of Service Date of Service: 08/12/25 Assessment & Plan Assessment and plan (1) Acute kidney injury: Status: Acute (2) CKD (chronic kidney disease) stage 3, GFR 30-59 ml/min: Status: Acute (3) Lupus: Status: Acute Plan Acute on chronic kidney disease: Lupus nephritis: Patient has lupus nephritis and follows up with Dr. Caal in Nephrology Clinic. Baseline creatinine about 2.48 in June 2025, increased to 3.22 upon presentation now treated with IVIG and prednisone due to concerns for lupus nephritis given low C3 (63) and C4 (6). She underwent renal biopsy on 08/09/2025, results are still pending. Complains of flank pain, hematuria is improving; no further clots. Continue Parham catheter for now until discharge. Renal ultrasound showed normal-sized kidneys 9.2 and 9.4 cm, no hydronephrosis or obstruction Can discharge home on prednisone 60 mg x 1 week followed by prednisone 50 mg x 1 week and then continue 40mg daily until visit in nephrology clinic once the pain and hematuria subsides. Time Spent With Patient Time: Total time managing care of this patient today ____ minutes. Progress Note: Quality Stroke Does the patient have a stroke diagnosis?: No
[2025-08-12 15:16] VITALS: BP 153/90; PULSE 108; RESP 16; TEMP 37.2; O2SAT 99
[2025-08-12] MEDS: Immune Globulin 10% Gammagard 10 GM/100 ML VIAL IV (15:39)
[2025-08-12] MEDS: Immune Globulin 10% Gammagard 20 GM/200 ML VIAL IV (18:19)
[2025-08-12 20:00] VITALS: BP 157/87; PULSE 104; RESP 18; TEMP 37.2; O2SAT 98
[2025-08-12 23:29] VITALS: BP 151/90; PULSE 105; RESP 18; TEMP 36.9; O2SAT 98
--- NOTE | 2025-08-12 23:44 | PC.NURSE ---
Patient c/o discomfort in area of bladder. Parham irrigated with 250 ml sterile water. Patient stating some relieve. Urine appears more clear at present. Bladder scanned for 0ml.
[2025-08-13 03:28] VITALS: BP 156/94; PULSE 103; RESP 16; TEMP 37; O2SAT 100
--- NOTE | 2025-08-13 06:18 | PC.NURSE ---
Patient's briggs removed after continually c/o bladder discomfort. Several hours later bladder scanned for 308 ml, briggs reinserted draining CYU. Administered Tylenol d/t bladder pain. Hospitalist notified. Patient sleeping at present time. Will continue to monitor.
[2025-08-13 06:32] LABS: Hematocrit 23.8 % (37.0-47.0); Hemoglobin 7.9 g/dl (12.0-16.0); Mean Corpuscular HGB Conc 33.2 g/dl (31.0-35.0); Mean Corpuscular Hemoglobin 29.2 pg (27.0-33.0); Mean Corpuscular Volume 87.8 fL (80.0-98.0); NRBC Abs Auto 0.000 X10*3/uL (0.0-0.012); NRBC Pct Auto 0.0 /100WBC (0.0-0.2); Platelet Count 238 X10*3/uL (160-400); Red Blood Count 2.71 X10*6/uL (4.20-5.50); White Blood Count 7.3 X10*3/uL (4.8-10.8)
[2025-08-13 06:49] LABS: Anion Gap 9 (12-20); Blood Urea Nitrogen 68 mg/dL (9-16); Calcium 7.8 mg/dL (8.4-10.2); Carbon Dioxide 22 mmol/L (22-29); Chloride 109 mmol/L (96-108); Creatinine Clr Calc Pharmacy 26.5; Estimated Glomerular Filt Rate 21; Magnesium 1.8 mg/dL (1.6-2.6); Potassium 4.3 mmol/L (3.3-5.1); Sodium 136 mmol/L (135-145)
--- NOTE | 2025-08-13 07:17 | HO.PM.IMPN ---
Subjective Subjective Date of Service: 08/13/25 Interval History: Hematuria + as evident in Briggs(apparently had blocked briggs) will receive ivig today op voiding trials Will need to be on prolonged steroid taper Review of Systems Review of Systems: Yes all other systems are reviewed and are negative Physical Exam Exam: Exam: General: AOx3, no acute distress Resp: CTA bilaterally CVS: S1, S2, RRR GI: +BS, NT, no distention Neuro: Cranial nerves II-XII grossly intact bilaterally. Motor grossly intact bilaterally. Visual field full. Symmetric bilateral 4/5 strength in upper and lower extremities. : Briggs in place, hematuria resolving Psych: Appropriate affect Vital Signs: Vital Signs: Last Vital Signs Temp 98.6 F 08/13/25 03:28 Pulse 103 H 08/13/25 03:28 Resp 16 08/13/25 03:28 BP 156/94 H 08/13/25 03:28 Pulse Ox 100 08/13/25 03:28 O2 Del Method Room Air 08/13/25 03:28 O2 Flow Rate 2 08/09/25 09:13 BMI result Body Mass Index 28.8 Objective Data Active Medications Acetaminophen (Acetaminophen 325 Mg Tablet) 650 mg PO Q6H PRN PRN Reason: Pain, Mild 1-3,fever,headache Last Admin: 08/13/25 05:07 Dose: 650 mg Documented By: VANESA Amlodipine Besylate (Amlodipine Besylate 10 Mg Tablet) 10 mg PO DAILY [facility]; Protocol Betamethasone Dipropion Augmented (Betamethasone Dip Aug 0.05% Cr 15 Gm Tube) 1 appl TOPICAL BID [facility]; Protocol Last Admin: 08/12/25 20:56 Dose: Not Given Documented By: VANESA Non-Admin Reason: Patient Refused Calcium Carbonate (Calcium Carbonate 750 Mg Tab.Chew) 750 mg PO Q4H PRN PRN Reason: Heartburn Docusate Sodium (Docusate Sodium 100 Mg Capsule) 100 mg PO BID PRN PRN Reason: Constipation Last Admin: 08/09/25 21:20 Dose: 100 mg Documented By: MARY Heparin Sodium (Porcine) (Heparin Sodium,Porcine 5,000 Unit/Ml Vial) 5,000 unit SUBCUT Q12H [facility] On Hold: 08/08/25 09:01 Last Admin: 08/08/25 09:37 Dose: Not Given Documented By: MAYRA Non-Admin Reason: Physician Held Med Hydroxychloroquine Sulfate (Hydroxychloroquine Sulfate 200 Mg Tablet) 400 mg PO DAILY [facility] Last Admin: 08/12/25 07:50 Dose: 400 mg Documented By: GUILLERMO Labetalol HCl (Labetalol Hcl 100 Mg/20 Ml Vial) 10 mg IVPUSH Q6H PRN PRN Reason: SBP >170 Last Admin: 08/11/25 08:20 Dose: 10 mg Documented By: JENNIFER Labetalol HCl (Labetalol Hcl 200 Mg Tablet) 200 mg PO BID [facility]; Protocol Magnesium Oxide (Magnesium Oxide 400 Mg Tablet) 400 mg PO DAILY [facility] Last Admin: 08/12/25 07:50 Dose: 400 mg Documented By: GUILLERMO Melatonin (Melatonin 3 Mg Tablet) 3 mg PO BEDTIME PRN PRN Reason: Insomnia Last Admin: 08/11/25 21:47 Dose: 3 mg Documented By: ELIZABETH Mycophenolate Mofetil (Mycophenolate Mofetil 250 Mg Capsule) 1,000 mg PO BID [facility] Last Admin: 08/12/25 20:55 Dose: 1,000 mg Documented By: VANESA Nifedipine (Nifedipine Er 30 Mg Tab.Er.24) 60 mg PO DAILY [facility] Last Admin: 08/12/25 07:50 Dose: 60 mg Documented By: GUILLERMO Ondansetron HCl (Ondansetron Hcl 4 Mg/2 Ml Vial) 4 mg IVPUSH Q8H PRN PRN Reason: Nausea and Vomiting Polyethylene Glycol (Polyethylene Glycol 3350 17 Gm Powd.Pack) 17 gm PO DAILY [facility] Last Admin: 08/12/25 07:50 Dose: 17 gm Documented By: GUILLERMO Prednisone (Prednisone 20 Mg Tablet) 60 mg PO DAILY [facility] Stop: 08/20/25 08:59 Senna/Docusate Sodium (Sennosides/Docusate Sodium Tablet) 2 tab PO DAILY [facility] Last Admin: 08/12/25 07:50 Dose: 2 tab Documented By: GUILLERMO Sodium Bicarbonate (Sodium Bicarbonate 650 Mg Tablet) 650 mg PO BID [facility] Last Admin: 08/12/25 20:55 Dose: 650 mg Documented By: VANESA Sodium Biphosphate/Sodium Phosphate (Sodium Phosphate,Kenton-Dibasic 133 Ml Enema) 133 ml MT ONCE PRN PRN Reason: Constipation Sodium Chloride (0.9 % Sodium Chloride Flush 3 Ml Syringe) 3 ml IVFLUSH QSHIFT [facility] Last Admin: 08/12/25 23:40 Dose: 3 ml Documented By: VANESA Sodium Zirconium Cyclosilicate (Sodium Zirconium Cyclosilicate 10 Gm Powd.Pack) 10 gm PO DAILY PRN PRN Reason: Potassium >5.1 Zinc Acetate/Diphenhydramine (Diphenhydramine Hcl 2 % Cream 28 Gm Tube) 1 appl TOPICAL TID PRN; Protocol PRN Reason: Rash Labs 08/13/25 05:50 08/13/25 05:50 Labs: Laboratory Results - last 24 hr 08/12/25 08/13/25 06:30 05:50 MCV 87.8 MCH 29.2 MCHC 33.2 RDW 13.0 Plt Count 238 MPV 9.3 L Absolute Nucleated RBC 0.000 Nucleated RBC % (auto) 0.0 Anion Gap 10 L 9 L Estim Creat Clear Calc 25.2 26.5 Estimated GFR 20 21 Random Glucose 82 76 Calcium 7.9 L 7.8 L Magnesium 1.8 Assessment and Plan (1) Acute kidney injury: Status: Acute (2) Hypertensive urgency: Status: Acute Plan A 45-year-old woman with a history of systemic lupus erythematosus on immunosuppressive therapy (mycophenolate, hydroxychloroquine), 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 daily x7 days with 10 mg tapering every week to maintain 40 mg daily until renal biopsy results available Will need to follow up with Nephrology outpatient #MARQUES on CKD3 in the setting of acute lupus flare Associated with metabolic acidosis and mild hyperkalemia Creatinine improved but now plateauing Renal duplex ultrasound without evidence of renal artery stenosis or abnormal waveforms; renal parenchyma normal Underwent renal biopsy on 08/09 UA negative Nephrology following Will check ANCA, urine creatinine, and double-stranded DNA C3, C4 low Follow CMP daily #Acute urinary retention Failed multiple voiding trials,Likely secondary to acute Guillain-[place] syndrome Resolving but persistent hemauria Start Pyridium for bladder spasms Will likely be DC on Briggs with OP voiding trials # severe pain secondary to Briggs Tylenol, Pyridium, Flomax Unfortunately patient has failed multiple voiding trials and, we will likely need to go home with Briggs #Acute on chronic anemia H&H at her baseline Likely secondary to acute lupus flare Continue to monitor CBC #Hypertensive urgency with headache Significantly elevated patient currently suboptimally controlled, gradually up titrating the blood pressure medications currently on Norvasc 10 mg, labetalol 200 mg p.o. b.i.d., nifedipine 60 mg daily Need to hold all home [place] or arbs given MARQUES on CKD 3 #Constipation Continue Lactulose and colace prn #Rash on back, improving Continue Topical corticosteroids and diphenhydramine Code status: Full Code VTE: Heparin SQ Disposition: Home , cleared by PT/OT Disposition, need for continued inpatient: Pt medically optimized, given severe intolerance of Briggs, to the point that the patient is wincing pain and staying awake overnight, we are adjusting pain medications accordingly. Consulted Urology and they would like to see if she is able to tolerate/pain resolution with above management and optimization of blood pressure control. This note is constructed using voice recognition software. While every effort has been made to ensure accuracy, cost control analyst errors may have been included. Quality Stroke Does the patient have a stroke diagnosis?: No VTE Prior VTE?: No VTE Risk Level:: Medical - moderate - high VTE Device Contraindication: Treatment Not Indicated VTE Drug Contraindication: N/A - Med Ordered
[2025-08-13 07:43] VITALS: BP 159/90; PULSE 104; RESP 20; TEMP 37.2; O2SAT 98
[2025-08-13] MEDS: NIFEdipine ER 30 MG TAB.ER.24 60 MG PO (08:26)
[2025-08-13] MEDS: Betamethasone Dip Aug 0.05% Cr 15 GM TUBE 1 APPL TOPICAL (08:26)
[2025-08-13] MEDS: 0.9 % Sodium Chloride Flush 3 ML SYRINGE IVFLUSH ×2 (08:27→16:07)
[2025-08-13 11:36] VITALS: BP 151/79; PULSE 104; RESP 20; TEMP 37.3; O2SAT 100
[2025-08-13] MEDS: oxyBUTYnin chloride ER 5 MG TAB.ER.24 10 MG PO (12:38)
--- NOTE | 2025-08-13 15:02 | PM.UROCN ---
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 Urology called to evaluated due to urinary retention. Review of Systems Review of Systems: Yes all other systems are reviewed and are negative Constitutional: Constitutional: Reports no additional constitutional complaints Eyes: Eyes: Reports no additional eye complaints ENT: Reports system reviewed and no additional complaints, except as documented Cardiovascular: Cardiovascular: Reports no additional cardiovascular complaints Respiratory: Respiratory: Reports no additional respiratory complaints Gastrointestinal: Gastrointestinal: Reports no additional gastrointestinal complaints Genitourinary: Genitourinary: Reports as per HPI Musculoskeletal: Musculoskeletal: Reports no additional musculoskeletal complaints Integumentary/Breasts: Skin/Breast: Reports system reviewed and no additional complaints, except as docu Neurologic: Reports system reviewed and no additional complaints, except as documented Psychiatric: Psychiatric: Reports no additional psychiatric complaints Endocrine: Endocrine: Reports no additional endocrine complaints Hematologic/Lymphatic: Hematologic/Lymphatic: Reports no additional hematologic/lymphatic complaints Allergic/Immunologic: Allergic/Immunologic: Reports no additional allergic/immunologic complaints [facility] Past Medical History Medical History (Updated 08/22/25 @ 00:01 by Sylwia Gray) Hypersomnia Insomnia Transient left leg weakness Numbness and tingling of left side of face HTN (hypertension) Lupus Family History Family History Mother Hypertension Social History Social History Household Members: None Housing: House Do you presently have visiting nurse or other home services: No Alcohol intake: unknown Patient Tobacco Use Status: Never used Tobacco service: No Meds Allergies Allergy/AdvReac Type Severity Reaction Status Date / Time hydrocodone Allergy Unknown UNKNOWN Verified 08/06/25 13:46 oxycodone (OXYCODONE) Allergy Unknown TONGUE Verified 08/06/25 13:46 SWELLING Active Medications: Current Medications Acetaminophen (Acetaminophen 325 Mg Tablet) 650 mg PO Q6H PRN PRN Reason: Pain, Mild 1-3,fever,headache Last Admin: 08/13/25 05:07 Dose: 650 mg Amlodipine Besylate (Amlodipine Besylate 10 Mg Tablet) 10 mg PO DAILY [facility]; Protocol Last Admin: 08/13/25 08:26 Dose: 10 mg Betamethasone Dipropion Augmented (Betamethasone Dip Aug 0.05% Cr 15 Gm Tube) 1 appl TOPICAL BID [facility]; Protocol Last Admin: 08/13/25 08:26 Dose: 1 appl Calcium Carbonate (Calcium Carbonate 750 Mg Tab.Chew) 750 mg PO Q4H PRN PRN Reason: Heartburn Docusate Sodium (Docusate Sodium 100 Mg Capsule) 100 mg PO BID PRN PRN Reason: Constipation Last Admin: 08/09/25 21:20 Dose: 100 mg Heparin Sodium (Porcine) (Heparin Sodium,Porcine 5,000 Unit/Ml Vial) 5,000 unit SUBCUT Q12H RONNA On Hold: 08/08/25 09:01 Last Admin: 08/08/25 09:37 Dose: Not Given Hydroxychloroquine Sulfate (Hydroxychloroquine Sulfate 200 Mg Tablet) 400 mg PO DAILY [facility] Last Admin: 08/13/25 08:25 Dose: 400 mg Labetalol HCl (Labetalol Hcl 100 Mg/20 Ml Vial) 10 mg IVPUSH Q6H PRN PRN Reason: SBP >170 Last Admin: 08/11/25 08:20 Dose: 10 mg Labetalol HCl (Labetalol Hcl 200 Mg Tablet) 200 mg PO BID [facility]; Protocol Last Admin: 08/13/25 08:25 Dose: 200 mg Magnesium Oxide (Magnesium Oxide 400 Mg Tablet) 400 mg PO DAILY [facility] Last Admin: 08/13/25 08:25 Dose: 400 mg Melatonin (Melatonin 3 Mg Tablet) 3 mg PO BEDTIME PRN PRN Reason: Insomnia Last Admin: 08/11/25 21:47 Dose: 3 mg Mycophenolate Mofetil (Mycophenolate Mofetil 250 Mg Capsule) 1,000 mg PO BID [facility] Last Admin: 08/13/25 08:25 Dose: 1,000 mg Nifedipine (Nifedipine Er 30 Mg Tab.Er.24) 60 mg PO DAILY [facility] Last Admin: 08/13/25 08:26 Dose: 60 mg Ondansetron HCl (Ondansetron Hcl 4 Mg/2 Ml Vial) 4 mg IVPUSH Q8H PRN PRN Reason: Nausea and Vomiting Oxybutynin Chloride (Oxybutynin Chloride Er 5 Mg Tab.Er.24) 10 mg PO DAILY [facility] Last Admin: 08/13/25 12:38 Dose: 10 mg Phenazopyridine HCl (Phenazopyridine Hcl 100 Mg Tablet) 100 mg PO TIDWM [facility] Stop: 08/14/25 12:01 Last Admin: 08/13/25 14:36 Dose: 100 mg Polyethylene Glycol (Polyethylene Glycol 3350 17 Gm Powd.Pack) 17 gm PO DAILY [facility] Last Admin: 08/13/25 08:24 Dose: 17 gm Prednisone (Prednisone 20 Mg Tablet) 60 mg PO DAILY [facility] Stop: 08/20/25 08:59 Last Admin: 08/13/25 08:26 Dose: 60 mg Senna/Docusate Sodium (Sennosides/Docusate Sodium Tablet) 2 tab PO DAILY [facility] Last Admin: 08/13/25 08:26 Dose: 2 tab Sodium Bicarbonate (Sodium Bicarbonate 650 Mg Tablet) 650 mg PO BID [facility] Last Admin: 08/13/25 08:26 Dose: 650 mg Sodium Biphosphate/Sodium Phosphate (Sodium Phosphate,Story-Dibasic 133 Ml Enema) 133 ml RI ONCE PRN PRN Reason: Constipation Sodium Chloride (0.9 % Sodium Chloride Flush 3 Ml Syringe) 3 ml IVFLUSH QSHIFT [facility] Last Admin: 08/13/25 08:27 Dose: 3 ml Sodium Zirconium Cyclosilicate (Sodium Zirconium Cyclosilicate 10 Gm Powd.Pack) 10 gm PO DAILY PRN PRN Reason: Potassium >5.1 Tamsulosin HCl (Tamsulosin Hcl 0.4 Mg Capsule) 0.4 mg PO DAILY [facility] Last Admin: 08/13/25 12:24 Dose: 0.4 mg Zinc Acetate/Diphenhydramine (Diphenhydramine Hcl 2 % Cream 28 Gm Tube) 1 appl TOPICAL TID PRN; Protocol PRN Reason: Rash Home Medications ?Medication ?Instructions ?Recorded ?Confirmed ?Last Taken ?Type hydroxychloroquine 200 mg tablet 400 mg PO DAILY 10/25/23 08/06/25 12/25/24 History mycophenolate mofetil 500 mg 1,000 mg PO BID 10/25/23 08/06/25 12/25/24 History tablet (CellCept) magnesium 200 mg tablet 200 mg PO DAILY restless leg 12/26/24 08/06/25 Unknown History L norgest/E estradiol-E estrad 1 tab PO DAILY 08/06/25 08/06/25 Unknown History 0.15 mg-30 mcg (84)/10 mcg(7) tabs,3mos (Simpesse) dextroamphetamine-amphetamine ER 1 cap PO DAILY 08/06/25 08/06/25 Unknown History 20 mg 24hr capsule,extend release Physical Exam Vital Signs: Vital Signs: Last Vital Signs Temp 99.1 F 08/13/25 11:36 Pulse 104 H 08/13/25 11:36 Resp 20 08/13/25 11:36 BP 151/79 H 08/13/25 11:36 Pulse Ox 100 08/13/25 11:36 O2 Del Method Room Air 08/13/25 11:36 O2 Flow Rate 2 08/09/25 09:13 BMI result Body Mass Index 28.8 Const: General: cooperative, healthy appearing and no acute distress Orientation/consciousness: patient oriented x3 HEENT: Head: Yes normal to inspection, Yes normocephalic and Yes atraumatic Eyes: Conjunctivae: conjunctivae normal Neck: Neck: Yes normal visual inspection and Yes trachea midline Chest: Chest palpation & inspection: normal inspection of the chest Resp: Effort & Inspection: normal respiratory effort GI: Inspection: Yes normal to inspection Neuro: General: patient oriented x3 Psych: Appearance: grossly normal Results Labs 08/14/25 06:13 08/14/25 06:13 Labs: Abnormal lab results 08/13/25 Range/Units 05:50 RBC 2.71 L (4.20-5.50) X10*6/uL Hgb 7.9 L (12.0-16.0) g/dl Hct 23.8 L (37.0-47.0) % MPV 9.3 L (9.4-12.3) fL Chloride 109 H (96-108) mmol/L Anion Gap 9 L (12-20) BUN 68 H (9-16) mg/dL Creatinine 2.53 H (0.5-1.4) mg/dL Calcium 7.8 L (8.4-10.2) mg/dL Short CBC 08/13/25 Range/Units 05:50 WBC 7.3 (4.8-10.8) X10*3/uL Hgb 7.9 L (12.0-16.0) g/dl Hct 23.8 L (37.0-47.0) % Plt Count 238 (160-400) X10*3/uL BMP 08/13/25 05:50 Sodium 136 Potassium 4.3 Chloride 109 H Carbon Dioxide 22 BUN 68 H Creatinine 2.53 H Calcium 7.8 L Urine 08/07/25 Range/Units 00:15 Urine Color Yellow Urine Appearance Clear Urine pH 6.5 (5.0-9.0) Ur Specific Opal 1.010 (1.005-1.025) Urine Protein 100 (2+) H (Neg-Trace) mg/dL Urine Glucose (UA) 100 H (Negative) mg/dL All other labs normal. Assessment and Plan (1) Gross hematuria: Status: Resolved (2) Urinary retention: Status: Acute (3) Dysuria: Status: Acute Plan Urinary retention, failed voiding trial send home with briggs pyridium for dysuria Procedures Date of Service Date of Service: 08/22/25
[2025-08-13 15:39] VITALS: BP 129/82; PULSE 102; RESP 18; TEMP 36.8; O2SAT 100
[2025-08-13 19:32] VITALS: BP 127/73; PULSE 104; RESP 18; TEMP 36.3; O2SAT 100
[2025-08-14] MEDS: 0.9 % Sodium Chloride Flush 3 ML SYRINGE IVFLUSH ×2 (00:17→08:44)
[2025-08-14 00:20] VITALS: BP 121/72; PULSE 112; RESP 18; TEMP 36.6; O2SAT 98
[2025-08-14 03:58] VITALS: BP 131/84; PULSE 112; RESP 17; TEMP 36.6; O2SAT 98
[2025-08-14 06:17] LABS: MANUAL DIFF FLAG NO
[2025-08-14 06:21] LABS: Hematocrit 22.7 % (37.0-47.0); Hemoglobin 7.4 g/dl (12.0-16.0); Imm Gran Abs Auto 0.13 X10*3/uL (0.00-0.03); Imm Gran Pct Auto 1.6 % (0.0-0.4); Lymphocytes Absolute Auto 1.1 X10*3/uL (1.2-4.9); Mean Corpuscular HGB Conc 32.6 g/dl (31.0-35.0); Mean Corpuscular Hemoglobin 29.0 pg (27.0-33.0); Mean Corpuscular Volume 89.0 fL (80.0-98.0); NRBC Abs Auto 0.000 X10*3/uL (0.0-0.012); NRBC Pct Auto 0.0 /100WBC (0.0-0.2); Platelet Count 220 X10*3/uL (160-400); Red Blood Count 2.55 X10*6/uL (4.20-5.50); White Blood Count 8.3 X10*3/uL (4.8-10.8)
[2025-08-14 06:42] LABS: Alanine Aminotransferase 23 U/L (0-31); Albumin Level 2.6 g/dL (3.5-5.0); Alkaline Phosphatase 98 U/L (39-117); Anion Gap 11 (12-20); Aspartate Amino Transferase 22 U/L (5-31); Blood Urea Nitrogen 68 mg/dL (9-16); Calcium 8.2 mg/dL (8.4-10.2); Carbon Dioxide 23 mmol/L (22-29); Chloride 109 mmol/L (96-108); Creatinine Clr Calc Pharmacy 25.8; Estimated Glomerular Filt Rate 20; Magnesium 1.9 mg/dL (1.6-2.6); Potassium 4.6 mmol/L (3.3-5.1); Sodium 138 mmol/L (135-145); Total Protein 7.3 g/dL (6.5-8.0)
--- NOTE | 2025-08-14 07:17 | HO.PM.IMPN ---
Subjective Subjective Date of Service: 08/14/25 Physical Exam Vital Signs: Vital Signs: Last Vital Signs Temp 97.9 F 08/14/25 03:58 Pulse 112 H 08/14/25 03:58 Resp 17 08/14/25 03:58 BP 131/84 08/14/25 03:58 Pulse Ox 98 08/14/25 03:58 O2 Del Method Room Air 08/14/25 03:58 O2 Flow Rate 2 08/09/25 09:13 BMI result Body Mass Index 28.8 Objective Data Active Medications Acetaminophen (Acetaminophen 325 Mg Tablet) 650 mg PO Q6H PRN PRN Reason: Pain, Mild 1-3,fever,headache Last Admin: 08/13/25 05:07 Dose: 650 mg Documented By: VANESA Amlodipine Besylate (Amlodipine Besylate 10 Mg Tablet) 10 mg PO DAILY [facility]; Protocol Last Admin: 08/13/25 08:26 Dose: 10 mg Documented By: GERMAN Betamethasone Dipropion Augmented (Betamethasone Dip Aug 0.05% Cr 15 Gm Tube) 1 appl TOPICAL BID [facility]; Protocol Last Admin: 08/13/25 20:56 Dose: Not Given Documented By: VANESA Non-Admin Reason: Patient Refused Calcium Carbonate (Calcium Carbonate 750 Mg Tab.Chew) 750 mg PO Q4H PRN PRN Reason: Heartburn Docusate Sodium (Docusate Sodium 100 Mg Capsule) 100 mg PO BID PRN PRN Reason: Constipation Last Admin: 08/09/25 21:20 Dose: 100 mg Documented By: MARY Heparin Sodium (Porcine) (Heparin Sodium,Porcine 5,000 Unit/Ml Vial) 5,000 unit SUBCUT Q12H RONNA On Hold: 08/08/25 09:01 Last Admin: 08/08/25 09:37 Dose: Not Given Documented By: MAYRA Non-Admin Reason: Physician Held Med Hydroxychloroquine Sulfate (Hydroxychloroquine Sulfate 200 Mg Tablet) 400 mg PO DAILY [facility] Last Admin: 08/13/25 08:25 Dose: 400 mg Documented By: GERMAN Labetalol HCl (Labetalol Hcl 100 Mg/20 Ml Vial) 10 mg IVPUSH Q6H PRN PRN Reason: SBP >170 Last Admin: 08/11/25 08:20 Dose: 10 mg Documented By: JENNIFER Labetalol HCl (Labetalol Hcl 200 Mg Tablet) 200 mg PO BID [facility]; Protocol Last Admin: 08/13/25 20:52 Dose: 200 mg Documented By: VANESA Magnesium Oxide (Magnesium Oxide 400 Mg Tablet) 400 mg PO DAILY [facility] Last Admin: 08/13/25 08:25 Dose: 400 mg Documented By: GERMAN Melatonin (Melatonin 3 Mg Tablet) 3 mg PO BEDTIME PRN PRN Reason: Insomnia Last Admin: 08/11/25 21:47 Dose: 3 mg Documented By: ELIZABETH Mycophenolate Mofetil (Mycophenolate Mofetil 250 Mg Capsule) 1,000 mg PO BID [facility] Last Admin: 08/13/25 20:52 Dose: 1,000 mg Documented By: VANESA Nifedipine (Nifedipine Er 30 Mg Tab.Er.24) 60 mg PO DAILY [facility] Last Admin: 08/13/25 08:26 Dose: 60 mg Documented By: GERMAN Ondansetron HCl (Ondansetron Hcl 4 Mg/2 Ml Vial) 4 mg IVPUSH Q8H PRN PRN Reason: Nausea and Vomiting Oxybutynin Chloride (Oxybutynin Chloride Er 5 Mg Tab.Er.24) 10 mg PO DAILY [facility] Last Admin: 08/13/25 12:38 Dose: 10 mg Documented By: GERMAN Phenazopyridine HCl (Phenazopyridine Hcl 100 Mg Tablet) 100 mg PO TIDWM [facility] Stop: 08/14/25 12:01 Last Admin: 08/13/25 16:06 Dose: 100 mg Documented By: SID Polyethylene Glycol (Polyethylene Glycol 3350 17 Gm Powd.Pack) 17 gm PO DAILY [facility] Last Admin: 08/13/25 08:24 Dose: 17 gm Documented By: GERMAN Prednisone (Prednisone 20 Mg Tablet) 60 mg PO DAILY [facility]; Taper Stop: 09/26/25 08:59 Senna/Docusate Sodium (Sennosides/Docusate Sodium Tablet) 2 tab PO DAILY [facility] Last Admin: 08/13/25 08:26 Dose: 2 tab Documented By: GERMAN Sodium Bicarbonate (Sodium Bicarbonate 650 Mg Tablet) 650 mg PO BID [facility] Last Admin: 08/13/25 20:52 Dose: 650 mg Documented By: VANESA Sodium Biphosphate/Sodium Phosphate (Sodium Phosphate,Arthur-Dibasic 133 Ml Enema) 133 ml [place] ONCE PRN PRN Reason: Constipation Sodium Chloride (0.9 % Sodium Chloride Flush 3 Ml Syringe) 3 ml IVFLUSH QSHIFT [facility] Last Admin: 08/14/25 00:17 Dose: 3 ml Documented By: VANESA Sodium Zirconium Cyclosilicate (Sodium Zirconium Cyclosilicate 10 Gm Powd.Pack) 10 gm PO DAILY PRN PRN Reason: Potassium >5.1 Tamsulosin HCl (Tamsulosin Hcl 0.4 Mg Capsule) 0.4 mg PO DAILY [facility] Last Admin: 08/13/25 12:24 Dose: 0.4 mg Documented By: MALDONHesham Zinc Acetate/Diphenhydramine (Diphenhydramine Hcl 2 % Cream 28 Gm Tube) 1 appl TOPICAL TID PRN; Protocol PRN Reason: Rash Labs 08/14/25 06:13 08/14/25 06:13 Labs: Laboratory Results - last 24 hr 08/14/25 06:13 MCV 89.0 MCH 29.0 MCHC 32.6 RDW 13.0 Plt Count 220 MPV 8.7 L Immature Gran % (Auto) 1.6 H Neut % (Auto) 76.2 H Lymph % (Auto) 12.8 L Arthur % (Auto) 9.3 Eos % (Auto) 0.0 Baso % (Auto) 0.1 Lymph # (Auto) 1.1 L Arthur # (Auto) 0.8 Eos # (Auto) 0.0 Baso # (Auto) 0.0 Abs Immat Gran (auto) 0.13 H Absolute Neuts (auto) 6.3 Absolute Nucleated RBC 0.000 Nucleated RBC % (auto) 0.0 Anion Gap 11 L Estim Creat Clear Calc 25.8 Estimated GFR 20 Random Glucose 87 Calcium 8.2 L Magnesium 1.9 Total Bilirubin 0.2 AST 22 ALT 23 Alkaline Phosphatase 98 Total Protein 7.3 Albumin 2.6 L Quality Stroke Does the patient have a stroke diagnosis?: No VTE Prior VTE?: No VTE Risk Level:: Medical - moderate - high VTE Device Contraindication: Treatment Not Indicated VTE Drug Contraindication: N/A - Med Ordered
[2025-08-14 07:28] VITALS: BP 141/82; PULSE 101; RESP 18; TEMP 37; O2SAT 99
[2025-08-14] MEDS: NIFEdipine ER 30 MG TAB.ER.24 60 MG PO (08:34)
[2025-08-14] MEDS: oxyBUTYnin chloride ER 5 MG TAB.ER.24 10 MG PO (08:35)
--- NOTE | 2025-08-14 10:58 | P.PNNP_ITS ---
Subjective Subjective Date of Service: 08/14/25 Physical Exam 2 Vital Signs: Vital Signs: Last Vital Signs Temp 98.6 F 08/14/25 07:28 Pulse 101 H 08/14/25 07:28 Resp 18 08/14/25 07:28 BP 141/82 H 08/14/25 07:28 Pulse Ox 99 08/14/25 07:28 O2 Del Method Room Air 08/14/25 07:28 O2 Flow Rate 2 08/09/25 09:13 BMI result Body Mass Index 28.8 General: not in any acute distress, ill appearing Nutritional Appearance: well nourished and overweight Eyes: appearance normal, both eyes and all related structures Neck: No lymphadenopathy, no thyromegaly Resp: bilateral air entry equal, no added sounds present Cardio: Regular rate, regular rhythm GI: soft, nontender, no guarding, no hepatosplenomegaly : bladder normal to inspection, bladder slightly tender l to palpation, no renal angle tenderness Skin: no rashes or lesions noted and elasticity normal Neuro: alert, oriented x 3, moves all extremities Objective Data Labs 08/14/25 06:13 08/14/25 06:13 Labs: Laboratory Results - last 24 hr 08/14/25 06:13 WBC 8.3 RBC 2.55 L Hgb 7.4 L Hct 22.7 L MCV 89.0 MCH 29.0 MCHC 32.6 RDW 13.0 Plt Count 220 MPV 8.7 L Immature Gran % (Auto) 1.6 H Neut % (Auto) 76.2 H Lymph % (Auto) 12.8 L [place] % (Auto) 9.3 Eos % (Auto) 0.0 Baso % (Auto) 0.1 Lymph # (Auto) 1.1 L [place] # (Auto) 0.8 Eos # (Auto) 0.0 Baso # (Auto) 0.0 Abs Immat Gran (auto) 0.13 H Absolute Neuts (auto) 6.3 Absolute Nucleated RBC 0.000 Nucleated RBC % (auto) 0.0 Sodium 138 Potassium 4.6 Chloride 109 H Carbon Dioxide 23 Anion Gap 11 L BUN 68 H Creatinine 2.60 H Estim Creat Clear Calc 25.8 Estimated GFR 20 Random Glucose 87 Calcium 8.2 L Magnesium 1.9 Total Bilirubin 0.2 AST 22 ALT 23 Alkaline Phosphatase 98 Total Protein 7.3 Albumin 2.6 L Procedures Date of Service Date of Service: 08/14/25 Assessment & Plan Assessment and plan (1) CKD (chronic kidney disease) stage 3, GFR 30-59 ml/min: Status: Acute (2) Acute kidney injury: Status: Acute (3) Lupus nephritis: Status: Acute Plan Acute on chronic kidney disease: Lupus nephritis: Patient has lupus nephritis and follows up with Dr. Caal in Nephrology Clinic. Baseline creatinine about 2.48 in June 2025, increased to 3.22 upon presentation now treated with IVIG and prednisone due to concerns for lupus nephritis given low C3 (63) and C4 (6). She is also on HCQS 400 and CellCept 1 g b.i.d for the management of lupus. She underwent renal biopsy on 08/09/2025, results are still pending. Creatinine is staying around 2.5-2.6. Complains of flank pain, hematuria is improving; no further clots. Continue Parham catheter for now until discharge, patient has a follow up appointment with Urology on Tuesday for voiding trials. Renal ultrasound showed normal-sized kidneys 9.2 and 9.4 cm, no hydronephrosis or obstruction Can discharge home on prednisone 60 mg x 1 week followed by prednisone 50 mg x 1 week and then continue 40mg daily until visit in nephrology clinic. Continue CellCept and hydroxychloroquine Hypertension: Blood pressure is well-controlled On labetalol 200 mg b.i.d., amlodipine 10, nifedipine 60 XL Time Spent With Patient Time: Total time managing care of this patient today ____ minutes. Progress Note: Quality Stroke Does the patient have a stroke diagnosis?: No
[2025-08-14 11:33] VITALS: BP 133/78; PULSE 98; RESP 18; TEMP 36.8; O2SAT 97
[2025-08-14 11:33] LABS: Anti Nuclear Antibody Pattern Nuclear, Speckled; Anti Nuclear Antibody Screen POSITIVE (NEGATIVE); Anti Nuclear Antibody Titer 1:1280 titer
--- NOTE | 2025-08-14 14:10 | P.DS_ITS ---
DS: Providers Provider Date of admission: 08/06/25 21:56 Date of discharge: 08/14/25 Primary care physician: Maria T Ac MD Consults: 08/06/25 23:03 Consult to Nephrology Routine Consulting Provider: [facility] Reason for consultation: MARQUES on CKD SLE 08/06/25 23:08 Consult to Neurology Routine Consulting Provider: [facility] Reason for consultation: paraesthesia 08/13/25 06:00 Consult to Urology Routine Consulting Provider: [facility] Reason for consultation: briggs blood clots , hematuria , Lupus flare DS: Diagnosis Discharge Diagnosis (1) CKD (chronic kidney disease) stage 3, GFR 30-59 ml/min: Status: Acute (2) Acute kidney injury: Status: Acute (3) Lupus nephritis: Status: Acute DS: Summary Hospital Course Hospital Course: Chief Complaint: High BP, headache, weakness A 45-year-old woman with a history of systemic lupus erythematosus on immunosu ppressive therapy (mycophenolate, hydroxychloroquine), 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 She also reports headaches over the past three days, mainly occipital, which have been partially relieved by Tylenol or Aleve. She denies any acute changes in vision, speech, or coordination. Home blood pressure readings have been elevated, reaching up to 164/120 mmHg. Her metoprolol dose was increased from 50 mg to 100 mg, but subsequently discontinued by her cytopathology technologist after she developed a pruritic rash > 1 week ago on her legs and back managed with a topical steroid; the rash persists on her back. Telmisartan was started yesterday for ongoing hypertension. About three weeks ago, the patient traveled to [place], where she developed bilateral lower extremity edema and fatigue. The edema improved after a course of prednisone, but persistent fatigue has continued since her return. She contacted her strategic planning director at that time, and the patient believed these symptoms were related to a lupus flare. At the time of evaluation, she denied having a headache. ED course: On arrival, she was hypertensive (BP up to 190/114), tachycardic, and had a pruritic rash on her back and right upper extremity. Labs revealed acute on chronic kidney injury (Cr 3.24, baseline 1.39 in September), hyperkalemia (K 5.2), anemia (Hgb 9.3), and mild transaminitis. She received IV labetalol, hydrochlorothiazide, Clonidine 0.2 mg oral, sodium bicarbonate, HCTZ 25 mg and fluids. EKG was unremarkable. CT head wo contrast negative for acute pathology. Lab results Hgb 9.3 g/dL, Hct 28.1%, creatinine 2.48->3.24 mg/dL, ESR 63 mm/hr, CRP 1.71 mg/dL, and AST 56 U/L, ALT 37 U/L, ALP 194 U/L. CO319 mmol/L, K 5.2 mmol/L, and hypoalbuminemia (3.3 g/dL). Hospital course: The patient was admitted with MARQUES on CKD in the setting of a suspected acute lupus flare, presenting with 2?3 weeks of progressive peripheral numbness and tingling. 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: Symptoms: Peripheral paresthesias, limb weakness Workup: Abnormal 4 limb nerve conduction study showing moderate to severe acute demyelinating neuropathy Management: Completed IVIG x 5 days (completed 08/12/25) Continued pre medications including methylprednisolone and diphenhydramine Neurology involved; symptoms stabilized Acute Lupus Flare: Treated with IV methylprednisolone (Solu Medrol) 500 mg daily x 3 days, last dose on 08/09 Transitioned to prednisone 60 mg PO daily starting 08/13 x 7 days, with plan to taper by 10 mg weekly to 40 mg daily pending renal biopsy results Complement levels low (C3, C4) Requires close outpatient nephrology follow?up MARQUES on CKD IIIA: Associated metabolic acidosis and mild hyperkalemia Creatinine improved but plateaued Renal duplex ultrasound: No renal artery stenosis; normal parenchyma Renal biopsy performed 08/09 UA negative Nephrology followed inpatient Additional labs: ANCA, urine creatinine, dsDNA ordered -pending at the time of DC CMP to be done in 2 days - to be f/up with PCP/Nephrology Hypertensive Urgency: Presented with significantly elevated blood pressures and headache Managed with gradual titration of antihypertensives Discharge regimen includes amlodipine 10 mg daily, labetalol 200 mg PO BID, nifedipine 60 mg daily HUGO inhibitors/ARBs held due to MARQUES Acute Urinary Retention: Likely secondary to 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 Failed multiple voiding trials Persistent hematuria but improving Managed with Pyridium for bladder spasms Plan to discharge with Briggs catheter and outpatient urology follow?up for repeat voiding trials Pain Secondary to Briggs: Significant discomfort impacting sleep Managed with acetaminophen, Pyridium, and tamsulosin Urology consulted; plan to continue conservative management outpatient -OP voiding trials Acute on Chronic Anemia: Hemoglobin at baseline Likely related to lupus flare CBC monitored; no transfusion required Constipation: Managed with lactulose and docusate PRN Rash on Back: Improving with topical corticosteroids and diphenhydramine Discharge Status Condition: Medically optimized for discharge Disposition: Home PT/OT: Cleared VTE Prophylaxis: Heparin SQ during admission Code Status: Full Code Reason for Prolonged Stay: Severe Briggs associated pain and need for blood pressure optimization. Urology recommended OP t management until pain improved. Discharge Plans & Follow Up: Nephrology: Urgent outpatient follow up for biopsy results and steroid management Neurology: Follow up for Guillain Gardiner? recovery Urology: Outpatient Briggs management and voiding trials Primary Care: Blood pressure monitoring and coordination of care This note was generated using voice recognition software; inadvertent bit tripoler errors may be present. Time spent discussing smoking cessation with patient: more than 10 minutes Status at Discharge Functional status at discharge: independent ambulation Overall status at discharge: patient is back to baseline Time Attestation Discharge Coordination Time (in mins): 75 Quality: Safe Use of Opioids Does Pt have an Active Cancer Diagnosis on the Problem List?: No Quality: Stroke Does the patient have a stroke diagnosis?: No Physical Exam Vital Signs: Vital Signs: Last Vital Signs Temp 98.2 F 08/14/25 11:33 Pulse 98 08/14/25 11:33 Resp 18 08/14/25 11:33 BP 133/78 08/14/25 11:33 Pulse Ox 97 08/14/25 11:33 O2 Del Method Room Air 08/14/25 11:33 O2 Flow Rate 2 08/09/25 09:13 BMI result Body Mass Index 28.8 DS: Data Data Completed and Pending Pending studies at discharge: Pending at discharge 08/09/25 09:39 Surgical Path [Surgical] [PTH] Routine Labs on day of discharge: Laboratory Results - last 24 hr 08/07/25 08/14/25 10:15 06:13 WBC 8.3 RBC 2.55 L Hgb 7.4 L Hct 22.7 L MCV 89.0 MCH 29.0 MCHC 32.6 RDW 13.0 Plt Count 220 MPV 8.7 L Immature Gran % (Auto) 1.6 H Neut % (Auto) 76.2 H Lymph % (Auto) 12.8 L Stevens % (Auto) 9.3 Eos % (Auto) 0.0 Baso % (Auto) 0.1 Lymph # (Auto) 1.1 L Stevens # (Auto) 0.8 Eos # (Auto) 0.0 Baso # (Auto) 0.0 Abs Immat Gran (auto) 0.13 H Absolute Neuts (auto) 6.3 Absolute Nucleated RBC 0.000 Nucleated RBC % (auto) 0.0 Sodium 138 Potassium 4.6 Chloride 109 H Carbon Dioxide 23 Anion Gap 11 L BUN 68 H Creatinine 2.60 H Estim Creat Clear Calc 25.8 Estimated GFR 20 Random Glucose 87 Calcium 8.2 L Magnesium 1.9 Total Bilirubin 0.2 AST 22 ALT 23 Alkaline Phosphatase 98 Total Protein 7.3 Albumin 2.6 L GRACE Screen POSITIVE A GRACE Titer 1:1280 H GRACE Titer 2 1:40 H GRACE Pattern Nuclear, Speckled A GRACE Pattern 2 Nuclear, Homogeneous A Discharge Plan Discharge Anticipated Discharge Date/Time: 08/14/25 13:52 Patient Disposition: Home, Self-Care Discharge Diagnosis: Acute lupus flare causing GBS, MARQUES on CKD 3, gross hematuria, acute urinary retention Referrals: [facility] [Provider Group, Rheumatology] - 1 Week Maria T Ac MD [Primary Care Provider, Internal Medicine] - 1 Week Oc Sanford MD [Physician, Urology] - 1 Week Referral Note: Patient has an appointment in October, patient is immunosuppressed, would benefit from an early appointment Trevon Caal MD [Physician, Nephrology] - 1 Week Discharge Medications: New tamsulosin 0.4 mg Capsule 0.4 mg PO DAILY 30 Days Qty: 30 3RF amlodipine 10 mg Tablet 10 mg PO DAILY 30 Days Qty: 30 3RF Protocol: Hold for SBP< HOLD for SBP < : 90 labetalol 200 mg Tablet 200 mg PO BID 30 Days Qty: 60 3RF Protocol: Hold for SBP/HR < HOLD for SBP < : 90 HOLD for HR < : 60 Lokelma 10 gram Powder In Packet 10 g PO DAILY PRN (Reason: Potassium >5.1) Qty: 11 0RF prednisone 20 mg Tablet 60 mg PO DAILY Qty: 43 0RF Taper: Prednisone 60 mg daily for 6 Days and 0 Hour 50 mg daily for 7 Days and 0 Hour 40 mg daily for 30 Days and 0 Hour Rx Instructions: PhaseDose (mg)Duration (days)Total tablets Phase 05861 Phase 37256 Phase 1293540 Total??43 betamethasone, augmented 0.05 % Cream 1 appl topical BID Qty: 15 0RF Protocol: Apply to: Apply to: back and shoulders oxybutynin chloride 5 mg Tablet Extended Release 24hr 10 mg PO DAILY 30 Days Qty: 60 3RF Banophen Anti-Itch 2-0.1 % Cream 1 appl topical TID PRN (Reason: Rash) 7 Days Qty: 28 0RF Protocol: Apply to: Apply to: back and shoulders Continued nifedipine 30 mg tablet extended release 30 mg PO DAILY Qty: 30 0RF telmisartan 20 mg tablet 20 mg PO DAILY Qty: 90 0RF prednisone 5 mg tablet 5 mg PO DAILY dextroamphetamine-amphetamine 20 mg capsule,extended release 24hr 1 cap PO DAILY L norgest/e.estradiol-e.estrad [Simpesse] 0.15 mg-30 mcg (84)/10 mcg (7) tablets,dose pack,3 month 1 tab PO DAILY magnesium 200 mg Tablet 200 mg PO DAILY mycophenolate mofetil [CellCept] 500 mg tablet 1,000 mg PO BID hydroxychloroquine 200 mg tablet 400 mg PO DAILY Discharge Orders: Discharge Order (Routine); Ordered 08/14/25 Ordered By: Carmen Hsieh Diet: Low salt diet Activity on Discharge: As tolerated Stand Alone Forms: Patient Portal Discharge page Print Language: Mohawk Other Ambulatory Orders: Comprehensive Met. Panel (Routine) Timeframe: 2 Days Facility: [facility] - Location: Laboratory Ordered By: Carmen Hsieh Care Plan Goals: Patient needs closer urological follow-up to remove the Briggs and check voiding trials as she is immunocompromised Patient needs to follow up with Rheumatology within a week for her lupus flare (I am unable to see who she follows)-patient aware that she needs to call Patient needs to follow up with Nephrology for MARQUES on CKD 3 due to lupus flare Patient needs to follow up with primary care within a week after discharge Health Concerns: See above Plan of Treatment: See above Assessment: See above
--- NOTE | 2025-08-14 14:32 | MHC.CM.PN ---
Patient has been medically cleared for dc to home today; [facility] is aware of today's dc.
--- NOTE | 2025-08-14 14:33 | W.MHC.F2F ---
Service Date Service Date: 08/14/25 Encounter Date of encounter: 08/14/25 Reasons for Services Signs and symptoms assessed: Need for Parham catheter management, VNA services Reason for mcc: medication management and medication treatment Reason for physical therapy: home safety and mobility, therapeutic exercises, gait/transfer training and ADL training Reason for occupational therapy: home safety and mobility, therapeutic exercises, gait/transfer training and ADL training Homebound: Leaving the home is medically contraindicated at this time without the asist of a device and/or another person due th the listed conditions above and below. Reason homebound: other Homebound supporting statement: Patient needs VNA services for Parham catheter management Certification: Based on the above findings, I certify that this patient is confined to the home and needs intermittent mcc care, physical therapy and/or speech therapy, or continues to need occupational therapy. The patient is under my care, and I have initiated the establishment of the plan of care. The patient will be followed by a physician who will periodically review the plan of care. Time Spent With Patient Time: Total time managing care of this patient today ____ minutes.
[2025-08-15 08:44] LABS: DNAds, Crithidia Antibody Positive (Negative)
[2025-08-15 09:03] LABS: DNAds, Crithidia Antibody >=1:1280 titer (<1:10)
== END 2025-08-14 15:52 | disposition home health service (06) | DRG 95 ==
LOC: HO.ED 21:55 → HO.EDOVER 22:00 → HO.IMC 08-07 19:16
PROVIDERS: Internal Medicine Hypertension Specialist; Physician Assistant; Radiology Diagnostic Radiology; Student in an Organized Health Care Education/Training Program; Admitting Provider Family Medicine; Emergency Provider Student in an Organized Health Care Education/Training Program; PCP Internal Medicine; Visit Provider Student in an Organized Health Care Education/Training Program
PROC: 0TB03ZX Excision of Right Kidney, Percutaneous Approach, Diagnostic (ICD-10-PCS; principal; 2025-08-09 08:00)
DX: G61.0 Guillain-Barre syndrome (principal); N17.9 Acute kidney failure, unspecified; M32.14 Glomerular disease in systemic lupus erythematosus; N18.31 Chronic kidney disease, stage 3a; E87.5 Hyperkalemia; I16.0 Hypertensive urgency; I10 Essential (primary) hypertension; R21 Rash and other nonspecific skin eruption; R33.9 Retention of urine, unspecified; D63.8 Anemia in other chronic diseases classified elsewhere; K59.00 Constipation, unspecified; R31.0 Gross hematuria; Z79.899 Other long term (current) drug therapy
CPT/HCPCS: 36415; 50200; 70450; 76775; 77012; 80048; 80053; 81001; 82570; 82607; 82746; 82947; 83735; 83921; 84156; 84484; 85025; 85027; 85610; 85652; 85730; 86038; 86039; 86140; 86160; 86255; 88300; 88305; 93005; 93975; 95913; 99152; 99285; J1200; J1308; J1569; J1644; J1920; J2250; J2919; J3010; J7120

== ENCOUNTER → 2025-08-06 13:45 | Outpatient (BNV) | payer OTHER, SELFPAY | PROVIDERS: Emergency Provider Student in an Organized Health Care Education/Training Program; PCP Internal Medicine; Visit Provider Radiology Diagnostic Radiology | DX: R51.9 Headache, unspecified (principal); R03.0 Elevated blood-pressure reading, without diagnosis of hypertension | CPT/HCPCS: 70450 ==

== ENCOUNTER → 2025-08-06 13:45 | Outpatient (BNV) | payer OTHER, SELFPAY | PROVIDERS: Emergency Provider Student in an Organized Health Care Education/Training Program; PCP Internal Medicine; Visit Provider Internal Medicine Cardiovascular Disease | DX: R94.31 Abnormal electrocardiogram [ECG] [EKG] (principal); R03.0 Elevated blood-pressure reading, without diagnosis of hypertension | CPT/HCPCS: 93010 ==

== ENCOUNTER 2025-08-06 21:56 | Outpatient (BNV) | payer OTHER, SELFPAY | END 2025-08-07 15:30 | PROVIDERS: Admitting Provider Family Medicine; Emergency Provider Student in an Organized Health Care Education/Training Program; PCP Internal Medicine; Visit Provider Psychiatry & Neurology Neurology | DX: G62.89 Other specified polyneuropathies (principal) | CPT/HCPCS: 95913 ==

== ENCOUNTER 2025-08-06 21:56 | Outpatient (BNV) | payer OTHER, SELFPAY | END 2025-08-09 06:00 | PROVIDERS: Admitting Provider Family Medicine; Emergency Provider Student in an Organized Health Care Education/Training Program; PCP Internal Medicine; Visit Provider Radiology Diagnostic Radiology | DX: N17.9 Acute kidney failure, unspecified (principal); N18.30 Chronic kidney disease, stage 3 unspecified | CPT/HCPCS: 50200; 77012 ==

== ENCOUNTER 2025-08-06 21:56 | Outpatient (BNV) | payer OTHER, SELFPAY | END 2025-08-07 09:36 | PROVIDERS: Admitting Provider Family Medicine; Emergency Provider Student in an Organized Health Care Education/Training Program; PCP Internal Medicine; Visit Provider Radiology Diagnostic Radiology | DX: M32.9 Systemic lupus erythematosus, unspecified (principal); I10 Essential (primary) hypertension | CPT/HCPCS: 76775; 93975 ==

== ENCOUNTER → 2025-08-06 21:56 | Outpatient (BNV) | payer OTHER, SELFPAY | PROVIDERS: Admitting Provider Family Medicine; Emergency Provider Student in an Organized Health Care Education/Training Program; PCP Internal Medicine; Visit Provider Psychiatry & Neurology Neurology | DX: R20.2 Paresthesia of skin (principal) | CPT/HCPCS: 99222 ==

== ENCOUNTER → 2025-08-06 21:56 | Outpatient (BNV) | payer OTHER, SELFPAY | PROVIDERS: Admitting Provider Family Medicine; Emergency Provider Student in an Organized Health Care Education/Training Program; PCP Internal Medicine; Visit Provider Family Medicine | DX: I16.0 Hypertensive urgency (principal); N17.9 Acute kidney failure, unspecified; N18.31 Chronic kidney disease, stage 3a; M32.14 Glomerular disease in systemic lupus erythematosus | CPT/HCPCS: 99222; 99232; 99233 ==

== ENCOUNTER → 2025-08-06 21:56 | Outpatient (BNV) | payer OTHER, SELFPAY | PROVIDERS: Admitting Provider Family Medicine; Emergency Provider Student in an Organized Health Care Education/Training Program; PCP Internal Medicine; Visit Provider Urology | DX: R31.0 Gross hematuria (principal); R33.9 Retention of urine, unspecified; R30.0 Dysuria | CPT/HCPCS: 99222 ==

== ENCOUNTER → 2025-08-06 21:56 | Outpatient (BNV) | payer OTHER, SELFPAY | PROVIDERS: Admitting Provider Family Medicine; Emergency Provider Student in an Organized Health Care Education/Training Program; PCP Internal Medicine; Visit Provider Internal Medicine Nephrology | DX: I10 Essential (primary) hypertension (principal); N18.32 Chronic kidney disease, stage 3b; N17.9 Acute kidney failure, unspecified; M32.9 Systemic lupus erythematosus, unspecified | CPT/HCPCS: 99232 ==

== ENCOUNTER → 2025-08-06 21:56 | Outpatient (BNV) | payer OTHER, SELFPAY | PROVIDERS: Admitting Provider Family Medicine; Emergency Provider Student in an Organized Health Care Education/Training Program; PCP Internal Medicine; Visit Provider Internal Medicine Critical Care Medicine | DX: N18.32 Chronic kidney disease, stage 3b (principal); N17.9 Acute kidney failure, unspecified; M32.14 Glomerular disease in systemic lupus erythematosus | CPT/HCPCS: 99233 ==

== ENCOUNTER 2025-08-16 08:36 | Outpatient (REF) | payer OTHER, SELFPAY ==
--- OUTSIDE RECORDS SUMMARY | 2025-08-16 08:40 | XMS_ITS | Encounter Summary ---
Author Organization [facility] Address [address] [place] [address] Phone Care Team Providers Care Bell Attendant Name Role Phone Maria T Ac MD Primary Care Provider Reason for Visit * Reason Comments Med Refill Encounter Details Date Type Department Care Team (Late st Contact Info) Description 11/15/2021 Refill [facility] [address] [place] [address] Trevon Caal MD Social History [...] on filedocumented in this encounter Care Teams Bell Attendant Relationship Specialty Start Date End Date Maria T Ac MD [address] [place] [address] PCP - General 09/01/20 documented as of this encounter
--- OUTSIDE RECORDS SUMMARY | 2025-08-16 08:40 | XMS_ITS | Clinical Summary ---
Author Organization [facility] Address [address] [place] [address] Phone Care Team Providers Care Real Estate Attorney Name Role Phone Maria T Ac MD [...] PCV) 2001 Influenza Vaccine (#1) 2025 Insurance [facility] Medicaid [place] [facility] Medicaid [place] Care Teams Real Estate Attorney Relationship Specialty Start Date End Date Maria T Ac MD [facility] [address] PCP - General 09/01/20
--- OUTSIDE RECORDS SUMMARY | 2025-08-16 08:40 | XMS_ITS | Encounter Summary ---
Author Organization [facility] Address [address] [place] [address] Phone Care Team Providers Care Radiographer Cardiac Catheterization Name Role Phone Maria T Ac MD Primary Care Provider Encounter Details Date Type Department Care Team (Late st Contact Info) Description 07/29/2022 Telephone [facility] [address] [place] [address] Trevon Caal MD Social History [...] meds again. Please call her back at [phone] Thank you documented in this encounter Plan of Treatment Not on file documented as of this encounter Visit Diagnoses Not on filedocumented in this encounter Care Teams Radiographer Cardiac Catheterization Relationship Specialty Start Date End Date Maria T Ac MD [address] [place] [address] PCP - General 09/01/20 documented as of this encounter
--- OUTSIDE RECORDS SUMMARY | 2025-08-16 08:40 | XMS_ITS | Encounter Summary ---
Author Organization [facility] Address [address] [facility] [address] [place] [address] Phone Care Team Providers Care Supervisor Felling Bucking Name Role Phone Maria T Ac MD Primary Care Provider Reason for Visit * Reason Comments Med Refill Encounter Details Date Type Department Care Team (Late st Contact Info) Description 12/18/2022 Refill [facility] [address] [facility] [address] [place] [address] Prem Reyes MD [address] [facility] [address] [place] [address] Social History Tobacco Use Types [...] filedocumented in this encounter Care Teams Supervisor Felling Bucking Relationship Specialty Start Date End Date Maria T Ac MD [address] PCP - General 09/01/20 documented as of this encounter
[2025-08-16 10:05] LABS: Alanine Aminotransferase 38 U/L (0-31); Albumin Level 3.0 g/dL (3.5-5.0); Alkaline Phosphatase 110 U/L (39-117); Anion Gap 13 (12-20); Aspartate Amino Transferase 30 U/L (5-31); Blood Urea Nitrogen 82 mg/dL (9-16); Calcium 8.6 mg/dL (8.4-10.2); Carbon Dioxide 18 mmol/L (22-29); Chloride 111 mmol/L (96-108); Estimated Glomerular Filt Rate 15; Potassium 5.4 mmol/L (3.3-5.1); Sodium 137 mmol/L (135-145); Total Protein 7.8 g/dL (6.5-8.0)
== END 2025-08-16 08:37 | disposition home or self-care (01) ==
LOC: HO.LAB 08:36
PROVIDERS: Absent Provider Internal Medicine Hypertension Specialist; PCP Internal Medicine; Visit Provider Student in an Organized Health Care Education/Training Program
DX: N17.9 Acute kidney failure, unspecified (principal)
CPT/HCPCS: 36415; 80053